=== PATIENT | female | born 1945 | race Caucasian/White ===

== ENCOUNTER 2019-10-25 09:35 | Outpatient (RCR) | payer MEDICARE, SELFPAY ==
[2019-10-25 13:14] LABS: Basophils Absolute Auto 0.1 K/mm3 (0.0-0.1); Basophils Percent Auto 0.2 % (0.2-1.2); Eosinophils Absolute Auto 0.2 K/mm3 (0-0.3); Eosinophils Percent Auto 0.4 % (0-4.4); Hematocrit 38.2 % (37.0-47.0); Hemoglobin 11.1 g/dL (12.0-15.0); Immature Granulocyte Absolute 0.19 K/mm3 (0.00-0.031); Immature Granulocyte Percent A 0.3 % (0-0.5); Lymphocytes Percent Auto 82.9 % (18.3-44.2); Mean Corpuscular HGB Conc 29.1 g/dl (32-36); Mean Corpuscular Hemoglobin 27.4 pg (26-34); Mean Corpuscular Volume 94.3 fl (80-100); Mean Platelet Volume 12.7 fl (7.4-10.4); Monocytes Absolute Auto 1.7 K/mm3 (0.1-0.6); Neutrophils Absolute Auto 7.4 K/mm3 (1.3-6.7); Neutrophils Percent Auto 13.2 % (45.5-73.1); Platelet Count Result 289 k/mm3 (150-375); Red Blood Count 4.05 M/mm3 (4.2-5.4); Red Cell Distribution Width 19.1 % (11.5-14.5)
[2019-10-25 13:24] LABS: Alanine Aminotransferase 31 U/L (4-35); Albumin Level 3.8 g/dL (3.5-5.1); Alkaline Phosphatase 105 U/L (38-126); Aspartate Amino Transferase 37 U/L (14-36); Bilirubin,Total 0.5 mg/dL (0.2-1.3); Blood Urea Nitrogen 30 mg/dL (7-17); Calcium 9.1 mg/dL (8.4-10.2); Carbon Dioxide 22 mmol/L (22-30); Chloride 104 mmol/L (98-107); Estimated Glomerular Filt Rate 40; Glucose 152 mg/dL (65-105); Lactate Dehydrogenase 592 U/L (313-618); Potassium 5.1 mmol/L (3.4-5.0); Sodium 141 mmol/L (137-145)
[2019-10-25 13:49] LABS: White Blood Count 55.9 K/mm3 (4.5-10.0)
[2019-10-25 13:51] LABS: Atypical Lymphocytes Present; Platelet Estimate Adequate (Adequate); Smudge Cells MANY
== END 2020-01-23 23:59 | disposition home or self-care (01) ==
LOC: ANHWCLAB 09:35
PROVIDERS: PCP Family Medicine; Visit Provider Internal Medicine Hematology & Oncology
DX: C91.10 Chronic lymphocytic leukemia of B-cell type not having achieved remission (principal)
CPT/HCPCS: 36415; 80053; 83615; 85025

== ENCOUNTER 2019-12-13 10:12 | Outpatient (CLI) | payer MEDICARE, SELFPAY ==
[2019-12-13 13:18] LABS: Basophils Absolute Auto 0.1 K/mm3 (0.0-0.1); Basophils Percent Auto 0.1 % (0.2-1.2); Eosinophils Absolute Auto 0.3 K/mm3 (0-0.3); Eosinophils Percent Auto 0.4 % (0-4.4); Hematocrit 40.4 % (37.0-47.0); Hemoglobin 11.7 g/dL (12.0-15.0); Immature Granulocyte Absolute 0.36 K/mm3 (0.00-0.031); Immature Granulocyte Percent A 0.5 % (0-0.5); Lymphocytes Absolute Auto 59.71 K/mm3 (0.9-3.2); Mean Corpuscular Hemoglobin 27.2 pg (26-34); Mean Platelet Volume 12.9 fl (7.4-10.4); Monocytes Absolute Auto 1.9 K/mm3 (0.1-0.6); Monocytes Percent Auto 2.6 % (2.6-8.5); Neutrophils Absolute Auto 8.8 K/mm3 (1.3-6.7); Neutrophils Percent Auto 12.4 % (45.5-73.1); Platelet Count Result 226 k/mm3 (150-375); Red Cell Distribution Width 20.3 % (11.5-14.5)
[2019-12-13 13:42] LABS: White Blood Count 71.1 K/mm3 (4.5-10.0)
[2019-12-13 13:43] LABS: Platelet Estimate Adequate (Adequate); Smudge Cells FEW
[2019-12-13 13:47] LABS: Blood Urea Nitrogen 63 mg/dL (7-17); Calcium 9.5 mg/dL (8.4-10.2); Carbon Dioxide 16 mmol/L (22-30); Chloride 114 mmol/L (98-107); Estimated Glomerular Filt Rate 20; Glucose 114 mg/dL (65-105); Magnesium 1.9 mg/dL (1.6-2.3); Potassium 6.9 mmol/L (3.4-5.0); Sodium 142 mmol/L (137-145)
[2019-12-13 13:56] LABS: Free T4 Free Thyroxine 1.23 ng/mL (0.78-2.19); Vitamin D 25 Hydroxy 55.5 ng/mL
[2019-12-13 14:10] LABS: Total Triiodothyronine (T3) 0.99 NG/ML (0.97-1.69)
== END 2019-12-13 10:13 | disposition home or self-care (01) ==
PROVIDERS: PCP Family Medicine; Visit Provider Nurse Practitioner Family
DX: R53.83 Other fatigue (principal); I48.91 Unspecified atrial fibrillation; M19.90 Unspecified osteoarthritis, unspecified site; C91.10 Chronic lymphocytic leukemia of B-cell type not having achieved remission; M06.9 Rheumatoid arthritis, unspecified; R06.02 Shortness of breath; J44.9 Chronic obstructive pulmonary disease, unspecified; E55.9 Vitamin D deficiency, unspecified
CPT/HCPCS: 36415; 80048; 82306; 83735; 84100; 84439; 84443; 84480; 85025

== ENCOUNTER 2019-12-15 15:27 | Inpatient (IN) | payer MEDICARE, SELFPAY ==
[2019-12-15] VITALS (13 sets, daily range): BP systolic 107–149; BP diastolic 33–88; PULSE 53–77; RESP 16–28; TEMP 36–36.8; O2SAT 96–100; BMI 48.9
--- NOTE | ~2019-12-15 | XR_ITS ---
XR chest 1V portable DATE: 12/15/2019 17:05 INDICATION: Shortness of breath. TECHNIQUE: Portable upright AP chest on 12/15/2019 at 1700 hours COMPARISON: 04/11/2019 CT chest AP and lateral chest FINDINGS: Mild cardiomegaly. Aortic calcification and unfolding. No hilar or mediastinal enlargemen t. Possible 8 mm right lower lung mass. No pulmonary infiltrate or consolidation. No pleural effusion or pneumothorax. No pulmonary vascula r congestion. IMPRESSION: Possible approximately 8 mm lung mass, right lower lung No active pulmonary disease Status post cholecystectomy Reviewed, dictated and finalized at location [facility].
--- NOTE | ~2019-12-15 | US_ITS ---
US retroperitoneal comp DATE: 12/18/2019 12:59 INDICATION: Renal failure TECHNIQUE: Real-time imaging of kidneys and urinary bladder COMPARISON: None FINDINGS: Right kidney measures 9.9 cm length. The left kidney measures 8.3 cm length. There is a probable 11 mm cyst of the left kidney. No hydronephrosis is evident. There is bladder wall thickening, measuring up to approximately 3-4 mm thickness. IMPRESSION: No evidence of obstructive uropathy Probable 11 mm left renal cyst Limited evaluation of the kidneys for masses. CT examination or MR examination would be more sensitiv e for such purpose. Reviewed, dictated and finalized at [facility]. Reviewed, dictated and finalized at location [facility]. IMPRESSION: No evidence of obstructive uropathy Probable 11 mm left renal cyst Limited evaluation of the kidneys for masses. CT examination or MR examination would be more sensitive for such purpose.
--- NOTE | ~2019-12-15 | CT_ITS ---
EXAMINATION: CT chest wo con DATE: 12/16/2019 09:18 INDICATION: Lung mass TECHNIQUE: Computed tomography (CT) of the chest was performed without intravenous contrast. Addition al 3D reconstructions utilizing coronal maximum intensity projection (MIP) were performed. Automated exposure control and iterative reconstruction technique were employed. The dose-length product was 49 4.70 mGy-cm. COMPARISON: 04/11/2019 FINDINGS: The nodular opacity of concern on prior radiographs corresponds to a cluster of small nodules, the la rgest measuring 8 x 4 mm in maximal dimensions. These appear unchanged.. Pneumatocele in the right mi ddle lobe. Scattered small regions of peripheral groundglass opacity in both lungs, several with asso ciated smooth septal line thickening which could be related to pneumonia or mild pulmonary edema. No pleural effusion. Mild cardiomegaly. No pericardial effusion. Ectatic ascending thoracic aorta measur ing up to 3.9 x 4.0 cm. Incidentally noted retroesophageal aberrant right subclavian artery. Again is mild mediastinal, bilateral axillary and lower cervical lymphadenopathy. The largest low left jugula r chain lymph node currently measures 2.3 x 1.1 cm which is decreased from 2.7 x 1.3 cm. There is als o been interval decrease in size in the bilateral axillary lymph nodes. For reference a 1.3 x 1.0 cm lymph node along the lateral margin of the left pectoralis major muscle has decreased to 10 by 8mm. T he mediastinal lymph nodes are without significant interval change. No definitive new or enlarging ly mph nodes identified. Cholecystectomy clips at the gallbladder fossa. 1.4 cm hyperdense likely protei naceous/hemorrhagic exophytic cyst at the upper pole of the right kidney. Small sliding-type hiatal h ernia. Severe spondylosis at the lower cervical, lower thoracic and upper lumbar spine. IMPRESSION: 1. No interval change in a cluster of small nodules the largest measuring 8 x 4 mm in the right lower lobe which accounts for the nodular opacity on prior chest radiograph. Recommend follow-up 18-24 mon th low-dose noncontrast chest CT. 2. Multiple new scattered small regions of peripheral groundglass opacity in both lungs with differen tial including pulmonary edema and/or multifocal pneumonia. 3. Likely reactive mediastinal and bilateral cervical and axillary lymphadenopathy with some decrease in size of a few of the cervical and axillary lymph nodes none other new or with definitive increase in size. 4. Cardiomegaly. 5. Small sliding-type hiatal hernia. Reviewed, dictated and finalized at location [facility]. IMPRESSION: 1. No interval change in a cluster of small nodules the largest measuring 8 x 4 mm in the right lower lobe which accounts for the nodular opacity on prior sujata st radiograph. Recommend follow-up 18-24 month low-dose noncontrast chest CT. 2. Multiple new scattered small regions of peripheral groundglass opacity in delma th lungs with differential including pulmonary edema and/or multifocal pneumoni a. 3. Likely reactive mediastinal and bilateral cervical and axillary lymphadenopa thy with some decrease in size of a few of the cervical and axillary lymph node s none other new or with definitive increase in size. 4. Cardiomegaly. 5. Small sliding-type hiatal hernia.
--- NOTE | 2019-12-15 16:27 | ED.RECABL ---
HPI - Recheck/Abnormal Lab/Rx General Chief Complaint: Recheck/Abnormal Lab/Rx Stated Complaint: abn labs Time Seen by Provider: 12/15/19 15:53 Source: patient, family (daughter) and RN notes reviewed Mode of arrival: ambulatory Limitations: no limitations History of Present Illness HPI narrative: Patient with daughter due too abnormal labs. Per daughter states that the patient was told by her primary care provider that her potassium was high, so they called her in a prescription to [facility]. She reports that [facility] did not have the prescription, so the pateint's primary care provider called them back and told them to come directly to the ER. The patient notes that she has been having worsening shortness of breath since 11/12/19. She also notes that she is on Spironolactone and Hydrochlorothiazide. She states that she has chronic bilateral leg swelling but that it was improved recently. She denies any urinary retention, weight changes, poor appetite, chest pain, abdominal pain, rash, or any symptoms at this time. MD complaint: abnormal lab Returns today for: called because of abnormal lab/test Description of abnormal result: High potassium level. Symptoms since prior visit: no new symptoms Associated symptoms: none Related Data Home Medications Medication Instructions Recorded Confirmed folic acid 1 mg tablet 1 mg PO DAILY 08/22/19 08/23/19 lisinopril 20 1 tablet PO DAILY 08/22/19 08/23/19 mg-hydrochlorothiazide 25 mg tablet meloxicam 15 mg tablet 15 mg PO DAILY 08/22/19 08/23/19 methotrexate sodium 2.5 mg tablet 2.5 mg PO WEEKLY 08/22/19 08/23/19 rivaroxaban 15 mg tablet 15 mg PO DAILY 08/22/19 08/23/19 spironolactone 50 mg tablet 50 mg PO BID 08/22/19 08/23/19 amiodarone [Pacerone] 100 mg PO DAILY 12/15/19 atorvastatin 80 mg PO DAILY 12/15/19 omeprazole magnesium [Prilosec OTC] 20 mg PO DAILY 12/15/19 12/15/19 Allergies Allergy/AdvReac Type Severity Reaction Status Date / Time No Known Allergies Allergy Verified 12/15/19 15:46 Review of Systems Review of Systems: All systems reviewed & are unremarkable except as noted in HPI and below Constitutional: Constitutional: Denies poor appetite, Denies weight gain and Denies weight loss Cardiovascular: Cardiovascular: Denies chest pain Gastrointestinal: Gastrointestinal: Denies abdominal pain Genitourinary: Genitourinary: Denies other (Urinary retention) Integumentary/Breasts: Skin/Breast: Denies rash PMFSH Past Medical History Medical History (Updated 12/15/19 @ 20:37 by Sandra Zeng MD) A-fib Acute hyperkalemia Acute renal failure Anxiety Arthritis BCC (basal cell carcinoma) Bronchitis Diastolic dysfunction Diverticulitis GERD (gastroesophageal reflux disease) Heart murmur High cholesterol History of inguinal hernia History of rectal polyps Hypertension Lung mass Morbid obesity with BMI of 45.0-49.9, adult Paroxysmal atrial flutter Polymyalgia rheumatica Renal disease Rheumatic fever Surgical History Surgical History History of cholecystectomy History of inguinal hernia repair History of local excision of skin lesion Social History Social History Smoking status: Never smoker Alcohol intake: never Gender identity (if verbalized by the patient): Female Exam Const: General: no acute distress Nutritional Appearance: obese morbidly obese Orientation/consciousness: patient oriented x3 Limitations: no limitations Resp: Effort & Inspection: normal respiratory effort Auscultation: clear to auscultation bilaterally Cardio: Rate: regular rate Rhythm: regular rhythm Heart sounds: no murmurs GI: Inspection: normal to inspection Skin: General skin exam: other (Multiple skin tags on face) Neuro: General: patient oriented x3 Speech: normal speech Extrem: Right lower extremity: edema Left lower extremity: edema Psych: Appearance: grossly norm
--- NOTE | 2019-12-15 16:51 | ECG_ITS ---
Measurements Intervals [place] Rate: 52 P: 44 AR: 229 QRS: 96 QRSD: 123 T: 39 QT: 430 QTc: 403 Interpretive Statements SINUS BRADYCARDIA WITH FIRST DEGREE AV BLOCK RIGHT BUNDLE BRANCH BLOCK BASELINE ARTIFACT- I, II, III, AVR, AVL, AVF ABNORMAL ECG Electronically Signed On 12-16-2019 13:55:44 CDT by aMnuel Romo D.O.
[2019-12-15 17:22] LABS: Basophils Absolute Auto 0.1 K/mm3 (0.0-0.1); Basophils Percent Auto 0.2 % (0.2-1.2); Eosinophils Absolute Auto 0.2 K/mm3 (0-0.3); Eosinophils Percent Auto 0.3 % (0-4.4); Hematocrit 37.5 % (37.0-47.0); Hemoglobin 10.9 g/dL (12.0-15.0); Immature Granulocyte Absolute 0.23 K/mm3 (0.00-0.031); Immature Granulocyte Percent A 0.4 % (0-0.5); Lymphocytes Absolute Auto 48.04 K/mm3 (0.9-3.2); Lymphocytes Percent Auto 83.1 % (18.3-44.2); Mean Corpuscular HGB Conc 29.1 g/dl (32-36); Mean Corpuscular Hemoglobin 27.1 pg (26-34); Mean Corpuscular Volume 93.3 fl (80-100); Mean Platelet Volume 12.5 fl (7.4-10.4); Monocytes Absolute Auto 1.4 K/mm3 (0.1-0.6); Monocytes Percent Auto 2.5 % (2.6-8.5); Neutrophils Absolute Auto 7.8 K/mm3 (1.3-6.7); Neutrophils Percent Auto 13.5 % (45.5-73.1); Platelet Count Result 225 k/mm3 (150-375); Red Blood Count 4.02 M/mm3 (4.2-5.4)
[2019-12-15 17:30] LABS: White Blood Count 57.8 K/mm3 (4.5-10.0)
[2019-12-15 17:33] LABS: Platelet Estimate Adequate (Adequate); Smudge Cells FEW
[2019-12-15 17:39] LABS: Alanine Aminotransferase 21 U/L (4-35); Albumin Level 3.8 g/dL (3.5-5.1); Alkaline Phosphatase 85 U/L (38-126); Aspartate Amino Transferase 24 U/L (14-36); Bilirubin,Total 0.3 mg/dL (0.2-1.3); Blood Urea Nitrogen 55 mg/dL (7-17); Calcium 9.2 mg/dL (8.4-10.2); Carbon Dioxide 19 mmol/L (22-30); Chloride 116 mmol/L (98-107); Estimated CRCL calculation 22 ml/min; Estimated Glomerular Filt Rate 20; Glucose 110 mg/dL (65-105); Potassium 7.2 mmol/L (3.4-5.0); Sodium 139 mmol/L (137-145)
[2019-12-15 18:02] LABS: Add Urine Microscopic? YES; Appearance Urine Cloudy (Clear); Bacteria Urine Trace /hpf; Bilirubin Urine Negative (Negative); Blood Urine 2+ (Negative); Color Urine Yellow (Yellow); Glucose Urine UA Negative (Negative); Hyaline Casts Urine 20-29 /lpf; Ketones Urine Negative (Negative); Leukocyte Esterase Ur 3+ LEU/UL (Negative); Mucus Urine Rare /lpf; Nitrate Urine Negative (Negative); Protein Urine 1+ mg/dL (Negative); Renal Epithelial Cells Urine Rare /hpf (None Seen); Squamous Epithelial Cell Urine Many /hpf (Few); Urobilinogen Urine Negative mg/dL (<2.0); WBC Urine 31-50 /hpf
[2019-12-15 18:23] LABS: NT Pro B Type Natriuretic Pept 1180 PG/ML (5-100)
--- NOTE | 2019-12-15 18:32 | PC.NURSE ---
Repeat potassium on plasma ordered per [facility].
[2019-12-15 19:17] LABS: Potassium 7.5 mmol/L (3.4-5.0)
--- NOTE | 2019-12-15 19:18 | PC.NURSE ---
Report to DARNELL Fisher, to continue care.
[2019-12-15] MEDS: DEXTROSE 50% 25 GM/50 ML SYRINGE IV PUSH (19:34)
[2019-12-15] MEDS: INSULIN HUMAN REGULAR (*BKC) 100 UNITS/ML 10 UNITS IV PUSH (19:35)
[2019-12-15] MEDS: SODIUM POLYSTYRENE SULFONONATE 15 GM/60 ML BTL 30 GM PO (19:49)
[2019-12-15] MEDS: SODIUM BICARBONATE 8.4% 50 MEQ/50 ML VIAL 118 MEQ IV PUSH (20:04)
[2019-12-15] MEDS: CALCIUM GLUC 1,000 MG/NS 50 ML 1,000 MG/50 ML BAG 100 MG IVPB (20:04)
[2019-12-15] MEDS: SODIUM CHLORIDE 0.9% IV 1,000 ML 999 ML IV CONT (20:49)
[2019-12-15 22:26] LABS: Glucose Point of Care 88 (65-105)
--- NOTE | 2019-12-15 22:39 | ADMGEN ---
This patient, Cheryl Murillo, was admitted to IMU Room 201-01 from ER 12/15/19 2200. Patient/family oriented to hospital policies and general routines including ID bracelet, bed and alarms, visiting hours, pain management, procedures, bathroom and other care routines, personal items, smoking policy, room service/diet, and visiting hours. Valuables list has been completed. Information on how to activate the Rapid Response Team has been discussed. Patient/Family are encouraged to report perceived risks to care and to ask questions if they do not understand what they are told or what they should do.
[2019-12-16] VITALS (14 sets, daily range): BP systolic 116–153; BP diastolic 35–83; PULSE 55–87; RESP 16–22; TEMP 35.9–36.2; O2SAT 97–100
[2019-12-16 01:42] LABS: Blood Urea Nitrogen 52 mg/dL (7-17); Calcium 9.1 mg/dL (8.4-10.2); Carbon Dioxide 21 mmol/L (22-30); Chloride 117 mmol/L (98-107); Estimated CRCL calculation 24 ml/min; Estimated Glomerular Filt Rate 23; Glucose 152 mg/dL (65-105); Sodium 143 mmol/L (137-145)
[2019-12-16] MEDS: SODIUM BICARBONATE 8.4% 50 MEQ/50 ML VIAL IV PUSH (02:04)
[2019-12-16 04:40] LABS: Hematocrit 35.8 % (37.0-47.0); Hemoglobin 10.6 g/dL (12.0-15.0); Mean Corpuscular HGB Conc 29.6 g/dl (32-36); Mean Corpuscular Hemoglobin 27.1 pg (26-34); Mean Corpuscular Volume 91.6 fl (80-100); Mean Platelet Volume 12.6 fl (7.4-10.4); Platelet Count Result 222 k/mm3 (150-375); Red Blood Count 3.91 M/mm3 (4.2-5.4); Red Cell Distribution Width 19.9 % (11.5-14.5)
[2019-12-16 04:44] LABS: White Blood Count 56.7 K/mm3 (4.5-10.0)
[2019-12-16 04:59] LABS: Blood Urea Nitrogen 49 mg/dL (7-17); Calcium 8.9 mg/dL (8.4-10.2); Carbon Dioxide 23 mmol/L (22-30); Chloride 115 mmol/L (98-107); Estimated CRCL calculation 24 ml/min; Estimated Glomerular Filt Rate 23; Glucose 101 mg/dL (65-105); Magnesium 1.7 mg/dL (1.6-2.3); Phosphorus 4.4 mg/dL (2.5-4.5); Potassium 5.9 mmol/L (3.4-5.0); Sodium 143 mmol/L (137-145)
--- NOTE | 2019-12-16 06:15 | PM.IMHP ---
H&P: HPI History of Present Illness Chief complaint: Abnormal labs Narrative: Date and time of patient contact: 12/16/2019 at 6:15 a.m. Cheryl Murillo is a 74 year old female with a past medical history of CHF, chronic kidney disease stage 3, and paroxysmal atrial fibrillation who presented to the ER due to high potassium on outpatient labs. The patient reports that she has not had any recent changes in her home medications. She does report that she eats a lot of baked potatoes but does not eat potato skins. Her home medications to include lisinopril, spironolactone and meloxicam. She had had a routine follow-up appointment with her primary care doctor time they ordered routine labs. Her potassium on December 12 was 6.9. She received a call on December 14 to come to the ER with her potassium was dangerously high. Her potassium was 7.2 and repeat potassium on a serum specimen was 7.5. The patient subsequently received insulin, bicarb, calcium, and Kayexalate. Since she received the Kayexalate she has had numerous loose stools. She denies any history of constipation or diarrhea at home. She has been having increased shortness of breath on exertion for the last month or so and occasional shortness of breath with lying flat. He denies any chest pain or palpitations. She follows with Dr. Romo for her diastolic dysfunction and paroxysmal atrial fibrillation. She reports that her chronic lower extremity swelling is actually improved significantly from baseline. She has not noticed any changes in urinary frequency in usually has to get up twice a night to urinate. She denies any dysuria, hematuria or increased urinary urgency. Review of Systems Review of Systems: Narrative: 12 systems were reviewed with pertinent positives and negatives per HPI. Except as documented in the HPI, all other systems were reviewed and are negative. 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 Napier Diastolic dysfunction Echo March 2019 1. Left ventricular chamber dimension is normal. 2. Left ventricular systolic function is normal, estimated at 60-65%. 3. There is mildly increased left ventricular wall thickness. 4. The left ventricular diastolic function is grade II diastolic dysfunction. 5. E/E' 12 is mildly elevated. 6. Left atrial chamber dimension is mildly enlarged. 7. There is mild aortic valve regurgitation. 8. There is mild tricuspid valve regurgitation. 9. Mild pulmonary hypertension, estimated pulmonary arterial systolic pressure is 41 mmHg. 10. There is trace pulmonic regurgitation. Diverticulitis GERD (gastroesophageal reflux disease) Heart murmur Due to rheumatic fever as a child High cholesterol Hyperparathyroidism, primary Status post parathyroidectomy Hypertension Morbid obesity with BMI of 45.0-49.9, adult Paroxysmal A-fib Paroxysmal atrial flutter Polymyalgia rheumatica Pulmonary hypertension Mild pulmonary hypertension on echo from March 2019 Rheumatic fever Surgical History Surgical History (Updated 12/16/19 @ 07:41 by Idania Graves DO) History of cholecystectomy History of colonoscopy with polypectomy History of inguinal hernia repair History of local excision of skin lesion Basal cell skin cancer from the nose July 2017 Family History Family History (Updated 12/16/19 @ 07:44 by Idania Graves DO) Mother Obesity of complications of obesity in her 60s. Father Heart disease in his 60s of heart disease. Sibling Parkinson disease Brother Breast cancer Sister Social History Social History (Updated 12/16/19 @ 07:
[2019-12-16] MEDS: AMIODARONE HCL 100 MG TABLET PO (08:34)
[2019-12-16] MEDS: FOLIC ACID 1 MG TABLET PO (08:35)
[2019-12-16] MEDS: PANTOPRAZOLE SOD SESQUIHYDRATE 20 MG TAB PO (08:35)
[2019-12-16] MEDS: ATORVASTATIN 40 MG TABLET 80 MG PO (08:35)
--- NOTE | 2019-12-16 10:55 | PM.CNNEP ---
Assessment and Plan Assessment and plan (1) Acute renal failure superimposed on stage 3 chronic kidney disease: Qualifiers: Acute renal failure type: unspecified Qualified Code(s): N17.9 - Acute kidney failure, unspecified; N18.3 - Chronic kidney disease, stage 3 (moderate) Code(s): N17.9 - Acute kidney failure, unspecified; N18.3 - Chronic kidney disease, stage 3 (moderate) Status: Acute Assessment and Plan: The patient has chronic kidney disease. The looks like her baseline creatinine was anywhere from 1.2-1.3 last year and early this year. Was likely this is due to hypertension. She has rheumatoid arthritis as well so could have some autoimmune disease and we will check into this. She was on meloxicam which can make the creatinine worse as well while she is taking it. She is chronically on diuretics although this dose is mild. She has acute kidney injury superimposed on her chronic kidney disease. The creatinine was 2.4 on the . This is when her potassium was 6.9. She was eating and drinking okay she says this whole time. She did not take any new medications. She has not had any urinary symptoms such as bloody urine, foamy urine, and no history of kidney stones, painful urination, or bladder infections. It is possible at this is hemodynamic because of the hypokalemia. If she is pre renal because of the high potassium, then meloxicam and lisinopril could each cause the creatinine to rise more than would be with a degree of prerenal azotemia. At this point I agree with stopping all those medicines and make the potassium go up. We can continue Kayexalate to get the potassium down to normal and then see what happens to the potassium when she is not on anything. I will get urine potassium and osmolality. Will get renin and aldosterone levels as well. (2) Acute hyperkalemia: Code(s): E87.5 - Hyperkalemia Status: Acute Assessment and Plan: The potassium is high most likely because of a combination of things. She does have a mild reduction of her GFR as her baseline is 40. Usually this by itself is not enough to make the potassium rise. She was on meloxicam lisinopril and spironolactone each of which can make the potassium high. She is off these now. She was eating a lot of high potassium foods. At this point we will get her potassium down which hopefully will make her creatinine better. She will be on a low-potassium diet. I talked to her about continuing this at home for the time being as well. She is off all those medications. We can give her 1 more dose of Kayexalate now. (3) Hypertension: Code(s): I10 - Essential (primary) hypertension Status: Acute Assessment and Plan: Blood pressure is doing well right now. It will probably rise at some point. (4) Paroxysmal atrial flutter: Code(s): I48.92 - Unspecified atrial flutter Status: Acute Assessment and Plan: Heart rhythm is regular today. She is on Xarelto History of Present Illness Reason for Consult Consult date: 12/16/19 Chief Complaint Chief complaint: Abnormal labs History of Present Illness Narrative: Cheryl is a very pleasant 74-year-old lady who has hyperkalemia. She says she was in usual state of health until a few days ago when she began to get short of breath. It was exertional. There is no cough or fever. She want her to her primary care doctor, Dr. Hernandez who evaluated her and leisa some blood work. Her potassium came back 6.9. She was called and told to go to the emergency room which she did yesterday. In the ER her potassium was 7.5. She was given Kayexalate and improved. She does have leukemia with a white count in the 50s and the lab was already doing plasma potassium levels. The patient says that she does have some chronic kidney disease. She just found out a few weeks ago when she saw her operations analyst. Her baseline creatinine seems to run fro
[2019-12-16] MEDS: SODIUM POLYSTYRENE SULFONONATE 15 GM/60 ML BTL 30 GM PO (11:57)
[2019-12-16 14:00] LABS: Creatine Kinase 66 U/L (30-135)
[2019-12-16 14:07] LABS: Complement C3 124 mg/dL (88-165)
[2019-12-16 14:13] LABS: Erythrocyte Sedimentation Rate 104 mm/hr (0-20)
--- NOTE | 2019-12-16 15:35 | PM.IMPN ---
Progress Note: A&P Assessment and Plan (1) Acute hyperkalemia: Code(s): E87.5 - Hyperkalemia Status: Acute Assessment and Plan: Potassium was 6.9 prior to admission and 7.2 on admission here. No evidence of dehydration. No new meds. Could be dietary related in combination with her CKD and home medications. Lisinopril and Spironolactone stopped. EKG showing no peaked T waves. hyperkalemia treated and potassium 5.9 this morning. Extra Kayexalate given so will repeat potassium tonight. Continue to follow. (2) Acute renal failure superimposed on stage 3 chronic kidney disease: Qualifiers: Acute renal failure type: unspecified Qualified Code(s): N17.9 - Acute kidney failure, unspecified; N18.3 - Chronic kidney disease, stage 3 (moderate) Code(s): N17.9 - Acute kidney failure, unspecified; N18.3 - Chronic kidney disease, stage 3 (moderate) Status: Acute Assessment and Plan: The patient's baseline creatinine is between 1.1 and 1.3 over the past 10 months. Her creatinine was 2.4 on admission and has improved to 2.1. The patient's home meloxicam, spironolactone, lisinopril with hydrochlorothiazide on hold. Was given some IV fluids but this was stopped. Will hold on further IV fluids and see how she trends. MTX is nephrotoxic but not due to be given until Thursday. Will see how her renal function fares but may need to hold this medication as well. (3) Abnormal CT of the chest: Code(s): R93.89 - Abnormal findings on diagnostic imaging of other specified body structures Status: Acute Assessment and Plan: CT scan also showed scattered small regions of peripheral groundglass opacity in both lungs, several with associated smooth septal line thickening which could be related to pneumonia or mild pulmonary edema but no pleural or pericardial effusions. Mild cardiomegaly noted. Patient without fever. 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 No O2 requirement. Exam benign. Could be pulmonary edema given her EVAN and known chronic diastolic CHF hx. Hold on Lasix. Hold on abx as well. Continue to monitor clinically. (4) Lung mass: Code(s): R91.8 - Other nonspecific abnormal finding of lung field Status: Acute Assessment and Plan: Chest x-ray on admission shows possible 8 mm lung mass in the right lower lobe. This prompted a CT of the chest which showed an 8 mm nodule in the right lower lobe but was unchanged from last year (CT scan in March 2019). The previously noted lymphadenopathy has decreased in size or remained unchanged since last CT scan. Follow up CT of the chest recommended in 18-24 months. (5) Paroxysmal atrial flutter: Code(s): I48.92 - Unspecified atrial flutter Status: Acute Assessment and Plan: Patient maintaining normal sinus rhythm. Continue amiodarone. Xarelto for stroke prophylaxis. (6) Hypertension: Qualifiers: Hypertension type: essential hypertension Qualified Code(s): I10 - Essential (primary) hypertension Code(s): I10 - Essential (primary) hypertension Status: Acute Assessment and Plan: Blood pressure reviewed on 12/16/2019. Blood pressure overall well controlled. Lisinopril and HCTZ on hold. Continue to monitor blood pressure. (7) DVT prophylaxis: Code(s): Z29.9 - Encounter for prophylactic measures, unspecified Status: Acute Assessment and Plan: Xarelto Subjective Date/time seen: 12/16/19 15:35 Interval history: 74yo female with CKD presented to ER with known hyperkalemia from outside labs. Potasium was 7.2. Patient states she was SOB at home but feels better today. She denies CP. She is having multiple stools today related to the Kayexalate. She is eating well. No n/v. Exam Narrative: Exam Narrative: AF 116/53 67 Gen - NARD sitting up in bed Chest - CTA bilaterally, nml RR CV - RRR, S1-S2 with a 2/6 systolic murmur upper s
[2019-12-16 20:43] LABS: Potassium 5.6 mmol/L (3.4-5.0)
[2019-12-16] MEDS: RIVAROXABAN 15 MG TABLET PO (20:54)
[2019-12-16] MEDS: TOLNAFTATE 1% POWDER 45 GM BTL 1 APPLIC TOPICAL (20:54)
[2019-12-17] VITALS (15 sets, daily range): BP systolic 120–138; BP diastolic 35–62; PULSE 54–75; RESP 16–20; TEMP 35.8–36.7; O2SAT 94–100
[2019-12-17 04:55] LABS: Creatinine Urine 149.8 mg/dL; Total Protein Urine Random 8 mg/dL
[2019-12-17 05:12] LABS: Albumin Level 3.5 g/dL (3.5-5.1); Blood Urea Nitrogen 42 mg/dL (7-17); Calcium 8.6 mg/dL (8.4-10.2); Carbon Dioxide 24 mmol/L (22-30); Chloride 113 mmol/L (98-107); Estimated CRCL calculation 23 ml/min; Estimated Glomerular Filt Rate 22; Glucose 106 mg/dL (65-105); Phosphorus 4.1 mg/dL (2.5-4.5); Potassium 5.8 mmol/L (3.4-5.0); Sodium 143 mmol/L (137-145)
[2019-12-17 05:14] LABS: Potassium Urine Random 69.1 meq/L; Sodium Urine Random 132 meq/L
[2019-12-17 05:17] LABS: CRP 1.6 mg/dL (<1.0)
[2019-12-17] MEDS: PANTOPRAZOLE SOD SESQUIHYDRATE 20 MG TAB PO (09:11)
[2019-12-17] MEDS: ATORVASTATIN 40 MG TABLET 80 MG PO (09:11)
[2019-12-17] MEDS: FOLIC ACID 1 MG TABLET PO (09:11)
[2019-12-17] MEDS: AMIODARONE HCL 100 MG TABLET PO (09:11)
[2019-12-17] MEDS: EUCERIN CREAM 120 GM JAR 1 APPLIC TOPICAL (09:12)
[2019-12-17] MEDS: TOLNAFTATE 1% POWDER 45 GM BTL 1 APPLIC TOPICAL ×2 (09:12→20:27)
--- NOTE | 2019-12-17 13:50 | PM.PNNEP ---
Progress Note: A&P Assessment and Plan (1) Acute renal failure superimposed on stage 3 chronic kidney disease: Qualifiers: Acute renal failure type: unspecified Qualified Code(s): N17.9 - Acute kidney failure, unspecified; N18.3 - Chronic kidney disease, stage 3 (moderate) Code(s): N17.9 - Acute kidney failure, unspecified; N18.3 - Chronic kidney disease, stage 3 (moderate) Status: Acute Assessment and Plan: The patient has chronic kidney disease. The looks like her baseline creatinine was anywhere from 1.2-1.3 last year and early this year. Likely this is due to hypertension. She has acute kidney injury superimposed on her chronic kidney disease. The creatinine was 2.4 on the . It has improved only marginally. Urine electrolytes are non pre renal but she was on hydrochlorothiazide when she came in. Will get a renal sonogram. Other labs are pending. Will try some IV fluids. (2) Acute hyperkalemia: Code(s): E87.5 - Hyperkalemia Status: Acute Assessment and Plan: The potassium is high most likely because of a combination of things. Lisinopril, meloxicam, spironolactone, and dehydration are all contributing. Will give another round of Kayexalate. (3) Hypertension: Qualifiers: Hypertension type: essential hypertension Qualified Code(s): I10 - Essential (primary) hypertension Code(s): I10 - Essential (primary) hypertension Status: Acute Assessment and Plan: Blood pressure is doing well right now. (4) Paroxysmal atrial flutter: Code(s): I48.92 - Unspecified atrial flutter Status: Acute Assessment and Plan: Heart rhythm is regular today. She is on Xarelto Subjective Date/time seen: 12/17/19 13:50 Interval history: Patient is alert. She feels better. Her bowels are moving. No belly pain. Review of Systems Cardiovascular: Cardiovascular: Reports no additional cardiovascular complaints Respiratory: Respiratory: Reports no additional respiratory complaints Gastrointestinal: Gastrointestinal: Reports no additional gastrointestinal complaints Genitourinary: Genitourinary: Reports no additional female genitourinary complaints Exam Narrative: Exam Narrative: Well developed well-nourished in no acute distress Lungs clear Heart regular without rub Abdomen bowel sounds positive soft nontender Extremities no edema Skin no rash Objective Data Vital Signs Vital Signs: Vital Signs - 24 hr 12/16/19 14:00 12/16/19 16:00 12/16/19 17:25 Temperature 36.1 C L Pulse Rate 81 63 67 Respiratory Rate 20 Blood Pressure 116/35 L Pulse Oximetry 100 12/16/19 18:00 12/16/19 20:00 12/16/19 22:00 Temperature 36.2 C L Pulse Rate 66 65 67 Respiratory Rate 16 Blood Pressure 124/44 L Pulse Oximetry 97 12/17/19 00:00 12/17/19 01:39 12/17/19 04:00 Temperature 36.6 C 36.2 C L Pulse Rate 65 62 75 Respiratory Rate 16 18 Blood Pressure 128/51 L 134/39 L Pulse Oximetry 96 95 12/17/19 05:32 12/17/19 08:00 12/17/19 09:11 Temperature 35.8 C L Pulse Rate 55 L 56 L 56 L Respiratory Rate 18 Blood Pressure 125/57 L Pulse Oximetry 98 12/17/19 10:09 12/17/19 12:00 Temperature 36.7 C Pulse Rate 62 63 Respiratory Rate 20 Blood Pressure 125/47 L Pulse Oximetry 100 Intake/Output Intake/Output: Intake & Output 12/14/19 12/15/19 12/16/19 12/17/19 23:59 23:59 23:59 23:59 Intake Total 1050 1190 950 Output Total 1 400 Balance 1050 1189 550 Meds/Results Medications: Active Medications Generic Name Dose Route Start Last Admin Trade Name Freq PRN Reason Stop Dose Admin Amiodarone HCl 100 mg 12/16/19 08:00 12/17/19 09:11 Pacerone PO 100 mg DAILY@0800 [facility] Administration Atorvastatin Calcium 80 mg 12/16/19 09:00 12/17/19 09:11 Lipitor PO 80 mg DAILY [facility] Administration Folic Acid 1 mg 12/16/19 09:00 12/17/19 09:11 Folic Aci
[2019-12-17] MEDS: SODIUM POLYSTYRENE SULFONONATE 15 GM/60 ML BTL 30 GM PO (14:20)
--- NOTE | 2019-12-17 16:09 | PM.IMPN ---
Progress Note: A&P Assessment and Plan (1) Acute hyperkalemia: Code(s): E87.5 - Hyperkalemia Status: Acute Assessment and Plan: Potassium was 6.9 prior to admission and 7.2 on admission here. No new meds. Could be dietary related in combination with her CKD and home medications. Lisinopril and Spironolactone stopped. EKG showing no peaked T waves. Hyperkalemia treated and potassium 5.8 this morning. Kayexalate to be repeated. Continue to follow. (2) Acute renal failure superimposed on stage 3 chronic kidney disease: Qualifiers: Acute renal failure type: unspecified Qualified Code(s): N17.9 - Acute kidney failure, unspecified; N18.3 - Chronic kidney disease, stage 3 (moderate) Code(s): N17.9 - Acute kidney failure, unspecified; N18.3 - Chronic kidney disease, stage 3 (moderate) Status: Acute Assessment and Plan: The patient's baseline creatinine is between 1.1-1.3 over the past 10 months. Her creatinine was 2.4 on admission and has not improved significantly. The patient's home meloxicam, spironolactone, lisinopril and HCTZ on hold. Was given some IV fluids but this was stopped. MTX is nephrotoxic so will hold this medication as well. Start NS and re-asses renal function tomorrow. (3) Abnormal CT of the chest: Code(s): R93.89 - Abnormal findings on diagnostic imaging of other specified body structures Status: Acute Assessment and Plan: CT scan also showed scattered small regions of peripheral groundglass opacity in both lungs, several with associated smooth septal line thickening which could be related to pneumonia or mild pulmonary edema but no pleural or pericardial effusions. Mild cardiomegaly noted. Patient without fever. 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 No O2 requirement. Exam benign. Could be pulmonary edema given her EVAN and known chronic diastolic CHF hx. Hold on Lasix because of the EVAN. Hold on abx as well since doubt to be infectious. Continue to monitor clinically. (4) Lung mass: Code(s): R91.8 - Other nonspecific abnormal finding of lung field Status: Acute Assessment and Plan: Chest x-ray on admission shows possible 8 mm lung mass in the right lower lobe. This prompted a CT of the chest which showed an 8 mm nodule in the right lower lobe but was unchanged from last year (CT scan in March 2019). The previously noted lymphadenopathy has decreased in size or remained unchanged since last CT scan. Follow up CT of the chest recommended in 18-24 months. (5) Paroxysmal atrial flutter: Code(s): I48.92 - Unspecified atrial flutter Status: Acute Assessment and Plan: Patient maintaining normal sinus rhythm. Continue amiodarone. Continue Xarelto for stroke prophylaxis. (6) Hypertension: Qualifiers: Hypertension type: essential hypertension Qualified Code(s): I10 - Essential (primary) hypertension Code(s): I10 - Essential (primary) hypertension Status: Acute Assessment and Plan: Blood pressure reviewed on 12/17/2019. Blood pressure overall well controlled. Lisinopril and HCTZ on hold. Continue to monitor blood pressure off medications. (7) DVT prophylaxis: Code(s): Z29.9 - Encounter for prophylactic measures, unspecified Status: Acute Assessment and Plan: Xarelto Subjective Date/time seen: 12/17/19 16:09 Interval history: 74yo female with CKD presented to ER with known hyperkalemia from outside labs. No complaints. No CP or SOB. Feels well. Up to the bedside commode. At home, she uses a walker. No n/v. Eating very well. Exam Narrative: Exam Narrative: AF 125/47 60 Gen - NARD lying semi-recumbent in bed Chest - CTA bilaterally, nml RR CV - RRR, S1-S2; Tele showing no significant dysrhythmias Abd - soft, obese, NT Ext - chronic lymphedema bilateral lower extremity, no pitting edema Psych - Nml mood and affect Skin -
[2019-12-17] MEDS: SODIUM CHLORIDE 0.9% IV 1,000 ML 100 ML IV CONT (17:17)
[2019-12-17] MEDS: RIVAROXABAN 15 MG TABLET PO (20:26)
[2019-12-17 20:36] LABS: Glucose Point of Care 105 (65-105)
[2019-12-18] VITALS (11 sets, daily range): BP systolic 104–138; BP diastolic 41–83; PULSE 57–72; RESP 16–20; TEMP 36.2–36.7; O2SAT 93–99
[2019-12-18 05:02] LABS: Albumin Level 3.2 g/dL (3.5-5.1); Blood Urea Nitrogen 35 mg/dL (7-17); Calcium 8.1 mg/dL (8.4-10.2); Carbon Dioxide 24 mmol/L (22-30); Chloride 112 mmol/L (98-107); Estimated CRCL calculation 25 ml/min; Estimated Glomerular Filt Rate 24; Glucose 110 mg/dL (65-105); Phosphorus 4.1 mg/dL (2.5-4.5); Potassium 4.7 mmol/L (3.4-5.0); Sodium 140 mmol/L (137-145)
[2019-12-18] MEDS: FOLIC ACID 1 MG TABLET PO (08:24)
[2019-12-18] MEDS: EUCERIN CREAM 120 GM JAR 1 APPLIC TOPICAL (08:24)
[2019-12-18] MEDS: TOLNAFTATE 1% POWDER 45 GM BTL 1 APPLIC TOPICAL ×2 (08:24→20:07)
[2019-12-18] MEDS: ATORVASTATIN 40 MG TABLET 80 MG PO (08:24)
[2019-12-18] MEDS: PANTOPRAZOLE SOD SESQUIHYDRATE 20 MG TAB PO (08:24)
[2019-12-18] MEDS: AMIODARONE HCL 100 MG TABLET PO (08:25)
[2019-12-18] MEDS: SODIUM CHLORIDE 0.9% IV 1,000 ML 100 ML IV CONT (10:58)
--- NOTE | 2019-12-18 11:57 | PM.IMPN ---
Progress Note: A&P Assessment and Plan (1) Acute hyperkalemia: Code(s): E87.5 - Hyperkalemia Status: Acute Assessment and Plan: Potassium was 6.9 prior to admission and 7.2 on admission here. No new meds. Could be dietary related in combination with her CKD/EVAN and home medications. Lisinopril and Spironolactone stopped. EKG showing no peaked T waves. Hyperkalemia treated and potassium 4.7 this morning. Continue to follow. Okay to stop tele. (2) Acute renal failure superimposed on stage 3 chronic kidney disease: Qualifiers: Acute renal failure type: unspecified Qualified Code(s): N17.9 - Acute kidney failure, unspecified; N18.3 - Chronic kidney disease, stage 3 (moderate) Code(s): N17.9 - Acute kidney failure, unspecified; N18.3 - Chronic kidney disease, stage 3 (moderate) Status: Acute Assessment and Plan: The patient's baseline creatinine is between 1.1-1.3 over the past 10 months. Her creatinine was 2.4 on admission. Cr relateively unchanged and IV fluids started yesterday. Cr has improved slightly down to 2.0. The patient's home meloxicam, spironolactone, lisinopril and HCTZ on hold. MTX is nephrotoxic so this was held as well. Continue to monitor. (3) Abnormal CT of the chest: Code(s): R93.89 - Abnormal findings on diagnostic imaging of other specified body structures Status: Acute Assessment and Plan: CT scan also showed scattered small regions of peripheral groundglass opacity in both lungs, several with associated smooth septal line thickening which could be related to pneumonia or mild pulmonary edema but no pleural or pericardial effusions. Mild cardiomegaly noted. Patient without fever. 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 No O2 requirement. Exam benign. Could be pulmonary edema given her EVAN and known chronic diastolic CHF hx. Hold on Lasix because of the EVAN. Hold on abx as well since doubt to be infectious. Continue to monitor clinically. (4) Lung mass: Code(s): R91.8 - Other nonspecific abnormal finding of lung field Status: Acute Assessment and Plan: Chest x-ray on admission shows possible 8 mm lung mass in the right lower lobe. This prompted a CT of the chest which showed an 8 mm nodule in the right lower lobe but was unchanged from last year (CT scan in March 2019). The previously noted lymphadenopathy has decreased in size or remained unchanged since last CT scan. Follow up CT of the chest recommended in 18-24 months. (5) Paroxysmal atrial flutter: Code(s): I48.92 - Unspecified atrial flutter Status: Acute Assessment and Plan: Patient maintaining normal sinus rhythm. Continue amiodarone. Continue Xarelto for stroke prophylaxis. (6) Hypertension: Qualifiers: Hypertension type: essential hypertension Qualified Code(s): I10 - Essential (primary) hypertension Code(s): I10 - Essential (primary) hypertension Status: Acute Assessment and Plan: Blood pressure reviewed on 12/18/19. Blood pressure well controlled. Lisinopril and HCTZ on hold. Continue to monitor blood pressure off medications. (7) DVT prophylaxis: Code(s): Z29.9 - Encounter for prophylactic measures, unspecified Status: Acute Assessment and Plan: Xarelto Subjective Date/time seen: 12/18/19 11:57 Interval history: 74yo female with CKD presented to ER with known hyperkalemia from outside labs. Feels well today. Was up walking in the halls with therapy. No chest pain or shortness of breath. No nausea or vomiting. No headaches. Exam Narrative: Exam Narrative: AF 138/47 61 Gen - NARD Chest - CTA bilaterally, nml RR CV - RRR, S1-S2; Tele showing occasional pause Abd - soft, obese, NT, +BS Ext - chronic lymphedema bilateral lower extremity, no pitting edema Psych - Nml mood and affect Skin - warm and dry Objective Data Vital Signs Vital Signs
--- NOTE | 2019-12-18 12:04 | PM.PNNEP ---
Progress Note: A&P Assessment and Plan (1) Acute renal failure superimposed on stage 3 chronic kidney disease: Qualifiers: Acute renal failure type: unspecified Qualified Code(s): N17.9 - Acute kidney failure, unspecified; N18.3 - Chronic kidney disease, stage 3 (moderate) Code(s): N17.9 - Acute kidney failure, unspecified; N18.3 - Chronic kidney disease, stage 3 (moderate) Status: Acute Assessment and Plan: The patient has chronic kidney disease. The looks like her baseline creatinine was anywhere from 1.2-1.3 last year and early this year. Likely this is due to hypertension. She has acute kidney injury superimposed on her chronic kidney disease. The creatinine was 2.4 on the . It has improved a little to 2.0. Urine electrolytes are non pre renal but she was on hydrochlorothiazide when she came in. Will get a renal sonogram. Urinalysis showed some red cells and white cells. Cultures negative. Possibly contamination. CPK is normal. Getting IV fluids. (2) Acute hyperkalemia: Code(s): E87.5 - Hyperkalemia Status: Acute Assessment and Plan: The potassium is high most likely because of a combination of things. Lisinopril, meloxicam, spironolactone, and dehydration are all contributing. Potassium is okay today. We will see how it is tomorrow (3) Hypertension: Qualifiers: Hypertension type: essential hypertension Qualified Code(s): I10 - Essential (primary) hypertension Code(s): I10 - Essential (primary) hypertension Status: Acute Assessment and Plan: Blood pressure is doing well right now. Follow this along. We will probably need to fold antihypertensives back as it rises (4) Paroxysmal atrial flutter: Code(s): I48.92 - Unspecified atrial flutter Status: Acute Assessment and Plan: Heart rhythm is regular today. She is on Xarelto Subjective Date/time seen: 12/18/19 12:04 Interval history: Patient is alert. Eating really well. No belly pain. Review of Systems Cardiovascular: Cardiovascular: Reports no additional cardiovascular complaints Respiratory: Respiratory: Reports no additional respiratory complaints Gastrointestinal: Gastrointestinal: Reports no additional gastrointestinal complaints Genitourinary: Genitourinary: Reports no additional female genitourinary complaints Exam Narrative: Exam Narrative: Well developed well-nourished in no acute distress Lungs clear bilaterally Heart regular without rub Abdomen bowel sounds positive soft nontender Extremities no edema Skin no rash or nodules Objective Data Vital Signs Vital Signs: Vital Signs - 24 hr 12/17/19 14:38 12/17/19 16:00 12/17/19 18:25 Temperature 36.3 C L Pulse Rate 67 64 66 Respiratory Rate 20 Blood Pressure 138/62 Pulse Oximetry 97 12/17/19 19:31 12/17/19 20:00 12/17/19 22:00 Temperature 36.5 C Pulse Rate 64 65 67 Respiratory Rate 20 20 Blood Pressure 120/40 L Pulse Oximetry 95 95 12/17/19 23:46 12/18/19 00:00 12/18/19 02:00 Temperature 36.5 C Pulse Rate 67 63 57 L Respiratory Rate 18 18 Blood Pressure 128/35 L Pulse Oximetry 94 94 12/18/19 04:00 12/18/19 06:00 12/18/19 08:00 Temperature 36.7 C 36.2 C L Pulse Rate 60 61 59 L Respiratory Rate 16 16 Blood Pressure 104/59 L 138/47 L Pulse Oximetry 98 96 12/18/19 08:25 12/18/19 10:20 Temperature Pulse Rate 61 61 Respiratory Rate Blood Pressure Pulse Oximetry Intake/Output Intake/Output: Intake & Output 12/15/19 12/16/19 12/17/19 12/18/19 23:59 23:59 23:59 23:59 Intake Total 1050 1190 1930 2162 Output Total 1 1225 400 Balance 1050 8792 880 9872 Meds/Results Medications: Active Medications Generic Name Dose Route Start Last Admin Trade Name Freq PRN Reason Stop Dose Admin Amiodarone HCl 100 mg 12/16/19 08:00 12/18/19 08:25 Pacerone PO 100 mg DAILY@0800 [facility]
--- NOTE | 2019-12-18 12:52 | PCOTNOTE ---
Pt off floor for ultrasound, will attempt again tomorrow
--- NOTE | 2019-12-18 15:50 | PC.NURSE ---
This patient, Cheryl Murillo, was transferred to [ ] on 12/18/19 at 1550. Personal belongings sent with patient. Belongings list checked and signed with receiving RN. Report given to DARNELL Rutledge. Appropriate documentation sent with patient.
--- NOTE | 2019-12-18 15:55 | PC.NURSE ---
This patient, Cheryl Murillo, was received from IMU on 12/18/19 at 1603. Personal belongings list checked and signed. Patient/family oriented to unit policies and routines. Report received from DARNELL Bacon.
[2019-12-18 18:26] LABS: Complement Total CH50 >60 U/mL (31-60)
[2019-12-18] MEDS: RIVAROXABAN 15 MG TABLET PO (20:07)
[2019-12-18 22:50] LABS: Kappa\\Lambda Light Chains 3.28 (0.26-1.65); Lambda Light Chain 27.2 mg/L (5.7-26.3)
[2019-12-19] VITALS (7 sets, daily range): BP systolic 127–166; BP diastolic 43–70; PULSE 58–66; RESP 16–20; TEMP 35.6–36.3; O2SAT 93–100
[2019-12-19] MEDS: SODIUM CHLORIDE 0.9% IV 1,000 ML 100 ML IV CONT ×2 (00:50→13:40)
[2019-12-19 05:22] LABS: Albumin Level 2.9 g/dL (3.5-5.1); Blood Urea Nitrogen 25 mg/dL (7-17); Calcium 7.5 mg/dL (8.4-10.2); Carbon Dioxide 23 mmol/L (22-30); Chloride 111 mmol/L (98-107); Estimated CRCL calculation 29 ml/min; Estimated Glomerular Filt Rate 29; Glucose 105 mg/dL (65-105); Phosphorus 3.5 mg/dL (2.5-4.5); Potassium 4.3 mmol/L (3.4-5.0); Sodium 139 mmol/L (137-145)
--- NOTE | 2019-12-19 06:53 | PM.PNNEP ---
Progress Note: A&P Assessment and Plan (1) Acute renal failure superimposed on stage 3 chronic kidney disease: Qualifiers: Acute renal failure type: unspecified Qualified Code(s): N17.9 - Acute kidney failure, unspecified; N18.3 - Chronic kidney disease, stage 3 (moderate) Code(s): N17.9 - Acute kidney failure, unspecified; N18.3 - Chronic kidney disease, stage 3 (moderate) Status: Acute Assessment and Plan: The patient has chronic kidney disease. The looks like her baseline creatinine was anywhere from 1.2-1.3 last year and early this year. Likely this is due to hypertension. She has acute kidney injury superimposed on her chronic kidney disease. The creatinine was 2.4 on the . It has improved to 1.7. Due to dehydration. Continue IV fluids one more day. (2) Acute hyperkalemia: Code(s): E87.5 - Hyperkalemia Status: Acute Assessment and Plan: The potassium is high most likely because of Lisinopril, meloxicam, spironolactone, and dehydration. Potassium is okay today. (3) Hypertension: Qualifiers: Hypertension type: essential hypertension Qualified Code(s): I10 - Essential (primary) hypertension Code(s): I10 - Essential (primary) hypertension Status: Acute Assessment and Plan: Blood pressure is well controlled off antihypertensives. (4) Paroxysmal atrial flutter: Code(s): I48.92 - Unspecified atrial flutter Status: Acute Assessment and Plan: Heart rhythm is regular today. She is on Xarelto Subjective Date/time seen: 12/19/19 06:53 Interval history: Patient is alert. Making plenty of urine. No chest pain or shortness of breath. No belly pain. Review of Systems Cardiovascular: Cardiovascular: Reports no additional cardiovascular complaints Respiratory: Respiratory: Reports no additional respiratory complaints Gastrointestinal: Gastrointestinal: Reports no additional gastrointestinal complaints Genitourinary: Genitourinary: Reports no additional female genitourinary complaints Exam Narrative: Exam Narrative: Well developed well-nourished in no acute distress Lungs clear to auscultation Heart regular without rub Abdomen bowel sounds positive soft nontender Extremities no edema Skin no rash Objective Data Vital Signs Vital Signs: Vital Signs - 24 hr 12/18/19 08:00 12/18/19 08:25 12/18/19 10:20 Temperature 36.2 C L Pulse Rate 59 L 61 61 Respiratory Rate 16 Blood Pressure 138/47 L Pulse Oximetry 96 12/18/19 12:00 12/18/19 16:00 12/18/19 18:58 Temperature 36.2 C L 36.4 C 36.6 C Pulse Rate 67 61 66 Respiratory Rate 16 18 18 Blood Pressure 127/49 L 115/83 134/48 L Pulse Oximetry 98 95 99 12/18/19 22:00 12/19/19 02:00 12/19/19 05:55 Temperature 36.2 C L 36.3 C L 36.1 C L Pulse Rate 69 61 61 Respiratory Rate 20 16 20 Blood Pressure 126/41 L 127/43 L 132/48 L Pulse Oximetry 93 93 94 Intake/Output Intake/Output: Intake & Output 12/16/19 12/17/19 12/18/19 12/19/19 23:59 23:59 23:59 23:59 Intake Total 1190 1930 3572 1040 Output Total 1 1225 400 500 Balance 3749 812 1422 540 Meds/Results Medications: Active Medications Generic Name Dose Route Start Last Admin Trade Name Freq PRN Reason Stop Dose Admin Amiodarone HCl 100 mg 12/16/19 08:00 12/18/19 08:25 Pacerone PO 100 mg DAILY@0800 [facility] Administration Atorvastatin Calcium 80 mg 12/16/19 09:00 12/18/19 08:24 Lipitor PO 80 mg DAILY [facility] Administration Folic Acid 1 mg 12/16/19 09:00 12/18/19 08:24 Folic Acid PO 1 mg DAILY [facility] Administration Sodium Chloride 1,000 mls @ 100 mls/hr 12/17/19 16:45 12/19/19 05:26 Normal Saline Iv IV CONT 100 mls/hr .Q10H [facility] Infusion Methotrexate 2.5 mg 12/18/19 09:00 Methotrexate Tab (*Chemo) PO Perales@0900 KATHY Methotrexate 2.5 mg 12/18/19 21:00 Methotrexate Tab (*Chemo) PO Perales@2100 [facility] Methotre
[2019-12-19] MEDS: PANTOPRAZOLE SOD SESQUIHYDRATE 20 MG TAB PO (08:31)
[2019-12-19] MEDS: ATORVASTATIN 40 MG TABLET 80 MG PO (08:31)
[2019-12-19] MEDS: AMIODARONE HCL 100 MG TABLET PO (08:31)
[2019-12-19] MEDS: FOLIC ACID 1 MG TABLET PO (08:31)
[2019-12-19] MEDS: TOLNAFTATE 1% POWDER 45 GM BTL 1 APPLIC TOPICAL ×2 (08:32→20:51)
[2019-12-19] MEDS: EUCERIN CREAM 120 GM JAR 1 APPLIC TOPICAL (08:33)
--- NOTE | 2019-12-19 16:21 | PM.IMPN ---
Progress Note: A&P Assessment and Plan (1) Acute hyperkalemia: Code(s): E87.5 - Hyperkalemia Status: Acute Assessment and Plan: Potassium was 6.9 prior to admission and 7.2 on admission here. No new meds. Could be dietary related in combination with her CKD/EVAN and home medications. Lisinopril and Spironolactone stopped. EKG showing no peaked T waves. Hyperkalemia treated and potassium 4.3 this morning. Continue to follow. (2) Acute renal failure superimposed on stage 3 chronic kidney disease: Qualifiers: Acute renal failure type: unspecified Qualified Code(s): N17.9 - Acute kidney failure, unspecified; N18.3 - Chronic kidney disease, stage 3 (moderate) Code(s): N17.9 - Acute kidney failure, unspecified; N18.3 - Chronic kidney disease, stage 3 (moderate) Status: Acute Assessment and Plan: The patient's baseline creatinine is between 1.1-1.3 over the past 10 months. Her creatinine was 2.4 on admission. Cr had been relatively unchanged initially but better today at 1.7. The patient's home meloxicam, spironolactone, lisinopril and HCTZ on hold. MTX is nephrotoxic so this was held as well. Continue IV fluids one more day. Continue to monitor. Appreciate nephrology input. (3) Abnormal CT of the chest: Code(s): R93.89 - Abnormal findings on diagnostic imaging of other specified body structures Status: Acute Assessment and Plan: CT scan also showed scattered small regions of peripheral groundglass opacity in both lungs, several with associated smooth septal line thickening which could be related to pneumonia or mild pulmonary edema but no pleural or pericardial effusions. Mild cardiomegaly noted. Patient without fever. 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 No O2 requirement. Could be pulmonary edema given her EVAN and known chronic diastolic CHF hx. Hold on abx as well since doubt to be infectious. Sine rhonchi so will IV fluid rate. Continue to monitor clinically. (4) Lung mass: Code(s): R91.8 - Other nonspecific abnormal finding of lung field Status: Acute Assessment and Plan: Chest x-ray on admission shows possible 8 mm lung mass in the right lower lobe. This prompted a CT of the chest which showed an 8 mm nodule in the right lower lobe but was unchanged from last year (CT scan in March 2019). The previously noted lymphadenopathy has decreased in size or remained unchanged since last CT scan. Follow up CT of the chest recommended in 18-24 months. (5) Paroxysmal atrial flutter: Code(s): I48.92 - Unspecified atrial flutter Status: Acute Assessment and Plan: Patient had been maintaining normal sinus rhythm. Continue amiodarone. Continue Xarelto for stroke prophylaxis. (6) Hypertension: Qualifiers: Hypertension type: essential hypertension Qualified Code(s): I10 - Essential (primary) hypertension Code(s): I10 - Essential (primary) hypertension Status: Acute Assessment and Plan: Blood pressure reviewed on 12/19/19. Blood pressure mostly well controlled. Lisinopril and HCTZ on hold. Continue to monitor blood pressure off medications. (7) DVT prophylaxis: Code(s): Z29.9 - Encounter for prophylactic measures, unspecified Status: Acute Assessment and Plan: Xarelto Subjective Date/time seen: 12/19/19 16:21 Interval history: 74yo female with CKD presented to ER with known hyperkalemia from outside labs. No complaints. No n/v. No SANDOVAL. Eating normally. Up walking to BR and was up to the chair. No CP or SOB. Exam Narrative: Exam Narrative: AF 154/59 Gen - NARD lying almost flat in bed Chest - few basilar rhonchi o/w clear CV - RRR, S1-S2 Abd - soft, obese, NT, +BS Ext - chronic lymphedema bilateral lower extremity, no pitting edema Psych - Nml mood and affect Skin - warm and dry Objective Data Vital Signs Vital Signs: Vi
[2019-12-19] MEDS: RIVAROXABAN 15 MG TABLET PO (20:51)
[2019-12-20 02:28] VITALS: BP 134/46; PULSE 59; RESP 16; TEMP 35.9; O2SAT 95
[2019-12-20] MEDS: SODIUM CHLORIDE 0.9% IV 1,000 ML 75 ML IV CONT (03:36)
[2019-12-20 05:34] LABS: Blood Urea Nitrogen 20 mg/dL (7-17); Calcium 7.2 mg/dL (8.4-10.2); Carbon Dioxide 22 mmol/L (22-30); Chloride 111 mmol/L (98-107); Estimated CRCL calculation 35 ml/min; Estimated Glomerular Filt Rate 37; Glucose 103 mg/dL (65-105); Phosphorus 3.1 mg/dL (2.5-4.5); Potassium 4.3 mmol/L (3.4-5.0); Sodium 138 mmol/L (137-145)
[2019-12-20 06:19] VITALS: BP 147/66; PULSE 57; RESP 16; TEMP 36.1; O2SAT 98
[2019-12-20] MEDS: ATORVASTATIN 40 MG TABLET 80 MG PO (09:29)
[2019-12-20] MEDS: PANTOPRAZOLE SOD SESQUIHYDRATE 20 MG TAB PO (09:29)
[2019-12-20] MEDS: FOLIC ACID 1 MG TABLET PO (09:29)
[2019-12-20 09:30] VITALS: PULSE 64
[2019-12-20] MEDS: AMIODARONE HCL 100 MG TABLET PO (09:30)
--- NOTE | 2019-12-20 09:35 | PM.PNNEP ---
Progress Note: A&P Assessment and Plan (1) Acute renal failure superimposed on stage 3 chronic kidney disease: Qualifiers: Acute renal failure type: unspecified Qualified Code(s): N17.9 - Acute kidney failure, unspecified; N18.3 - Chronic kidney disease, stage 3 (moderate) Code(s): N17.9 - Acute kidney failure, unspecified; N18.3 - Chronic kidney disease, stage 3 (moderate) Status: Acute Assessment and Plan: The patient has chronic kidney disease. The looks like her baseline creatinine was anywhere from 1.2-1.3 last year and early this year. Likely this is due to hypertension. She has acute kidney injury superimposed on her chronic kidney disease. The creatinine was 2.4 on the . It has improved to her former baseline. Stop IV fluids. Okay for discharge at any time when others are ready (2) Acute hyperkalemia: Code(s): E87.5 - Hyperkalemia Status: Acute Assessment and Plan: The potassium is high most likely because of Lisinopril, meloxicam, spironolactone, and dehydration. Potassium is okay today. (3) Hypertension: Qualifiers: Hypertension type: essential hypertension Qualified Code(s): I10 - Essential (primary) hypertension Code(s): I10 - Essential (primary) hypertension Status: Acute Assessment and Plan: Blood pressure is, as predicted, starting to creep up of her blood pressure pills. Will add amlodipine 2.5 mg per day. She may be able to go back on her hydrochlorothiazide at 1 point down the line (4) Paroxysmal atrial flutter: Code(s): I48.92 - Unspecified atrial flutter Status: Acute Assessment and Plan: Heart rhythm is regular today. She is on Xarelto Subjective Date/time seen: 12/20/19 09:35 Interval history: Patient is alert. Making plenty of urine. Eating well. Review of Systems Cardiovascular: Cardiovascular: Reports no additional cardiovascular complaints Respiratory: Respiratory: Reports no additional respiratory complaints Gastrointestinal: Gastrointestinal: Reports no additional gastrointestinal complaints Genitourinary: Genitourinary: Reports no additional female genitourinary complaints Exam Narrative: Exam Narrative: Well developed well-nourished in no acute distress Lungs clear Heart regular without rub Abdomen bowel sounds positive soft nontender Extremities no edema Skin no rash or subcu nodules Objective Data Vital Signs Vital Signs: Vital Signs - 24 hr 12/19/19 10:03 12/19/19 13:41 12/19/19 16:00 Temperature 36.2 C L 36.1 C L 36.1 C L Pulse Rate 58 L 63 65 Respiratory Rate 18 18 18 Blood Pressure 139/60 148/70 H 154/59 H Pulse Oximetry 96 100 99 12/19/19 21:22 12/20/19 02:28 12/20/19 06:19 Temperature 35.6 C L 35.9 C L 36.1 C L Pulse Rate 64 59 L 57 L Respiratory Rate 16 16 16 Blood Pressure 166/63 H 134/46 L 147/66 H Pulse Oximetry 100 95 98 12/20/19 09:30 Temperature Pulse Rate 64 Respiratory Rate Blood Pressure Pulse Oximetry Intake/Output Intake/Output: Intake & Output 12/17/19 12/18/19 12/19/19 12/20/19 23:59 23:59 23:59 23:59 Intake Total 1930 3572 3010 1640 Output Total 1225 400 850 400 Balance 705 3172 2160 1240 Meds/Results Medications: Active Medications Generic Name Dose Route Start Last Admin Trade Name Freq PRN Reason Stop Dose Admin Amiodarone HCl 100 mg 12/16/19 08:00 12/20/19 09:30 Pacerone PO 100 mg DAILY@0800 [facility] Administration Atorvastatin Calcium 80 mg 12/16/19 09:00 12/20/19 09:29 Lipitor PO 80 mg DAILY [facility] Administration Folic Acid 1 mg 12/16/19 09:00 12/20/19 09:29 Folic Acid PO 1 mg DAILY [facility] Administration Sodium Chloride 1,000 mls @ 75 mls/hr 12/17/19 16:45 12/20/19 06:13 Normal Saline Iv IV CONT 75 mls/hr .[id number] [facility] Infusion Methotrexate 2.5 mg 12/18/19 09:00 Methotrexate Tab (*Chemo) PO Perales@0900 [facility] Methotrexate
[2019-12-20 10:00] VITALS: BP 145/45; PULSE 62; RESP 19; TEMP 36.4; O2SAT 98
--- NOTE | 2019-12-20 10:16 | PM.IMPN ---
Progress Note: A&P Assessment and Plan (1) Acute hyperkalemia: Code(s): E87.5 - Hyperkalemia Status: Acute Assessment and Plan: Potassium was 6.9 prior to admission and 7.2 on admission here. No new meds. Could be dietary related in combination with her CKD/EVAN and home medications. Lisinopril and spironolactone both discontinued on admission. EKG reviewed with no peaked T waves. Hyperkalemia treated. Potassium remains 4.3 today. Will need to follow as outpatient. (2) Acute renal failure superimposed on stage 3 chronic kidney disease: Qualifiers: Acute renal failure type: unspecified Qualified Code(s): N17.9 - Acute kidney failure, unspecified; N18.3 - Chronic kidney disease, stage 3 (moderate) Code(s): N17.9 - Acute kidney failure, unspecified; N18.3 - Chronic kidney disease, stage 3 (moderate) Status: Acute Assessment and Plan: Baseline 1.10-1.30. Creatinine now back down to 1.40 today. Home lisinoopril, spironolactone, HCTZ, and meloxicam. Methotrexate has also been on hold. Nephrology consulted and appreciate. (3) Abnormal CT of the chest: Code(s): R93.89 - Abnormal findings on diagnostic imaging of other specified body structures Status: Acute Assessment and Plan: CT scan showed scattered small regions of peripheral groundglass opacity in both lungs, several with associated smooth septal line thickening which could be related to pneumonia or mild pulmonary edema but no pleural or pericardial effusions. Mild cardiomegaly noted. Patient without fever. 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 No O2 requirement. Could be pulmonary edema given her EVAN and known chronic diastolic CHF. No antibiotics as not consistent with infectious process. (4) Lung mass: Code(s): R91.8 - Other nonspecific abnormal finding of lung field Status: Acute Assessment and Plan: Chest x-ray on admission shows possible 8 mm lung mass in the right lower lobe. This prompted a CT of the chest which showed an 8 mm nodule in the right lower lobe but was unchanged from last year (CT scan in March 2019). The previously noted lymphadenopathy has decreased in size or remained unchanged since last CT scan. Follow up CT of the chest recommended in 18-24 months. (5) Paroxysmal atrial flutter: Code(s): I48.92 - Unspecified atrial flutter Status: Acute Assessment and Plan: Remains in sinus rhythm. Continue amiodarone. Continue Xarelto for stroke prophylaxis. (6) Hypertension: Qualifiers: Hypertension type: essential hypertension Qualified Code(s): I10 - Essential (primary) hypertension Code(s): I10 - Essential (primary) hypertension Status: Acute Assessment and Plan: Blood pressure reviewed on 12/20/2019 and controlled. Home dedications remain on hold but amlodipine 2.5mg added per nephrology. Will need to follow as outpatient. (7) DVT prophylaxis: Code(s): Z29.9 - Encounter for prophylactic measures, unspecified Status: Acute Assessment and Plan: Xarelto. Time Spent With Patient Time with patient: 15 - 25 minutes Subjective Date/time seen: 12/20/19 10:16 Interval history: Date of Service: 12/20/2019. 74yo female with CKD admitted with hyperkalemia. Also with acute on chronic renal failure. Feelig much better today. No chest pain or shortness of breath. No abdominal pain. Wants to go home. Review of Systems Review of Systems: Narrative: Feeling better. Wants to go home. Constitutional: Constitutional: Denies chills and Denies fever(s) ENT: Denies nasal congestion and Denies nasal discharge Cardiovascular: Cardiovascular: Denies chest pain Respiratory: Respiratory: Denies dyspnea Gastrointestinal: Gastrointestinal: Denies abdominal pain, Denies nausea and Denies vomiting Genitourinary: Genitourinary: Reports no additional female genitourinary complaints Musculoskeletal:
[2019-12-20] MEDS: TOLNAFTATE 1% POWDER 45 GM BTL 1 APPLIC TOPICAL (10:38)
[2019-12-20] MEDS: EUCERIN CREAM 120 GM JAR 1 APPLIC TOPICAL (10:39)
--- NOTE | 2019-12-20 18:45 | PM.DS ---
DS: Diagnosis Admitting Diagnosis Admitting Diagnosis: Hyperkalemia Discharge Diagnosis (1) Acute hyperkalemia: Code(s): E87.5 - Hyperkalemia Status: Acute (2) Acute renal failure superimposed on stage 3 chronic kidney disease: Qualifiers: Acute renal failure type: unspecified Qualified Code(s): N17.9 - Acute kidney failure, unspecified; N18.3 - Chronic kidney disease, stage 3 (moderate) Code(s): N17.9 - Acute kidney failure, unspecified; N18.3 - Chronic kidney disease, stage 3 (moderate) Status: Acute (3) Abnormal CT of the chest: Code(s): R93.89 - Abnormal findings on diagnostic imaging of other specified body structures Status: Acute (4) Lung mass: Code(s): R91.8 - Other nonspecific abnormal finding of lung field Status: Acute (5) Paroxysmal atrial flutter: Code(s): I48.92 - Unspecified atrial flutter Status: Acute (6) Hypertension: Qualifiers: Hypertension type: essential hypertension Qualified Code(s): I10 - Essential (primary) hypertension Code(s): I10 - Essential (primary) hypertension Status: Acute DS: Summary Hospital Course Reason for hospitalization: Abnormal labs. Hospital Course: Date of Service of Discharge: December 20, 2019. History of Present Illness: Patient is a 74-year-old woman with known chronic kidney disease stage 3, congestive heart failure and paroxysmal atrial fibrillation present to the emergency room due to elevated potassium on outpatient labs. Patient reports no significant changes in her home medications. She does eat a lot of baked potatoes but does not eat the scans. Home medications do include lisinopril, spironolactone and meloxicam as well as methotrexate. Patient reports labs were ordered at a routine follow-up appointment with her primary care physician. Potassium was noted to be 6.9 on 12/13/2019. She received a call on 12/15/2019 to go to the emergency room with potassium dangerously high. Repeat potassium was noted to be 7.2 in the emergency room. She did receive insulin, bicarb, calcium and Kayexalate. She did have numerous loose stools after the Kayexalate. No recent chest pain. She has noticed increased shortness of breath for the past month or so. She is followed by Dr. Romo for her congestive heart failure and atrial fibrillation. Lower extremity swelling is chronic and actually improved from baseline. She was also noted to have acute on chronic renal failure in the emergency room. With her findings, she was admitted for further evaluation and treatment. Course in Hospital: She was admitted and given appropriate treatment elevated potassium as noted. With treatment potassium returned to normal. With the increase in creatinine from her baseline, lisinopril, spironolactone and meloxicam were all held. Methotrexate was initially given but then also held due to kidney function. Patient was seen in consultation by Nephrology. Retroperitoneum ultrasound was done with probable Olson mm left renal cyst but no evidence of obstructive uropathy. Creatinine continued to be followed and did return back to her baseline at 1.40 by discharge. Plan to continue follow-up as an outpatient. With the holding of her multiple blood pressure medications, blood pressure did begin to increase. Low-dose amlodipine at 2.5 mg daily was added by Nephrology on the final day. Blood pressure to be followed as an outpatient with this new medication. Also possible may need to restart other medication in the future pending not only blood pressure readings but also kidney function. She was noted to have scattered small regions of perihilar ground-glass opacities in both lungs on CT chest. Patient did not have fever. WBC unreliable with her known CLL. She had no oxygen requirement. No antibiotics were given as findings were not consistent with infectious process. She had also been noted to have an 8 mm lung mass i
[2019-12-21 04:03] LABS: Osmolality, Urine 758 mOsm/kg (50-1200)
[2019-12-22 13:28] LABS: Renin 5.46 ng/mL/h (0.25-5.82)
--- NOTE | 2020-01-19 12:39 | PC.NURSE ---
Received call from patient's daughter, Idalmis. She states her mother has appt. with Dr. Hernandez on 01/25. Her mother does not have enough Amlodipine to make it to next week. Spoke with Dr. Hernandez and she ordered Amlodipine 2.5 mg tab once daily; 7 tablets. [facility] and to daughter.
== END 2019-12-20 11:28 | disposition home or self-care (01) | DRG 683 ==
LOC: ANHED 19:35 → ANHIMU 21:30 → ANH2MED 12-19 09:23 → ANHIMU 12-22 08:34
PROVIDERS: Internal Medicine; Internal Medicine Nephrology; Admitting Provider Internal Medicine; Emergency Provider Emergency Medicine; PCP Family Medicine; Visit Provider Hospitalist
DX: N17.9 Acute kidney failure, unspecified (principal); I13.0 Hypertensive heart and chronic kidney disease with heart failure and stage 1 through stage 4 chronic kidney disease, or unspecified chronic kidney disease; C91.10 Chronic lymphocytic leukemia of B-cell type not having achieved remission; I48.92 Unspecified atrial flutter; Z68.43 Body mass index [BMI] 50.0-59.9, adult; I50.32 Chronic diastolic (congestive) heart failure; E87.5 Hyperkalemia; N18.3 Chronic kidney disease, stage 3 (moderate); R91.8 Other nonspecific abnormal finding of lung field; I48.0 Paroxysmal atrial fibrillation; E66.01 Morbid (severe) obesity due to excess calories; K21.9 Gastro-esophageal reflux disease without esophagitis; M19.90 Unspecified osteoarthritis, unspecified site; M06.9 Rheumatoid arthritis, unspecified; F41.9 Anxiety disorder, unspecified; Z85.828 Personal history of other malignant neoplasm of skin; Z90.49 Acquired absence of other specified parts of digestive tract
CPT/HCPCS: 36415; 71045; 71250; 76770; 80048; 80053; 80069; 81001; 82088; 82306; 82550; 82570; 83735; 83880; 83883; 83935; 84100; 84132; 84133; 84156; 84244; 84300; 84439; 84443; 84480; 85025; 85027; 85652; 85999; 86038; 86140; 86160; 86162; 86334; 86335; 87086; 87088; 93005; 96361; 96374; 96375; 97161; 97165; 99285; A9270; J0610; J1815; J7030

== ENCOUNTER 2020-01-19 10:39 | Outpatient (CLI) | payer MEDICARE, SELFPAY ==
[2020-01-19 11:26] LABS: Blood Urea Nitrogen 19 mg/dL (7-17); Calcium 8.7 mg/dL (8.4-10.2); Carbon Dioxide 26 mmol/L (22-30); Chloride 104 mmol/L (98-107); Estimated Glomerular Filt Rate 44; Glucose 140 mg/dL (65-105); Potassium 3.9 mmol/L (3.4-5.0); Sodium 139 mmol/L (137-145)
== END 2020-01-19 10:40 | disposition home or self-care (01) ==
LOC: ANHLAB 10:42
PROVIDERS: PCP Family Medicine; Visit Provider Hospitalist
DX: E87.5 Hyperkalemia (principal); N17.9 Acute kidney failure, unspecified; N18.3 Chronic kidney disease, stage 3 (moderate)
CPT/HCPCS: 36415; 80048

== ENCOUNTER 2020-02-15 10:34 | Outpatient (CLI) | payer MEDICARE, SELFPAY ==
[2020-02-15 11:32] LABS: Basophils Absolute Auto 0.1 K/mm3 (0.0-0.1); Basophils Percent Auto 0.1 % (0.2-1.2); Eosinophils Absolute Auto 0.2 K/mm3 (0-0.3); Eosinophils Percent Auto 0.2 % (0-4.4); Hematocrit 39.1 % (37.0-47.0); Hemoglobin 11.3 g/dL (12.0-15.0); Immature Granulocyte Absolute 0.29 K/mm3 (0.00-0.031); Immature Granulocyte Percent A 0.3 % (0-0.5); Lymphocytes Absolute Auto 81.08 K/mm3 (0.9-3.2); Lymphocytes Percent Auto 89.5 % (18.3-44.2); Mean Corpuscular HGB Conc 28.9 g/dl (32-36); Mean Corpuscular Hemoglobin 25.5 pg (26-34); Mean Corpuscular Volume 88.3 fl (80-100); Mean Platelet Volume 11.6 fl (7.4-10.4); Monocytes Absolute Auto 1.7 K/mm3 (0.1-0.6); Monocytes Percent Auto 1.8 % (2.6-8.5); Neutrophils Absolute Auto 7.3 K/mm3 (1.3-6.7); Neutrophils Percent Auto 8.1 % (45.5-73.1); Platelet Count Result 307 k/mm3 (150-375); Red Blood Count 4.43 M/mm3 (4.2-5.4); Red Cell Distribution Width 19.2 % (11.5-14.5)
[2020-02-15 11:45] LABS: Alanine Aminotransferase 27 U/L (4-35); Albumin Level 4.2 g/dL (3.5-5.1); Alkaline Phosphatase 103 U/L (38-126); Aspartate Amino Transferase 39 U/L (14-36); Bilirubin,Total 0.5 mg/dL (0.2-1.3); Blood Urea Nitrogen 19 mg/dL (7-17); Calcium 8.8 mg/dL (8.4-10.2); Carbon Dioxide 27 mmol/L (22-30); Chloride 102 mmol/L (98-107); Estimated Glomerular Filt Rate 48; Glucose 118 mg/dL (65-105); Lactate Dehydrogenase 608 U/L (313-618); Sodium 136 mmol/L (137-145)
[2020-02-15 12:08] LABS: White Blood Count 90.6 K/mm3 (4.5-10.0)
== END 2020-02-15 10:35 | disposition home or self-care (01) ==
PROVIDERS: PCP Family Medicine; Visit Provider Internal Medicine Hematology & Oncology
DX: C91.10 Chronic lymphocytic leukemia of B-cell type not having achieved remission (principal)
CPT/HCPCS: 36415; 80053; 83615; 85025

== ENCOUNTER 2020-05-01 11:36 | Outpatient (CLI) | payer MEDICARE, SELFPAY ==
[2020-05-01 11:57] LABS: Basophils Absolute Auto 0.1 K/mm3 (0.0-0.1); Basophils Percent Auto 0.1 % (0.2-1.2); Eosinophils Absolute Auto 0.1 K/mm3 (0-0.3); Eosinophils Percent Auto 0.1 % (0-4.4); Hemoglobin 11.7 g/dL (12.0-15.0); Immature Granulocyte Percent A 0.3 % (0-0.5); Lymphocytes Absolute Auto 67.27 K/mm3 (0.9-3.2); Mean Corpuscular HGB Conc 29.3 g/dl (32-36); Mean Corpuscular Hemoglobin 24.7 pg (26-34); Mean Corpuscular Volume 84.4 fl (80-100); Mean Platelet Volume 10.7 fl (7.4-10.4); Monocytes Absolute Auto 1.5 K/mm3 (0.1-0.6); Neutrophils Absolute Auto 8.1 K/mm3 (1.3-6.7); Neutrophils Percent Auto 10.5 % (45.5-73.1); Platelet Count Result 271 k/mm3 (150-375); Red Blood Count 4.74 M/mm3 (4.2-5.4); Red Cell Distribution Width 19.9 % (11.5-14.5)
[2020-05-01 12:04] LABS: Atypical Lymphocytes Present; Platelet Estimate Adequate (Adequate); White Blood Count 77.3 K/mm3 (4.5-10.0)
[2020-05-01 13:28] LABS: Alanine Aminotransferase 44 U/L (4-35); Albumin Level 4.2 g/dL (3.5-5.1); Alkaline Phosphatase 97 U/L (38-126); Anion Gap 9 mmol/L (8-16); Aspartate Amino Transferase 63 U/L (14-36); Bilirubin,Total 0.5 mg/dL (0.2-1.3); Blood Urea Nitrogen 20 mg/dL (7-17); Calcium 8.8 mg/dL (8.4-10.2); Carbon Dioxide 27 mmol/L (22-30); Chloride 102 mmol/L (98-107); Estimated Glomerular Filt Rate 48; Glucose 118 mg/dL (65-105); Lactate Dehydrogenase 614 U/L (313-618); Potassium 4.3 mmol/L (3.4-5.0); Sodium 138 mmol/L (137-145)
== END 2020-05-01 11:37 | disposition home or self-care (01) ==
PROVIDERS: PCP Family Medicine; Visit Provider Internal Medicine Hematology & Oncology
DX: C91.10 Chronic lymphocytic leukemia of B-cell type not having achieved remission (principal)
CPT/HCPCS: 36415; 80053; 83615; 85025

== ENCOUNTER 2020-10-15 09:41 | Outpatient (CLI) | payer MEDICARE, SELFPAY ==
[2020-10-15 10:43] LABS: Alanine Aminotransferase 26 U/L (4-35); Alkaline Phosphatase 128 U/L (38-126); Anion Gap 6 mmol/L (8-16); Aspartate Amino Transferase 33 U/L (14-36); Bilirubin,Total 0.7 mg/dL (0.2-1.3); Blood Urea Nitrogen 24 mg/dL (7-17); Calcium 8.8 mg/dL (8.4-10.2); Carbon Dioxide 29 mmol/L (22-30); Chloride 103 mmol/L (98-107); Cholesterol 188 mg/dL (0-200); Estimated Glomerular Filt Rate 44; Glucose 122 mg/dL (65-105); HDL Direct 50 mg/dL; Potassium 4.1 mmol/L (3.4-5.0); Sodium 138 mmol/L (137-145); Triglycerides 131 mg/dL (<150)
[2020-10-15 10:53] LABS: LDL Cholesterol Direct 101 mg/dL
== END 2020-10-15 09:42 | disposition home or self-care (01) ==
LOC: ANHLAB 09:46
PROVIDERS: PCP Family Medicine; Visit Provider Internal Medicine Cardiovascular Disease
DX: E78.00 Pure hypercholesterolemia, unspecified (principal)
CPT/HCPCS: 36415; 80053; 80061

== ENCOUNTER 2020-11-14 10:32 | Outpatient (CLI) | payer MEDICARE, SELFPAY ==
[2020-11-14 10:47] LABS: Basophils Absolute Auto 0.1 K/mm3 (0.0-0.1); Basophils Percent Auto 0.1 % (0.2-1.2); Eosinophils Absolute Auto 0.1 K/mm3 (0-0.3); Eosinophils Percent Auto 0.1 % (0-4.4); Hematocrit 41.5 % (37.0-47.0); Hemoglobin 12.3 g/dL (12.0-15.0); Immature Granulocyte Absolute 0.58 K/mm3 (0.00-0.031); Immature Granulocyte Percent A 0.6 % (0-0.5); Lymphocytes Absolute Auto 81.79 K/mm3 (0.9-3.2); Lymphocytes Percent Auto 85.1 % (18.3-44.2); Mean Corpuscular HGB Conc 29.6 g/dl (32-36); Mean Corpuscular Hemoglobin 25.2 pg (26-34); Mean Platelet Volume 11.8 fl (7.4-10.4); Monocytes Absolute Auto 1.8 K/mm3 (0.1-0.6); Monocytes Percent Auto 1.9 % (2.6-8.5); Neutrophils Absolute Auto 11.7 K/mm3 (1.3-6.7); Neutrophils Percent Auto 12.2 % (45.5-73.1); Platelet Count Result 328 k/mm3 (150-375); Red Blood Count 4.88 M/mm3 (4.2-5.4); Red Cell Distribution Width 18.1 % (11.5-14.5)
[2020-11-14 10:51] LABS: Blood Urea Nitrogen 31 mg/dL (8-26); Carbon Dioxide 25 mmol/L (22-30); Chloride 104 mmol/L (98-109); Estimated Glomerular Filt Rate 40; Glucose 97 mg/dL (70-105); Potassium 4.4 mmol/L (3.5-4.9); Sodium 138 mmol/L (138-146)
[2020-11-14 10:52] LABS: White Blood Count 96.1 K/mm3 (4.5-10.0)
[2020-11-14 10:54] LABS: Atypical Lymphocytes Present; Platelet Estimate Adequate (Adequate); Smudge Cells PRESENT
[2020-11-14 12:32] LABS: Alanine Aminotransferase 25 U/L (4-35); Albumin Level 3.7 g/dL (3.5-5.1); Alkaline Phosphatase 96 U/L (38-126); Anion Gap 7 mmol/L (8-16); Aspartate Amino Transferase 27 U/L (14-36); Bilirubin,Total 0.6 mg/dL (0.2-1.3); Blood Urea Nitrogen 34 mg/dL (7-17); Calcium 8.8 mg/dL (8.4-10.2); Carbon Dioxide 26 mmol/L (22-30); Chloride 104 mmol/L (98-107); Estimated Glomerular Filt Rate 44; Glucose 94 mg/dL (65-105); Lactate Dehydrogenase 506 U/L (313-618); Potassium 4.2 mmol/L (3.4-5.0); Sodium 137 mmol/L (137-145)
== END 2020-11-14 10:33 | disposition home or self-care (01) ==
LOC: ANHLAB 10:33
PROVIDERS: PCP Family Medicine; Visit Provider Internal Medicine Hematology & Oncology
DX: C91.10 Chronic lymphocytic leukemia of B-cell type not having achieved remission (principal)
CPT/HCPCS: 36415; 80048; 80053; 83615; 85025

== ENCOUNTER → 2021-01-22 13:44 | Emergency (ER) | payer MEDICARE, SELFPAY ==
--- NOTE | ~2021-01-22 | XR_ITS ---
EXAMINATION: XR chest 2V EXAM DATE: 01/22/2021 15:52 INDICATION: Shortness of breath, tachycardia at home. History hypertension. TECHNIQUE: Frontal and lateral projections of the chest obtained and reviewed. Comparison is made to prior examination from 12/15/2019. FINDINGS: There is right lower lung zone nodule measuring about 8 mm, finding was previously describe d. Patient did have this evaluated by a chest CT one year ago and a follow-up examination was recomme nded The lungs are otherwise clear. There are no pleural effusions. Cardiac silhouette is prominent but magnified on this AP technique. There is no pneumothorax suspected. The bones and soft tissue s are unremarkable. IMPRESSION: 1. No acute cardiopulmonary findings. 2. Right lower lung zone nodule or nodules; patient may be due for follow-up nonemergent chest CT. Reviewed, dictated and finalized at location A. IMPRESSION: 1. No acute cardiopulmonary findings. 2. Right lower lung zone nodule or nodules; patient may be due for follow-up n onemergent chest CT.
[2021-01-22 14:42] VITALS: BP 146/50; PULSE 69; RESP 20; TEMP 36.3; O2SAT 100
--- NOTE | 2021-01-22 14:49 | ECG_ITS ---
Measurements Intervals [place] Rate: 67 P: 68 IN: 283 QRS: 68 QRSD: 97 T: 33 QT: 426 QTc: 451 Interpretive Statements SINUS RHYTHM WITH FIRST DEGREE AV BLOCK INCOMPLETE RIGHT BUNDLE BRANCH BLOCK BORDERLINE ST-T WAVE ABNORMALITY- ANTERIOR LEADS BASELINE ARTIFACT- I, III, AVR, AVL, AVF, V1-V3 ABNORMAL ECG Electronically Signed On 01-22-2021 17:52:49 CDT by Manuel Romo D.O.
[2021-01-22 15:01] LABS: Hematocrit 41.6 % (37.0-47.0); Hemoglobin 12.3 g/dL (12.0-15.0); Mean Corpuscular HGB Conc 29.6 g/dl (32-36); Mean Corpuscular Hemoglobin 25.2 pg (26-34); Mean Corpuscular Volume 85.2 fl (80-100); Mean Platelet Volume 10.9 fl (7.4-10.4); Platelet Count Result 291 k/mm3 (150-375); Red Blood Count 4.88 M/mm3 (4.2-5.4); Red Cell Distribution Width 19.2 % (11.5-14.5)
[2021-01-22 15:11] LABS: Anion Gap 5 mmol/L (8-16); Blood Urea Nitrogen 19 mg/dL (7-17); Calcium 8.7 mg/dL (8.4-10.2); Carbon Dioxide 30 mmol/L (22-30); Chloride 104 mmol/L (98-107); Estimated CRCL calculation 46 ml/min; Estimated Glomerular Filt Rate 54; Glucose 126 mg/dL (65-105); Potassium 4.5 mmol/L (3.4-5.0); Sodium 139 mmol/L (137-145)
[2021-01-22 15:12] LABS: White Blood Count 55.5 K/mm3 (4.5-10.0)
[2021-01-22 15:13] LABS: Lymphocytes Absolute Manual 47.73 K/mm3 (1.1-4.5); Lymphocytes Percent Manual 86 % (18-44); Neutrophils Percent Manual 14 % (46-73); Total Cells Counted 100
[2021-01-22 15:14] LABS: Hypochromasia 1+ (NORMAL); Ovalocytes 1+ (NORMAL); Platelet Estimate Adequate (Adequate); Smudge Cells MODERATE
[2021-01-22 15:58] VITALS: BP 165/98; PULSE 70; PULSE 72; RESP 20; O2SAT 98
--- NOTE | 2021-01-22 16:25 | ED.GENADULT ---
HPI - General Adult General Chief complaint: Shortness of Breath/Dyspnea Stated complaint: SOB Time Seen by Provider: 01/22/21 15:56 Source: patient History of Present Illness HPI narrative: Patient is a 75 y/o female complaining of fast heart rate earlier today. She states that her phone carmen showed her heart rate was 130s. There is no known alleviating or exacerbating factor. However, her fast heart rate resolved spontaneously. She has chronic SOB. She denies chest pain. She has history of A fib. She also states that she has chronic leg swelling due to lymphedema and her right leg appears more red than usual. Related Data Home Medications Medication Instructions Recorded Confirmed rivaroxaban 15 mg tablet 15 mg PO HS 08/22/19 12/05/20 Prilosec OTC 20 mg PO DAILY 12/15/19 12/05/20 amiodarone [Pacerone] 100 mg PO DAILY 12/15/19 12/05/20 atorvastatin 80 mg PO DAILY 12/15/19 12/05/20 Allergies Allergy/AdvReac Type Severity Reaction Status Date / Time No Known Allergies Allergy Verified 01/22/21 16:54 Review of Systems Constitutional: Constitutional: Denies chills, Denies fever(s), Denies headache(s) and Denies weakness Eyes: Eyes: Denies blurry vision ENT: Denies headache(s) and Denies neck pain Cardiovascular: Cardiovascular: Denies chest pain, Reports rapid heart rate and Reports dyspnea Respiratory: Respiratory: Denies cough and Reports dyspnea Gastrointestinal: Gastrointestinal: Denies abdominal pain, Denies diarrhea, Denies nausea and Denies vomiting Genitourinary: Genitourinary: Denies hematuria and Denies dysuria Musculoskeletal: Musculoskeletal: Denies back pain and Denies neck pain Integumentary/Breasts: Skin/Breast: Reports change in pigmentation Neurologic: Denies headache(s) and Denies weakness [facility] Past Medical History Medical History (Updated 01/22/21 @ 18:44 by Zabrina Bergman MD) Acute renal failure Anxiety Arthritis BCC (basal cell carcinoma) Resected from her nose with subsequent plastic surgery resulting in a 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 Napier Diastolic dysfunction Echo March 2019 1. Left ventricular chamber dimension is normal. 2. Left ventricular systolic function is normal, estimated at 60-65%. 3. There is mildly increased left ventricular wall thickness. 4. The left ventricular diastolic function is grade II diastolic dysfunction. 5. E/E' 12 is mildly elevated. 6. Left atrial chamber dimension is mildly enlarged. 7. There is mild aortic valve regurgitation. 8. There is mild tricuspid valve regurgitation. 9. Mild pulmonary hypertension, estimated pulmonary arterial systolic pressure is 41 mmHg. 10. There is trace pulmonic regurgitation. Diverticulitis GERD (gastroesophageal reflux disease) Heart murmur Due to rheumatic fever as a child High cholesterol Hyperparathyroidism, primary Status post parathyroidectomy Hypertension Morbid obesity with BMI of 45.0-49.9, adult Paroxysmal A-fib Paroxysmal atrial flutter Polymyalgia rheumatica Pulmonary hypertension Mild pulmonary hypertension on echo from March 2019 Rheumatic fever Surgical History Surgical History History of cholecystectomy History of colonoscopy with polypectomy History of inguinal hernia repair History of local excision of skin lesion Basal cell skin cancer from the nose July 2017 Family History Family History Mother Obesity of complications of obesity in her 60s. Father Heart disease in his 60s of heart disease. Sibling Parkinson disease Brother Breast cancer Sister Social History Social History Social History: The patient has 4 children. Two of her children have lymph
--- NOTE | 2021-01-22 16:45 | PC.NURSE ---
arrives via triage, c/o was doing housework today and HR went high, I looked at my watch and it was in the 130's, and I felt SOB hx AF and on pacerone and anticoag. Currently NSR on monitor, denies palpitaitons. Also concerned for possible RLE cellulitis (hx BLE lymphedema)
[2021-01-22 17:14] LABS: Troponin I < 0.012 ng/mL (0.000-0.034)
[2021-01-22 18:16] LABS: Troponin I < 0.012 ng/mL (0.000-0.034)
[2021-01-22 18:20] VITALS: BP 163/80; PULSE 70; RESP 22; O2SAT 99
--- NOTE | 2021-01-22 18:25 | PC.NURSE ---
Dr. Bergman aware of family concern for RLE possible cellultis, no open wounds or drainage noted, appears crusted over Plan for 3hr repeat trop
== END | disposition home or self-care (01) ==
PROVIDERS: Emergency Medicine; Emergency Provider Emergency Medicine; PCP Family Medicine
DX: I48.91 Unspecified atrial fibrillation (principal); L03.115 Cellulitis of right lower limb; I13.0 Hypertensive heart and chronic kidney disease with heart failure and stage 1 through stage 4 chronic kidney disease, or unspecified chronic kidney disease; N18.30 Chronic kidney disease, stage 3 unspecified; I50.30 Unspecified diastolic (congestive) heart failure; F41.9 Anxiety disorder, unspecified; M19.90 Unspecified osteoarthritis, unspecified site; K21.9 Gastro-esophageal reflux disease without esophagitis; I27.20 Pulmonary hypertension, unspecified
CPT/HCPCS: 36415; 71046; 80048; 84443; 84484; 85025; 93005; 99284

== ENCOUNTER 2021-02-14 17:29 | Emergency (ER) | payer MEDICARE, SELFPAY ==
--- NOTE | ~2021-02-14 | CT_ITS ---
EXAMINATION: CT abdomen pelvis wo con DATE: 02/14/2021 20:06 INDICATION: Right flank pain for one week TECHNIQUE: Computed tomography (CT) of the abdomen and pelvis was performed without intravenous contr ast. Automated exposure control and iterative reconstruction technique were employed. Exam dose: 986 .39 mGy-cm total exam DLP. COMPARISON: 12/16/2019 CT diagnostic chest FINDINGS: Scattered bilateral patchy lower lobe interstitial infiltrate or fibrotic change. Borderline heart size. No pericardial or pleural effusion. Small sliding hiatal hernia. Status post cholecystectomy. There is relatively increased density throughout the liver compared to the spleen with attenuation up to 82 Hounsfield units. Differential diagnosis includes iron deposition due to hemosiderosis or pat chromatosis or possibly secondary to medication such as amiodarone. Less likely considerations includ e Luis disease, glycogen storage disease. No hepatic, splenic, pancreatic, and adrenal mass lesion. The spleen measures within upper limits of normal at 11.7 cm vertical dimension. Duplication of the right kidney. 1.4 cm nonspecific hyperdense (62 Hounsfield units) upper pole right renal exophytic lesion; this may be a hyperdense proteinaceous or hemorrhagic cyst, stable since 12/16/2019. 1.5 cm exophytic posterolateral mid to lower left renal cyst. No urinary tract calculus or hydroureteronephrosis. The urinary bladder is unremarkable. Uterine enlargement and extensive calcification consistent with fibroids. 8.5 x 11 x 9.7 cm right adnexal cystic mass with attenuation of 5 Hounsfield units. There is a very t hin wall and no apparent solid component. There is atherosclerotic calcification of the abdominal aorta but no aneurysm. There are shotty peria ortic and aortocaval and iliac lymph nodes, the largest a 10.7 x 15.9 mm right external iliac lymph n ode. There are innumerable diverticula of the sigmoid colon and multiple descending colon diverticula and minimal diverticulosis of the right colon no CT evidence of diverticulitis. Normal appendix. No bowel obstruction, bowel wall thickening, pneumatosis or intraperitoneal free air is evident. Degenerative changes of the thoracic and lumbar spine including particularly severe degenerative disc disease in the lower thoracic spine and L2-3 and L4-5 and L5-S1. There is prominent degenerative julia nge at the apophyseal joints with associated grade 1 anterolisthesis at L4-5. No suspicious osteolytic or osteoblastic lesions. IMPRESSION: Small sliding hiatal hernia Status post cholecystectomy Increased liver density, possibly secondary to amiodarone therapy or hemosiderosis; helical correlati on is advised Spleen measures within upper limits of normal Duplication of right kidney Stable 1.4 cm hyperdense right renal exophytic cyst since 12/15/2028 1.5 cm exophytic left renal cyst Enlarged fibroid uterus with calcifications 8.5 x 11 x 9.7 cm right adnexal cystic mass Diverticulosis of the colon; no CT evidence of diverticulitis Reviewed, dictated and finalized at [facility] Reviewed, dictated and finalized at [facility] IMPRESSION: Small sliding hiatal hernia Status post cholecystectomy Increased liver density, possibly secondary to amiodarone therapy or hemosidero sis; helical correlation is advised Spleen measures within upper limits of normal Duplication of right kidney Stable 1.4 cm hyperdense right renal exophytic cyst since 12/15/2028 1.5 cm exoph ytic left renal cyst Enlarged fibroid uterus with calcifications 8.5 x 11 x 9.7 cm right adnexal cystic mass Diverticulosis of the colon; no CT evidence of diverticulitis
[2021-02-14 17:31] VITALS: BP 181/83; PULSE 71; RESP 20; TEMP 35.9; O2SAT 97
[2021-02-14 17:49] LABS: Hematocrit 39.4 % (37.0-47.0); Hemoglobin 11.7 g/dL (12.0-15.0); Mean Corpuscular HGB Conc 29.7 g/dl (32-36); Mean Corpuscular Volume 84.2 fl (80-100); Mean Platelet Volume 11.5 fl (7.4-10.4); Platelet Count Result 253 k/mm3 (150-375); Red Blood Count 4.68 M/mm3 (4.2-5.4); Red Cell Distribution Width 19.2 % (11.5-14.5)
[2021-02-14 18:01] LABS: Anion Gap 8 mmol/L (8-16); Blood Urea Nitrogen 18 mg/dL (7-17); Calcium 8.7 mg/dL (8.4-10.2); Carbon Dioxide 27 mmol/L (22-30); Chloride 106 mmol/L (98-107); Estimated CRCL calculation 38 ml/min; Estimated Glomerular Filt Rate 44; Glucose 110 mg/dL (65-105); Potassium 4.2 mmol/L (3.4-5.0); Sodium 141 mmol/L (137-145)
[2021-02-14 18:02] LABS: White Blood Count 56.5 K/mm3 (4.5-10.0)
[2021-02-14 18:06] LABS: Lymphocytes Percent Manual 80 % (18-44); Neutrophils Percent Manual 20 % (46-73); Total Cells Counted 100
[2021-02-14 18:07] LABS: Atypical Lymphocytes Present; Ovalocytes 1+ (NORMAL); Platelet Estimate Adequate (Adequate); Smudge Cells MODERATE
[2021-02-14 18:08] LABS: Hypochromasia 1+ (NORMAL)
[2021-02-14 18:11] LABS: Add Urine Microscopic? YES; Appearance Urine Clear (Clear); Bilirubin Urine Negative (Negative); Blood Urine Negative (Negative); Color Urine Yellow (Yellow); Glucose Urine UA Negative (Negative); Ketones Urine Negative (Negative); Leukocyte Esterase Ur 2+ LEU/UL (Negative); Mucus Urine Rare /lpf; Nitrate Urine Negative (Negative); Protein Urine Negative (Negative); Specific Grav Ur 1.016 (1.001-1.035); Squamous Epithelial Cell Urine Many /hpf (Few); Urobilinogen Urine Negative mg/dL (<2.0)
[2021-02-14 19:55] LABS: Alanine Aminotransferase 31 U/L (4-35); Albumin Level 3.9 g/dL (3.5-5.1); Alkaline Phosphatase 93 U/L (38-126); Aspartate Amino Transferase 50 U/L (14-36); Bilirubin,Total 0.4 mg/dL (0.2-1.3); Lipase 58 U/L (23-300)
[2021-02-14 19:59] LABS: Lactic Acid Reflex 0.9 mmol/L (0.7-2.1)
--- NOTE | 2021-02-14 19:59 | ED.GENADULT ---
HPI - General Adult General Chief complaint: Abdominal Pain Stated complaint: back and abd pain Time Seen by Provider: 02/14/21 19:24 History of Present Illness HPI narrative: Patient 75-year-old female presents the emergency department with chief complaint of right-sided flank pain. The patient states that this been going on for several days reports that it radiates to the right side of her abdomen reports that the pain is sharp reports not improved by anything nor is worsened by anything. Patient reports that she said no fevers no chills no difficulty urinating no diarrhea reports that she has had no injury but did report that she did move some things around the other day. Patient states that she has history of CLL and has a chronically elevated white blood cell count she also has history of renal insufficiency. Patient reports no prior history of kidney stones. Related Data Home Medications Medication Instructions Recorded Confirmed rivaroxaban 15 mg tablet 15 mg PO HS 08/22/19 12/05/20 Prilosec OTC 20 mg PO DAILY 12/15/19 12/05/20 amiodarone [Pacerone] 100 mg PO DAILY 12/15/19 12/05/20 atorvastatin 80 mg PO DAILY 12/15/19 12/05/20 Allergies Allergy/AdvReac Type Severity Reaction Status Date / Time No Known Allergies Allergy Verified 01/22/21 16:54 Review of Systems Review of Systems: Narrative: A 10 system review of systems was completed on the patient and is negative except for what is stated in the HPI. Nursing and ancillary documentation was reviewed. 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 Napier Diastolic dysfunction Echo March 2019 1. Left ventricular chamber dimension is normal. 2. Left ventricular systolic function is normal, estimated at 60-65%. 3. There is mildly increased left ventricular wall thickness. 4. The left ventricular diastolic function is grade II diastolic dysfunction. 5. E/E' 12 is mildly elevated. 6. Left atrial chamber dimension is mildly enlarged. 7. There is mild aortic valve regurgitation. 8. There is mild tricuspid valve regurgitation. 9. Mild pulmonary hypertension, estimated pulmonary arterial systolic pressure is 41 mmHg. 10. There is trace pulmonic regurgitation. Diverticulitis GERD (gastroesophageal reflux disease) Heart murmur Due to rheumatic fever as a child High cholesterol Hyperparathyroidism, primary Status post parathyroidectomy Hypertension Morbid obesity with BMI of 45.0-49.9, adult Paroxysmal A-fib Paroxysmal atrial flutter Polymyalgia rheumatica Pulmonary hypertension Mild pulmonary hypertension on echo from March 2019 Rheumatic fever Surgical History Surgical History History of cholecystectomy History of colonoscopy with polypectomy History of inguinal hernia repair History of local excision of skin lesion Basal cell skin cancer from the nose July 2017 Family History Family History Mother Obesity of complications of obesity in her 60s. Father Heart disease in his 60s of heart disease. Sibling Parkinson disease Brother Breast cancer Sister Social History Social History Social History: The patient has 4 children. Two of her children have lymphedema and 1 of which has obstructive sleep apnea. Primary care physician: Dr. Tino Hernandez Code status: Full code Smoking status: Never smoker Alcohol intake: current Substance use: never Additional l
[2021-02-14] MEDS: HYDROcodone/acetaminophen (*CRX) 5-325 MG TABLET 1 TAB PO ×2 (20:05→21:57)
[2021-02-14 22:00] VITALS: BP 148/88; PULSE 88; RESP 16; O2SAT 99
== END 2021-02-14 22:00 | disposition home or self-care (01) ==
PROVIDERS: Emergency Medicine; Emergency Provider Emergency Medicine; PCP Family Medicine
DX: N39.0 Urinary tract infection, site not specified (principal); I12.9 Hypertensive chronic kidney disease with stage 1 through stage 4 chronic kidney disease, or unspecified chronic kidney disease; N18.30 Chronic kidney disease, stage 3 unspecified; C91.10 Chronic lymphocytic leukemia of B-cell type not having achieved remission; M19.90 Unspecified osteoarthritis, unspecified site; K21.9 Gastro-esophageal reflux disease without esophagitis; E78.00 Pure hypercholesterolemia, unspecified; E89.2 Postprocedural hypoparathyroidism; I48.0 Paroxysmal atrial fibrillation; I48.92 Unspecified atrial flutter; M35.3 Polymyalgia rheumatica; I27.20 Pulmonary hypertension, unspecified; Z79.01 Long term (current) use of anticoagulants; Z85.828 Personal history of other malignant neoplasm of skin
CPT/HCPCS: 36415; 74176; 80048; 80076; 81001; 83605; 83690; 85025; 99284; A9270

== ENCOUNTER 2021-02-25 19:40 | Emergency (ER) | payer MEDICARE, SELFPAY ==
[2021-02-25 19:46] VITALS: BP 153/61; PULSE 73; RESP 18; TEMP 35.7; O2SAT 100
[2021-02-25 20:04] LABS: Basophils Absolute Auto 0.2 K/mm3 (0.0-0.1); Basophils Percent Auto 0.3 % (0.2-1.2); Eosinophils Absolute Auto 0.1 K/mm3 (0-0.3); Eosinophils Percent Auto 0.3 % (0-4.4); Hematocrit 39.3 % (37.0-47.0); Hemoglobin 11.7 g/dL (12.0-15.0); Immature Granulocyte Absolute 0.18 K/mm3 (0.00-0.031); Immature Granulocyte Percent A 0.4 % (0-0.5); Lymphocytes Absolute Auto 36.31 K/mm3 (0.9-3.2); Mean Corpuscular HGB Conc 29.8 g/dl (32-36); Mean Corpuscular Hemoglobin 25.1 pg (26-34); Mean Corpuscular Volume 84.3 fl (80-100); Mean Platelet Volume 10.5 fl (7.4-10.4); Monocytes Absolute Auto 1.8 K/mm3 (0.1-0.6); Monocytes Percent Auto 3.8 % (2.6-8.5); Neutrophils Absolute Auto 7.4 K/mm3 (1.3-6.7); Neutrophils Percent Auto 16.2 % (45.5-73.1); Nucleated Red Blood Cells Perc 0.1 % (0.0-0.2); Platelet Count Result 226 k/mm3 (150-375); Red Blood Count 4.66 M/mm3 (4.2-5.4); Red Cell Distribution Width 20.2 % (11.5-14.5)
[2021-02-25 20:15] LABS: Alanine Aminotransferase 23 U/L (4-35); Albumin Level 3.8 g/dL (3.5-5.1); Alkaline Phosphatase 100 U/L (38-126); Anion Gap 10 mmol/L (8-16); Aspartate Amino Transferase 39 U/L (14-36); Bilirubin,Total 0.7 mg/dL (0.2-1.3); Blood Urea Nitrogen 20 mg/dL (7-17); Calcium 8.4 mg/dL (8.4-10.2); Carbon Dioxide 26 mmol/L (22-30); Chloride 102 mmol/L (98-107); Estimated CRCL calculation 44 ml/min; Estimated Glomerular Filt Rate 54; Glucose 127 mg/dL (65-105); Lipase 79 U/L (23-300); Potassium 4.4 mmol/L (3.4-5.0); Sodium 138 mmol/L (137-145)
[2021-02-25 20:16] VITALS: BP 168/98; PULSE 95; RESP 20; O2SAT 100
[2021-02-25 20:19] LABS: Smudge Cells MODERATE
[2021-02-25 20:20] LABS: Atypical Lymphocytes Present; Platelet Estimate Adequate (Adequate)
[2021-02-25 20:55] LABS: Add Urine Microscopic? YES; Appearance Urine Clear (Clear); Bacteria Urine Trace /hpf; Bilirubin Urine Negative (Negative); Blood Urine Negative (Negative); Color Urine Yellow (Yellow); Glucose Urine UA Negative (Negative); Ketones Urine Negative (Negative); Leukocyte Esterase Ur 2+ LEU/UL (Negative); Nitrate Urine Negative (Negative); Protein Urine Negative (Negative); RBC Urine 0-2 /hpf (0-2); Specific Grav Ur 1.013 (1.001-1.035); Squamous Epithelial Cell Urine Few /hpf (Few); Urobilinogen Urine Negative mg/dL (<2.0)
[2021-02-25] MEDS: KETOROLAC 30 MG/ML VIAL (*BKC) IM (22:48)
[2021-02-25 22:57] VITALS: BP 158/86; PULSE 86; RESP 20; TEMP 36.6; O2SAT 96
[2021-02-25 22:59] VITALS: BP 160/89; PULSE 86; RESP 20; TEMP 36.6; O2SAT 96
--- NOTE | 2021-02-25 23:48 | ED.ABDPAIN ---
HPI - Abdominal Pain General Chief Complaint: Abdominal Pain Stated Complaint: R flank pain Time Seen by Provider: 02/25/21 21:42 Source: patient and family Mode of arrival: ambulatory Limitations: no limitations History of Present Illness HPI narrative: 75-year-old female Patient complains of right flank and right-sided abdominal pain which is been present for at least 2 or 3 weeks She did have a minor fall however all the symptoms were present before that and not aggravated by it After an ED visit she was treated for urinary tract infection which also did not seem to alleviate her symptoms Pain seems to start in the right mid back and radiate around to the front Does not radiate into the legs No numbness or weakness or bowel or bladder disturbance She had a CT scan of the abdomen and pelvis done here which was felt to be nondiagnostic at the time, did not show any kidney stones, did not show any acute skeletal lesions, but buried in the report was note of a pretty large adnexal cyst Discussing this with the patient it does sound like her primary concern is with the pain that she has in her mid back, and not with any abdominal or inguinal discomfort Related Data Home Medications Medication Instructions Recorded Confirmed rivaroxaban 15 mg tablet 15 mg PO HS 08/22/19 12/05/20 Prilosec OTC 20 mg PO DAILY 12/15/19 12/05/20 amiodarone [Pacerone] 100 mg PO DAILY 12/15/19 12/05/20 atorvastatin 80 mg PO DAILY 12/15/19 12/05/20 Allergies Allergy/AdvReac Type Severity Reaction Status Date / Time No Known Allergies Allergy Verified 01/22/21 16:54 Review of Systems Review of Systems: All systems reviewed & are unremarkable except as noted in HPI and below Constitutional: Constitutional: Denies chills, Reports fatigue, Denies fever(s), Denies headache(s) and Reports weakness ENT: Denies headache(s) Cardiovascular: Cardiovascular: Denies chest pain and Denies dyspnea Respiratory: Respiratory: Denies cough and Reports dyspnea Gastrointestinal: Gastrointestinal: Reports abdominal pain, Denies diarrhea and Denies vomiting Genitourinary: Genitourinary: Denies urinary frequency and Denies dysuria Musculoskeletal: Musculoskeletal: Reports back pain, Denies deformity, Denies arthralgias, Reports joint swelling and Denies numbness Integumentary/Breasts: Skin/Breast: Denies rash and Denies wounds Neurologic: Denies headache(s), Denies focal weakness, Denies numbness and Reports weakness Psychiatric: Psychiatric: Reports no additional psychiatric complaints Endocrine: Endocrine: Reports no additional endocrine complaints Hematologic/Lymphatic: Hematologic/Lymphatic: Reports no additional hematologic/lymphatic complaints Allergic/Immunologic: Allergic/Immunologic: Reports no additional allergic/immunologic complaints [facility] Past Medical History Medical History (Updated 02/25/21 @ 22:31 by Rigo Godinez MD) Acute renal failure Anxiety Arthritis BCC (basal cell carcinoma) Resected from her nose with subsequent plastic surgery resulting in a 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 Napier Diastolic dysfunction Echo March 2019 1. Left ventricular chamber dimension is normal. 2. Left ventricular systolic function is normal, estimated at 60-65%. 3. There is mildly increased left ventricular wall thickness. 4. The left ventricular diastolic function is grade II diastolic dysfunction. 5. E/E' 12 is mildly elevated. 6. Left atrial chamber dimension is mildly enlarged. 7. There is mild aortic valve regurgitation. 8. There is mild tricuspid valve regurgitation. 9. Mild pulmonary hypertension, estimated pulmonary arterial systolic pressure is 41 mmHg. 10. There is trace pulmonic regurgitation. Diverticulitis GERD (gastroesophageal reflux disease) Heart murmur Due to rheumatic fever as a child Hi
== END 2021-02-25 23:00 | disposition home or self-care (01) ==
PROVIDERS: Emergency Medicine; Emergency Provider Emergency Medicine; PCP Family Medicine
DX: M54.6 Pain in thoracic spine (principal); N94.89 Other specified conditions associated with female genital organs and menstrual cycle; I48.0 Paroxysmal atrial fibrillation; I48.92 Unspecified atrial flutter; M35.3 Polymyalgia rheumatica; I27.20 Pulmonary hypertension, unspecified; E78.00 Pure hypercholesterolemia, unspecified; I12.9 Hypertensive chronic kidney disease with stage 1 through stage 4 chronic kidney disease, or unspecified chronic kidney disease; N18.30 Chronic kidney disease, stage 3 unspecified; C91.10 Chronic lymphocytic leukemia of B-cell type not having achieved remission; I08.2 Rheumatic disorders of both aortic and tricuspid valves; F41.9 Anxiety disorder, unspecified; E66.01 Morbid (severe) obesity due to excess calories; Z68.41 Body mass index [BMI] 40.0-44.9, adult; M19.90 Unspecified osteoarthritis, unspecified site; E89.2 Postprocedural hypoparathyroidism; Z85.828 Personal history of other malignant neoplasm of skin; Z79.01 Long term (current) use of anticoagulants
CPT/HCPCS: 36415; 80053; 81001; 83690; 85025; 96372; 99283; J1885

== ENCOUNTER 2021-03-22 11:41 | Outpatient (CLI) | payer MEDICARE, SELFPAY ==
[2021-03-26 02:39] LABS: CA-125 37 U/mL (<35)
== END 2021-03-22 11:42 | disposition home or self-care (01) ==
PROVIDERS: PCP Family Medicine; Visit Provider Obstetrics & Gynecology Gynecology
DX: N83.201 Unspecified ovarian cyst, right side (principal)
CPT/HCPCS: 36415; 86304

== ENCOUNTER 2021-04-25 10:39 | Outpatient (CLI) | payer MEDICARE, SELFPAY ==
[2021-04-28 01:10] LABS: CA-125 24 U/mL (<35)
== END 2021-04-25 10:40 | disposition home or self-care (01) ==
LOC: ANHLAB 10:43
PROVIDERS: PCP Family Medicine
DX: N83.209 Unspecified ovarian cyst, unspecified side (principal); R97.1 Elevated cancer antigen 125 [CA 125]
CPT/HCPCS: 36415; 86304

== ENCOUNTER 2021-05-14 11:19 | Outpatient (CLI) | payer MEDICARE, SELFPAY ==
[2021-05-14 11:38] LABS: Basophils Absolute Auto 0.1 K/mm3 (0.0-0.1); Basophils Percent Auto 0.1 % (0.2-1.2); Eosinophils Absolute Auto 0.1 K/mm3 (0-0.3); Eosinophils Percent Auto 0.2 % (0-4.4); Hemoglobin 11.8 g/dL (12.0-15.0); Immature Granulocyte Absolute 0.24 K/mm3 (0.00-0.031); Immature Granulocyte Percent A 0.3 % (0-0.5); Lymphocytes Absolute Auto 64.72 K/mm3 (0.9-3.2); Lymphocytes Percent Auto 85.6 % (18.3-44.2); Mean Corpuscular HGB Conc 29.5 g/dl (32-36); Mean Corpuscular Volume 81.3 fl (80-100); Mean Platelet Volume 11.3 fl (7.4-10.4); Monocytes Absolute Auto 3.4 K/mm3 (0.1-0.6); Monocytes Percent Auto 4.5 % (2.6-8.5); Neutrophils Percent Auto 9.3 % (45.5-73.1); Platelet Count Result 315 k/mm3 (150-375); Red Blood Count 4.92 M/mm3 (4.2-5.4); Red Cell Distribution Width 16.5 % (11.5-14.5)
[2021-05-14 11:42] LABS: White Blood Count 75.6 K/mm3 (4.5-10.0)
[2021-05-14 11:45] LABS: Atypical Lymphocytes Present; Platelet Estimate Adequate (Adequate)
[2021-05-14 16:49] LABS: Alanine Aminotransferase 20 U/L (4-35); Alkaline Phosphatase 125 U/L (38-126); Anion Gap 10 mmol/L (8-16); Aspartate Amino Transferase 30 U/L (14-36); Bilirubin,Total 0.5 mg/dL (0.2-1.3); Blood Urea Nitrogen 20 mg/dL (7-17); Calcium 8.8 mg/dL (8.4-10.2); Carbon Dioxide 23 mmol/L (22-30); Chloride 104 mmol/L (98-107); Estimated Glomerular Filt Rate > 60; Glucose 161 mg/dL (65-110); Potassium 4.4 mmol/L (3.4-5.0); Sodium 137 mmol/L (137-145)
== END 2021-05-14 11:20 | disposition home or self-care (01) ==
PROVIDERS: PCP Family Medicine; Visit Provider Internal Medicine Hematology & Oncology
DX: C91.10 Chronic lymphocytic leukemia of B-cell type not having achieved remission (principal)
CPT/HCPCS: 36415; 80053; 85025

== ENCOUNTER 2021-05-25 10:37 | Outpatient (CLI) | payer MEDICARE, SELFPAY ==
[2021-05-25 11:24] LABS: Alanine Aminotransferase 21 U/L (4-35); Albumin Level 4.1 g/dL (3.5-5.1); Alkaline Phosphatase 112 U/L (38-126); Anion Gap 10 mmol/L (8-16); Aspartate Amino Transferase 32 U/L (14-36); Bilirubin,Total 0.5 mg/dL (0.2-1.3); Blood Urea Nitrogen 25 mg/dL (7-17); Calcium 8.9 mg/dL (8.4-10.2); Carbon Dioxide 26 mmol/L (22-30); Chloride 103 mmol/L (98-107); Cholesterol 185 mg/dL (0-200); Estimated Glomerular Filt Rate 54; Glucose 130 mg/dL (65-110); HDL Direct 46 mg/dL; Potassium 4.7 mmol/L (3.4-5.0); Sodium 139 mmol/L (137-145); Triglycerides 158 mg/dL (<150)
[2021-05-25 11:35] LABS: LDL Cholesterol Direct 84 mg/dL
== END 2021-05-25 10:38 | disposition home or self-care (01) ==
PROVIDERS: PCP Family Medicine; Referring Provider Internal Medicine Cardiovascular Disease; Visit Provider Physician Assistant
DX: I10 Essential (primary) hypertension (principal); R73.09 Other abnormal glucose; E78.5 Hyperlipidemia, unspecified
CPT/HCPCS: 36415; 80053; 80061; 83036

== ENCOUNTER 2021-09-16 13:22 | Emergency (ER) | payer MEDICARE, SELFPAY ==
--- NOTE | ~2021-09-16 | XR_ITS ---
EXAMINATION: XR chest 1V portable EXAM DATE: 09/16/2021 19:59 INDICATION: persistent cough x 5 days; hx of HTN, leukemia . TECHNIQUE: Portable AP frontal chest x-ray was obtained. Comparison is made to prior examination from 01/22/2021. FINDINGS: Small amount of ill-defined right midlung zone airspace disease which could be developing p neumonia or edema. The lungs are otherwise clear. There are no pleural effusions. The cardiomediast inal silhouette is within normal limits. There is no pneumothorax suspected. There is aortic arteri osclerosis. There are mild bony degenerative changes. There are cholecystectomy clips. IMPRESSION: Small amount of ill-defined right midlung zone airspace disease, could be developing pne umonia. Reviewed, dictated and finalized at [facility] IMPRESSION: Small amount of ill-defined right midlung zone airspace disease, c ould be developing pneumonia.
[2021-09-16 13:22] VITALS: BP 144/100; PULSE 72; RESP 17; TEMP 36.2; O2SAT 97
[2021-09-16 15:18] VITALS: BP 153/56; PULSE 70; RESP 20; TEMP 36.2; O2SAT 95
--- NOTE | 2021-09-16 19:23 | ECG_ITS ---
Measurements Intervals [place] Rate: 72 P: 64 GA: 233 QRS: 78 QRSD: 105 T: 38 QT: 430 QTc: 472 Interpretive Statements SINUS RHYTHM WITH FIRST DEGREE AV BLOCK ATRIAL PREMATURE COMPLEX INCOMPLETE RIGHT BUNDLE BRANCH BLOCK DELAYED PRECORDIAL R/S TRANSITION MINIMAL Q WAVES- INFERIOR LEADS BORDERLINE T WAVE ABNORMALITY- ANT/INF LEADS BASELINE ARTIFACT- I, II, III, AVR, AVL, AVF, V1-V6 ABNORMAL ECG Electronically Signed On 09-16-2021 20:13:09 PAEDIATRICIAN by Manuel Romo D.O.
[2021-09-16 19:47] LABS: Base Excess ABG 2.2 mEq/l (+/-2.0); Fractional Inspired Oxygen 21 %; HCO3 ABG 26.2 mEq/l (22.0-26.0); Oxygen Content ABG 14.7 %vol (16.0-22.0); Oxygen Saturation ABG 95.3 % (95.0-100.0); Oxyhemoglobin 93.6 % THb (90.0-100.0); PCO2 ABG 38.5 mmHg (35.0-45.0); PO2 ABG 72.6 mmHg (80.0-100.0); PO2 FiO2 Ratio Arterial Blood 3.46 %; Total Hemoglobin 11.1 g/dL (12.0-18.0); pH ABG 7.451 (7.350-7.450)
[2021-09-16 19:48] LABS: Device ROOM AIR; Modified Allen's Test Pass; Site Drawn RIGHT RADIAL
--- NOTE | 2021-09-16 19:54 | ED.URI ---
HPI - URI/Sore Throat General Chief Complaint: Upper Respiratory Infection Stated Complaint: cough/sob Time Seen by Provider: 09/16/21 19:22 Source: patient Mode of arrival: ambulatory Limitations: no limitations History of Present Illness HPI Narrative: Patient is 76 years old white female presents with coughing for the last 3 days. Patient is vaccinated for COVID and had the booster dose May 2021. Patient denies any fever, chills, nausea, vomiting, shortness of breath, chest pain. Patient was exposed to her grandkids who have viral infection over the last few days. Patient does not take oxygen at home. Related Data Home Medications Medication Instructions Recorded Confirmed Prilosec OTC 20 mg PO DAILY 12/15/19 06/05/21 Allergies Allergy/AdvReac Type Severity Reaction Status Date / Time No Known Allergies Allergy Verified 06/05/21 10:04 Review of Systems Review of Systems: CONSTITUTIONAL: Denies fever, chills, or sweats. EYES: Denies visual changes, redness, or discharge. ENT: Denies rhinorrhea, congestion, sore throat, or otalgia. CARDIOVASCULAR: Denies chest pain, palpitations, or edema. RESPIRATORY: Coughing GASTROINTESTINAL: Denies abdominal pain, nausea, vomiting, or diarrhea. GENITOURINARY: Denies dysuria or hematuria. SKIN: Denies rash or itching. MUSCULOSKELETAL: Denies back pain, joint pain, or myalgia. NEUROLOGIC: Denies headache, numbness, or weakness. PSYCHIATRIC: Denies anxiety or depression. [facility] Past Medical History Medical History Acute renal failure Anxiety Arthritis BCC (basal cell carcinoma) Resected from her nose with subsequent plastic surgery resulting in a 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 Napier Diastolic dysfunction Echo March 2019 1. Left ventricular chamber dimension is normal. 2. Left ventricular systolic function is normal, estimated at 60-65%. 3. There is mildly increased left ventricular wall thickness. 4. The left ventricular diastolic function is grade II diastolic dysfunction. 5. E/E' 12 is mildly elevated. 6. Left atrial chamber dimension is mildly enlarged. 7. There is mild aortic valve regurgitation. 8. There is mild tricuspid valve regurgitation. 9. Mild pulmonary hypertension, estimated pulmonary arterial systolic pressure is 41 mmHg. 10. There is trace pulmonic regurgitation. Diverticulitis GERD (gastroesophageal reflux disease) Heart murmur Due to rheumatic fever as a child High cholesterol Hyperparathyroidism, primary Status post parathyroidectomy Hypertension Morbid obesity with BMI of 45.0-49.9, adult Paroxysmal A-fib Paroxysmal atrial flutter Polymyalgia rheumatica Pulmonary hypertension Mild pulmonary hypertension on echo from March 2019 Rheumatic fever Surgical History Surgical History History of cholecystectomy History of colonoscopy with polypectomy History of inguinal hernia repair History of local excision of skin lesion Basal cell skin cancer from the nose July 2017 Family History Family History Mother Obesity of complications of obesity in her 60s. Hypertension Father Heart disease in his 60s of heart disease. Hypertension Sibling Parkinson disease Brother Grandparent Malignant neoplasm of prostate Grandparent Cerebrovascular accident Sibling Breast cancer Daughter Lymphedema Social History Social History Social History: The patient has 4 children. Two of her children have lymphedema and 1 of which has obstructive sleep apnea. Primary care physician: Dr. Idalia Serrano Code status:
[2021-09-16 20:00] VITALS: BP 154/72; PULSE 78; RESP 20; O2SAT 98; O2SAT 99
[2021-09-16 20:28] LABS: Hematocrit 37.9 % (37.0-47.0); Hemoglobin 11.1 g/dL (12.0-15.0); Mean Corpuscular HGB Conc 29.3 g/dl (32-36); Mean Corpuscular Hemoglobin 22.8 pg (26-34); Mean Platelet Volume 11.6 fl (7.4-10.4); Platelet Count Result 288 k/mm3 (150-375); Red Blood Count 4.86 M/mm3 (4.2-5.4); Red Cell Distribution Width 17.9 % (11.5-14.5)
[2021-09-16 20:38] LABS: INR 1.5; Prothrombin Time 17.7 Seconds (11.1-14.7)
[2021-09-16 20:39] LABS: Partial Thromboplastin Time 41.7 SECONDS (22.3-36.8)
[2021-09-16 20:41] LABS: EDCOVIDSCREEN Negative (Negative)
[2021-09-16 20:42] LABS: Alanine Aminotransferase 27 U/L (4-35); Albumin Level 4.1 g/dL (3.5-5.1); Alkaline Phosphatase 147 U/L (38-126); Anion Gap 12 mmol/L (8-16); Aspartate Amino Transferase 42 U/L (14-36); Bilirubin,Total 0.8 mg/dL (0.2-1.3); Blood Urea Nitrogen 18 mg/dL (7-17); Calcium 8.9 mg/dL (8.4-10.2); Carbon Dioxide 27 mmol/L (22-30); Chloride 98 mmol/L (98-107); Estimated CRCL calculation 42 ml/min; Estimated Glomerular Filt Rate 48; Glucose 164 mg/dL (65-110); Neutrophils Percent Manual 13 % (46-73); Potassium 4.4 mmol/L (3.4-5.0); Sodium 137 mmol/L (137-145); Total Cells Counted 100; White Blood Count 74.9 K/mm3 (4.5-10.0)
[2021-09-16 20:43] LABS: Atypical Lymphocytes Present; Hypochromasia 1+ (NORMAL); Lymphocytes Absolute Manual 65.16 K/mm3 (1.1-4.5); Lymphocytes Percent Manual 87 % (18-44); Platelet Estimate Adequate (Adequate); Smudge Cells MODERATE
[2021-09-16 20:53] LABS: NT Pro B Type Natriuretic Pept 996 pg/mL (5-100); Troponin I < 0.012 ng/mL (0.000-0.034)
[2021-09-16 21:26] VITALS: BP 169/100; PULSE 72; RESP 20; O2SAT 94
[2021-09-16 22:14] VITALS: BP 165/53; PULSE 72; RESP 18; O2SAT 98
[2021-09-16 23:44] VITALS: BP 164/59; PULSE 74; RESP 20; O2SAT 98
== END 2021-09-16 23:45 | disposition home or self-care (01) ==
PROVIDERS: Emergency Provider Emergency Medicine; PCP Family Medicine
DX: J18.9 Pneumonia, unspecified organism (principal); Z20.822 Contact with and (suspected) exposure to COVID-19; I13.0 Hypertensive heart and chronic kidney disease with heart failure and stage 1 through stage 4 chronic kidney disease, or unspecified chronic kidney disease; N18.30 Chronic kidney disease, stage 3 unspecified; I50.30 Unspecified diastolic (congestive) heart failure; C91.10 Chronic lymphocytic leukemia of B-cell type not having achieved remission; K21.9 Gastro-esophageal reflux disease without esophagitis; E78.00 Pure hypercholesterolemia, unspecified; E89.2 Postprocedural hypoparathyroidism; E66.01 Morbid (severe) obesity due to excess calories; Z68.35 Body mass index [BMI] 35.0-35.9, adult; I48.0 Paroxysmal atrial fibrillation; I48.92 Unspecified atrial flutter; M35.3 Polymyalgia rheumatica; I27.20 Pulmonary hypertension, unspecified; M19.90 Unspecified osteoarthritis, unspecified site; Z85.828 Personal history of other malignant neoplasm of skin; Z87.891 Personal history of nicotine dependence; I44.0 Atrioventricular block, first degree; I45.10 Unspecified right bundle-branch block; R94.31 Abnormal electrocardiogram [ECG] [EKG]; Z79.01 Long term (current) use of anticoagulants
CPT/HCPCS: 36415; 36600; 71045; 80053; 82805; 83880; 84484; 85025; 85610; 85730; 87040; 87077; 87181; 87186; 87426; 87804; 93005; 99284; C9803

== ENCOUNTER 2021-09-17 22:28 | Inpatient (IN) | payer MEDICARE, SELFPAY ==
--- NOTE | ~2021-09-17 | XR_ITS ---
EXAMINATION: XR chest 1V portable INDICATION: Shortness of breath TECHNIQUE: Portable AP chest at 1428 hours COMPARISON: 09/16/2021 FINDINGS: Airspace opacities of the right midlung zone have nearly completely resolved. No new airspa ce opacities are identified. There is no pleural effusion or pneumothorax. The cardiomediastinal silh ouette is normal. IMPRESSION: 1. Near complete resolution of the previously described right lung airspace opacities, likely resolvi ng pneumonia. Reviewed, dictated and finalized at [facility] IMPRESSION: 1. Near complete resolution of the previously described right lung airspace opa cities, likely resolving pneumonia.
[2021-09-17 22:39] VITALS: BP 162/53; PULSE 73; RESP 20; TEMP 36.9; O2SAT 97
[2021-09-18] VITALS (16 sets, daily range): BP systolic 115–172; BP diastolic 52–85; PULSE 65–79; RESP 16–27; TEMP 36.7–37.6; O2SAT 94–100; BMI 44.1
--- NOTE | 2021-09-18 02:50 | ED.GENADULT ---
HPI - General Adult General Chief complaint: Unspecified Stated complaint: blood culture+, cough, weakness Time Seen by Provider: 09/18/21 02:49 Source: patient Mode of arrival: ambulatory Limitations: no limitations History of Present Illness HPI narrative: Patient is a 76-year-old female sent here by PCP due to positive blood culture results. Patient was seen here yesterday, was diagnosed with pneumonia, had blood cultures done, positive for gram-positive cocci. She was discharged home on oral doxycycline. Related Data Home Medications Medication Instructions Recorded Confirmed omeprazole magnesium [Prilosec OTC] 20 mg PO DAILY 12/15/19 06/05/21 Allergies Allergy/AdvReac Type Severity Reaction Status Date / Time No Known Allergies Allergy Verified 09/18/21 03:00 Review of Systems Review of Systems: All systems reviewed & are unremarkable except as noted in HPI and below Constitutional: Constitutional: Denies body ache(s), Denies excessive sweating, Denies fatigue, Denies headache(s), Denies lethargy, Denies malaise, Denies weakness and Denies weight loss Eyes: Eyes: Denies blurry vision, Denies change in vision and Denies loss of vision ENT: Denies dizziness, Denies ear discharge, Denies headache(s), Denies lip swelling, Denies epistaxis, Denies nasal congestion, Denies neck pain, Denies throat swelling and Denies tongue swelling Cardiovascular: Cardiovascular: Denies chest pain, Denies chest pain at rest, Denies chest pain with activity, Denies diaphoresis, Denies rapid heart rate, Denies edema, Denies irregular heart rhythm, Denies lightheadedness, Denies palpitations, Denies dyspnea and Denies dyspnea on exertion Respiratory: Respiratory: Denies chest congestion, Denies hemoptysis, Denies dyspnea and Denies dyspnea on exertion Gastrointestinal: Gastrointestinal: Denies abdominal pain, Denies melena, Denies hematochezia, Denies diarrhea, Denies nausea, Denies vomiting and Denies hematemesis Musculoskeletal: Musculoskeletal: Denies abnormal gait, Denies deformity, Denies joint swelling, Denies limited range of motion, Denies neck pain and Denies numbness Neurologic: Denies Abnormal speech present, Denies abnormal gait, Denies confusion, Denies dizziness, Denies headache(s), Denies focal weakness, Denies loss of vision, Denies numbness, Denies Other visual disturbances, Denies Sensory deficit (Neuro) and Denies weakness Psychiatric: Psychiatric: Denies confusion, Denies depression, Denies auditory hallucinations, Denies homicidal ideation and Denies suicidal ideation Endocrine: Endocrine: Denies cold intolerance, Denies excessive sweating, Denies fatigue, Denies heat intolerance and Denies palpitations Hematologic/Lymphatic: Hematologic/Lymphatic: Denies easy bleeding and Denies easy bruising Allergic/Immunologic: Allergic/Immunologic: Denies lip swelling, Denies throat swelling and Denies tongue swelling [facility] Past Medical History Medical History Acute renal failure Anxiety Arthritis BCC (basal cell carcinoma) Resected from her nose with subsequent plastic surgery resulting in a 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 Napier Diastolic dysfunction Echo March 2019 1. Left ventricular chamber dimension is normal. 2. Left ventricular systolic function is normal, estimated at 60-65%. 3. There is mildly increased left ventricular wall thickness. 4. The left ventricular diastolic function is grade II diastolic dysfunction. 5. E/E' 12 is mildly elevated. 6. Left atrial chamber dimension is mildly enlarged. 7. There is mild aortic valve regurgitation. 8. There is mild tricuspid valve regurgitation. 9. Mild pulmonary hypertension, estimated pulmonary arterial systolic pressure is 41 mmHg. 10. There is trace pulmonic regurgitation. Diverticul
[2021-09-18] MEDS: SODIUM CHLORIDE 0.9% IV 1,000 ML 999 ML IV CONT (04:00)
[2021-09-18 04:12] LABS: Hematocrit 32.6 % (37.0-47.0); Hemoglobin 9.4 g/dL (12.0-15.0); Mean Corpuscular HGB Conc 28.8 g/dl (32-36); Mean Corpuscular Hemoglobin 22.4 pg (26-34); Mean Corpuscular Volume 77.8 fl (80-100); Mean Platelet Volume 11.2 fl (7.4-10.4); Platelet Count Result 253 k/mm3 (150-375); Red Blood Count 4.19 M/mm3 (4.2-5.4)
[2021-09-18 04:27] LABS: Lactic Acid Reflex 0.7 mmol/L (0.7-2.1); Lymphocytes Absolute Manual 67.45 K/mm3 (1.1-4.5); Neutrophils Percent Manual 5 % (46-73); Platelet Estimate Adequate (Adequate); Total Cells Counted 100
[2021-09-18 04:28] LABS: Alanine Aminotransferase 32 U/L (4-35); Albumin Level 3.6 g/dL (3.5-5.1); Alkaline Phosphatase 127 U/L (38-126); Anion Gap 10 mmol/L (8-16); Aspartate Amino Transferase 68 U/L (14-36); Atypical Lymphocytes Present; Bilirubin,Total 0.7 mg/dL (0.2-1.3); Blood Urea Nitrogen 20 mg/dL (7-17); Calcium 8.5 mg/dL (8.4-10.2); Carbon Dioxide 24 mmol/L (22-30); Chloride 100 mmol/L (98-107); Estimated CRCL calculation 43 ml/min; Estimated Glomerular Filt Rate 54; Glucose 135 mg/dL (65-110); Hypochromasia 1+ (NORMAL); Ovalocytes 1+ (NORMAL); Potassium 4.5 mmol/L (3.4-5.0); Smudge Cells MODERATE; Sodium 134 mmol/L (137-145)
[2021-09-18] MEDS: LACTATED RINGERS 1,000 ML 125 ML IV CONT (07:29)
--- NOTE | 2021-09-18 07:30 | PC.NURSE ---
One set of cultures obtained, per Dr. Hassan, blood cultures ok to be obtained after antibiotic administration due to cultures drawn previous day for comparison. Multiple staff attempts at collection, one set obtained. Phlebotomy to be called prior to pt arrival to floor.
--- NOTE | 2021-09-18 07:41 | PC.NURSE ---
Received report from [facility] pt is being transported upstairs, report was called, no acute distress at this time
--- NOTE | 2021-09-18 07:55 | PC.NURSE ---
This patient, Cheryl Murillo, was admitted to 3 [facility] Surg Room 316-02. Patient/family oriented to hospital policies and general routines including ID bracelet, bed and alarms, visiting hours, pain management, procedures, bathroom and other care routines, personal items, smoking policy, room service/diet, and visiting hours. Information on how to activate the Rapid Response Team has been discussed. Patient/Family are encouraged to report perceived risks to care and to ask questions if they do not understand what they are told or what they should do.
[2021-09-18] MEDS: PANTOPRAZOLE 40 MG TABLET PO (12:43)
[2021-09-18] MEDS: amLODIPine BESYLATE 2.5 MG TABLET PO (12:43)
[2021-09-18] MEDS: AMIODARONE HCL 100 MG TABLET PO (12:44)
--- NOTE | 2021-09-18 13:09 | PM.IMHP ---
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 Patient was seen the emergency department on 09/16/2021. Patient has had vaccine for COVID-19 and boosted on May 2021. She was found to have a right middle lobe pneumonia and appeared to be stable enough to go home on doxycycline for 10 day course. Patient was called that she had Gram-positive cocci in blood cultures and to return to hospital. -Patient follows Dr. Napier for the CLL diagnosed a year ago for which they are just continuing to monitor. -Patient follows Dr. Vallejo [place] [facility] for the squamous cell carcinoma and basal cell carcinoma for which she has had multiple procedures and has new lesions which are going to be frozen off on her face. -patient follows Dr. Romo for AFib for which she is on Xarelto and amiodarone Patient does not have a history of getting pneumonias. Her main complaints are cough. He is not requiring any oxygen. Patient to be admitted for right middle lobe community-acquired pneumonia and possible bacteremia. It is unclear if the blood cultures are contaminant or not, repeat blood cultures pending from 09/18/2021. Chief Complaint: cough Review of Systems Review of Systems: Constitutional: No Fever, No Chills, No Night Sweats, No Fatigue, No Malaise ENT/Mouth: No Hearing Changes, No Ear Pain, No Nasal Congestion, No Sinus Pain, No Hoarseness, No sore throat, No Rhinorrhea, No Swallowing Difficulty Eyes: No Eye Pain, No Redness, No Vision Changes Cardiovascular: No Chest Pain, No Palpitations, No Dyspnea on Exertion, No Orthopnea, No Claudication, chronic lymphedema lower extremities Respiratory: Endorses cough with sputum production, no wheezing or shortness of breath Gastrointestinal: No Nausea, No Vomiting, No Diarrhea, No Constipation, No Abdominal Pain, No Heartburn, No Hematochezia, No Melena Genitourinary: No Dysuria, No Urinary Frequency, No Hematuria, No Urinary Incontinence, No Urgency Musculoskeletal: No Arthralgias, No Myalgias, No Joint Swelling, No Joint Stiffness, No Back Pain Skin: No Skin Lesions, No Pruritis, No Hair Changes Neuro: No Weakness, No Numbness, No Paresthesias, No Loss of Consciousness, No Syncope, No Dizziness, No Headache Psych: No Anxiety/Panic, No Depression, No Insomnia Heme: No Bruising, No Bleeding Lymph: No Adenopathy Endocrine: No Polyuria, No Polydipsia, No Temperature Intolerance PMFSH Past Medical History Medical History Acute renal failure Anxiety Arthritis BCC (basal cell carcinoma) Resected from her nose with subsequent plastic surgery resulting in a 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 Napier Diastolic dysfunction Echo March 2019 1. Left ventricular chamber dimension is normal. 2. Left ventricular systolic function is normal, estimated at 60-65%. 3. There is mildly increased left ventricular wall thickness. 4. The left ventricular diastolic function is grade II diastolic dysfunction. 5. E/E' 12 is mildly elevated. 6. Left atrial chamber dimension is mildly enlarged. 7. There is mild aortic valve regurgitation. 8. There is mild tricuspid valve regurgitation. 9. Mild pulmonary hypertension, estimated pulmonary arterial systolic pressure is 41 mmHg. 10. There is trace pulmonic regurgitation. Diverticulitis GERD (gastroesophageal reflux disease) Heart murmur Due to rheumatic fever as a child High cholesterol Hyperparathyroidism, primary Status post parathyroidectomy Hypertension Morbid obesity with BMI of 45.0-49.9, adult Paroxysmal A
[2021-09-18] MEDS: guaiFENesin 200 MG/10 ML UDC PO ×2 (13:51→22:06)
[2021-09-18] MEDS: ATORVASTATIN 40 MG TABLET 80 MG PO (20:01)
[2021-09-18] MEDS: RIVAROXABAN 15 MG TABLET PO (20:01)
[2021-09-19] VITALS (11 sets, daily range): BP systolic 148–152; BP diastolic 50; PULSE 68–73; RESP 16–20; TEMP 36.4–37.9; O2SAT 91–95
[2021-09-19] MEDS: BENZOCAINE/MENTHOL (*BKC) 18 EA LOZENGE 1 LOZENGE PO ×2 (05:45→14:17)
[2021-09-19] MEDS: guaiFENesin 200 MG/10 ML UDC PO (05:45)
[2021-09-19 08:27] LABS: Hematocrit 27.2 % (37.0-47.0); Mean Corpuscular HGB Conc 29.4 g/dl (32-36); Mean Corpuscular Hemoglobin 22.7 pg (26-34); Mean Corpuscular Volume 77.3 fl (80-100); Mean Platelet Volume 11.3 fl (7.4-10.4); Platelet Count Result 230 k/mm3 (150-375); Red Blood Count 3.52 M/mm3 (4.2-5.4); Red Cell Distribution Width 17.9 % (11.5-14.5)
[2021-09-19 08:57] LABS: Anion Gap 6 mmol/L (8-16); Blood Urea Nitrogen 14 mg/dL (7-17); Calcium 7.7 mg/dL (8.4-10.2); Carbon Dioxide 26 mmol/L (22-30); Chloride 99 mmol/L (98-107); Estimated CRCL calculation 40 ml/min; Estimated Glomerular Filt Rate 48; Glucose 172 mg/dL (65-110); Potassium 3.7 mmol/L (3.4-5.0); Sodium 131 mmol/L (137-145)
[2021-09-19] MEDS: AMIODARONE HCL 100 MG TABLET PO (08:59)
[2021-09-19] MEDS: amLODIPine BESYLATE 2.5 MG TABLET PO (09:00)
[2021-09-19] MEDS: PANTOPRAZOLE 40 MG TABLET PO (09:00)
[2021-09-19 09:03] LABS: White Blood Count 56.9 K/mm3 (4.5-10.0)
--- NOTE | 2021-09-19 12:21 | PM.IMPN ---
Progress Note: A&P Assessment and Plan (1) Blood bacterial culture positive: Code(s): R78.81 - Bacteremia Status: Acute Assessment and Plan: Patient diagnosed with PNA on 09/16/21 and had BCx drawn. Called back with BCx came back positive. Preliminary cultures growing Coag Neg Staph in both bottles. Repeat BCx 09/18 NGTD (only 1 bottle). It is unclear blood culture is a contaminant from skin stan or true bacteremia. Continue cefepime and vancomycin. Awaiting susceptibilities. Leukocytosis not helpful due to the CLL but level is trending down overall. Follow up on culture results (2) Pneumonia: Qualifiers: Laterality: unspecified laterality Lung location: unspecified part of lung Pneumonia type: due to unspecified organism Qualified Code(s): J18.9 - Pneumonia, unspecified organism Code(s): J18.9 - Pneumonia, unspecified organism Status: Acute Assessment and Plan: Patient presented with cough and SOB and had CXR showing small amount of ill-defined right midlung zone airspace disease. She was started on abx. She states her cough is better. She is still having low grade fever. She is up walking to the BR. No O2 requirement. Check sputum and urine Ag. Add mucinex. (3) Anemia: Code(s): D64.9 - Anemia, unspecified Status: Acute Assessment and Plan: Hgb normally runs 11-12 range. Hgb was 11.1 on 09/16/21 but dropped to 9.4 on admission (09/18) and now 8.0 today. She did have epistaxis but no evidence of other acute blood loss. Follow Hgb serially. Contineu PPI. Check iron studies, ect (4) CLL (chronic lymphocytic leukemia): Code(s): C91.10 - Chronic lymphocytic leukemia of B-cell type not having achieved remission Status: Acute Assessment and Plan: WBC was 75K on 09/16/21 but trending down now. Continue to monitor periodically (5) Chronic acquired lymphedema: Code(s): I89.0 - Lymphedema, not elsewhere classified Status: Acute Assessment and Plan: Stable. She is at baseline (6) Paroxysmal atrial flutter: Code(s): I48.92 - Unspecified atrial flutter Status: Acute Assessment and Plan: Stable. NSR by tele and maintaining this. Continue Amio. Continue Xarelto for stroke prophylaxis. Okay to stop tele (7) DVT prophylaxis: Code(s): Z29.9 - Encounter for prophylactic measures, unspecified Status: Acute Assessment and Plan: Xarelto Subjective Date/time seen: 09/19/21 12:21 Interval history: 76yo female with RA and CLL who is called back for admission after being found to have positive BCx after recently being diagnosed with PNA. Assuming care. Chart reviewed. Patient slept poorly last night due to noise. She feels SOB. Cough productive of greenish sputum. Cough overall is better. She did have epistaxis yesterday but this has resolved. No hemoptysis. No hx of asthma or COPD. She has been out of bed and walking to the BR with a walker. Exam Narrative: Tm 100.2 98.6 152/50 68 16 95% ra Gen - NARD lying semi-recumbent in bed Chest - rigth base inspiratory crackles with diffuse expiratory wheezes. CV - RRR S1/S2; Tele showing no significant dysrhythmias Abd - Soft, NT/ND, Positive BS Ext - Diffuse bilateral lower extremity non-pitting pedal edema Neuro - Alert and oriented. Nonfocal exam. Psych - Nml mood and affect Skin - Warm and dry Objective Data Vital Signs Vital Signs: Vital Signs - 24 hr 09/18/21 12:44 09/18/21 14:00 09/18/21 16:00 Temperature 98.6 F Pulse Rate 76 70 65 Respiratory Rate 19 Blood Pressure 144/64 H Pulse Oximetry 94 09/18/21 20:00 09/18/21 22:00 09/19/21 00:00 Temperature 99.6 F Pulse Rate 76 73 70 Respiratory Rate 16 Blood Pressure 132/85 Pulse Oximetry 97 09/19/21 04:00 09/19/21 05:46 09/19/21 08:00 Temperature 100.2 F H Pulse Rate 69 73 70 Respiratory Rate 16 Blood Pressure 152/50 H Pulse Oximetry
[2021-09-19 13:32] LABS: Hemoglobin 8.3 g/dL (12.0-15.0)
[2021-09-19] MEDS: guaiFENesin 12 HR 600 MG TABCR PO (23:12)
[2021-09-19] MEDS: RIVAROXABAN 15 MG TABLET PO (23:12)
[2021-09-19] MEDS: ATORVASTATIN 40 MG TABLET 80 MG PO (23:12)
[2021-09-20] VITALS (9 sets, daily range): BP systolic 135–145; BP diastolic 51–63; PULSE 65–79; RESP 14–20; TEMP 36.8–37; O2SAT 93–95
[2021-09-20 00:59] LABS: Hematocrit 28.1 % (37.0-47.0); Hemoglobin 8.1 g/dL (12.0-15.0)
[2021-09-20] MEDS: guaiFENesin 200 MG/10 ML UDC PO (02:18)
[2021-09-20 06:41] LABS: Hematocrit 26.5 % (37.0-47.0); Hemoglobin 7.7 g/dL (12.0-15.0); Mean Corpuscular HGB Conc 29.1 g/dl (32-36); Mean Corpuscular Hemoglobin 22.6 pg (26-34); Mean Corpuscular Volume 77.7 fl (80-100); Mean Platelet Volume 11.3 fl (7.4-10.4); Platelet Count Result 215 k/mm3 (150-375); Red Blood Count 3.41 M/mm3 (4.2-5.4); Red Cell Distribution Width 17.7 % (11.5-14.5); White Blood Count 43.8 K/mm3 (4.5-10.0)
[2021-09-20 07:39] LABS: Anisocytosis 1+ (NORMAL); Band Neutrophils Percent 1 % (0-6); Basophils Absolute Manual 0.43 K/mm3 (0.0-0.1); Basophils Percent Manual 1 % (0-1); Eosinophils Absolute Manual 0.43 K/mm3 (0.02-0.5); Eosinophils Percent Manual 1 % (0-4); Hypochromasia 1+ (NORMAL); Lymphocytes Absolute Manual 18.83 K/mm3 (1.1-4.5); Monocytes Absolute Manual 1.75 K/mm3 (0.1-0.90); Monocytes Percent Manual 4 % (3-9); Neutrophils Absolute Manual 22.33 K/mm3 (1.7-7.2); Neutrophils Percent Manual 50 % (46-73); Platelet Estimate Adequate (Adequate); Smudge Cells MANY; Total Cells Counted 100
[2021-09-20 07:40] LABS: Ovalocytes 1+ (NORMAL)
[2021-09-20 08:30] LABS: Iron 25 ug/dL (37-170)
[2021-09-20 08:40] LABS: Anion Gap 5 mmol/L (8-16); Blood Urea Nitrogen 11 mg/dL (7-17); Calcium 7.7 mg/dL (8.4-10.2); Carbon Dioxide 25 mmol/L (22-30); Chloride 100 mmol/L (98-107); Estimated CRCL calculation 49 ml/min; Estimated Glomerular Filt Rate > 60; Glucose 148 mg/dL (65-110); Lactate Dehydrogenase 555 U/L (313-618); Potassium 3.8 mmol/L (3.4-5.0); Sodium 130 mmol/L (137-145)
[2021-09-20] MEDS: PANTOPRAZOLE 40 MG TABLET PO (08:41)
[2021-09-20] MEDS: AMIODARONE HCL 100 MG TABLET PO (08:41)
[2021-09-20] MEDS: guaiFENesin 12 HR 600 MG TABCR PO ×2 (08:41→21:06)
[2021-09-20] MEDS: amLODIPine BESYLATE 2.5 MG TABLET PO (08:42)
[2021-09-20 08:44] LABS: Percent Iron Saturation 8 % (20-50)
[2021-09-20 09:40] LABS: Folic Acid > 20.0 ng/mL (2.76->20)
[2021-09-20 12:11] LABS: Hematocrit 30.1 % (37.0-47.0)
--- NOTE | 2021-09-20 12:41 | PC.NURSE ---
urine samples sent to lab for analysis.
--- NOTE | 2021-09-20 13:58 | PM.IMPN ---
Progress Note: A&P Assessment and Plan (1) Blood bacterial culture positive: Code(s): R78.81 - Bacteremia Status: Acute Assessment and Plan: Patient seen in the ED on 09/16/21 and had BCx drawn and was diagnosed with PNA. Called back with BCx came back positive. Preliminary cultures growing Coag Neg Staph in both bottles. Repeat BCx 09/18 NGTD (only 1 bottle). It is unclear blood culture is a contaminant from skin stan or true bacteremia. Leukocytosis not helpful due to the CLL but level is trending down overall. Continue cefepime and vancomycin for now. (2) Pneumonia: Qualifiers: Laterality: unspecified laterality Lung location: unspecified part of lung Pneumonia type: due to unspecified organism Qualified Code(s): J18.9 - Pneumonia, unspecified organism Code(s): J18.9 - Pneumonia, unspecified organism Status: Acute Assessment and Plan: Patient presented with cough and SOB and had CXR showing small amount of ill-defined right midlung zone airspace disease. She was started on abx. Cough is better. No further fevers. WBC trending down. No O2 requirement. Continue to follow. (3) Anemia: Code(s): D64.9 - Anemia, unspecified Status: Acute Assessment and Plan: Hgb normally runs 11-12 range. Hgb was 11.1 on 09/16/21 but dropped to 9.4 on admission (09/18) and now 7.7 today. Iron studies showing iron deficiency anemia. She did have epistaxis but no evidence of other acute blood loss. Following hgb and now up to 9.0. Continue PPI. GI consult since she does require anticoagulation. Give IV iron today. (4) CLL (chronic lymphocytic leukemia): Code(s): C91.10 - Chronic lymphocytic leukemia of B-cell type not having achieved remission Status: Acute Assessment and Plan: WBC was 75K on 09/16/21 but trending down now. Continue to monitor periodically. (5) Chronic acquired lymphedema: Code(s): I89.0 - Lymphedema, not elsewhere classified Status: Acute Assessment and Plan: Stable. Contineu to monitor (6) Paroxysmal atrial flutter: Code(s): I48.92 - Unspecified atrial flutter Status: Acute Assessment and Plan: Stable. NSR by tele and maintaining this. Continue Amio. Hold Xarelto anemia. Stop tele (7) DVT prophylaxis: Code(s): Z29.9 - Encounter for prophylactic measures, unspecified Status: Acute Assessment and Plan: Xarelto to be held. Add SCDs. Subjective Date/time seen: 09/20/21 13:58 Interval history: 76yo female with RA and CLL who is called back for admission after being found to have positive BCx after recently being diagnosed with PNA. Had coughing jag this morning but better now. Feels SOB but states this is chronic. No n/v. No melana or hematochezia. +epistaxis. No stomach pain. No hx of ulcers. Exam Narrative: AF 98.2 136/63 79 14 95% ra Gen - NARD Chest - CTA bilaterally, nml RR CV - RRR S1/S2; Tele showing PVCs Abd - Soft, NT/ND, Positive BS Ext - Diffuse bilateral lower extremity non-pitting pedal edema Psych - Nml mood and affect Skin - Warm and dry Objective Data Vital Signs Vital Signs: Vital Signs - 24 hr 09/19/21 14:00 09/19/21 16:00 09/19/21 20:00 Temperature 97.6 F Pulse Rate 70 69 69 Respiratory Rate 18 Blood Pressure 149/50 H Pulse Oximetry 95 09/19/21 22:00 09/20/21 00:00 09/20/21 04:00 Temperature 97.8 F Pulse Rate 72 79 67 Respiratory Rate 20 Blood Pressure 148/50 H Pulse Oximetry 91 09/20/21 05:47 09/20/21 08:00 09/20/21 08:41 Temperature 98.6 F Pulse Rate 69 65 68 Respiratory Rate 20 20 Blood Pressure 145/51 H Pulse Oximetry 94 94 09/20/21 12:00 Temperature Pulse Rate 70 Respiratory Rate Blood Pressure Pulse Oximetry Intake/Output Intake/Output: Intake & Output 09/17/21 09/18/21 09/19/21 09/20/21 23:59 23:59 23:59 23:59 Intake Total 3090 4030 1040 Output Total 1000
[2021-09-20] MEDS: IRON SUCROSE COMPLEX 100 MG in SODIUM CHLORIDE 0.9% IV 50 ML 220 MG IVPB (16:28)
--- NOTE | 2021-09-20 17:08 | WPDGICN ---
Assessment and Plan Assessment and plan (1) Acute on chronic blood loss anemia: Code(s): D62 - Acute posthemorrhagic anemia Status: Acute Assessment and Plan: no overt gib she also has chronic anemia and history of CLL patient would like to wait until get better from pneumonia and acute issues before considering any endoscopic evaluation I gave her my information and she can follow-up in office if would like to arrange endoscopic evaluation of course if obvious GIB while she is in the hospital then we will do it while she is here (2) Pneumonia: Qualifiers: Laterality: unspecified laterality Lung location: unspecified part of lung Pneumonia type: due to unspecified organism Qualified Code(s): J18.9 - Pneumonia, unspecified organism Code(s): J18.9 - Pneumonia, unspecified organism Status: Acute Assessment and Plan: on iv antibiotics (3) Blood bacterial culture positive: Code(s): R78.81 - Bacteremia Status: Acute Assessment and Plan: awaiting final ID (4) CLL (chronic lymphocytic leukemia): Code(s): C91.10 - Chronic lymphocytic leukemia of B-cell type not having achieved remission Status: Acute Assessment and Plan: seeing hem-onc (5) Morbid obesity with BMI of 45.0-49.9, adult: Code(s): E66.01 - Morbid (severe) obesity due to excess calories; Z68.42 - Body mass index [BMI] 45.0-49.9, adult Status: Acute (6) Paroxysmal A-fib: Code(s): I48.0 - Paroxysmal atrial fibrillation Status: Acute (7) Chronic anticoagulation: Code(s): Z79.01 - correction (current) use of anticoagulants Status: Acute GI Consult Note Consult date/time: 09/20/21 17:08 Reason for consult: acute on chronic anemia HPI: Cheryl Murillo is a 76 year old female with past medical history of hypertension, chronic lymphedema, hyperlipidemia, rheumatoid arthritis, AFib on Xarelto, 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 She was called after result of cultures and admitted to hospital for iv antibiotics. She denies any blood in stools, no history of GIB but using xarelto. I was called because noted hb down to 7.7 from 9. No melena. She has h/o GERD on ppi for years but never had EGD, denies abdominal pain. She had colonoscopy but many years ago probably more than 15 years. Review of Systems Constitutional: Constitutional: Denies chills Eyes: Eyes: Denies blurry vision ENT: Reports Normal hearing present Cardiovascular: Cardiovascular: Denies chest pain Respiratory: Respiratory: Reports cough Gastrointestinal: Gastrointestinal: Denies abdominal pain Genitourinary: Genitourinary: Denies flank pain Musculoskeletal: Comments: lymphedema Neurologic: Reports system reviewed and no additional complaints, except as documented Psychiatric: Psychiatric: Reports no additional psychiatric complaints [facility] Past Medical History Medical History (Updated 09/20/21 @ 17:14 by Tashi Delgado MD) Acute on chronic blood loss anemia Acute renal failure Anxiety Arthritis BCC (basal cell carcinoma) Resected from her nose with subsequent plastic surgery resulting in 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 Napier Diastolic dysfunction Echo March 2019 1. Left ventricular chamber dimension is normal. 2. Left ventricular systolic function is normal, estimated at 60-65%. 3. There is mildly increased left ventricular wall thickness. 4. The left ventricular diastolic function is grade II diastolic dysfunction. 5. E/E' 12 is mildly eleva
[2021-09-20 18:07] LABS: Hematocrit 31.9 % (37.0-47.0); Hemoglobin 9.4 g/dL (12.0-15.0)
[2021-09-20] MEDS: ATORVASTATIN 40 MG TABLET 80 MG PO (21:05)
[2021-09-21 01:26] LABS: Hematocrit 28.4 % (37.0-47.0); Hemoglobin 8.2 g/dL (12.0-15.0)
[2021-09-21 05:51] VITALS: BP 154/60; PULSE 72; RESP 20; TEMP 36.9; O2SAT 90
[2021-09-21 08:13] LABS: Anion Gap 4 mmol/L (8-16); Blood Urea Nitrogen 12 mg/dL (7-17); Calcium 7.7 mg/dL (8.4-10.2); Carbon Dioxide 27 mmol/L (22-30); Chloride 100 mmol/L (98-107); Estimated CRCL calculation 44 ml/min; Estimated Glomerular Filt Rate 54; Glucose 117 mg/dL (65-110); Potassium 3.9 mmol/L (3.4-5.0); Sodium 131 mmol/L (137-145)
[2021-09-21] MEDS: amLODIPine BESYLATE 2.5 MG TABLET PO (08:21)
[2021-09-21] MEDS: guaiFENesin 12 HR 600 MG TABCR PO ×2 (08:21→20:13)
[2021-09-21] MEDS: AMIODARONE HCL 100 MG TABLET PO (08:21)
[2021-09-21] MEDS: BENZOCAINE/MENTHOL (*BKC) 18 EA LOZENGE 1 LOZENGE PO (08:21)
[2021-09-21] MEDS: guaiFENesin 200 MG/10 ML UDC PO ×3 (08:21→22:13)
[2021-09-21] MEDS: PANTOPRAZOLE 40 MG TABLET PO (08:22)
[2021-09-21 08:40] LABS: Hematocrit 28.5 % (37.0-47.0); Hemoglobin 8.2 g/dL (12.0-15.0); Mean Corpuscular HGB Conc 28.8 g/dl (32-36); Mean Corpuscular Hemoglobin 22.7 pg (26-34); Mean Corpuscular Volume 78.7 fl (80-100); Mean Platelet Volume 11.4 fl (7.4-10.4); Platelet Count Result 227 k/mm3 (150-375); Red Blood Count 3.62 M/mm3 (4.2-5.4); Red Cell Distribution Width 17.9 % (11.5-14.5); White Blood Count 49.7 K/mm3 (4.5-10.0)
[2021-09-21 08:45] LABS: Vancomycin Trough 9.4 ug/mL (10.0-20.0)
[2021-09-21 09:15] LABS: Band Neutrophils Percent 1 % (0-6); Eosinophils Absolute Manual 1.49 K/mm3 (0.02-0.5); Eosinophils Percent Manual 3 % (0-4); Lymphocytes Absolute Manual 33.29 K/mm3 (1.1-4.5); Metamyelocytes Percent 1 %; Monocytes Absolute Manual 1.98 K/mm3 (0.1-0.90); Monocytes Percent Manual 4 % (3-9); Neutrophils Absolute Manual 12.42 K/mm3 (1.7-7.2); Neutrophils Percent Manual 24 % (46-73); Platelet Estimate Adequate (Adequate); Total Cells Counted 100
[2021-09-21 09:16] LABS: Anisocytosis 2+ (NORMAL); Atypical Lymphocytes Present; Hypochromasia 2+ (NORMAL); Ovalocytes 1+ (NORMAL); Smudge Cells PRESENT
--- NOTE | 2021-09-21 13:36 | PM.IMPN ---
Progress Note: A&P Assessment and Plan (1) Blood bacterial culture positive: Code(s): R78.81 - Bacteremia Status: Acute Assessment and Plan: Patient seen in the ED on 09/16/21 and had BCx drawn and was diagnosed with PNA. Called back with BCx came back positive. Preliminary cultures growing Coag Neg Staph in both bottles. Repeat BCx 09/18 NGTD (only 1 bottle). It is unclear blood culture is a contaminant from skin stan or true bacteremia. Leukocytosis not helpful due to the CLL but level is trending down overall. Continue cefepime and vancomycin for now. respiratory culture not performed due to unacceptable sample. (2) Pneumonia: Qualifiers: Laterality: unspecified laterality Lung location: unspecified part of lung Pneumonia type: due to unspecified organism Qualified Code(s): J18.9 - Pneumonia, unspecified organism Code(s): J18.9 - Pneumonia, unspecified organism Status: Acute Assessment and Plan: Patient presented with cough and SOB and had CXR showing small amount of ill-defined right midlung zone airspace disease. She was started on abx. Cough is better. No further fevers. WBC trending down. No O2 requirement. Continue to follow. Noted to be wheezy today will start bronchodilator treatment and repeat chest x-ray 09/21/2021 (3) Anemia: Code(s): D64.9 - Anemia, unspecified Status: Acute Assessment and Plan: Hgb normally runs 11-12 range. Hgb was 11.1 on 09/16/21 but dropped to 9.4 on admission (09/18) and now 7.7 today. Iron studies showing iron deficiency anemia. She did have epistaxis but no evidence of other acute blood loss. Following hgb and now up to 9.0. Continue PPI. GI consult since she does require anticoagulation. IV iron given (4) CLL (chronic lymphocytic leukemia): Code(s): C91.10 - Chronic lymphocytic leukemia of B-cell type not having achieved remission Status: Acute Assessment and Plan: WBC was 75K on 09/16/21 but trending down now. Continue to monitor periodically. follows with oncologist Dr. Napier (5) Chronic acquired lymphedema: Code(s): I89.0 - Lymphedema, not elsewhere classified Status: Acute Assessment and Plan: Stable. Contineu to monitor (6) Paroxysmal atrial flutter: Code(s): I48.92 - Unspecified atrial flutter Status: Acute Assessment and Plan: Stable. NSR by tele and maintaining this. Continue Amio. Hold Xarelto anemia. Stop tele also on amiodarone for this sees Dr. Romo (7) DVT prophylaxis: Code(s): Z29.9 - Encounter for prophylactic measures, unspecified Status: Acute Assessment and Plan: Xarelto held due to drop in H&H. Add SCDs. Subjective Date/time seen: 09/21/21 13:36 Interval history: 76yo female with RA and CLL who is called back for admission after being found to have positive BCx after recently being diagnosed with PNA. Had coughing jag this morning but better now. Feels SOB but states this is chronic. No n/v. No melana or hematochezia. +epistaxis. No stomach pain. No hx of ulcers. 09/21/2021 no overnight events. states she feels a little short of breath today compared to yesterday. No prior history of smoking. Mild cough persists. Remains afebrile. She does have chronic shortness of breath Review of Systems Review of Systems: All systems reviewed & are unremarkable except as noted in HPI and below ( HPI) Exam Narrative: Gen - NARD Chest - Bilateral end-expiratory wheezing noted, nml RR CV - RRR S1/S2; Tele showing PVCs Abd - Soft, NT/ND, Positive BS Ext - Diffuse bilateral lower extremity non-pitting pedal edema ( lymphedema +/-lipedema ) Psych - Nml mood and affect Skin - Warm and dry Objective Data Vital Signs Vital Signs: Vital Signs - 24 hr 09/20/21 14:00 09/20/21 20:00 09/20/21 22:00 Temperature 98.2 F 98.5 F Pulse Rate 79 79 66 Respiratory Rate 14 14 20 Blood Pressure 136/63 135/52 L P
[2021-09-21 14:00] VITALS: BP 135/57; PULSE 62; RESP 14; TEMP 36.7; O2SAT 95
[2021-09-21 14:06] LABS: IFOB Positive Control Positive; Immunochemical Fecal Occult Bl Negative (N)
[2021-09-21 20:00] VITALS: RESP 14; O2SAT 95
[2021-09-21] MEDS: ATORVASTATIN 40 MG TABLET 80 MG PO (20:13)
[2021-09-21 22:00] VITALS: BP 140/42; PULSE 63; RESP 21; TEMP 36.9; O2SAT 95
[2021-09-22 06:00] VITALS: BP 154/48; PULSE 62; RESP 18; TEMP 36.7; O2SAT 94
[2021-09-22 06:50] LABS: Hemoglobin 8.1 g/dL (12.0-15.0); Mean Corpuscular HGB Conc 28.9 g/dl (32-36); Mean Corpuscular Hemoglobin 22.3 pg (26-34); Mean Corpuscular Volume 76.9 fl (80-100); Mean Platelet Volume 11.2 fl (7.4-10.4); Platelet Count Result 242 k/mm3 (150-375); Red Blood Count 3.64 M/mm3 (4.2-5.4); Red Cell Distribution Width 17.7 % (11.5-14.5)
[2021-09-22 06:56] LABS: Alanine Aminotransferase 35 U/L (4-35); Albumin Level 2.9 g/dL (3.5-5.1); Alkaline Phosphatase 81 U/L (38-126); Anion Gap 6 mmol/L (8-16); Aspartate Amino Transferase 59 U/L (14-36); Bilirubin,Total 0.3 mg/dL (0.2-1.3); Blood Urea Nitrogen 13 mg/dL (7-17); Calcium 7.3 mg/dL (8.4-10.2); Carbon Dioxide 27 mmol/L (22-30); Chloride 99 mmol/L (98-107); Estimated CRCL calculation 44 ml/min; Estimated Glomerular Filt Rate 54; Glucose 120 mg/dL (65-110); Magnesium 1.5 mg/dL (1.6-2.3); Potassium 3.8 mmol/L (3.4-5.0); Sodium 132 mmol/L (137-145)
[2021-09-22 08:08] LABS: Atypical Lymphocytes Present; Band Neutrophils Percent 2 % (0-6); Lymphocytes Absolute Manual 48.72 K/mm3 (1.1-4.5); Monocytes Absolute Manual 1.16 K/mm3 (0.1-0.90); Monocytes Percent Manual 2 % (3-9); Neutrophils Absolute Manual 8.12 K/mm3 (1.7-7.2); Neutrophils Percent Manual 12 % (46-73); Platelet Estimate Adequate (Adequate); Smudge Cells PRESENT; Total Cells Counted 100
[2021-09-22 08:09] LABS: Anisocytosis 2+ (NORMAL); Ovalocytes 1+ (NORMAL)
[2021-09-22] MEDS: guaiFENesin 12 HR 600 MG TABCR PO ×2 (10:16→20:41)
[2021-09-22] MEDS: guaiFENesin 200 MG/10 ML UDC PO ×2 (10:16→15:34)
[2021-09-22] MEDS: amLODIPine BESYLATE 2.5 MG TABLET PO (10:17)
[2021-09-22] MEDS: AMIODARONE HCL 100 MG TABLET PO (10:17)
[2021-09-22] MEDS: PANTOPRAZOLE 40 MG TABLET PO (10:17)
--- NOTE | 2021-09-22 12:07 | PM.IMPN ---
Progress Note: A&P Assessment and Plan (1) Blood bacterial culture positive: Code(s): R78.81 - Bacteremia Status: Acute Assessment and Plan: Patient seen in the ED on 09/16/21 and had BCx drawn and was diagnosed with PNA. Called back with BCx came back positive. Preliminary cultures growing Coag Neg Staph in both bottles. Repeat BCx 09/18 NGTD (only 1 bottle). It is unclear blood culture is a contaminant from skin stan or true bacteremia. Leukocytosis not helpful due to the CLL but level is trending down overall. Continue cefepime and vancomycin for now. respiratory culture not performed due to unacceptable sample. (2) Pneumonia: Qualifiers: Laterality: unspecified laterality Lung location: unspecified part of lung Pneumonia type: due to unspecified organism Qualified Code(s): J18.9 - Pneumonia, unspecified organism Code(s): J18.9 - Pneumonia, unspecified organism Status: Acute Assessment and Plan: Patient presented with cough and SOB and had CXR showing small amount of ill-defined right midlung zone airspace disease. She was started on abx. Cough is better. No further fevers. WBC trending down. No O2 requirement. Continue to follow. Noted to be wheezy today will start bronchodilator treatment and repeat chest x-ray 09/21/2021 (3) Anemia: Code(s): D64.9 - Anemia, unspecified Status: Acute Assessment and Plan: Hgb normally runs 11-12 range. Hgb was 11.1 on 09/16/21 but dropped to 9.4 on admission (09/18) and now 7.7 today. Iron studies showing iron deficiency anemia. She did have epistaxis but no evidence of other acute blood loss. Following hgb and now up to 9.0. Continue PPI. GI consult since she does require anticoagulation. IV iron given (4) CLL (chronic lymphocytic leukemia): Code(s): C91.10 - Chronic lymphocytic leukemia of B-cell type not having achieved remission Status: Acute Assessment and Plan: WBC was 75K on 09/16/21 but trending down now. Continue to monitor periodically. follows with oncologist Dr. Napier (5) Chronic acquired lymphedema: Code(s): I89.0 - Lymphedema, not elsewhere classified Status: Acute Assessment and Plan: Stable. Contineu to monitor (6) Paroxysmal atrial flutter: Code(s): I48.92 - Unspecified atrial flutter Status: Acute Assessment and Plan: Stable. NSR by tele and maintaining this. Continue Amio. Hold Xarelto anemia. Stop tele also on amiodarone for this sees Dr. Romo (7) DVT prophylaxis: Code(s): Z29.9 - Encounter for prophylactic measures, unspecified Status: Acute Assessment and Plan: Xarelto held due to drop in H&H. Add SCDs. Additional Plan 09/22/2021 Patient is feeling better, afebrile, chest x-ray shows resolution of pneumonia. Plan is to continue current treatment, monitor CBC, stays afebrile discharge home in the morning. Subjective Date/time seen: 09/22/21 12:07 Patient was seen during the morning rounds today. Feeling much better. No shortness of breath or chest pain. No abdominal pain, nausea, no vomiting. Mood stable Interval history: 76yo female with RA and CLL who is called back for admission after being found to have positive BCx after recently being diagnosed with PNA. Review of Systems Review of Systems: All systems reviewed & are unremarkable except as noted in HPI and below ( HPI) Exam Narrative: Gen - NARD Chest - Bilateral end-expiratory wheezing noted, nml RR CV - RRR S1/S2; Tele showing PVCs Abd - Soft, NT/ND, Positive BS Ext - Diffuse bilateral lower extremity non-pitting pedal edema ( lymphedema +/-lipedema ) Psych - Nml mood and affect Skin - Warm and dry Objective Data Vital Signs Vital Signs: Vital Signs - 24 hr 09/21/21 14:00 09/21/21 20:00 09/21/21 22:00 Temperature 36.7 C 36.9 C Pulse Rate 62 63 Respiratory Rate 14 14 21 H Blood Pressure 135/57 L 140/42 L Pulse Oximetry
[2021-09-22 13:38] VITALS: BP 139/62; PULSE 65; RESP 16; TEMP 36.8; O2SAT 95
[2021-09-22 20:00] VITALS: PULSE 65; RESP 16; O2SAT 95
[2021-09-22] MEDS: ATORVASTATIN 40 MG TABLET 80 MG PO (20:41)
[2021-09-22 21:38] VITALS: BP 150/50; PULSE 61; RESP 18; TEMP 36.6; O2SAT 97
[2021-09-23] MEDS: guaiFENesin 200 MG/10 ML UDC PO ×2 (02:19→09:26)
[2021-09-23 06:00] VITALS: BP 144/45; PULSE 61; RESP 16; TEMP 35.8; O2SAT 94
[2021-09-23 08:27] VITALS: PULSE 60
[2021-09-23] MEDS: AMIODARONE HCL 100 MG TABLET PO (08:27)
[2021-09-23] MEDS: guaiFENesin 12 HR 600 MG TABCR PO (08:27)
[2021-09-23] MEDS: amLODIPine BESYLATE 2.5 MG TABLET PO (08:27)
[2021-09-23] MEDS: PANTOPRAZOLE 40 MG TABLET PO (08:27)
--- NOTE | 2021-09-23 09:00 | PCPTNOTE ---
Patient declined PT stating she only slept for ~ 1 hour last night and has not been able to eat this morning due to continuous coughing. PT will continue to follow per plan of care.
[2021-09-23 09:11] LABS: Hematocrit 28.9 % (37.0-47.0); Hemoglobin 8.3 g/dL (12.0-15.0); Mean Corpuscular HGB Conc 28.7 g/dl (32-36); Mean Corpuscular Hemoglobin 22.3 pg (26-34); Mean Corpuscular Volume 77.5 fl (80-100); Mean Platelet Volume 11.4 fl (7.4-10.4); Platelet Count Result 266 k/mm3 (150-375); Red Blood Count 3.73 M/mm3 (4.2-5.4)
[2021-09-23 09:23] LABS: Estimated CRCL calculation 49 ml/min; Estimated Glomerular Filt Rate > 60; White Blood Count 64.3 K/mm3 (4.5-10.0)
[2021-09-23 13:21] VITALS: PULSE 60; RESP 20
[2021-09-23] MEDS: IPRATROPIUM BR 0.02% INH SOLN 0.5 MG/2.5 ML VIAL INHALATION (13:21)
[2021-09-23] MEDS: ALBUTEROL SULFATE NEB 2.5 MG/0.5 ML INH INHALATION (13:21)
[2021-09-23 13:29] VITALS: O2SAT 95
[2021-09-23 14:00] VITALS: BP 151/68; PULSE 62; RESP 18; TEMP 35.8; O2SAT 97
[2021-09-23 15:21] LABS: Vancomycin Trough 16.5 ug/mL (10.0-20.0)
--- NOTE | 2021-09-23 15:49 | PM.DS ---
DS: Admitting Diagnosis Discharge Date 09/23/21 Admitting Diagnosis Positive Blood Cultures DS: Discharge Diagnosis Discharge Diagnosis (1) Blood bacterial culture positive: Code(s): R78.81 - Bacteremia Status: Acute Assessment and Plan: Patient seen in the ED on 09/16/21 and had BCx drawn and was diagnosed with PNA. She was called back with BCx came back positive. She was stared on IV antibiotics. Cultures growing Coag Neg Staph in both bottles. Repeat BCx 09/18 NGTD (only 1 bottle). It is unclear blood culture is a contaminant from skin stan or true bacteremia but overall felt to be a contaminant. Leukocytosis not helpful due to the CLL. She remained afebrile. (2) Pneumonia: Qualifiers: Laterality: unspecified laterality Lung location: unspecified part of lung Pneumonia type: due to unspecified organism Qualified Code(s): J18.9 - Pneumonia, unspecified organism Code(s): J18.9 - Pneumonia, unspecified organism Status: Acute Assessment and Plan: Patient presented initially with cough and SOB and had CXR showing small amount of ill-defined right midlung zone airspace disease. She was started on abx. Cough is better but persistent. No further fevers. WBC not helpful. No O2 requirement. Repeat CXR showing near complete resolution of the previously described right lung airspace opacities, likely resolving pneumonia. Rapid COVID test was negative. (3) Anemia: Code(s): D64.9 - Anemia, unspecified Status: Acute Assessment and Plan: Hgb normally runs 11-12 range. Hgb was 11.1 on 09/16/21 but dropped to 9.4 on admission (09/18) and then to 7.7. Iron studies showing iron deficiency anemia. She did have epistaxis but no evidence of other acute blood loss. Serial hgb remained stable in the 8-9. Treated with PPI. Seen by GI but patient did not want furhter testing at this time. Iron added. (4) CLL (chronic lymphocytic leukemia): Code(s): C91.10 - Chronic lymphocytic leukemia of B-cell type not having achieved remission Status: Acute Assessment and Plan: WBC was 75K on 09/16/21 but trended down before climbing to 64K. She follows with oncologist Dr. Napier. (5) Chronic acquired lymphedema: Code(s): I89.0 - Lymphedema, not elsewhere classified Status: Acute Assessment and Plan: Stable. She worked with therapy and was able to ambulate to the bathroom with Continue to monitor (6) Paroxysmal atrial flutter: Code(s): I48.92 - Unspecified atrial flutter Status: Acute Assessment and Plan: Stable. She was maintaining NSR by tele and by exam. We continued her Amiodarone. We held the Xarelto due to the anemia but this was resumed. DS: Summary Hospital Course Reason for hospitalization: 76yo female with RA and CLL who is called back for admission after being found to have positive BCx after recently being diagnosed with PNA. Please see H&P for details. Hospital Course: please see above for details of hospital course. Status at Discharge Cognitive/behavioral status at discharge: Stable Time Spent with Patient Time attestation: Total time spent providing and/or coordinating discharge services: 38 minutes Time spent: Greater than 30 minutes Exam Narrative: AF 96.5 151/68 62 18 97% ra Gen - NARD Chest - right basilar rhonchi o/w mild diffuse wheezing CV - RRR S1/S2 Abd - Soft, NT/ND, Positive BS Ext - Diffuse bilateral lower extremity non-pitting pedal edema ( lymphedema +/-lipedema ) Psych - Nml mood and affect Skin - Warm and dry DS: Data Data Completed and Pending Labs on day of discharge: Labs from last 24 hours 09/23/21 09/23/21 09/23/21 14:56 08:13 08:13 WBC 64.3 H* RBC 3.73 L Hgb 8.3 L Hct 28.9 L MCV 77.5 L MCH 22.3 L MCHC 28.7 L RDW 18.0 H Plt Count 266 MPV 11.4 H Creatinine 0.90 Estim Creat Clear Calc 49 Estimated GFR > 60 Va
[2021-09-24 07:20] LABS: Legionella pneumophila Ag Ur Not Detected (Not Detected)
[2021-09-26 00:04] LABS: Pneumococcal Antigen Urine Not Detected (Not Detected)
--- NOTE | 2021-09-26 09:52 | PC.NURSE ---
Urine pneumococcal Ag is not detected. Dr. Nick church.
== END 2021-09-23 17:25 | disposition home or self-care (01) | DRG 194 ==
LOC: ANHED 09-18 05:06 → ANH3MEDSUR 09-18 06:14
PROVIDERS: Internal Medicine; Student in an Organized Health Care Education/Training Program; Admitting Provider Internal Medicine; Emergency Provider Emergency Medicine; PCP Family Medicine; Visit Provider Internal Medicine
DX: J18.9 Pneumonia, unspecified organism (principal); R78.81 Bacteremia; C91.10 Chronic lymphocytic leukemia of B-cell type not having achieved remission; Z68.42 Body mass index [BMI] 45.0-49.9, adult; I27.20 Pulmonary hypertension, unspecified; E66.01 Morbid (severe) obesity due to excess calories; R93.89 Abnormal findings on diagnostic imaging of other specified body structures; M06.9 Rheumatoid arthritis, unspecified; I48.0 Paroxysmal atrial fibrillation; I10 Essential (primary) hypertension; E78.5 Hyperlipidemia, unspecified; K21.9 Gastro-esophageal reflux disease without esophagitis; I89.0 Lymphedema, not elsewhere classified; R53.1 Weakness; D50.9 Iron deficiency anemia, unspecified; Z79.01 Long term (current) use of anticoagulants; Z79.899 Other long term (current) drug therapy
CPT/HCPCS: 36415; 71045; 80048; 80053; 80202; 82274; 82565; 82607; 82728; 82746; 83540; 83550; 83605; 83615; 83735; 85014; 85018; 85025; 85027; 87040; 87070; 87205; 87449; 87899; 94640; 96361; 96365; 96366; 96367; 96376; 97110; 97161; 97165; 97530; 97535; 99285; A9270; G0378; J0692; J1756; J2543; J3370; J7030; J7120

== ENCOUNTER 2021-10-06 09:39 | Inpatient (IN) | payer MEDICARE, SELFPAY ==
[2021-10-06] VITALS (25 sets, daily range): BP systolic 122–165; BP diastolic 59–107; PULSE 67–107; RESP 16–32; TEMP 36.3–36.9; O2SAT 93–99; BMI 44.9
--- NOTE | ~2021-10-06 | XR_ITS ---
XR chest 1V portable 10/09/2021 08:48 Indication: Pneumonia Procedure: AP portable chest Comparison: Comparison to multiple prior studies sequentially, with oldest reviewed study dated 01/22. Findings: There is mild patchy bilateral airspace disease, compatible with pneumonia. Cardiomegaly. N o significant effusion or pneumothorax. No acute osseous abnormality. Impression: 1: Patchy bilateral infiltrates, compatible with pneumonia. Reviewed, dictated and finalized at location B. WARE DEVELOPER Impression: 1: Patchy bilateral infiltrates, compatible with pneumonia.
--- NOTE | ~2021-10-06 | XR_ITS ---
XR chest 1V portable DATE: 10/13/2021 20:08 INDICATION: Covid infection. History of rheumatic fever, atrial flutter. TECHNIQUE: Portable AP chest on 10/13/2021 2000 hours COMPARISON: 10/09/2021 portable AP chest at 0826 hours FINDINGS: There is cardiomegaly. There is prominent aortic arch calcification. There are patchy infiltrates in the right mid and both lower lung zones, especially the left lower lo be where there is increased retrocardiac density consistent with left lower lobe atelectasis and/or c onsolidation. No pleural effusion is evident. There is mild pulmonary vascular congestion and redistribution. Prominent diffuse osteopenia. IMPRESSION: Cardiomegaly, mild pulmonary vascular congestion Bilateral pulmonary infiltrates somewhat underpenetrated diagnosis includes pulmonary edema and/or pn eumonia Reviewed, dictated and finalized at location A. STOS WIRE FINISHER IMPRESSION: Cardiomegaly, mild pulmonary vascular congestion Bilateral pulmonary infiltrates somewhat underpenetrated diagnosis includes pul monary edema and/or pneumonia
--- NOTE | ~2021-10-06 | XR_ITS ---
XR chest 2V DATE: 10/06/2021 10:01 INDICATION: Chest pain, cough TECHNIQUE: AP and lateral views COMPARISON: 09/21/2021 portable AP chest 01/02/2020 CT chest FINDINGS: Cardiomegaly. Aortic arch and descending thoracic aortic calcification. There are patchy infiltrates and/atelectasis in both lower lung zones. Diffuse osteopenia. Bilateral rotator cuff atrophy. Levoscoliosis and degenerative change of the thoracic spine. Status post cholecystectomy. IMPRESSION: Patchy bilateral lower lung infiltrate and/atelectasis Cardiomegaly Reviewed, dictated and finalized at location A. ETCHER
--- NOTE | ~2021-10-06 | CT_ITS ---
EXAMINATION: CTA chest PE protocol DATE: 10/06/2021 11:03 INDICATION: Cough. Posterior chest pain while coughing. TECHNIQUE: Computed tomography angiography (CTA) of the chest was performed with 100 mL Omnipaque-350 intravenous contrast timed to evaluate the pulmonary arteries. Coronal maximum intensity projection 3D-reconstructions were created by the technologist. Automated exposure control and iterative reconst ruction technique were employed. Exam dose: 542.35 mGy-cm total exam DLP. COMPARISON: 10/06/2021 CT AP and lateral chest /11/2019 CT chest FINDINGS: There is diagnostic contrast enhancement of the pulmonary arteries and no evidence of pulmo nary embolism. There is aortic ectasia. No thoracic aortic dissection. Cardiomegaly. No pericardial effusion. There is extensive lymphadenopathy including enlarged lymph nodes subjacent to the right pectoralis m inor muscle and between bilateral pectoralis minor and pectoralis major muscles, as well as bilateral axillary lymphadenopathy. There is superior mediastinal, prevascular, aortopulmonary window and bilateral axillary lymphadenopa thy. Small bilateral pleural effusions. Differential diagnosis includes lymphoma and metastatic disease. T he lymph nodes are increased in size since 12/16/2019. Bilateral lower lobe atelectasis, primarily in the dependent area. Scattered minimal bilateral upper lobe infiltrates. Splenomegaly. Healing proximal right 10th rib fracture. IMPRESSION: Extensive lymphadenopathy, increased since 12/16/2019, and splenomegaly; consider lymphoma . Metastatic disease is not excluded No evidence of pulmonary embolism Cardiomegaly, mild pleural effusions. Consider mild congestive heart failure Bilateral predominantly dependent lower lobe atelectasis and mild scattered patchy pulmonary infiltra malcom. Consider pulmonary edema and pneumonia. Reviewed, dictated and finalized at Location A. Reviewed, dictated and finalized at location A. ENGER COACH DRIVER IMPRESSION: Extensive lymphadenopathy, increased since 12/16/2019, and splenomeg lex; consider lymphoma. Metastatic disease is not excluded No evidence of pulmonary embolism Cardiomegaly, mild pleural effusions. Consider mild congestive heart failure Bilateral predominantly dependent lower lobe atelectasis and mild scattered pat luis pulmonary infiltrates. Consider pulmonary edema and pneumonia.
--- NOTE | 2021-10-06 09:46 | ECG_ITS ---
Measurements Intervals [place] Rate: 95 P: 267 NM: 271 QRS: 101 QRSD: 92 T: 8 QT: 397 QTc: 501 Interpretive Statements SINUS OR ECTOPIC ATRIAL RHYTHM WITH FIRST DEGREE AV BLOCK RIGHT AXIS DEVIATION POSSIBLE LEFT ATRIAL ENLARGEMENT INCOMPLETE RIGHT BUNDLE BRANCH BLOCK BORDERLINE T WAVE ABNORMALITY- ANT/INF LEADS BASELINE ARTIFACT- I, II, III, AVR, AVL, AVF, V1-V6 ABNORMAL ECG Electronically Signed On 10-06-2021 13:33:50 SURGICAL NURSE PRACTITIONER by Manuel Romo D.O.
[2021-10-06 10:04] LABS: Hematocrit 35.2 % (37.0-47.0); Hemoglobin 9.9 g/dL (12.0-15.0); Mean Corpuscular HGB Conc 28.1 g/dl (32-36); Mean Corpuscular Volume 78.4 fl (80-100); Platelet Count Result 404 k/mm3 (150-375); Red Blood Count 4.49 M/mm3 (4.2-5.4)
[2021-10-06 10:18] LABS: Alanine Aminotransferase 19 U/L (4-35); Albumin Level 3.6 g/dL (3.5-5.1); Alkaline Phosphatase 110 U/L (38-126); Anion Gap 8 mmol/L (8-16); Aspartate Amino Transferase 38 U/L (14-36); Bilirubin,Total 0.8 mg/dL (0.2-1.3); Blood Urea Nitrogen 17 mg/dL (7-17); Carbon Dioxide 29 mmol/L (22-30); Chloride 103 mmol/L (98-107); Estimated CRCL calculation 55 ml/min; Estimated Glomerular Filt Rate > 60; Glucose 141 mg/dL (65-110); Sodium 140 mmol/L (137-145)
--- NOTE | 2021-10-06 10:26 | ED.GENADULT ---
HPI - General Adult General Chief complaint: Back Pain/Injury Stated complaint: coughing, flank pain Time Seen by Provider: 10/06/21 10:05 Source: patient Mode of arrival: EMS Limitations: no limitations History of Present Illness HPI narrative: Patient presents for evaluation of cough and left-sided rib pain since last night. She was admitted here earlier this month. She was seen in the emergency department at 09/16/2021 and had blood cultures drawn and was diagnosed with pneumonia. She was called back as her blood cultures were positive for coag negative staph. Repeat blood culture 09/18/2021 showed no growth. She had marked leukocytosis but has underlying CLL. She had no O2 requirement and repeat chest x-ray showed near complete resolution of the previously described right lung airspace opacity consistent with resolving pneumonia. COVID test was negative. She was discharged with doxycycline, which she states she took as directed. Hospitalization also relevant for trending down H/H. She was started on iron. Her cough was improving and then became significantly worse last night. Cough is productive of green sputum. She has chronic SOB, not worse as of late. She reports chills and nausea, but denies fever and vomiting. No diarrhea, body aches, fatigue. She does not smoke. No personal hx of COVID. She has received both COVID vaccinations and her booster. She lives at home at independently. She has underlying a fib and she is anticoagulated with xarelto. Related Data Home Medications Medication Instructions Recorded Confirmed omeprazole magnesium [Prilosec OTC] 20 mg PO DAILY 12/15/19 09/18/21 atorvastatin 80 mg PO HS 09/18/21 09/18/21 Allergies Allergy/AdvReac Type Severity Reaction Status Date / Time No Known Allergies Allergy Verified 10/06/21 10:33 Review of Systems Review of Systems: CONSTITUTIONAL: Denies fever, chills, or sweats. EYES: Denies visual changes, redness, or discharge. ENT: Denies rhinorrhea, congestion, sore throat, or otalgia. CARDIOVASCULAR: Denies chest pain, palpitations, or edema. RESPIRATORY: Denies cough or dyspnea. GASTROINTESTINAL: Denies abdominal pain, nausea, vomiting, or diarrhea. GENITOURINARY: Denies dysuria or hematuria. SKIN: Denies rash or itching. MUSCULOSKELETAL: Denies back pain, joint pain, or myalgia. NEUROLOGIC: Denies headache, numbness, dizziness, or weakness. PSYCHIATRIC: Denies anxiety or depression. [facility] Past Medical History Medical History Acute on chronic blood loss anemia Acute renal failure Anxiety Arthritis BCC (basal cell carcinoma) Resected from her nose with subsequent plastic surgery resulting in 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 Napier Diastolic dysfunction Echo March 2019 1. Left ventricular chamber dimension is normal. 2. Left ventricular systolic function is normal, estimated at 60-65%. 3. There is mildly increased left ventricular wall thickness. 4. The left ventricular diastolic function is grade II diastolic dysfunction. 5. E/E' 12 is mildly elevated. 6. Left atrial chamber dimension is mildly enlarged. 7. There is mild aortic valve regurgitation. 8. There is mild tricuspid valve regurgitation. 9. Mild pulmonary hypertension, estimated pulmonary arterial systolic pressure is 41 mmHg. 10. There is trace pulmonic regurgitation. Diverticulitis GERD (gastroesophageal reflux disease) Heart murmur Due to rheumatic fever as a child High cholesterol Hyperparathyroidism, primary Status post parathyroidectomy Hypertension Morbid obesity with BMI of 45.0-49.9, adult Paroxysmal A-fib Paroxysmal atrial flutter Polymyalgia rheumatica Pulmonary hypertension Mild pulmonary hypertension on echo from March 2019 Rheumatic fever Surgical H
--- NOTE | 2021-10-06 10:41 | PC.NURSE ---
Pt to CT.
[2021-10-06 10:56] LABS: White Blood Count 72.8 K/mm3 (4.5-10.0)
[2021-10-06 10:59] LABS: Atypical Lymphocytes Present; Lymphocytes Absolute Manual 60.42 K/mm3 (1.1-4.5); Monocytes Absolute Manual 0.72 K/mm3 (0.1-0.90); Monocytes Percent Manual 1 % (3-9); Neutrophils Percent Manual 16 % (46-73); Platelet Estimate Adequate (Adequate); Smudge Cells MANY; Total Cells Counted 100
[2021-10-06 11:00] LABS: Anisocytosis 2+ (NORMAL); Ovalocytes 1+ (NORMAL)
--- NOTE | 2021-10-06 11:02 | PC.NURSE ---
Report given to DARNELL Sweeney.
[2021-10-06 11:03] LABS: Lactic Acid Reflex 0.9 mmol/L (0.7-2.1)
[2021-10-06 11:16] LABS: NT Pro B Type Natriuretic Pept 1180 pg/mL (5-100); Troponin I < 0.012 ng/mL (0.000-0.034)
[2021-10-06 11:33] LABS: Add Urine Microscopic? YES; Appearance Urine Clear (Clear); Bilirubin Urine Negative (Negative); Blood Urine Negative (Negative); Color Urine Yellow (Yellow); Glucose Urine UA Negative (Negative); Ketones Urine Negative (Negative); Leukocyte Esterase Ur Negative LEU/UL (Negative); Mucus Urine Rare /lpf; Nitrate Urine Negative (Negative); Protein Urine 2+ mg/dL (Negative); Specific Grav Ur 1.028 (1.001-1.035); Squamous Epithelial Cell Urine Rare /hpf (Few); Urobilinogen Urine Negative mg/dL (<2.0); WBC Urine 0-3 /hpf
[2021-10-06 12:03] LABS: SARS-CoV-2 RNA PCR Positive
--- NOTE | 2021-10-06 12:45 | PM.IMHP ---
H&P: HPI History of Present Illness Date/Time: 10/06/21 12:45 Chief Complaint: Side pain with cough. Narrative: This is a 76-year-old female with hypertension, hyperlipidemia, paroxysmal atrial fibrillation/flutter on Xarelto, chronic lymphocytic leukemia, and rheumatoid arthritis who presented to the emergency department via EMS from home for evaluation of side pain with coughing. The patient was seen emergency room on 09/16/2021 for evaluation of cough and shortness of breath at which time she was diagnosed with right middle lobe pneumonia (rapid COVID test came back negative) and she was discharged on doxycycline. She was readmitted on 09/18/2021 due to a positive blood culture growing gram positive cocci growing in 1 set obtained during the previous ER visit. She was treated with broad-spectrum antibiotics but ultimately it was felt that the positive blood culture was a contaminant as repeat cultures showed no growth. Also during that stay it was noted that her hemoglobin was running lower than her baseline and she was started on iron. She was feeling better at the time of discharge on 09/23/2021 and she completed a course of doxycycline. She has felt better each day and her cough improved significantly however worsened acutely the past two of days and it is now productive of green phlegm. Last evening she had a particularly long coughing jag and developed pleuritic pain in the left flank which was still present today and thus she came in for evaluation. Chest CTA today was negative for pulmonary embolism but showed mild pleural effusions, mild scattered patchy pulmonary infiltrates, and extensive lymphadenopathy and splenomegaly. SARS-CoV-2 by PCR came back positive today and thus apprise as the patient as she is fully vaccinated and boosted. She maintains that she lives independently and is very cautious when visitors come over, always wearing masks. With further questioning she endorses chills but she has not had a fever or sweats to her knowledge. She has not had change in smell or taste. Appetite has been okay though she had some mild nausea this morning. She has chronic dyspnea on exertion which is unchanged. She has not noticed any obvious lymphadenopathy. She has not yet required treatment for her CLL. Review of Systems Review of Systems: Twelve systems were reviewed. No fever. She denies headache and neck ache. No sore throat. She denies exertional chest pain. No vomiting or diarrhea. No dysuria. Weight has remained stable. No change in chronic lymphedema. Except as documented, all other systems were reviewed and are negative. [facility] Past Medical History Medical History (Updated 10/06/21 @ 15:00 by Ruth Regan PA-C) Anxiety Arthritis Chronic anticoagulation Chronic kidney disease, stage 3 Chronic lymphocytic leukemia (03/2019) Followed by Dr. Napier. Diastolic dysfunction Diverticulitis Gastroesophageal reflux disease High cholesterol Hyperparathyroidism, primary Status post parathyroidectomy. Hypertension Morbid obesity with BMI of 45.0-49.9, adult Paroxysmal atrial fibrillation Paroxysmal atrial flutter Polymyalgia rheumatica Pulmonary hypertension Mild pulmonary hypertension on echo from March 2019 Rheumatic fever Skin cancer Basal and squamous cell. Surgical History Surgical History (Updated 10/06/21 @ 14:35 by Ruth Regan PA-C) History of cholecystectomy History of colonoscopy with polypectomy History of inguinal hernia repair Status post surgical removal of malignant neoplasm of skin Both basal and squamous cell carcinomas. Family History Family History Mother Obesity of complications of obesity in her 60s. Hypertension Father Heart disease in his 60s of heart disease. Hypertension Sibling Parkinson disease Brother Grandparent Malignant neoplasm of prostate Gra
[2021-10-06] MEDS: FUROSEMIDE INJ 40 MG/4 ML VIAL IV PUSH (12:58)
--- NOTE | 2021-10-06 15:37 | PC.NURSE ---
This patient, Cheryl Murillo, was admitted to 3 Med Surg Room 319-01 at 1410. Patient/family oriented to hospital policies and general routines including ID bracelet, bed and alarms, visiting hours, pain management, procedures, bathroom and other care routines, personal items, smoking policy, room service/diet, and visiting hours. Information on how to activate the Rapid Response Team has been discussed. Patient/Family are encouraged to report perceived risks to care and to ask questions if they do not understand what they are told or what they should do.
[2021-10-06 16:09] LABS: CRP 6.5 mg/dL (<1.0); Lactate Dehydrogenase 676 U/L (313-618)
[2021-10-06 16:10] LABS: INR 1.5; Prothrombin Time 17.5 Seconds (11.1-14.7)
[2021-10-06 16:11] LABS: Partial Thromboplastin Time 41.8 SECONDS (22.3-36.8)
[2021-10-06 16:18] LABS: Troponin I < 0.012 ng/mL (0.000-0.034)
[2021-10-06] MEDS: REMDESIVIR 200 MG/NS 250 ML 200 MG/250 ML BAG 250 MG IVPB (16:32)
[2021-10-06 16:41] LABS: Procalcitonin 0.2 ng/mL
[2021-10-06] MEDS: DOXYCYCLINE IV 100 MG in SODIUM CHLORIDE 0.9% IV 100 ML IVPB (18:21)
[2021-10-06 19:51] LABS: Troponin I < 0.012 ng/mL (0.000-0.034)
[2021-10-07] VITALS (7 sets, daily range): BP systolic 130–154; BP diastolic 53–102; PULSE 73–104; RESP 13–18; TEMP 36.6–37.6; O2SAT 90–98
[2021-10-07] MEDS: DOXYCYCLINE IV 100 MG in SODIUM CHLORIDE 0.9% IV 100 ML IVPB ×2 (05:43→17:05)
[2021-10-07 08:39] LABS: INR 1.3
[2021-10-07 08:40] LABS: Alanine Aminotransferase 15 U/L (4-35); Albumin Level 3.1 g/dL (3.5-5.1); Alkaline Phosphatase 104 U/L (38-126); Anion Gap 6 mmol/L (8-16); Aspartate Amino Transferase 30 U/L (14-36); Bilirubin,Total 0.5 mg/dL (0.2-1.3); Blood Urea Nitrogen 15 mg/dL (7-17); Calcium 7.2 mg/dL (8.4-10.2); Carbon Dioxide 31 mmol/L (22-30); Chloride 99 mmol/L (98-107); Estimated CRCL calculation 45 ml/min; Estimated Glomerular Filt Rate 54; Glucose 113 mg/dL (65-110); Magnesium 1.4 mg/dL (1.6-2.3); Potassium 3.9 mmol/L (3.4-5.0); Sodium 136 mmol/L (137-145)
[2021-10-07 09:00] LABS: Basophils Absolute Auto 0.2 K/mm3 (0.0-0.1); Basophils Percent Auto 0.3 % (0.2-1.2); Eosinophils Percent Auto 0.1 % (0-4.4); Hematocrit 33.1 % (37.0-47.0); Hemoglobin 9.4 g/dL (12.0-15.0); Immature Granulocyte Absolute 0.25 K/mm3 (0.00-0.031); Immature Granulocyte Percent A 0.3 % (0-0.5); Lymphocytes Absolute Auto 62.58 K/mm3 (0.9-3.2); Lymphocytes Percent Auto 85.4 % (18.3-44.2); Mean Corpuscular HGB Conc 28.4 g/dl (32-36); Mean Corpuscular Hemoglobin 22.1 pg (26-34); Mean Corpuscular Volume 77.7 fl (80-100); Mean Platelet Volume 11.1 fl (7.4-10.4); Monocytes Absolute Auto 2.9 K/mm3 (0.1-0.6); Monocytes Percent Auto 3.9 % (2.6-8.5); Neutrophils Absolute Auto 7.3 K/mm3 (1.3-6.7); Platelet Count Result 365 k/mm3 (150-375); Red Blood Count 4.26 M/mm3 (4.2-5.4); Red Cell Distribution Width 18.9 % (11.5-14.5)
[2021-10-07 10:25] LABS: White Blood Count 73.3 K/mm3 (4.5-10.0)
[2021-10-07 10:27] LABS: Anisocytosis 1+ (NORMAL); Hypochromasia 1+ (NORMAL); Microcytosis 1+ (NORMAL); Platelet Estimate Adequate (Adequate)
[2021-10-07 10:28] LABS: Atypical Lymphocytes Present; Smudge Cells MANY
[2021-10-07] MEDS: amLODIPine BESYLATE 2.5 MG TABLET PO (11:27)
--- NOTE | 2021-10-07 13:21 | PM.IMPN ---
Progress Note: A&P Assessment and Plan (1) COVID-19: Code(s): U07.1 - COVID-19 Status: Acute Assessment and Plan: Acute COVID-19 pneumonia. She stable and afebrile. Patient carries a past medical history CLL and rheumatoid arthritis; as such she is immune suppressed and given clinical factor she will be started on remdesivir and steroids. There is no oxygen requirement at the moment. Chest CTA on admission was negative for pulmonary embolism but showed mild pleural effusions, mild scattered patchy pulmonary infiltrates, and extensive lymphadenopathy and splenomegaly. (2) Pulmonary infiltrates: Code(s): R91.8 - Other nonspecific abnormal finding of lung field Status: Acute Assessment and Plan: Pneumonia verses edema though more likely a combination of both. Resolving bacterial pneumonia possible as well. She has recently completed a course of doxycycline though given her immunocompromised will continue his at home ice and ceftriaxone pending sputum culture and procalcitonin. She received a dose of cefepime and vancomycin in the ER. Given recent hospital contact, patient will be treated for healthcare associated pneumonia. (3) Cardiomegaly: Code(s): I51.7 - Cardiomegaly Status: Acute Assessment and Plan: Echocardiogram revealed normal left ventricular function and mild diastolic grade 1 dysfunction. (4) Diastolic dysfunction: Code(s): I51.89 - Other ill-defined heart diseases Status: Acute Assessment and Plan: Chest x-ray shows possible edema. Lasix 40 mg x 1 to see how she responds. (5) Chronic lymphocytic leukemia: Onset Date: 03/2019 Code(s): C91.10 - Chronic lymphocytic leukemia of B-cell type not having achieved remission Status: Acute Assessment and Plan: WBC count up again. CT shows extensive lymphadenopathy and splenomegaly thus will consult Dr. Napier. (6) Chronic anticoagulation: Code(s): Z79.01 - [facility] (current) use of anticoagulants Status: Acute Assessment and Plan: Continue rivaroxaban for stroke prophylaxis given paroxysmal atrial fibrillation/flutter. (7) Chronic kidney disease, stage 3: Code(s): N18.30 - Chronic kidney disease, stage 3 unspecified Status: Acute Assessment and Plan: Renal function is stable on review of previous labs. (8) Anemia: Code(s): D64.9 - Anemia, unspecified Status: Acute Assessment and Plan: Hypochromic microcytic anemia. Anemia is moderate and well tolerated with hemoglobin of 9.4. Check iron stores. Continue p.o. iron supplementation. (9) Pleuritic chest pain: Code(s): R07.81 - Pleurodynia Status: Acute Assessment and Plan: Related to pulmonary infiltrates. No pulmonary embolism noted on chest CTA. (10) Hypertension: Qualifiers: Hypertension type: essential hypertension Qualified Code(s): I10 - Essential (primary) hypertension Code(s): I10 - Essential (primary) hypertension Status: Acute Assessment and Plan: Blood pressure moderately T control with blood pressure in the 132/50 5-154/102 today. Patient is acutely ill and will not up titrate her medications. B Continue home antihypertensives and monitor. (11) Paroxysmal atrial fibrillation: Code(s): I48.0 - Paroxysmal atrial fibrillation Status: Acute Assessment and Plan: Currently rate controlled with heart rate in the 90s T-107 range. Continue amiodarone. Subjective Date/time seen: 10/07/21 13:21 Narrative: This is a 76-year-old female with hypertension, hyperlipidemia, paroxysmal atrial fibrillation/flutter on Xarelto, chronic lymphocytic leukemia, and rheumatoid arthritis who presented to the emergency department via EMS from home for evaluation of side pain with coughing. The patient was seen emergency room on 09/16/2021 for evaluation of cough and shor
--- NOTE | 2021-10-07 15:11 | ECHO_ITS ---
Patient Info Name: Cheryl Murillo Age: 76 years : 1945 Gender: Female Ht: 60 in Wt: 230 lbs BSA: 2.17 m2 HR: 75 bpm BP: 147 / 53 mmHg Technical Quality: Fair Exam Date: 10/07/2021 11:16 AM Exam Location: [facility] Pulmonary Exam Room: [facility] Patient Status: Inpatient Admit Date: 10/06/2021 Staff Ordering Physician: Ruth Regan PA-C Racking Technician: Cassandra Smith RDCS Attending Provider: Janes Mckee MD Referring Physician: Shereen ZAVALA; Exam Type: CA echo doppler color flow Study Info Indications - diastolic dysfunction cardiomgaly fib htn Complete two-dimensional, color flow and Doppler transthoracic echocardiogram is performed. Summary 1. Complete two-dimensional, color flow and Doppler transthoracic echocardiogram is performed. 2. Left ventricular chamber dimension is normal. 3. Left ventricular systolic function is normal, estimated at 65-70%. 4. There is moderately increased left ventricular wall thickness. 5. The left ventricular diastolic function is grade I diastolic dysfunction. 6. E/e' 14 is mildly elevated. 7. Left atrial chamber dimension is mildly enlarged. 8. There is mild aortic valve sclerosis. 9. The mitral valve has mildly calcified annulus. 10. There is mild tricuspid valve regurgitation. 11. Mild pulmonary hypertension, estimated pulmonary arterial systolic pressure is 49 mmHg. Left Ventricle E/e' 14 is mildly elevated. Left ventricular chamber dimension is normal. Left ventricular systolic function is normal, estimated at 65-70%. There is moderately increased left ventricular wall thickness. The left ventricular diastolic function is grade I diastolic dysfunction. Right Ventricle Right ventricular chamber dimension is normal. Right ventricular systolic function is normal. Left Atria Left atrial chamber dimension is mildly enlarged. Right Atria Right atrial chamber dimension is normal. Aortic Valve The aortic valve is trileaflet. There is mild aortic valve sclerosis. There is no aortic valve stenosis. There is no aortic valve regurgitation. Pulmonic Valve There is no pulmonic regurgitation. Mitral Valve The mitral valve has mildly calcified annulus. There is no mitral valve stenosis. There is no mitral valve regurgitation. Tricuspid Valve There is mild tricuspid valve regurgitation. Mild pulmonary hypertension, estimated pulmonary arterial systolic pressure is 49 mmHg. Pericardium/Pleural There is no pericardial effusion. Inferior Vena Cava Normal inferior vena cava with >50% collapse upon inspiration consistent with normal right atrial pressure, 5 mmHg. Aorta The aortic root size at the sinus of Valsalva is normal. Left Ventricular Outflow Tract Name Value Normal LVOT 2D LVOT Diameter 2.0 cm LVOT Doppler LVOT Peak Gradient 8 mmHg LVOT Mean Gradient 4 mmHg LVOT VTI 25 cm LVOT VTI/AV VTI Ratio 0.8 LVOT Stroke Volume 81 ml LVOT CO
[2021-10-07] MEDS: ACETAMINOPHEN 325 MG TABLET 650 MG PO (17:04)
[2021-10-07] MEDS: FERROUS SULFATE 324 MG TABLET PO (17:04)
[2021-10-07] MEDS: ATORVASTATIN 40 MG TABLET 80 MG PO (20:42)
[2021-10-07] MEDS: RIVAROXABAN 15 MG TABLET PO (20:43)
[2021-10-07] MEDS: REMDESIVIR 100 MG/NS 250 ML 100 MG/250 ML BAG 250 MG IVPB (21:41)
[2021-10-08] VITALS (8 sets, daily range): BP systolic 130–171; BP diastolic 58–80; PULSE 74–115; RESP 18–20; TEMP 36.2–36.9; O2SAT 91–96
[2021-10-08] MEDS: DOXYCYCLINE IV 100 MG in SODIUM CHLORIDE 0.9% IV 100 ML IVPB ×2 (05:32→18:33)
[2021-10-08 08:01] LABS: Alanine Aminotransferase 14 U/L (4-35)
[2021-10-08 08:06] LABS: INR 2.1; Prothrombin Time 22.9 Seconds (11.1-14.7)
--- NOTE | 2021-10-08 09:15 | PM.IMPN ---
Progress Note: A&P Assessment and Plan (1) COVID-19: Code(s): U07.1 - COVID-19 Status: Acute Assessment and Plan: Acute COVID-19 pneumonia. She stable and afebrile. Patient carries a past medical history CLL and rheumatoid arthritis; as such she is immune suppressed and given clinical factor she will be started on remdesivir and steroids. There is no oxygen requirement at the moment. Chest CTA on admission was negative for pulmonary embolism but showed mild pleural effusions, mild scattered patchy pulmonary infiltrates, and extensive lymphadenopathy and splenomegaly. (2) Pulmonary infiltrates: Code(s): R91.8 - Other nonspecific abnormal finding of lung field Status: Acute Assessment and Plan: Pneumonia verses edema though more likely a combination of both. Resolving bacterial pneumonia possible as well. She has recently completed a course of doxycycline though given her immunocompromised will continue his at home ice and ceftriaxone pending sputum culture and procalcitonin. She received a dose of cefepime and vancomycin in the ER. Given recent hospital contact, patient will be treated for healthcare associated pneumonia. (3) Cardiomegaly: Code(s): I51.7 - Cardiomegaly Status: Acute Assessment and Plan: Echocardiogram revealed normal left ventricular function and mild diastolic grade 1 dysfunction. (4) Diastolic dysfunction: Code(s): I51.89 - Other ill-defined heart diseases Status: Acute Assessment and Plan: Chest x-ray shows possible edema. Lasix 40 mg x 1 to see how she responds. (5) Chronic lymphocytic leukemia: Onset Date: 03/2019 Code(s): C91.10 - Chronic lymphocytic leukemia of B-cell type not having achieved remission Status: Acute Assessment and Plan: WBC count up again. CT shows extensive lymphadenopathy and splenomegaly thus will consult Dr. Napier. (6) Chronic anticoagulation: Code(s): Z79.01 - longterm (current) use of anticoagulants Status: Acute Assessment and Plan: Continue rivaroxaban for stroke prophylaxis given paroxysmal atrial fibrillation/flutter. (7) Chronic kidney disease, stage 3: Code(s): N18.30 - Chronic kidney disease, stage 3 unspecified Status: Acute Assessment and Plan: Renal function is stable on review of previous labs. (8) Anemia: Code(s): D64.9 - Anemia, unspecified Status: Acute Assessment and Plan: Hypochromic microcytic anemia. Anemia is moderate and well tolerated with hemoglobin of 9.4. Check iron stores. Continue p.o. iron supplementation. (9) Pleuritic chest pain: Code(s): R07.81 - Pleurodynia Status: Acute Assessment and Plan: Related to pulmonary infiltrates. No pulmonary embolism noted on chest CTA. (10) Hypertension: Qualifiers: Hypertension type: essential hypertension Qualified Code(s): I10 - Essential (primary) hypertension Code(s): I10 - Essential (primary) hypertension Status: Acute Assessment and Plan: Blood pressure moderately T control with blood pressure in the 130/ 58-171/64 today. Patient is acutely ill and will not up titrate her medications. B Continue home antihypertensives and monitor. (11) Paroxysmal atrial fibrillation: Code(s): I48.0 - Paroxysmal atrial fibrillation Status: Acute Assessment and Plan: Currently rate controlled with heart rate in the 90s T-107 range. Continue amiodarone. Subjective Date/time seen: 10/08/21 09:15 S: Patient was seen examined at the bedside. She is doing a lot better. No active complaints. Appetite is improving Review of Systems Review of Systems: All systems reviewed & are unremarkable except as noted in HPI and below ROS unobtainable: Yes unobtainable due to medical condition Exam Narrative: General: Chronically ill-appearing female supine i
[2021-10-08] MEDS: PANTOPRAZOLE 40 MG TABLET PO (09:24)
[2021-10-08] MEDS: amLODIPine BESYLATE 2.5 MG TABLET PO (09:25)
[2021-10-08] MEDS: AMIODARONE HCL 100 MG TABLET PO (09:25)
[2021-10-08 09:26] LABS: Estimated CRCL calculation 44 ml/min; Estimated Glomerular Filt Rate 54
[2021-10-08] MEDS: FERROUS SULFATE 324 MG TABLET PO ×2 (09:26→18:32)
[2021-10-08] MEDS: ACETAMINOPHEN 325 MG TABLET 650 MG PO (18:38)
[2021-10-08 18:57] LABS: Pneumococcal Antigen Urine Not Detected (Not Detected)
[2021-10-08] MEDS: ATORVASTATIN 40 MG TABLET 80 MG PO (21:03)
[2021-10-08] MEDS: RIVAROXABAN 15 MG TABLET PO (21:03)
[2021-10-08] MEDS: REMDESIVIR 100 MG/NS 250 ML 100 MG/250 ML BAG 250 MG IVPB (23:01)
[2021-10-09] VITALS (8 sets, daily range): BP systolic 135–152; BP diastolic 60–76; PULSE 67–108; RESP 14–20; TEMP 36.2–36.6; O2SAT 92–96
[2021-10-09] MEDS: DOXYCYCLINE IV 100 MG in SODIUM CHLORIDE 0.9% IV 100 ML IVPB ×2 (05:48→17:58)
[2021-10-09] MEDS: AMIODARONE HCL 100 MG TABLET PO (09:10)
[2021-10-09] MEDS: amLODIPine BESYLATE 2.5 MG TABLET PO (09:10)
[2021-10-09] MEDS: PANTOPRAZOLE 40 MG TABLET PO (09:11)
[2021-10-09] MEDS: FERROUS SULFATE 324 MG TABLET PO ×2 (09:11→17:58)
--- NOTE | 2021-10-09 09:18 | P.PNIM_ITS ---
Progress Note: A&P Assessment and Plan (1) Pleuritic chest pain: Code(s): R07.81 - Pleurodynia Status: Acute Assessment and Plan: Related to pulmonary infiltrates. No pulmonary embolism noted on chest CTA. (2) Chronic kidney disease, stage 3: Code(s): N18.30 - Chronic kidney disease, stage 3 unspecified Status: Acute Assessment and Plan: Renal function is stable on review of previous labs. (3) Cardiomegaly: Code(s): I51.7 - Cardiomegaly Status: Acute Assessment and Plan: Echocardiogram revealed normal left ventricular function and mild diastolic grade 1 dysfunction. (4) Pulmonary infiltrates: Code(s): R91.8 - Other nonspecific abnormal finding of lung field Status: Acute Assessment and Plan: Pneumonia verses edema though more likely a combination of both. Resolving bacterial pneumonia possible as well. She has recently completed a course of doxycycline though given her immunocompromised will continue his at home ice and ceftriaxone pending sputum culture and procalcitonin. She received a dose of cefepime and vancomycin in the ER. Given recent hospital contact, patient will be treated for healthcare associated pneumonia. (5) COVID-19: Code(s): U07.1 - COVID-19 Status: Acute Assessment and Plan: Acute COVID-19 pneumonia. She stable and afebrile. Patient carries a past medical history CLL and rheumatoid arthritis; as such she is immune suppressed and given clinical factor she will be started on remdesivir and steroids. There is no oxygen requirement at the moment. Chest CTA on admission was negative for pulmonary embolism but showed mild pleural effusions, mild scattered patchy pulmonary infiltrates, and extensive lymphadenopathy and splenomegaly. (6) Paroxysmal atrial fibrillation: Code(s): I48.0 - Paroxysmal atrial fibrillation Status: Acute Assessment and Plan: Currently rate controlled with heart rate in the 90s T-107 range. Continue amiodarone. 10/11/21 remains on RA concern for hypoxia w exertion walk test ordered procal 0.2 unlikely w cap but could have atypical PNA will cont doxy completed 5 days of Remdesivir repeat cultures NGTD cont current care eval for initiation of dexamethasone in the am 10/12/21 rising inflammatory markers Remdesivir continued for full 10 day course remains on RA but concern pt hypoxic w ambulation start dexamethasone if hypoxia confirmed VS stable WBCs persistently elevated, Dr Napier following cont current care for COVID pending Dr Nguyen's recommendation for tx of leukocytosis anticipate dc home when cleared by oncology malignancy may affect inflammatory marker trends normally seen on COVID alone CXR to assess COVID PNA progression peripheral line attempted but unsuccessful may need midline tomorrow if not cleared by oncology (7) Chronic lymphocytic leukemia: Onset Date: 03/2019 Code(s): C91.10 - Chronic lymphocytic leukemia of B-cell type not having achieved remission Status: Acute Assessment and Plan: WBC count up again. CT shows extensive lymphadenopathy and splenomegaly thus will consult Dr. Napier. (8) Multifocal pneumonia: Code(s): J18.9 - Pneumonia, unspecified organism Status: Acute (9) Chronic anticoagulation: Code(s): Z79.01 - adjunct faculty for medical terminology (current) use of anticoagulants Status: Acute Assessment and Plan: Continue rivaroxaban for stroke prophylaxis given paroxysmal atri
[2021-10-09 15:02] LABS: INR 1.6; Prothrombin Time 19.1 Seconds (11.1-14.7)
[2021-10-09 15:21] LABS: Alanine Aminotransferase 15 U/L (4-35); Estimated CRCL calculation 40 ml/min; Estimated Glomerular Filt Rate 48
[2021-10-09] MEDS: RIVAROXABAN 15 MG TABLET PO (21:33)
[2021-10-09] MEDS: ATORVASTATIN 40 MG TABLET 80 MG PO (21:33)
[2021-10-09] MEDS: REMDESIVIR 100 MG/NS 250 ML 100 MG/250 ML BAG 250 MG IVPB (21:37)
[2021-10-09] MEDS: ACETAMINOPHEN 325 MG TABLET 650 MG PO (21:40)
[2021-10-10] VITALS (7 sets, daily range): BP systolic 125–147; BP diastolic 59–99; PULSE 64–108; RESP 14–18; TEMP 36.1–36.4; O2SAT 93–97
[2021-10-10] MEDS: DOXYCYCLINE IV 100 MG in SODIUM CHLORIDE 0.9% IV 100 ML IVPB ×2 (05:02→17:40)
[2021-10-10] MEDS: FERROUS SULFATE 324 MG TABLET PO ×2 (08:34→17:07)
[2021-10-10] MEDS: amLODIPine BESYLATE 2.5 MG TABLET PO (08:34)
[2021-10-10] MEDS: PANTOPRAZOLE 40 MG TABLET PO (08:35)
[2021-10-10] MEDS: AMIODARONE HCL 100 MG TABLET PO (08:35)
--- NOTE | 2021-10-10 09:30 | PM.IMPN ---
Progress Note: A&P Assessment and Plan (1) Pleuritic chest pain: Code(s): R07.81 - Pleurodynia Status: Acute Assessment and Plan: Related to pulmonary infiltrates. No pulmonary embolism noted on chest CTA. (2) Chronic kidney disease, stage 3: Code(s): N18.30 - Chronic kidney disease, stage 3 unspecified Status: Acute Assessment and Plan: Renal function is stable on review of previous labs. (3) Cardiomegaly: Code(s): I51.7 - Cardiomegaly Status: Acute Assessment and Plan: Echocardiogram revealed normal left ventricular function and mild diastolic grade 1 dysfunction. (4) Pulmonary infiltrates: Code(s): R91.8 - Other nonspecific abnormal finding of lung field Status: Acute Assessment and Plan: Pneumonia verses edema though more likely a combination of both. Resolving bacterial pneumonia possible as well. She has recently completed a course of doxycycline though given her immunocompromised will continue his at home ice and ceftriaxone pending sputum culture and procalcitonin. She received a dose of cefepime and vancomycin in the ER. Given recent hospital contact, patient will be treated for healthcare associated pneumonia. (5) COVID-19: Code(s): U07.1 - COVID-19 Status: Acute Assessment and Plan: Acute COVID-19 pneumonia. She stable and afebrile. Patient carries a past medical history CLL and rheumatoid arthritis; as such she is immune suppressed and given clinical factor she will be started on remdesivir and steroids. There is no oxygen requirement at the moment. Chest CTA on admission was negative for pulmonary embolism but showed mild pleural effusions, mild scattered patchy pulmonary infiltrates, and extensive lymphadenopathy and splenomegaly. (6) Paroxysmal atrial fibrillation: Code(s): I48.0 - Paroxysmal atrial fibrillation Status: Acute Assessment and Plan: Currently rate controlled with heart rate in the 90s T-107 range. Continue amiodarone. 10/11/21 remains on RA concern for hypoxia w exertion walk test ordered procal 0.2 unlikely w cap but could have atypical PNA will cont doxy completed 5 days of Remdesivir repeat cultures NGTD cont current care eval for initiation of dexamethasone in the am 10/12/21 rising inflammatory markers Remdesivir continued for full 10 day course remains on RA but concern pt hypoxic w ambulation start dexamethasone if hypoxia confirmed VS stable WBCs persistently elevated, Dr Napier following cont current care for COVID pending Dr Nguyen's recommendation for tx of leukocytosis anticipate dc home when cleared by oncology malignancy may affect inflammatory marker trends normally seen on COVID alone CXR to assess COVID PNA progression peripheral line attempted but unsuccessful may need midline tomorrow if not cleared by oncology (7) Chronic lymphocytic leukemia: Onset Date: 03/2019 Code(s): C91.10 - Chronic lymphocytic leukemia of B-cell type not having achieved remission Status: Acute Assessment and Plan: WBC count up again. CT shows extensive lymphadenopathy and splenomegaly thus will consult Dr. Napier. (8) Multifocal pneumonia: Code(s): J18.9 - Pneumonia, unspecified organism Status: Acute (9) Chronic anticoagulation: Code(s): Z79.01 - ocean [employer] intermediary (current) use of anticoagulants Status: Acute Assessment and Plan: Continue rivaroxaban for stroke prophylaxis given paroxysmal atrial fibrillation/flutter. (10) Chronic acquired lymphedema: Code(s): I89.0 - Lymphedema, not elsewhere classified Status: Acute (11) Morbid obesity with BMI of 45.0-49.9, adult: Code(s): E66.01 - Morbid (severe) obesity due to excess calories; Z68.42 - Body mass index [BMI] 45.0-49.9, adult Status: Acute (12) Hypertension: Qualifiers: Hypertension type: ess
[2021-10-10 11:35] LABS: INR 2.2; Prothrombin Time 23.6 Seconds (11.1-14.7)
[2021-10-10 14:35] LABS: Alanine Aminotransferase 18 U/L (4-35); Estimated CRCL calculation 44 ml/min; Estimated Glomerular Filt Rate 54
[2021-10-10 17:15] LABS: Legionella pneumophila Ag Ur Not Detected (Not Detected)
[2021-10-10] MEDS: ACETAMINOPHEN 325 MG TABLET 650 MG PO (20:20)
[2021-10-10] MEDS: ATORVASTATIN 40 MG TABLET 80 MG PO (20:21)
[2021-10-10] MEDS: REMDESIVIR 100 MG/NS 250 ML 100 MG/250 ML BAG 250 MG IVPB (20:22)
[2021-10-10] MEDS: RIVAROXABAN 15 MG TABLET PO (20:22)
[2021-10-11] VITALS (7 sets, daily range): BP systolic 126–149; BP diastolic 45–68; PULSE 65–110; RESP 18; TEMP 36.3–36.6; O2SAT 93–98
[2021-10-11] MEDS: DOXYCYCLINE IV 100 MG in SODIUM CHLORIDE 0.9% IV 100 ML IVPB ×2 (08:35→18:52)
[2021-10-11] MEDS: amLODIPine BESYLATE 2.5 MG TABLET PO (08:36)
[2021-10-11] MEDS: PANTOPRAZOLE 40 MG TABLET PO (08:36)
[2021-10-11] MEDS: AMIODARONE HCL 100 MG TABLET PO (08:36)
[2021-10-11] MEDS: FERROUS SULFATE 324 MG TABLET PO ×2 (08:36→18:02)
--- NOTE | 2021-10-11 19:31 | PM.IMPN ---
Progress Note: A&P Assessment and Plan (1) COVID-19: Code(s): U07.1 - COVID-19 Status: Acute Assessment and Plan: Acute COVID-19 pneumonia. She stable and afebrile. Patient carries a past medical history CLL and rheumatoid arthritis; as such she is immune suppressed and given clinical factor she will be started on remdesivir and steroids. There is no oxygen requirement at the moment. Chest CTA on admission was negative for pulmonary embolism but showed mild pleural effusions, mild scattered patchy pulmonary infiltrates, and extensive lymphadenopathy and splenomegaly. (2) Pulmonary infiltrates: Code(s): R91.8 - Other nonspecific abnormal finding of lung field Status: Acute Assessment and Plan: Pneumonia verses edema though more likely a combination of both. Resolving bacterial pneumonia possible as well. She has recently completed a course of doxycycline though given her immunocompromised will continue his at home ice and ceftriaxone pending sputum culture and procalcitonin. She received a dose of cefepime and vancomycin in the ER. Given recent hospital contact, patient will be treated for healthcare associated pneumonia. (3) Cardiomegaly: Code(s): I51.7 - Cardiomegaly Status: Acute Assessment and Plan: Echocardiogram revealed normal left ventricular function and mild diastolic grade 1 dysfunction. (4) Diastolic dysfunction: Code(s): I51.89 - Other ill-defined heart diseases Status: Acute Assessment and Plan: Chest x-ray shows possible edema. Lasix 40 mg x 1 to see how she responds. (5) Chronic lymphocytic leukemia: Onset Date: 03/2019 Code(s): C91.10 - Chronic lymphocytic leukemia of B-cell type not having achieved remission Status: Acute Assessment and Plan: WBC count up again. CT shows extensive lymphadenopathy and splenomegaly thus will consult Dr. Napier. (6) Chronic anticoagulation: Code(s): Z79.01 - senior care (current) use of anticoagulants Status: Acute Assessment and Plan: Continue rivaroxaban for stroke prophylaxis given paroxysmal atrial fibrillation/flutter. (7) Chronic kidney disease, stage 3: Code(s): N18.30 - Chronic kidney disease, stage 3 unspecified Status: Acute Assessment and Plan: Renal function is stable on review of previous labs. (8) Anemia: Code(s): D64.9 - Anemia, unspecified Status: Acute Assessment and Plan: Hypochromic microcytic anemia. Anemia is moderate and well tolerated with hemoglobin of 9.4. Check iron stores. Continue p.o. iron supplementation. (9) Pleuritic chest pain: Code(s): R07.81 - Pleurodynia Status: Acute Assessment and Plan: Related to pulmonary infiltrates. No pulmonary embolism noted on chest CTA. (10) Hypertension: Qualifiers: Hypertension type: essential hypertension Qualified Code(s): I10 - Essential (primary) hypertension Code(s): I10 - Essential (primary) hypertension Status: Acute Assessment and Plan: Blood pressure moderately T control with blood pressure in the 130/ 58-171/64 today. Patient is acutely ill and will not up titrate her medications. B Continue home antihypertensives and monitor. (11) Paroxysmal atrial fibrillation: Code(s): I48.0 - Paroxysmal atrial fibrillation Status: Acute Assessment and Plan: Currently rate controlled with heart rate in the 90s T-107 range. Continue amiodarone. 10/11/21 remains on RA concern for hypoxia w exertion walk test ordered procal 0.2 unlikely w cap but could have atypical PNA will cont doxy completed 5 days of Remdesivir repeat cultures NGTD cont current care eval for initiation of dexamethasone in the am Subjective Date/time seen: 10/11/21 19:31 pt doing ok on RA complains of severe SOB w exertion, will eval her for hypoxia while walking sympto
[2021-10-11] MEDS: ATORVASTATIN 40 MG TABLET 80 MG PO (20:20)
[2021-10-11] MEDS: RIVAROXABAN 15 MG TABLET PO (20:20)
[2021-10-11] MEDS: ACETAMINOPHEN 325 MG TABLET 650 MG PO (20:47)
[2021-10-12] VITALS (7 sets, daily range): BP systolic 123–145; BP diastolic 45–65; PULSE 65–96; RESP 14–18; TEMP 36.2–36.7; O2SAT 94–95
[2021-10-12] MEDS: DOXYCYCLINE IV 100 MG in SODIUM CHLORIDE 0.9% IV 100 ML IVPB ×2 (05:22→17:28)
[2021-10-12 07:37] LABS: Basophils Absolute Auto 0.2 K/mm3 (0.0-0.1); Basophils Percent Auto 0.2 % (0.2-1.2); Eosinophils Absolute Auto 0.1 K/mm3 (0-0.3); Eosinophils Percent Auto 0.1 % (0-4.4); Hematocrit 33.2 % (37.0-47.0); Hemoglobin 8.8 g/dL (12.0-15.0); Immature Granulocyte Percent A 0.4 % (0-0.5); Lymphocytes Absolute Auto 65.47 K/mm3 (0.9-3.2); Lymphocytes Percent Auto 86.1 % (18.3-44.2); Mean Corpuscular HGB Conc 26.5 g/dl (32-36); Mean Corpuscular Hemoglobin 22.4 pg (26-34); Mean Corpuscular Volume 84.7 fl (80-100); Mean Platelet Volume 11.4 fl (7.4-10.4); Monocytes Absolute Auto 2.2 K/mm3 (0.1-0.6); Monocytes Percent Auto 2.9 % (2.6-8.5); Neutrophils Absolute Auto 7.9 K/mm3 (1.3-6.7); Neutrophils Percent Auto 10.3 % (45.5-73.1); Platelet Count Result 259 k/mm3 (150-375); Red Blood Count 3.92 M/mm3 (4.2-5.4); Red Cell Distribution Width 19.9 % (11.5-14.5)
[2021-10-12 07:48] LABS: Alanine Aminotransferase 14 U/L (4-35); Albumin Level 2.7 g/dL (3.5-5.1); Alkaline Phosphatase 100 U/L (38-126); Anion Gap 5 mmol/L (8-16); Aspartate Amino Transferase 31 U/L (14-36); Bilirubin,Total 0.4 mg/dL (0.2-1.3); Blood Urea Nitrogen 17 mg/dL (7-17); CRP 8.4 mg/dL (<1.0); Calcium 7.1 mg/dL (8.4-10.2); Carbon Dioxide 28 mmol/L (22-30); Chloride 105 mmol/L (98-107); Estimated CRCL calculation 48 ml/min; Estimated Glomerular Filt Rate > 60; Glucose 119 mg/dL (65-110); Magnesium 1.6 mg/dL (1.6-2.3); Potassium 3.6 mmol/L (3.4-5.0); Sodium 138 mmol/L (137-145)
[2021-10-12 07:58] LABS: D Dimer 1.14 ug/mL (<0.48)
[2021-10-12 08:11] LABS: White Blood Count 76.1 K/mm3 (4.5-10.0)
[2021-10-12 08:19] LABS: Platelet Estimate Adequate (Adequate)
[2021-10-12 08:20] LABS: Acanthocytes 1+ (NORMAL); Ovalocytes 1+ (NORMAL)
[2021-10-12 08:21] LABS: Smudge Cells MANY
[2021-10-12] MEDS: amLODIPine BESYLATE 2.5 MG TABLET PO (08:57)
[2021-10-12] MEDS: FERROUS SULFATE 324 MG TABLET PO ×2 (08:57→17:28)
[2021-10-12] MEDS: PANTOPRAZOLE 40 MG TABLET PO (08:58)
[2021-10-12] MEDS: AMIODARONE HCL 100 MG TABLET PO (10:15)
--- NOTE | 2021-10-12 13:34 | P.PNIM_ITS ---
Progress Note: A&P Assessment and Plan (1) COVID-19: Code(s): U07.1 - COVID-19 Status: Acute Assessment and Plan: Acute COVID-19 pneumonia. She stable and afebrile. Patient carries a past medical history CLL and rheumatoid arthritis; as such she is immune suppressed and given clinical factor she will be started on remdesivir and steroids. There is no oxygen requirement at the moment. Chest CTA on admission was negative for pulmonary embolism but showed mild pleural effusions, mild scattered patchy pulmonary infiltrates, and extensive lymphadenopathy and splenomegaly. (2) Pulmonary infiltrates: Code(s): R91.8 - Other nonspecific abnormal finding of lung field Status: Acute Assessment and Plan: Pneumonia verses edema though more likely a combination of both. Resolving bacterial pneumonia possible as well. She has recently completed a course of doxycycline though given her immunocompromised will continue his at home ice and ceftriaxone pending sputum culture and procalcitonin. She received a dose of cefepime and vancomycin in the ER. Given recent hospital contact, patient will be treated for healthcare associated pneumonia. (3) Cardiomegaly: Code(s): I51.7 - Cardiomegaly Status: Acute Assessment and Plan: Echocardiogram revealed normal left ventricular function and mild diastolic grade 1 dysfunction. (4) Diastolic dysfunction: Code(s): I51.89 - Other ill-defined heart diseases Status: Acute Assessment and Plan: Chest x-ray shows possible edema. Lasix 40 mg x 1 to see how she responds. (5) Chronic lymphocytic leukemia: Onset Date: 03/2019 Code(s): C91.10 - Chronic lymphocytic leukemia of B-cell type not having achieved remission Status: Acute Assessment and Plan: WBC count up again. CT shows extensive lymphadenopathy and splenomegaly thus will consult Dr. Napier. (6) Chronic anticoagulation: Code(s): Z79.01 - skilled nursing (current) use of anticoagulants Status: Acute Assessment and Plan: Continue rivaroxaban for stroke prophylaxis given paroxysmal atrial fibrillati on/flutter. (7) Chronic kidney disease, stage 3: Code(s): N18.30 - Chronic kidney disease, stage 3 unspecified Status: Acute Assessment and Plan: Renal function is stable on review of previous labs. (8) Anemia: Code(s): D64.9 - Anemia, unspecified Status: Acute Assessment and Plan: Hypochromic microcytic anemia. Anemia is moderate and well tolerated with hemoglobin of 9.4. Check iron stores. Continue p.o. iron supplementation. (9) Pleuritic chest pain: Code(s): R07.81 - Pleurodynia Status: Acute Assessment and Plan: Related to pulmonary infiltrates. No pulmonary embolism noted on chest CTA. (10) Hypertension: Qualifiers: Hypertension type: essential hypertension Qualified Code(s): I10 - Essential (primary) hypertension Code(s): I10 - Essential (primary) hypertension Status: Acute Assessment and Plan: Blood pressure moderately T control with blood pressure in the 130/ 58-171/64 today. Patient is acutely ill and will not up titrate her medications. B Continue home antihypertensives and monitor. (11) Paroxysmal atrial fibrillation: Code(s): I48.0 - Paroxysmal atrial fibrillation Status: Acute Assessment and Plan: Currently rate controlled with heart rate in the 90s T-107 range. Continue amiod
[2021-10-12 14:20] LABS: Alanine Aminotransferase 18 U/L (4-35); Estimated CRCL calculation 48 ml/min; Estimated Glomerular Filt Rate > 60
[2021-10-12 14:22] LABS: Prothrombin Time 22.4 Seconds (11.1-14.7)
[2021-10-12] MEDS: REMDESIVIR 100 MG/NS 250 ML 100 MG/250 ML BAG 250 MG IVPB (15:22)
[2021-10-12] MEDS: ACETAMINOPHEN 325 MG TABLET 650 MG PO (18:32)
[2021-10-12] MEDS: RIVAROXABAN 15 MG TABLET PO (20:29)
[2021-10-12] MEDS: ATORVASTATIN 40 MG TABLET 80 MG PO (20:29)
[2021-10-13] VITALS (11 sets, daily range): BP systolic 125–145; BP diastolic 40–70; PULSE 20–100; RESP 18–20; TEMP 36.1–36.8; O2SAT 90–98
[2021-10-13] MEDS: DOXYCYCLINE IV 100 MG in SODIUM CHLORIDE 0.9% IV 100 ML IVPB (05:37)
[2021-10-13 08:03] LABS: INR 2.8; Prothrombin Time 28.6 Seconds (11.1-14.7)
[2021-10-13 08:08] LABS: Alanine Aminotransferase 16 U/L (4-35); Estimated CRCL calculation 49 ml/min; Estimated Glomerular Filt Rate > 60
[2021-10-13] MEDS: AMIODARONE HCL 100 MG TABLET PO (08:20)
[2021-10-13] MEDS: PANTOPRAZOLE 40 MG TABLET PO (08:21)
[2021-10-13] MEDS: FERROUS SULFATE 324 MG TABLET PO ×2 (08:21→17:09)
[2021-10-13] MEDS: amLODIPine BESYLATE 2.5 MG TABLET PO (08:21)
--- NOTE | 2021-10-13 09:44 | PM.IMPN ---
Progress Note: A&P Assessment and Plan (1) COVID-19: Code(s): U07.1 - COVID-19 Status: Acute Assessment and Plan: Acute COVID-19 pneumonia. She stable and afebrile. Patient carries a past medical history CLL and rheumatoid arthritis; as such she is immune suppressed and given clinical factor she will be started on remdesivir and steroids. There is no oxygen requirement at the moment. Chest CTA on admission was negative for pulmonary embolism but showed mild pleural effusions, mild scattered patchy pulmonary infiltrates, and extensive lymphadenopathy and splenomegaly. (2) Pulmonary infiltrates: Code(s): R91.8 - Other nonspecific abnormal finding of lung field Status: Acute Assessment and Plan: Pneumonia verses edema though more likely a combination of both. Resolving bacterial pneumonia possible as well. She has recently completed a course of doxycycline though given her immunocompromised will continue his at home ice and ceftriaxone pending sputum culture and procalcitonin. She received a dose of cefepime and vancomycin in the ER. Given recent hospital contact, patient will be treated for healthcare associated pneumonia. (3) Cardiomegaly: Code(s): I51.7 - Cardiomegaly Status: Acute Assessment and Plan: Echocardiogram revealed normal left ventricular function and mild diastolic grade 1 dysfunction. (4) Diastolic dysfunction: Code(s): I51.89 - Other ill-defined heart diseases Status: Acute Assessment and Plan: Chest x-ray shows possible edema. Lasix 40 mg x 1 to see how she responds. (5) Chronic lymphocytic leukemia: Onset Date: 03/2019 Code(s): C91.10 - Chronic lymphocytic leukemia of B-cell type not having achieved remission Status: Acute Assessment and Plan: WBC count up again. CT shows extensive lymphadenopathy and splenomegaly thus will consult Dr. Napier. (6) Chronic anticoagulation: Code(s): Z79.01 - assisted (current) use of anticoagulants Status: Acute Assessment and Plan: Continue rivaroxaban for stroke prophylaxis given paroxysmal atrial fibrillation/flutter. (7) Chronic kidney disease, stage 3: Code(s): N18.30 - Chronic kidney disease, stage 3 unspecified Status: Acute Assessment and Plan: Renal function is stable on review of previous labs. (8) Anemia: Code(s): D64.9 - Anemia, unspecified Status: Acute Assessment and Plan: Hypochromic microcytic anemia. Anemia is moderate and well tolerated with hemoglobin of 9.4. Check iron stores. Continue p.o. iron supplementation. (9) Pleuritic chest pain: Code(s): R07.81 - Pleurodynia Status: Acute Assessment and Plan: Related to pulmonary infiltrates. No pulmonary embolism noted on chest CTA. (10) Hypertension: Qualifiers: Hypertension type: essential hypertension Qualified Code(s): I10 - Essential (primary) hypertension Code(s): I10 - Essential (primary) hypertension Status: Acute Assessment and Plan: Blood pressure moderately T control with blood pressure in the 130/ 58-171/64 today. Patient is acutely ill and will not up titrate her medications. B Continue home antihypertensives and monitor. (11) Paroxysmal atrial fibrillation: Code(s): I48.0 - Paroxysmal atrial fibrillation Status: Acute Assessment and Plan: Currently rate controlled with heart rate in the 90s T-107 range. Continue amiodarone. 10/11/21 remains on RA concern for hypoxia w exertion walk test ordered procal 0.2 unlikely w cap but could have atypical PNA will cont doxy completed 5 days of Remdesivir repeat cultures NGTD cont current care eval for initiation of dexamethasone in the am 10/12/21 rising inflammatory markers Remdesivir continued for full 10 day course remains on RA but concern pt hypoxic w ambulation start dexame
[2021-10-13] MEDS: DOXYCYCLINE HYCLATE 100 MG TABLET PO (20:31)
[2021-10-13] MEDS: ATORVASTATIN 40 MG TABLET 80 MG PO (20:31)
[2021-10-13] MEDS: RIVAROXABAN 15 MG TABLET PO (20:31)
[2021-10-13] MEDS: ACETAMINOPHEN 325 MG TABLET 650 MG PO (20:34)
[2021-10-14] VITALS (8 sets, daily range): BP systolic 125–149; BP diastolic 47–87; PULSE 67–111; RESP 18–21; TEMP 36–36.8; O2SAT 92–97
[2021-10-14 08:01] LABS: Basophils Absolute Auto 0.2 K/mm3 (0.0-0.1); Basophils Percent Auto 0.3 % (0.2-1.2); Eosinophils Absolute Auto 0.1 K/mm3 (0-0.3); Eosinophils Percent Auto 0.1 % (0-4.4); Hematocrit 33.1 % (37.0-47.0); Hemoglobin 9.1 g/dL (12.0-15.0); Immature Granulocyte Absolute 0.32 K/mm3 (0.00-0.031); Immature Granulocyte Percent A 0.4 % (0-0.5); Lymphocytes Percent Auto 86.5 % (18.3-44.2); Mean Corpuscular HGB Conc 27.5 g/dl (32-36); Mean Corpuscular Hemoglobin 22.3 pg (26-34); Mean Corpuscular Volume 81.1 fl (80-100); Mean Platelet Volume 11.1 fl (7.4-10.4); Monocytes Absolute Auto 2.3 K/mm3 (0.1-0.6); Monocytes Percent Auto 2.8 % (2.6-8.5); Neutrophils Absolute Auto 8.2 K/mm3 (1.3-6.7); Neutrophils Percent Auto 9.9 % (45.5-73.1); Platelet Count Result 291 k/mm3 (150-375); Red Blood Count 4.08 M/mm3 (4.2-5.4); Red Cell Distribution Width 20.2 % (11.5-14.5)
[2021-10-14 08:06] LABS: INR 2.5; Prothrombin Time 26.6 Seconds (11.1-14.7)
[2021-10-14 08:09] LABS: D Dimer 0.92 ug/mL (<0.48)
[2021-10-14 08:15] LABS: Alanine Aminotransferase 16 U/L (4-35); Albumin Level 2.8 g/dL (3.5-5.1); Alkaline Phosphatase 103 U/L (38-126); Anion Gap -1 mmol/L (8-16); Aspartate Amino Transferase 38 U/L (14-36); Bilirubin,Total 0.5 mg/dL (0.2-1.3); Blood Urea Nitrogen 19 mg/dL (7-17); CRP 6.8 mg/dL (<1.0); Calcium 7.3 mg/dL (8.4-10.2); Carbon Dioxide 31 mmol/L (22-30); Chloride 106 mmol/L (98-107); Estimated CRCL calculation 49 ml/min; Estimated Glomerular Filt Rate > 60; Glucose 120 mg/dL (65-110); Potassium 4.8 mmol/L (3.4-5.0); Sodium 136 mmol/L (137-145)
[2021-10-14 08:26] LABS: White Blood Count 82.1 K/mm3 (4.5-10.0)
[2021-10-14] MEDS: amLODIPine BESYLATE 2.5 MG TABLET PO (08:31)
[2021-10-14] MEDS: FERROUS SULFATE 324 MG TABLET PO ×2 (08:31→17:19)
[2021-10-14] MEDS: AMIODARONE HCL 100 MG TABLET PO (08:31)
[2021-10-14] MEDS: PANTOPRAZOLE 40 MG TABLET PO (08:31)
[2021-10-14] MEDS: DOXYCYCLINE HYCLATE 100 MG TABLET PO ×2 (08:31→20:35)
--- NOTE | 2021-10-14 08:35 | PC.NURSE ---
notified of critical lab.
[2021-10-14 10:10] LABS: Platelet Estimate Adequate (Adequate)
--- NOTE | 2021-10-14 10:23 | PCNWS ---
Weekly nutritional screen. Patient screened in for 7 day length of stay. Patient is tolerating current diet with adequate intake. No weight loss reported. No nutritional needs at this time.
[2021-10-14] MEDS: REMDESIVIR 100 MG/NS 250 ML 100 MG/250 ML BAG 250 MG IVPB (10:48)
--- NOTE | 2021-10-14 12:40 | PDONCCN ---
HPI - Date of Consult Date/Time: 10/14/21 12:40 Requesting Physician: Janes Mckee MD Primary Care Provider: Rosanna Vaughan PA-C - Consult Narrative Reason for consult: Chronic lymphocytic leukemia Narrative: Cheryl Murillo is a 76 year old female with history of chronic lymphocytic leukemia which has not required any treatment yet came into the hospital with cough and site chest wall pain. She also has a history of atrial fibrillation on chronic anticoagulation with Xarelto. She was tested positive for COVID 19 infection during this hospital stay. Prior to that she came into the ER on September 16 with symptom of shortness of breath and cough and diagnosed with right middle lobe pneumonia. She was discharged home on doxycycline. At that time COVID test came back negative. She has been complaining of tiredness and fatigue. She denies any new lung sounds are lymphadenopathy. Denies any bleeding. Her labs showed worsening of WBC count and worsening of anemia. CTA chest was performed that showed extensive lymphadenopathy increased since December of 2019 with splenomegaly. Review of Systems - Review of Systems All systems reviewed & are unremarkable except as noted in [facility] and [facility] Medical History: Medical History (Last Updated 10/06/21 @ 14:35 by Ruth Regan PA-C) Anxiety Arthritis Chronic anticoagulation Chronic kidney disease, stage 3 Chronic lymphocytic leukemia Onset Date: 03/[address] Napier. Diastolic dysfunction Diverticulitis Gastroesophageal reflux disease High cholesterol Hyperparathyroidism, primary Status post parathyroidectomy. Hypertension Morbid obesity with BMI of 45.0-49.9, adult Paroxysmal atrial fibrillation Paroxysmal atrial flutter Polymyalgia rheumatica Pulmonary hypertension Mild pulmonary hypertension on echo from March 2019 Rheumatic fever Skin cancer Basal and squamous cell. Surgical History: Surgical History (Last Updated 10/06/21 @ 14:35 by Ruth Regan PA-C) History of cholecystectomy History of colonoscopy with polypectomy History of inguinal hernia repair Status post surgical removal of malignant neoplasm of skin Both basal and squamous cell carcinomas. Family History: Family History (Last Reviewed 10/06/21 @ 14:35 by Ruth Regan PA-C) Mother Obesity of complications of obesity in her 60s. Hypertension Father Heart disease in his 60s of heart disease. Hypertension Sibling Parkinson disease Brother Grandparent Malignant neoplasm of prostate Grandparent Cerebrovascular accident Sibling Breast cancer Daughter Lymphedema Meds Home Medications Medication Instructions Recorded Confirmed Type omeprazole magnesium [Prilosec OTC] 20 mg PO DAILY 12/15/19 10/06/21 History rivaroxaban 15 mg tablet 15 mg PO HS #90 tablet 06/14/21 10/06/21 Rx atorvastatin 80 mg PO HS 09/18/21 10/06/21 History albuterol sulfate [ProAir HFA] 2 puff INHALATION QID PRN #6.7 g 09/23/21 10/06/21 Rx ferrous sulfate 324 mg PO BIDWM #60 tablet 09/23/21 10/06/21 Rx amiodarone 100 mg tablet See Rx Instructions .ROUTE 09/26/21 10/06/21 Rx .COMPLEX #30 tablet amlodipine 2.5 mg tablet See Rx Instructions .ROUTE 09/26/21 10/06/21 Rx .COMPLEX #30 tablet Allergies Allergy/AdvReac Type Severity Reaction Status Date / Time No Known Allergies Allergy Verified 10/06/21 10:33 Results - Labs CBC & Chem 7: 10/14/21 07:46 10/14/21 07:46 Labs: Short CBC 10/14/21 Range/Units 07:46 WBC 82.1 H* (4.5-10.0) K/mm3 Hgb 9.1 L (12.0-15.0) g/dL Hct 33.1 L (37.0-47.0) % Plt Count 291 (150-375) k/mm3 BMP 10/14/21 07:46 Sodium 136 L Potassium 4.8 Chloride 106 Carbon Dioxide 31 H BUN 19 H Creatinine 0.90 Glucose 120 H Calcium 7.3 L Liver Function 10/14/21 Range/Units 07:46 T
--- NOTE | 2021-10-14 15:30 | PC.NURSE ---
Dark red blood noted in urine per quezada. notified.
--- NOTE | 2021-10-14 16:10 | PC.NURSE ---
Urine specimen collected and sent to lab.
[2021-10-14 16:43] LABS: Lactate Dehydrogenase 527 U/L (313-618)
[2021-10-14 16:48] LABS: Iron 31 ug/dL (37-170)
[2021-10-14 16:58] LABS: Percent Iron Saturation 12 % (20-50)
--- NOTE | 2021-10-14 17:36 | PM.DS ---
DS: Admitting Diagnosis Discharge Date 10/14/21 Admitting Diagnosis (1) COVID-19: Code(s): U07.1 - COVID-19 Status: Acute Assessment and Plan: No oxygen requirement however given her clinical risk factors she will be started on remdesivir. (2) Pulmonary infiltrates: Code(s): R91.8 - Other nonspecific abnormal finding of lung field Status: Acute Assessment and Plan: Pneumonia verses edema though more likely a combination of both. Resolving bacterial pneumonia possible as well. She has recently completed a course of doxycycline though given her immunocompromised will continue his at home ice and ceftriaxone pending sputum culture and procalcitonin. She received a dose of cefepime and vancomycin in the ER. (3) Cardiomegaly: Code(s): I51.7 - Cardiomegaly Status: Acute Assessment and Plan: Echocardiogram ordered for a.m. (4) Diastolic dysfunction: Code(s): I51.89 - Other ill-defined heart diseases Status: Acute Assessment and Plan: Chest x-ray shows possible edema. Lasix 40 mg x 1 to see how she responds. (5) Chronic lymphocytic leukemia: Onset Date: 03/2019 Code(s): C91.10 - Chronic lymphocytic leukemia of B-cell type not having achieved remission Status: Acute Assessment and Plan: WBC count up again. CT shows extensive lymphadenopathy and splenomegaly thus will consult Dr. Napier. 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 (7) Chronic kidney disease, stage 3: Code(s): N18.30 - Chronic kidney disease, stage 3 unspecified Status: Acute Assessment and Plan: Renal function is stable on review of previous labs. (8) Anemia: Code(s): D64.9 - Anemia, unspecified Status: Acute Assessment and Plan: Hemoglobin and hematocrit are stable on review of previous labs. Continue iron supplementation. (9) Pleuritic chest pain: Code(s): R07.81 - Pleurodynia Status: Acute Assessment and Plan: Related to pulmonary infiltrates. No pulmonary embolism noted on chest CTA. (10) Hypertension: Qualifiers: Hypertension type: essential hypertension Qualified Code(s): I10 - Essential (primary) hypertension Code(s): I10 - Essential (primary) hypertension Status: Acute Assessment and Plan: Blood pressures were reviewed and they are stable. Continue antihypertensives and monitor. (11) Paroxysmal atrial fibrillation: Code(s): I48.0 - Paroxysmal atrial fibrillation Status: Acute Assessment and Plan: Continue amiodarone. DS: Discharge Diagnosis Discharge Diagnosis (1) Pleuritic chest pain: Code(s): R07.81 - Pleurodynia Status: Acute Assessment and Plan: Related to pulmonary infiltrates. No pulmonary embolism noted on chest CTA. (2) Chronic kidney disease, stage 3: Code(s): N18.30 - Chronic kidney disease, stage 3 unspecified Status: Acute Assessment and Plan: Renal function is stable on review of previous labs. (3) Cardiomegaly: Code(s): I51.7 - Cardiomegaly Status: Acute Assessment and Plan: Echocardiogram revealed normal left ventricular function and mild diastolic grade 1 dysfunction. (4) Pulmonary infiltrates: Code(s): R91.8 - Other nonspecific abnormal finding of lung field Status: Acute Assessment and Plan: Pneumonia verses edema though more likely a combination of both. Resolving bacterial pneumonia possible as well. She has recently completed a course of doxycycline though given her immunocompromised will continue his at home ice and ceftriaxone pending sputum culture and procalcitonin. She received a dose of cefepime and vancomycin in
[2021-10-14 17:58] LABS: Folic Acid 12.9 ng/mL (2.76->20)
[2021-10-14] MEDS: RIVAROXABAN 15 MG TABLET PO (20:35)
[2021-10-14] MEDS: ATORVASTATIN 40 MG TABLET 80 MG PO (20:35)
[2021-10-14] MEDS: ACETAMINOPHEN 325 MG TABLET 650 MG PO (20:38)
[2021-10-15 03:52] VITALS: BP 131/62; PULSE 98; RESP 20; TEMP 36.8; O2SAT 95
[2021-10-15 07:11] LABS: INR 2.7; Prothrombin Time 27.9 Seconds (11.1-14.7)
[2021-10-15 08:00] VITALS: BP 136/49; PULSE 66; PULSE 67; RESP 20; TEMP 36.2; O2SAT 96
[2021-10-15] MEDS: FERROUS SULFATE 324 MG TABLET PO (08:16)
[2021-10-15] MEDS: PANTOPRAZOLE 40 MG TABLET PO (08:16)
[2021-10-15 08:17] VITALS: PULSE 67
[2021-10-15] MEDS: amLODIPine BESYLATE 2.5 MG TABLET PO (08:17)
[2021-10-15] MEDS: AMIODARONE HCL 100 MG TABLET PO (08:17)
[2021-10-15] MEDS: DOXYCYCLINE HYCLATE 100 MG TABLET PO (08:18)
[2021-10-15 11:45] LABS: Add Urine Microscopic? YES; Appearance Urine Cloudy (Clear); Bilirubin Urine Negative (Negative); Blood Urine 3+ (Negative); Budding Yeast Urine Present /hpf; Color Urine Amber (Yellow); Glucose Urine UA Negative (Negative); Ketones Urine Negative (Negative); Leukocyte Esterase Ur 1+ LEU/UL (NEGATIVE); Mucus Urine Few /lpf; Nitrate Urine Negative (Negative); Protein Urine 2+ mg/dL (Negative); RBC Urine >75 /hpf (0-2); Urobilinogen Urine Negative mg/dL (<2.0); WBC Urine >75 /hpf (0-3)
[2021-10-15 12:00] VITALS: BP 124/45; PULSE 66; RESP 20; TEMP 36.9; O2SAT 95
--- NOTE | 2021-10-15 13:09 | PC.NURSE ---
Abril DC'D as ordered. Pt tolerated well.
--- NOTE | 2021-10-15 14:38 | PM.DS ---
DS: Admitting Diagnosis Discharge Date 10/15/2021 Admitting Diagnosis (1) COVID-19: Code(s): U07.1 - COVID-19 Status: Acute Assessment and Plan: No oxygen requirement however given her clinical risk factors she will be started on remdesivir. (2) Pulmonary infiltrates: Code(s): R91.8 - Other nonspecific abnormal finding of lung field Status: Acute Assessment and Plan: Pneumonia verses edema though more likely a combination of both. Resolving bacterial pneumonia possible as well. She has recently completed a course of doxycycline though given her immunocompromised will continue his at home ice and ceftriaxone pending sputum culture and procalcitonin. She received a dose of cefepime and vancomycin in the ER. (3) Cardiomegaly: Code(s): I51.7 - Cardiomegaly Status: Acute Assessment and Plan: Echocardiogram ordered for a.m. (4) Diastolic dysfunction: Code(s): I51.89 - Other ill-defined heart diseases Status: Acute Assessment and Plan: Chest x-ray shows possible edema. Lasix 40 mg x 1 to see how she responds. (5) Chronic lymphocytic leukemia: Onset Date: 03/2019 Code(s): C91.10 - Chronic lymphocytic leukemia of B-cell type not having achieved remission Status: Acute Assessment and Plan: WBC count up again. CT shows extensive lymphadenopathy and splenomegaly thus will consult Dr. Napier. (6) Chronic anticoagulation: Code(s): Z79.01 - group home (current) use of anticoagulants Status: Acute Assessment and Plan: Continue rivaroxaban for stroke prophylaxis given paroxysmal atrial fibrillation/flutter. (7) Chronic kidney disease, stage 3: Code(s): N18.30 - Chronic kidney disease, stage 3 unspecified Status: Acute Assessment and Plan: Renal function is stable on review of previous labs. (8) Anemia: Code(s): D64.9 - Anemia, unspecified Status: Acute Assessment and Plan: Hemoglobin and hematocrit are stable on review of previous labs. Continue iron supplementation. (9) Pleuritic chest pain: Code(s): R07.81 - Pleurodynia Status: Acute Assessment and Plan: Related to pulmonary infiltrates. No pulmonary embolism noted on chest CTA. (10) Hypertension: Qualifiers: Hypertension type: essential hypertension Qualified Code(s): I10 - Essential (primary) hypertension Code(s): I10 - Essential (primary) hypertension Status: Acute Assessment and Plan: Blood pressures were reviewed and they are stable. Continue antihypertensives and monitor. (11) Paroxysmal atrial fibrillation: Code(s): I48.0 - Paroxysmal atrial fibrillation Status: Acute Assessment and Plan: Continue amiodarone. DS: Discharge Diagnosis Discharge Diagnosis (1) Pleuritic chest pain: Code(s): R07.81 - Pleurodynia Status: Acute Assessment and Plan: Related to pulmonary infiltrates. No pulmonary embolism noted on chest CTA. (2) Chronic kidney disease, stage 3: Code(s): N18.30 - Chronic kidney disease, stage 3 unspecified Status: Acute Assessment and Plan: Renal function is stable on review of previous labs. (3) Cardiomegaly: Code(s): I51.7 - Cardiomegaly Status: Acute Assessment and Plan: Echocardiogram revealed normal left ventricular function and mild diastolic grade 1 dysfunction. (4) Pulmonary infiltrates: Code(s): R91.8 - Other nonspecific abnormal finding of lung field Status: Acute Assessment and Plan: Pneumonia verses edema though more likely a combination of both. Resolving bacterial pneumonia possible as well. She has recently completed a course of doxycycline though given her immunocompromised will continue his at home ice and ceftriaxone pending sputum culture and procalcitonin. She received a dose of cefepime and vancomycin in
[2021-10-15 16:00] VITALS: BP 141/67; PULSE 71; RESP 20; TEMP 36.7; O2SAT 94
== END 2021-10-15 16:25 | disposition home health service (06) | DRG 177 ==
LOC: ANHED 11:44 → ANH3MEDSUR 13:00
PROVIDERS: Emergency Medicine; Internal Medicine Hematology & Oncology; Physician Assistant; Admitting Provider Internal Medicine; Emergency Provider Nurse Practitioner; PCP Physician Assistant; Visit Provider Hospitalist
DX: U07.1 COVID-19 (principal); J12.82 Pneumonia due to coronavirus disease 2019; J18.9 Pneumonia, unspecified organism; C91.10 Chronic lymphocytic leukemia of B-cell type not having achieved remission; Z68.41 Body mass index [BMI] 40.0-44.9, adult; I48.92 Unspecified atrial flutter; N17.9 Acute kidney failure, unspecified; I27.20 Pulmonary hypertension, unspecified; E66.01 Morbid (severe) obesity due to excess calories; I48.0 Paroxysmal atrial fibrillation; I13.10 Hypertensive heart and chronic kidney disease without heart failure, with stage 1 through stage 4 chronic kidney disease, or unspecified chronic kidney disease; N18.30 Chronic kidney disease, stage 3 unspecified; D50.9 Iron deficiency anemia, unspecified; E89.2 Postprocedural hypoparathyroidism; I89.0 Lymphedema, not elsewhere classified; M06.9 Rheumatoid arthritis, unspecified; M35.3 Polymyalgia rheumatica; E78.00 Pure hypercholesterolemia, unspecified; K21.9 Gastro-esophageal reflux disease without esophagitis; Z79.01 Long term (current) use of anticoagulants; Z79.899 Other long term (current) drug therapy; Z85.828 Personal history of other malignant neoplasm of skin
CPT/HCPCS: 36415; 51701; 71045; 71046; 71275; 80053; 81001; 82565; 82607; 82728; 82746; 83540; 83550; 83605; 83615; 83735; 83880; 84145; 84460; 84484; 85025; 85380; 85610; 85730; 86140; 87040; 87086; 87449; 87804; 87899; 93005; 93306; 96365; 96366; 96367; 96375; 97110; 97116; 97161; 97165; 97530; 97535; 99285; A9270; C9803; G0378; J0692; J0696; J1940; J3370; Q9967; U0003; U0005

== ENCOUNTER 2021-11-18 10:56 | Outpatient (CLI) | payer MEDICARE, SELFPAY ==
[2021-11-18 11:22] LABS: Basophils Absolute Auto 0.1 K/mm3 (0.0-0.1); Basophils Percent Auto 0.1 % (0.2-1.2); Eosinophils Absolute Auto 0.1 K/mm3 (0-0.3); Eosinophils Percent Auto 0.1 % (0-4.4); Hematocrit 38.2 % (37.0-47.0); Hemoglobin 10.4 g/dL (12.0-15.0); Immature Granulocyte Percent A 0.3 % (0-0.5); Lymphocytes Absolute Auto 80.84 K/mm3 (0.9-3.2); Lymphocytes Percent Auto 86.7 % (18.3-44.2); Mean Corpuscular HGB Conc 27.2 g/dl (32-36); Mean Corpuscular Hemoglobin 22.8 pg (26-34); Mean Corpuscular Volume 83.8 fl (80-100); Mean Platelet Volume 11.4 fl (7.4-10.4); Monocytes Absolute Auto 4.4 K/mm3 (0.1-0.6); Monocytes Percent Auto 4.7 % (2.6-8.5); Neutrophils Absolute Auto 7.5 K/mm3 (1.3-6.7); Neutrophils Percent Auto 8.1 % (45.5-73.1); Platelet Count Result 346 k/mm3 (150-375); Red Blood Count 4.56 M/mm3 (4.2-5.4); Red Cell Distribution Width 19.8 % (11.5-14.5)
[2021-11-18 11:25] LABS: Blood Urea Nitrogen 18 mg/dL (8-26); Carbon Dioxide 27 mmol/L (22-30); Chloride 102 mmol/L (98-109); Estimated Glomerular Filt Rate 48; Glucose 113 mg/dL (70-105); Potassium 4.2 mmol/L (3.5-4.9); Sodium 142 mmol/L (138-146)
[2021-11-18 11:27] LABS: White Blood Count 93.2 K/mm3 (4.5-10.0)
[2021-11-18 11:28] LABS: Platelet Estimate Adequate (Adequate)
[2021-11-18 11:29] LABS: Atypical Lymphocytes Present; Ovalocytes 1+ (NORMAL); Poikilocytosis 1+ (NORMAL)
[2021-11-18 13:06] LABS: Alanine Aminotransferase 18 U/L (4-35); Alkaline Phosphatase 141 U/L (38-126); Anion Gap 8 mmol/L (8-16); Aspartate Amino Transferase 40 U/L (14-36); Bilirubin,Total 0.6 mg/dL (0.2-1.3); Blood Urea Nitrogen 19 mg/dL (7-17); Calcium 8.6 mg/dL (8.4-10.2); Carbon Dioxide 28 mmol/L (22-30); Chloride 104 mmol/L (98-107); Estimated Glomerular Filt Rate 54; Glucose 117 mg/dL (65-110); Potassium 4.3 mmol/L (3.4-5.0); Sodium 140 mmol/L (137-145)
== END 2021-11-18 10:57 | disposition home or self-care (01) ==
PROVIDERS: PCP Family Medicine; Visit Provider Internal Medicine Hematology & Oncology
DX: C91.10 Chronic lymphocytic leukemia of B-cell type not having achieved remission (principal)
CPT/HCPCS: 36415; 80053; 85025

== ENCOUNTER 2022-04-16 10:56 | Outpatient (CLI) | payer MEDICARE, SELFPAY ==
[2022-04-16 11:41] LABS: Basophils Absolute Auto 0.2 K/mm3 (0.0-0.1); Basophils Percent Auto 0.2 % (0.2-1.2); Eosinophils Absolute Auto 0.1 K/mm3 (0-0.3); Eosinophils Percent Auto 0.1 % (0-4.4); Hematocrit 41.6 % (37.0-47.0); Hemoglobin 11.9 g/dL (12.0-15.0); Immature Granulocyte Absolute 0.32 K/mm3 (0.00-0.031); Immature Granulocyte Percent A 0.3 % (0-0.5); Lymphocytes Absolute Auto 112.22 K/mm3 (0.9-3.2); Lymphocytes Percent Auto 90.5 % (18.3-44.2); Mean Corpuscular HGB Conc 28.6 g/dl (32-36); Mean Corpuscular Hemoglobin 24.7 pg (26-34); Mean Corpuscular Volume 86.3 fl (80-100); Mean Platelet Volume 11.1 fl (7.4-10.4); Monocytes Absolute Auto 5.6 K/mm3 (0.1-0.6); Monocytes Percent Auto 4.5 % (2.6-8.5); Neutrophils Absolute Auto 5.5 K/mm3 (1.3-6.7); Neutrophils Percent Auto 4.4 % (45.5-73.1); Platelet Count Result 224 k/mm3 (150-375); Red Blood Count 4.82 M/mm3 (4.2-5.4); Red Cell Distribution Width 19.1 % (11.5-14.5)
[2022-04-16 11:56] LABS: Alanine Aminotransferase 21 U/L (6-35); Alkaline Phosphatase 105 U/L (38-126); Anion Gap 8 mmol/L (8-16); Aspartate Amino Transferase 36 U/L (14-36); Bilirubin,Total 0.6 mg/dL (0.2-1.3); Blood Urea Nitrogen 31 mg/dL (7-17); Carbon Dioxide 30 mmol/L (22-30); Chloride 100 mmol/L (98-107); Cholesterol 170 mg/dL (0-200); Estimated Glomerular Filt Rate 43; Glucose 126 mg/dL (65-110); HDL Direct 35 mg/dL; Potassium 5.3 mmol/L (3.4-5.0); Sodium 138 mmol/L (137-145); Triglycerides 147 mg/dL (<150)
[2022-04-16 12:07] LABS: LDL Cholesterol Direct 133 mg/dL
[2022-04-16 12:12] LABS: Free T4 Free Thyroxine 1.35 ng/mL (0.78-2.19); Vitamin D 25 Hydroxy 49.2 ng/mL
[2022-04-16 12:24] LABS: Platelet Estimate Adequate (Adequate)
[2022-04-16 12:26] LABS: Total Triiodothyronine (T3) 0.97 NG/ML (0.97-1.69)
[2022-04-16 12:27] LABS: Hypochromasia 1+ (NORMAL)
[2022-04-16 12:28] LABS: Anisocytosis 1+ (NORMAL)
[2022-04-16 12:32] LABS: Smudge Cells MODERATE
[2022-04-16 12:39] LABS: Atypical Lymphocytes Present
== END 2022-04-16 10:57 | disposition home or self-care (01) ==
PROVIDERS: PCP Family Medicine; Referring Provider Internal Medicine Cardiovascular Disease; Visit Provider Nurse Practitioner Adult Health
DX: E78.5 Hyperlipidemia, unspecified (principal); I12.9 Hypertensive chronic kidney disease with stage 1 through stage 4 chronic kidney disease, or unspecified chronic kidney disease; N18.30 Chronic kidney disease, stage 3 unspecified; I51.89 Other ill-defined heart diseases
CPT/HCPCS: 36415; 80053; 80061; 82306; 83735; 84439; 84443; 84480; 85025

== ENCOUNTER 2022-05-16 08:02 | Outpatient (CLI) | payer MEDICARE, SELFPAY ==
[2022-05-16 09:03] LABS: Hematocrit 44.2 % (37.0-47.0); Hemoglobin 12.8 g/dL (12.0-15.0); Mean Corpuscular Hemoglobin 25.7 pg (26-34); Mean Corpuscular Volume 88.6 fl (80-100); Mean Platelet Volume 11.5 fl (7.4-10.4); Platelet Count Result 245 k/mm3 (150-375); Red Blood Count 4.99 M/mm3 (4.2-5.4); Red Cell Distribution Width 17.9 % (11.5-14.5)
[2022-05-16 09:14] LABS: Anion Gap 12 mmol/L (8-16); Blood Urea Nitrogen 23 mg/dL (7-17); Calcium 8.7 mg/dL (8.4-10.2); Carbon Dioxide 29 mmol/L (22-30); Chloride 99 mmol/L (98-107); Estimated Glomerular Filt Rate 53; Glucose 142 mg/dL (65-110); Sodium 140 mmol/L (137-145)
[2022-05-16 09:32] LABS: White Blood Count 201.5 K/mm3 (4.5-10.0)
[2022-05-16 09:37] LABS: Lymphocytes Absolute Manual 185.38 K/mm3 (1.1-4.5); Metamyelocytes Percent 1 %; Monocytes Absolute Manual 2.01 K/mm3 (0.1-0.90); Monocytes Percent Manual 1 % (3-9); Neutrophils Percent Manual 6 % (46-73); Total Cells Counted 100
[2022-05-16 09:38] LABS: Platelet Estimate Adequate (Adequate)
[2022-05-16 09:40] LABS: Smudge Cells PRESENT
[2022-05-16 09:42] LABS: Anisocytosis 2+ (NORMAL); Poikilocytosis 1+ (NORMAL)
[2022-05-16 09:43] LABS: Atypical Lymphocytes Present
[2022-05-16 13:20] LABS: Iron 80 ug/dL (37-170)
[2022-05-16 13:32] LABS: Percent Iron Saturation 22 % (20-50)
[2022-05-16 14:29] LABS: Folic Acid > 20.0 ng/mL (2.76->20)
== END 2022-05-16 08:03 | disposition home or self-care (01) ==
LOC: ANHLAB 08:11
PROVIDERS: PCP Nurse Practitioner Adult Health; Visit Provider Internal Medicine Hematology & Oncology
DX: C91.10 Chronic lymphocytic leukemia of B-cell type not having achieved remission (principal)
CPT/HCPCS: 36415; 80048; 82607; 82728; 82746; 83540; 83550; 85025

== ENCOUNTER 2022-07-25 08:52 | Outpatient (CLI) | payer MEDICARE, SELFPAY ==
[2022-07-25 09:15] LABS: Basophils Absolute Auto 0.1 K/mm3 (0.0-0.1); Basophils Percent Auto 0.1 % (0.2-1.2); Eosinophils Absolute Auto 0.2 K/mm3 (0-0.3); Eosinophils Percent Auto 0.1 % (0-4.4); Hematocrit 42.8 % (37.0-47.0); Hemoglobin 12.6 g/dL (12.0-15.0); Immature Granulocyte Absolute 0.28 K/mm3 (0.00-0.031); Immature Granulocyte Percent A 0.2 % (0-0.5); Lymphocytes Absolute Auto 114.89 K/mm3 (0.9-3.2); Lymphocytes Percent Auto 89.9 % (18.3-44.2); Mean Corpuscular HGB Conc 29.4 g/dl (32-36); Mean Corpuscular Hemoglobin 26.8 pg (26-34); Mean Corpuscular Volume 90.9 fl (80-100); Mean Platelet Volume 11.7 fl (7.4-10.4); Monocytes Absolute Auto 7.6 K/mm3 (0.1-0.6); Neutrophils Absolute Auto 4.7 K/mm3 (1.3-6.7); Neutrophils Percent Auto 3.7 % (45.5-73.1); Platelet Count Result 161 k/mm3 (150-375); Red Blood Count 4.71 M/mm3 (4.2-5.4)
[2022-07-25 09:19] LABS: White Blood Count 127.8 K/mm3 (4.5-10.0)
[2022-07-25 09:20] LABS: Platelet Estimate Adequate (Adequate); Schistocytes None Seen (NORMAL)
[2022-07-25 09:21] LABS: Atypical Lymphocytes Present; Smudge Cells PRESENT
[2022-07-25 09:58] LABS: Alanine Aminotransferase 25 U/L (6-35); Albumin Level 4.2 g/dL (3.5-5.1); Alkaline Phosphatase 92 U/L (38-126); Anion Gap 11 mmol/L (8-16); Aspartate Amino Transferase 34 U/L (14-36); Bilirubin,Total 0.5 mg/dL (0.2-1.3); Blood Urea Nitrogen 30 mg/dL (7-17); Calcium 8.7 mg/dL (8.4-10.2); Carbon Dioxide 26 mmol/L (22-30); Chloride 104 mmol/L (98-107); Estimated Glomerular Filt Rate 43; Glucose 116 mg/dL (65-110); Lactate Dehydrogenase 214 U/L (120-246); Potassium 3.7 mmol/L (3.4-5.0); Sodium 141 mmol/L (137-145)
== END 2022-07-25 08:53 | disposition home or self-care (01) ==
LOC: ANHLAB 08:55
PROVIDERS: PCP Nurse Practitioner Adult Health; Visit Provider Internal Medicine Hematology & Oncology
DX: C91.10 Chronic lymphocytic leukemia of B-cell type not having achieved remission (principal)
CPT/HCPCS: 36415; 80053; 83615; 85025

== ENCOUNTER 2022-08-05 10:25 | Emergency (ER) | payer MEDICARE, SELFPAY ==
[2022-08-05] VITALS (19 sets, daily range): BP systolic 123–192; BP diastolic 62–81; PULSE 65–73; RESP 12–21; TEMP 36.2; O2SAT 92–100
--- NOTE | ~2022-08-05 | XR_ITS ---
XR chest 2V 08/05/2022 11:58 Indication: Lower extremity weakness and paresthesias Procedure: AP and lateral views of the chest Comparison: Comparison to multiple prior studies sequentially, with oldest reviewed study dated 04/2022. Findings: Heart size is normal. Elevated right diaphragm. No focal air space disease, pulmonary edema , pleural effusion or suspected pneumothorax. There are cholecystectomy clips. Impression: 1: No acute cardiopulmonary disease. Reviewed, dictated and finalized at location B. R PIPE OFFBEARER Impression: 1: No acute cardiopulmonary disease.
--- NOTE | ~2022-08-05 | XR_ITS ---
XR hip LT min 3V w AP pelvis 08/05/2022 11:58 Indication: Left hip pain after fall Procedure: AP pelvis and 3 views left hip Comparison: No prior studies for comparison. Findings: No acute fracture or traumatic malalignment. Mild osteoarthritis of the left hip. There are coarse calcifications in the pelvis, likely calcified uterine fibroids. No foreign bodies. Impression: 1: No acute fracture. Reviewed, dictated and finalized at location B. SOURCE OPERATOR Impression: 1: No acute fracture.
--- NOTE | ~2022-08-05 | CT_ITS ---
EXAMINATION: CT cervical spine wo con DATE: 08/05/2022 12:11 INDICATION: Head injury. Neck pain. TECHNIQUE: Computed tomography (CT) of the cervical spine was performed without intravenous contrast. The dose-length product was 253 mGy-cm. Automated exposure control and iterative reconstruction tech nique were employed. COMPARISON: None FINDINGS: Vertebral body heights are maintained. There is degenerative anterolisthesis at C2-3 and C3 -4 secondary to facet hypertrophy. There is disc narrowing at C4-5, C5-6 and C6-7. There is multileve l uncinate and facet hypertrophy. Odontoid process is normal. Craniovertebral junction is normal. The re are bilateral cervical and supraclavicular lymph nodes. There is mucosal thickening of the left sp henoid sinus. No acute fracture or traumatic malalignment. IMPRESSION: 1. No acute fracture. 2: Severe cervical spondylosis. 3: Bilateral cervical and supraclavicular lymphadenopathy. Consider lymphoma and metastatic disease. Reviewed, dictated and finalized at location B. L KEEPER IMPRESSION: 1. No acute fracture. 2: Severe cervical spondylosis. 3: Bilateral cervical and supraclavicular lymphadenopathy. Consider lymphoma an d metastatic disease.
--- NOTE | ~2022-08-05 | CT_ITS ---
EXAMINATION: CT lumbar spine wo con DATE: 08/05/2022 12:12 INDICATION: Lower extremity weakness and paresthesias TECHNIQUE: Computed tomography (CT) of the lumbar spine was performed without intravenous contrast. T he dose-length product was 1190.39 mGy-cm. Automated exposure control and iterative reconstruction te chnique were employed. COMPARISON: None FINDINGS: There is loss of intervertebral disc height at all levels. There is degenerative grade 1 sp ondylolisthesis at L4-5. There is dextroscoliosis of the lumbar spine centered at L3. There is advanc ed multilevel facet hypertrophy. No acute fracture or traumatic malalignment. There is a large cystic mass contiguous with the bladder, possibly a large bladder diverticulum. There is extensive abdomina l lymphadenopathy. There is an exophytic left renal cyst. There are calcified uterine fibroids. IMPRESSION: 1. No acute abnormality of the lumbar spine. 2: Severe lumbar spondylosis. 3: Abdominal and pelvic lymphadenopathy partially visualized. Consider lymphoma and metastatic diseas e. 4: Cystic structure abutting the bladder superiorly, possibly a large bladder diverticulum. Cystic ov andry mass not excluded. Reviewed, dictated and finalized at location B. RTISING CONSULTANT IMPRESSION: 1. No acute abnormality of the lumbar spine. 2: Severe lumbar spondylosis. 3: Abdominal and pelvic lymphadenopathy partially visualized. Consider lymphoma and metastatic disease. 4: Cystic structure abutting the bladder superiorly, possibly a large bladder d iverticulum. Cystic ovarian mass not excluded.
--- NOTE | ~2022-08-05 | CT_ITS ---
EXAMINATION: CT ankle LT wo con DATE: 08/05/2022 13:31 INDICATION: Left ankle pain. TECHNIQUE: Computed tomography (CT) of the left ankle was performed without intravenous contrast. Aut omated exposure control and iterative reconstruction technique were employed. The dose-length product was 497.38 mGy-cm. COMPARISON: Left ankle radiographs 08/05/2022 FINDINGS: Bone alignment is normal. No fracture. There is mild osteoarthritis of first metatarsophala ngeal joint and some of the interphalangeal joints and midfoot joints. There is mild osteoarthritis o f subtalar joint and the ankle joint. Osteopenia is noted. There is an enthesophyte at plantar aspect of calcaneal tuberosity. IMPRESSION: 1. No fracture. 2. Mild polyarticular osteoarthritis. Reviewed, dictated and finalized at location A. LY SERVICES MANAGER
--- NOTE | ~2022-08-05 | XR_ITS ---
EXAMINATION: XR foot LT min 3V, XR ankle LT min 3V DATE: 08/05/2022 11:58 INDICATION: Left foot and ankle pain post fall TECHNIQUE: 1. Anteroposterior, mortise, additional oblique and lateral view of the left ankle were obtained. 2. Dorsoplantar, two oblique and lateral views of the left foot were obtained. COMPARISON: None. FINDINGS: Alignment of the foot and ankle is normal. Cortical step-off along the lateral cortical margin of the lateral malleolus with subtle irregular linear lucency extending across the lateral malleolus suspic ious for nondisplaced fracture. There is a focal cortical interruption without step off at the medial margin of the medial malleolus suggesting a minimal amount of periosteal reaction also suspicious fo r subacute nondisplaced fracture with some changes of healing. No evident fracture in the left foot. Minimal to mild polyarticular osteoarthritis at several joints in the mid and forefoot. Diffuse soft tissue swelling about the visualized lower leg and ankle likely related to body habitus. There does h owever appear to be some subcutaneous edema about the ankle both medially and laterally. No evident a nkle joint effusion. IMPRESSION: 1. Suspicion for nondisplaced fractures at the medial and lateral malleoli. Assessment is however agapito ewhat limited by spotty osteopenia. Could consider CT for more definitive determination. Reviewed, dictated and finalized at location A. TE SENSING RESEARCH SCIENTIST IMPRESSION: 1. Suspicion for nondisplaced fractures at the medial and lateral malleoli. Ass essment is however somewhat limited by spotty osteopenia. Could consider CT for more definitive determination.
--- NOTE | ~2022-08-05 | XR_ITS ---
XR knee LT min 4V 08/05/2022 11:58 Indication: Left knee pain after fall Procedure: 4 views left knee Comparison: No prior studies for comparison. Findings: Severe tricompartment osteoarthritis of the left knee. No fracture or traumatic malalignmen t. No significant joint effusion. Impression: 1: Severe tricompartment osteoarthritis of the left knee. Reviewed, dictated and finalized at location B. E SETTER Impression: 1: Severe tricompartment osteoarthritis of the left knee.
--- NOTE | ~2022-08-05 | CT_ITS ---
EXAMINATION: CT brain wo con DATE: 08/05/2022 12:11 INDICATION: Patient fell last week. Patient struck chin. Bilateral lower extremity weakness. TECHNIQUE: Computed tomography (CT) of the head was performed without intravenous contrast. The mA wa s adjusted according to patient size. Iterative reconstruction technique was employed. Exam dose: 60 5.33 mGy-cm total exam DLP. COMPARISON: 07/19/2017 CT brain FINDINGS: There are prominent vertebral and carotid siphon internal carotid artery calcifications. Th ere is nonspecific diminished attenuation of the cerebral white matter, likely due to chronic small v essel ischemic changes. No intracranial mass lesion or hemorrhage or cerebrovascular accident is evident. No midline shift or mass effects. No subdural or epidural hematoma. There is moderate mucoperiosteal thickening of the left sphenoid sinus. Mild soft tissue thickening t he ethmoid air cells. The paranasal sinuses are otherwise unremarkable. Mastoid air cells are normally developed and aerated. IMPRESSION: Cerebral atherosclerosis and chronic small vessel ischemic changes of the cerebral white matter No acute intracranial finding or skull fracture Reviewed, dictated and finalized at Location A. Reviewed, dictated and finalized at location A. GER LABORATORY
--- NOTE | 2022-08-05 11:01 | ECG_ITS ---
Measurements Intervals [place] Rate: 67 P: 72 UT: 285 QRS: 74 QRSD: 100 T: 31 QT: 423 QTc: 448 Interpretive Statements SINUS RHYTHM WITH FIRST DEGREE AV BLOCK INCOMPLETE RIGHT BUNDLE BRANCH BLOCK MINIMAL Q WAVES- INFERIOR LEADS BORDERLINE ST-T WAVE ABNORMALITY- ANT/INF LEADS BASELINE ARTIFACT- II, III ABNORMAL ECG COMPARED TO ECG 10/06/2021 09:41:08 SINUS RHYTHM NOW PRESENT Electronically Signed On 08-05-2022 14:05:41 HIGH PRESSURE BOILER OPERATOR by Manuel Romo D.O.
--- NOTE | 2022-08-05 11:33 | ED.FALL ---
HPI - Fall General Chief Complaint: Fall Stated Complaint: fall Time Seen by Provider: 08/05/22 11:01 Source: patient Mode of arrival: EMS Limitations: no limitations History of Present Illness HPI Narrative: This is a 77 year old female that presents to the ER for generalized weakness after a fall about a week ago. Reports she slipped and fell at home. Reports hitting her chin on a chair and falling onto her left side. She did not lose consciousness. Reports since she has felt generally weak. She is on anticoagulation for history of atrial fibrillation. She was not evaluated after the fall. Reports pain in her left leg since the fall. Denies chest pain, shortness of breath, abdominal pain, vomiting, or dysuria. Related Data Home Medications Medication Instructions Recorded Confirmed omeprazole magnesium 20 mg 20 mg PO DAILY 12/15/19 05/21/22 tablet,delayed release (Prilosec OTC) Allergies Allergy/AdvReac Type Severity Reaction Status Date / Time No Known Allergies Allergy Verified 08/05/22 11:27 Review of Systems Review of Systems: CONSTITUTIONAL: Denies fever CARDIOVASCULAR: Denies chest pain RESPIRATORY: Denies dyspnea. GASTROINTESTINAL: Denies abdominal pain, nausea, vomiting GENITOURINARY: Denies dysuria MUSCULOSKELETAL: Reports joint pain, and myalgia. NEUROLOGIC: Reports generalized weakness. All systems reviewed & are unremarkable except as noted in HPI and below PMFSH Past Medical History Medical History Anxiety Arthritis Chronic anticoagulation Chronic kidney disease, stage 3 Chronic lymphocytic leukemia (03/2019) Followed by Dr. Napier. Diastolic dysfunction Diverticulitis Gastroesophageal reflux disease High cholesterol Hyperparathyroidism, primary Status post parathyroidectomy. Hypertension Morbid obesity with BMI of 45.0-49.9, adult Paroxysmal atrial fibrillation Paroxysmal atrial flutter Polymyalgia rheumatica Pulmonary hypertension Mild pulmonary hypertension on echo from March 2019 Rheumatic fever Skin cancer Basal and squamous cell. Surgical History Surgical History History of cholecystectomy History of colonoscopy with polypectomy History of inguinal hernia repair Status post surgical removal of malignant neoplasm of skin Both basal and squamous cell carcinomas. Family History Family History Mother Obesity of complications of obesity in her 60s. Hypertension Father Heart disease in his 60s of heart disease. Hypertension Sibling Parkinson disease Brother Grandparent Malignant neoplasm of prostate Grandparent Cerebrovascular accident Sibling Breast cancer Daughter Lymphedema Social History Social History Social History: The patient lives independently in a mobile home in [place]. She has been since 2004. Daughter and [id number] live nearby. 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 Ambulates with a walker. Nonsmoker. Drinks alcohol perhaps once a year. No drug use. Surrogate decision maker: Melina Murillo, alexandra. Code status: Full code. Smoking status: Never smoker Exam Narrative: GENERAL: Well-appearing, well-nourished, and in no acute distress. HEAD: Normocephalic. Bruising noted to the chin EYES: PERRLA and EOMI. ENT: Nares clear, no rhinorrhea or epistaxis. Mucous membranes moist. Oropharynx without tonsillar hypertrophy exudate or other lesions. Bilateral TMs pearly cerna non-bulging NECK: Supple. No adenopathy or masses. CHEST: Clear to auscultation. No respiratory distress. No wheezes rales or rhonchi HEART: Regular rate and rhythm. No murmur heard. Normal peripheral pulses. ABDOMEN: Soft, nontender, no
[2022-08-05 11:36] LABS: Basophils Absolute Auto 0.2 K/mm3 (0.0-0.1); Basophils Percent Auto 0.2 % (0.2-1.2); Eosinophils Absolute Auto 0.1 K/mm3 (0-0.3); Eosinophils Percent Auto 0.1 % (0-4.4); Hematocrit 40.7 % (37.0-47.0); Hemoglobin 11.9 g/dL (12.0-15.0); Immature Granulocyte Absolute 0.23 K/mm3 (0.00-0.031); Immature Granulocyte Percent A 0.2 % (0-0.5); Lymphocytes Absolute Auto 101.75 K/mm3 (0.9-3.2); Lymphocytes Percent Auto 89.4 % (18.3-44.2); Mean Corpuscular HGB Conc 29.2 g/dl (32-36); Mean Corpuscular Hemoglobin 26.7 pg (26-34); Mean Corpuscular Volume 91.5 fl (80-100); Mean Platelet Volume 11.5 fl (7.4-10.4); Monocytes Absolute Auto 6.4 K/mm3 (0.1-0.6); Monocytes Percent Auto 5.6 % (2.6-8.5); Neutrophils Absolute Auto 5.1 K/mm3 (1.3-6.7); Neutrophils Percent Auto 4.5 % (45.5-73.1); Platelet Count Result 258 k/mm3 (150-375); Red Blood Count 4.45 M/mm3 (4.2-5.4); Red Cell Distribution Width 17.2 % (11.5-14.5)
[2022-08-05 11:46] LABS: Alanine Aminotransferase 28 U/L (6-35); Alkaline Phosphatase 125 U/L (38-126); Anion Gap 8 mmol/L (8-16); Aspartate Amino Transferase 45 U/L (14-36); Bilirubin,Total 0.9 mg/dL (0.2-1.3); Blood Urea Nitrogen 25 mg/dL (7-17); Calcium 8.9 mg/dL (8.4-10.2); Carbon Dioxide 28 mmol/L (22-30); Chloride 102 mmol/L (98-107); Estimated CRCL calculation 46 ml/min; Estimated Glomerular Filt Rate 60; Glucose 115 mg/dL (65-110); Potassium 4.8 mmol/L (3.4-5.0); Sodium 138 mmol/L (137-145)
[2022-08-05 11:48] LABS: INR 1.7; Prothrombin Time 19.2 Seconds (11.1-14.7)
[2022-08-05 11:49] LABS: Partial Thromboplastin Time 33.4 SECONDS (22.3-36.8)
[2022-08-05 12:07] LABS: White Blood Count 113.8 K/mm3 (4.5-10.0)
[2022-08-05 12:10] LABS: Platelet Estimate Adequate (Adequate); Smudge Cells MODERATE
[2022-08-05 12:11] LABS: Atypical Lymphocytes Present; Schistocytes None Seen (NORMAL)
[2022-08-05 13:10] LABS: Appearance Urine Clear (Clear); Bilirubin Urine Negative (Negative); Blood Urine Negative (Negative); Color Urine Yellow (Yellow); Glucose Urine UA Negative (Negative); Ketones Urine Negative (Negative); Leukocyte Esterase Ur 1+ LEU/UL (Negative); Nitrate Urine Negative (Negative); Protein Urine Negative (Negative); Specific Grav Ur 1.015 (1.001-1.035); Urobilinogen Urine 0.2 mg/dL (<2.0)
[2022-08-05 13:29] LABS: RBC Urine 0-2 /hpf (0-2); Squamous Epithelial Cell Urine Rare /hpf (Few); WBC Urine 0-3 /hpf
[2022-08-05 13:34] LABS: Add Urine Microscopic? YES
== END 2022-08-05 15:25 | disposition home or self-care (01) ==
PROVIDERS: Physician Assistant; Emergency Provider Emergency Medicine; PCP Nurse Practitioner Adult Health
DX: D72.823 Leukemoid reaction (principal); R59.1 Generalized enlarged lymph nodes; D48.7 Neoplasm of uncertain behavior of other specified sites; R53.1 Weakness; M19.90 Unspecified osteoarthritis, unspecified site; M47.816 Spondylosis without myelopathy or radiculopathy, lumbar region; F41.9 Anxiety disorder, unspecified; I12.9 Hypertensive chronic kidney disease with stage 1 through stage 4 chronic kidney disease, or unspecified chronic kidney disease; N18.30 Chronic kidney disease, stage 3 unspecified; K21.9 Gastro-esophageal reflux disease without esophagitis; I48.91 Unspecified atrial fibrillation
CPT/HCPCS: 36415; 70450; 71046; 72125; 72131; 73502; 73564; 73610; 73630; 73700; 80053; 81001; 85025; 85610; 85730; 93005; 99284

== ENCOUNTER 2022-10-21 14:16 | Emergency (ER) | payer MEDICARE, SELFPAY ==
--- NOTE | ~2022-10-21 | XR_ITS ---
EXAMINATION: XR chest 2V DATE: 10/21/2022 15:43 INDICATION: Chest pain and hypertension TECHNIQUE: Frontal and lateral views of the chest are obtained COMPARISON: 08/05/2022 FINDINGS: There are small pleural effusions. No pneumothorax is identified. There are minimal airspac e opacities of the lung bases. The cardiomediastinal silhouette is normal. There is moderate thoracic spondylosis. Surgical clips in the right upper quadrant are likely from prior cholecystectomy. IMPRESSION: 1. Small pleural effusions. 2. Bibasilar airspace opacities, consistent with atelectasis versus pneumonia. Reviewed, dictated and finalized at location L. MASTER
--- NOTE | ~2022-10-21 | CT_ITS ---
EXAMINATION: CTA chest PE protocol DATE: 10/21/2022 16:43 INDICATION: Pleuritic chest pain TECHNIQUE: Computed tomography (CT) pulmonary angiogram of the chest was performed with 100 mL Omnipa que-350 intravenous contrast. Additional 3D reconstructions utilizing coronal maximum intensity proje ction (MIP) were performed. Automated exposure control and iterative reconstruction technique were em ployed. The dose-length product was 392.98 mGy-cm. COMPARISON: Chest CT studies dated 10/06/2021 and 01/12/[address] abdomen and pelvis dated 02/14/2021 FINDINGS: Excellent contrast opacification of the pulmonary arteries. There is mild streak artifact from dense contrast in the superior vena cava and right atrium. Mild scattered respiratory motion artifact which does not significantly limit evaluation. No pulmonary embolism. Small posterior layering right pleur al effusion with dependent compressive atelectasis at the posterior right lower lobe. No pneumonia, p ulmonary edema, pneumothorax or left-sided pleural effusion. Mild cardiomegaly. Small pericardial eff usion. Atherosclerotic coronary artery calcifications. Thoracic aorta is normal in caliber with no di ssection. Normal variant retroesophageal aberrant right subclavian artery. Again seen are numerous pr ominent bilateral supraclavicular, axillary, mediastinal and hilar lymph nodes which are without sign ificant interval change since the most recent study on 10/06/2021 but which are increased when compare d with study dated 12/16/2019 consistent with known history of chronic lymphocytic leukemia. For refere nce a left inferior jugular chain lymph node has increased from 2.4 x 1.4 cm on 12/16/2019 to currently measuring 3.1 x 1.7 cm. A right axillary lymph node is increased from 2.4 x 1.0 cm currently measuri ng 3.4 x 1.2 cm. Small sliding-type hiatal hernia. Enlarging periportal lymph nodes which are increas ed from 2.0 x 1.3 cm on 03/13/2021 and 2.3 x 1.6 cm on the current study. Enlargement of the incomplet guilherme visualized spleen which measures at least 14.4 cm in maximal transaxial length. Mild thoracic lev oscoliosis with severe spondylosis. IMPRESSION: 1. No pulmonary embolism. 2. Small right pleural effusion with mild compressive atelectasis in the posterior right lower lobe. 3. Splenomegaly and extensive cervical, thoracic and upper abdominal lymphadenopathy without signific ant change since 10/06/2021 but increased since 12/16/2019 consistent with known chronic lymphocytic armand kemia. Reviewed, dictated and finalized at location A. [employer] IMPRESSION: 1. No pulmonary embolism. 2. 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 3. Splenomegaly and extensive cervical, thoracic and upper abdominal lymphadeno zena without significant change since 10/06/2021 but increased since 12/16/2019 c onsistent with known chronic lymphocytic leukemia.
[2022-10-21 14:18] VITALS: BP 158/69; PULSE 74; RESP 18; TEMP 36.4; O2SAT 98
[2022-10-21 14:28] VITALS: PULSE 72; O2SAT 97
--- NOTE | 2022-10-21 14:31 | ECG_ITS ---
Measurements Intervals [place] Rate: 77 P: AL: 0 QRS: 85 QRSD: 97 T: 18 QT: 345 QTc: 391 Interpretive Statements ATRIAL FIBRILLATION INCOMPLETE RIGHT BUNDLE BRANCH BLOCK [90+ ms QRS DURATION, TERMINAL R IN V1/V2, 40+ ms S IN I/aVL/V4/V5/V6] NONSPECIFIC ST & T-WAVE ABNORMALITY ABNORMAL RHYTHM ECG COMPARED TO ECG 08/05/2022 11:17:52 ATRIAL FIBRILLATION NOW PRESENT Electronically Signed On 10-21-2022 15:01:17 RETIREMENT ASSISTANT by Wade Bains M.D.
[2022-10-21 15:35] LABS: Hematocrit 39.5 % (37.0-47.0); Hemoglobin 11.7 g/dL (12.0-15.0); Mean Corpuscular HGB Conc 29.6 g/dl (32-36); Mean Corpuscular Volume 91.2 fl (80-100); Mean Platelet Volume 12.2 fl (7.4-10.4); Platelet Count Result 187 k/mm3 (150-375); Red Blood Count 4.33 M/mm3 (4.2-5.4); Red Cell Distribution Width 15.7 % (11.5-14.5)
[2022-10-21 15:46] LABS: Alanine Aminotransferase 21 U/L (6-35); Albumin Level 3.7 g/dL (3.5-5.1); Alkaline Phosphatase 113 U/L (38-126); Anion Gap 4 mmol/L (8-16); Aspartate Amino Transferase 30 U/L (14-36); Bilirubin,Total 0.6 mg/dL (0.2-1.3); Blood Urea Nitrogen 25 mg/dL (7-17); Calcium 8.5 mg/dL (8.4-10.2); Carbon Dioxide 32 mmol/L (22-30); Chloride 99 mmol/L (98-107); Estimated CRCL calculation 42 ml/min; Estimated Glomerular Filt Rate 53; Glucose 134 mg/dL (65-110); Lipase 30 U/L (23-300); Potassium 3.8 mmol/L (3.4-5.0); Sodium 135 mmol/L (137-145)
[2022-10-21 15:47] LABS: INR 1.4; Partial Thromboplastin Time 37.5 SECONDS (22.3-36.8); Prothrombin Time 16.3 Seconds (11.1-14.7)
[2022-10-21 15:58] LABS: Troponin I < 0.012 ng/mL (0.000-0.034)
[2022-10-21 16:10] LABS: White Blood Count 101.8 K/mm3 (4.5-10.0)
[2022-10-21 16:11] LABS: Lymphocytes Absolute Manual 95.69 K/mm3 (1.1-4.5); Lymphocytes Percent Manual 94 % (18-44); Monocytes Absolute Manual 1.01 K/mm3 (0.1-0.90); Monocytes Percent Manual 1 % (3-9); Neutrophils Percent Manual 5 % (46-73); Platelet Estimate Adequate (Adequate); Total Cells Counted 100
[2022-10-21 16:12] LABS: Ovalocytes 1+ (NORMAL); Schistocytes None Seen (NORMAL); Smudge Cells MANY
--- NOTE | 2022-10-21 16:17 | ED.CHESTPAIN ---
HPI - Chest Pain General Chief Complaint: Chest Pain Stated Complaint: rt chest pain non radiating tender to palp Time Seen by Provider: 10/21/22 14:32 History of Present Illness HPI narrative: Patient is a 77-year-old female with a history of paroxysmal A-fib, CLL presenting with chest pain. Patient states that she has had pleuritic right-sided chest pain for approximately the last week. States that it started in her upper right chest and has now moved to her lower right chest. States that she initially thought it was indigestion but it has not improved. Reports chronic shortness of breath that has felt more severe in the last several days. No fevers or chills, lightheadedness, abdominal pain, nausea or vomiting, diarrhea, dysuria, worsening leg swelling. Related Data Home Medications Medication Instructions Recorded Confirmed omeprazole magnesium 20 mg 20 mg PO DAILY 12/15/19 05/21/22 tablet,delayed release (Prilosec OTC) Allergies Allergy/AdvReac Type Severity Reaction Status Date / Time No Known Allergies Allergy Verified 08/05/22 11:27 Review of Systems Review of Systems: All systems reviewed & are unremarkable except as noted in HPI and below PMFSH Past Medical History Medical History Anxiety Arthritis Chronic anticoagulation Chronic kidney disease, stage 3 Chronic lymphocytic leukemia (03/2019) Followed by Dr. Napier. Diastolic dysfunction Diverticulitis Gastroesophageal reflux disease High cholesterol Hyperparathyroidism, primary Status post parathyroidectomy. Hypertension Morbid obesity with BMI of 45.0-49.9, adult Paroxysmal atrial fibrillation Paroxysmal atrial flutter Polymyalgia rheumatica Pulmonary hypertension Mild pulmonary hypertension on echo from March 2019 Rheumatic fever Skin cancer Basal and squamous cell. Surgical History Surgical History History of cholecystectomy History of colonoscopy with polypectomy History of inguinal hernia repair Status post surgical removal of malignant neoplasm of skin Both basal and squamous cell carcinomas. Family History Family History Mother Obesity of complications of obesity in her 60s. Hypertension Father Heart disease in his 60s of heart disease. Hypertension Sibling Parkinson disease Brother Grandparent Malignant neoplasm of prostate Grandparent Cerebrovascular accident Sibling Breast cancer Daughter Lymphedema Social History Social History Social History: The patient lives independently in a mobile home in [place]. She has been since 2004. Daughter and [id number] live nearby. 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 Ambulates with a walker. Nonsmoker. Drinks alcohol perhaps once a year. No drug use. Surrogate decision maker: Melina Murillo, daughter. Code status: Full code. Smoking status: Never smoker Living arrangements: alone Occupation/Education: retired Exam Narrative: GENERAL: Well-appearing, well-nourished, and in no acute distress. HEAD: Normocephalic, atraumatic. EYES: PERRLA and EOMI. ENT: Nares clear, no rhinorrhea or epistaxis. Mucous membranes moist. NECK: Supple. CHEST: Clear to auscultation. No respiratory distress. HEART: Regular rate and rhythm. No murmur heard. Normal peripheral pulses. ABDOMEN: Soft, nontender, nondistended EXTREMITIES: Normal range of motion. + Bilateral lower extremity edema SKIN: Warm, dry, no rash. NEURO: No focal deficits. Alert and oriented x3. PSYCH: Normal mood and affect. Course Vital Signs Vital signs: Vital Signs Temperature 97.5 F L 10/21/22 14:18 Pulse Rate 74 10/21/22 14:18 Respiratory Rate 18
[2022-10-21 16:20] VITALS: BP 107/93; PULSE 64; RESP 18; O2SAT 99
--- NOTE | 2022-10-21 16:23 | PC.NURSE ---
per erp dr perez, ok to hold aspirin at this time.
[2022-10-21] MEDS: BELLADONNA ALK/PHENOB ELIX 10 ML, MAG HYDROX/ALUMINUM HYD/SIMETH 30 ML, LIDOCAINE HCL 2... PO (16:39)
[2022-10-21 17:22] VITALS: BP 111/78; PULSE 68; RESP 18; O2SAT 97
[2022-10-21 18:19] VITALS: BP 114/64; PULSE 66; RESP 21; O2SAT 92
[2022-10-21 18:40] LABS: Troponin I < 0.012 ng/mL (0.000-0.034)
[2022-10-21 19:15] VITALS: BP 115/59; PULSE 68; RESP 20; TEMP 36.7; O2SAT 95
== END 2022-10-21 19:45 | disposition home or self-care (01) ==
PROVIDERS: Emergency Medicine; Emergency Provider Emergency Medicine; PCP Nurse Practitioner Adult Health
DX: R07.89 Other chest pain (principal); J90 Pleural effusion, not elsewhere classified; C91.10 Chronic lymphocytic leukemia of B-cell type not having achieved remission; I48.0 Paroxysmal atrial fibrillation; I48.92 Unspecified atrial flutter; I12.9 Hypertensive chronic kidney disease with stage 1 through stage 4 chronic kidney disease, or unspecified chronic kidney disease; N18.30 Chronic kidney disease, stage 3 unspecified; E78.00 Pure hypercholesterolemia, unspecified; E89.0 Postprocedural hypothyroidism; K21.9 Gastro-esophageal reflux disease without esophagitis; M35.3 Polymyalgia rheumatica; I27.20 Pulmonary hypertension, unspecified; E66.01 Morbid (severe) obesity due to excess calories; Z68.41 Body mass index [BMI] 40.0-44.9, adult; Z85.828 Personal history of other malignant neoplasm of skin; I45.10 Unspecified right bundle-branch block; R94.31 Abnormal electrocardiogram [ECG] [EKG]; Z79.01 Long term (current) use of anticoagulants
CPT/HCPCS: 36415; 71046; 71275; 80053; 83690; 84484; 85025; 85610; 85730; 93005; 96374; 99284; A9270; J0131; Q9967

== ENCOUNTER 2022-11-04 10:58 | Outpatient (CLI) | payer MEDICARE, SELFPAY ==
[2022-11-04 11:14] LABS: Basophils Absolute Auto 0.1 K/mm3 (0.0-0.1); Eosinophils Absolute Auto 0.2 K/mm3 (0-0.3); Eosinophils Percent Auto 0.1 % (0-4.4); Hematocrit 42.5 % (37.0-47.0); Hemoglobin 12.4 g/dL (12.0-15.0); Immature Granulocyte Percent A 0.3 % (0-0.5); Lymphocytes Absolute Auto 144.03 K/mm3 (0.9-3.2); Mean Corpuscular HGB Conc 29.2 g/dl (32-36); Mean Corpuscular Hemoglobin 26.7 pg (26-34); Mean Corpuscular Volume 91.4 fl (80-100); Mean Platelet Volume 11.1 fl (7.4-10.4); Monocytes Absolute Auto 7.9 K/mm3 (0.1-0.6); Neutrophils Absolute Auto 5.9 K/mm3 (1.3-6.7); Neutrophils Percent Auto 3.6 % (45.5-73.1); Platelet Count Result 333 k/mm3 (150-375); Red Blood Count 4.65 M/mm3 (4.2-5.4); Red Cell Distribution Width 15.9 % (11.5-14.5)
[2022-11-04 11:20] LABS: White Blood Count 158.4 K/mm3 (4.5-10.0)
[2022-11-04 11:21] LABS: Atypical Lymphocytes Present; Platelet Estimate Adequate (Adequate); Schistocytes None Seen (NORMAL); Smudge Cells FEW
[2022-11-04 11:22] LABS: Anisocytosis 1+ (NORMAL)
[2022-11-04 12:27] LABS: Alanine Aminotransferase 22 U/L (6-35); Albumin Level 4.2 g/dL (3.5-5.1); Alkaline Phosphatase 123 U/L (38-126); Anion Gap 8 mmol/L (8-16); Aspartate Amino Transferase 44 U/L (14-36); Bilirubin,Total 0.5 mg/dL (0.2-1.3); Blood Urea Nitrogen 26 mg/dL (7-17); Calcium 8.7 mg/dL (8.4-10.2); Carbon Dioxide 31 mmol/L (22-30); Chloride 102 mmol/L (98-107); Estimated Glomerular Filt Rate 53; Glucose 94 mg/dL (65-110); Lactate Dehydrogenase 238 U/L (120-246); Potassium 4.1 mmol/L (3.4-5.0); Sodium 141 mmol/L (137-145)
== END 2022-11-04 10:59 | disposition home or self-care (01) ==
LOC: ANHLAB 10:59
PROVIDERS: PCP Nurse Practitioner Adult Health; Visit Provider Internal Medicine Hematology & Oncology
DX: C91.10 Chronic lymphocytic leukemia of B-cell type not having achieved remission (principal)
CPT/HCPCS: 36415; 80053; 83615; 85025

== ENCOUNTER 2022-12-30 18:22 | Emergency (ER) | payer MEDICARE, SELFPAY ==
[2022-12-30] VITALS (13 sets, daily range): BP systolic 92–157; BP diastolic 58–83; PULSE 61–68; RESP 16–24; TEMP 36.1; O2SAT 84–99
--- NOTE | ~2022-12-30 | CT_ITS ---
EXAMINATION: CT abdomen pelvis wo con DATE: 12/30/2022 22:46 INDICATION: Right flank pain TECHNIQUE: Computed tomography (CT) of the abdomen and pelvis was performed without intravenous contr ast. The dose-length product was 1247.34 mGy-cm. Automated exposure control and iterative reconstruct ion technique were employed. COMPARISON: CT dated 02/14/2021. FINDINGS: Multiple new small nodules present primarily in the right lower lobe, largest measuring 13 x 5 mm. There are emphysematous changes. There are left lower lobe nodules as well. Cannot exclude me tastatic disease. Heart size upper normal. Small hiatal hernia. There is diffuse abnormal thickening of the gastric wall. Status post cholecystectomy. There is splenomegaly measuring 15.1 cm. There are enlarged portacaval lymph nodes. There are enlarged retroperitoneal/periaortic lymph nodes. There are enlarged inguinal lymph nodes. There is a enlarged left obturator lymph node. Uterus is enlarged and contains multiple coarse calcifications, likely due to fibroid changes. Colonic diverticulosis witho ut evidence for diverticulitis. There is an exophytic 1.8 cm left renal cyst. Nonobstructive bowel pa ttern. There is severe lumbar spondylosis with grade 1 spondylolisthesis at L4-5. There is scoliosis. IMPRESSION: 1. Multiple new bilateral lower lobe pulmonary nodules, largest measuring 13 x 5 mm, suspicious for m etastatic disease. 2: Diffuse abnormal thickening of the gastric wall. Differential diagnosis includes gastritis, adenoc arcinoma and lymphoma. 3: Abdominal and pelvic lymphadenopathy which may represent metastatic disease or lymphoma. 4: Splenomegaly. 5: Reviewed, dictated and finalized at location A. IMPRESSION: 1. Multiple new bilateral lower lobe pulmonary nodules, largest measuring 13 x 5 mm, suspicious for metastatic disease. 2: Diffuse abnormal thickening of the gastric wall. Differential diagnosis incl udes gastritis, adenocarcinoma and lymphoma. 3: Abdominal and pelvic lymphadenopathy which may represent metastatic disease or lymphoma. 4: Splenomegaly. 5:
[2022-12-30 18:39] LABS: Hematocrit 38.5 % (37.0-47.0); Hemoglobin 11.2 g/dL (12.0-15.0); Mean Corpuscular HGB Conc 29.1 g/dl (32-36); Mean Corpuscular Hemoglobin 26.7 pg (26-34); Mean Corpuscular Volume 91.7 fl (80-100); Mean Platelet Volume 10.9 fl (7.4-10.4); Platelet Count Result 275 k/mm3 (150-375); Red Cell Distribution Width 17.2 % (11.5-14.5)
[2022-12-30 18:49] LABS: Alanine Aminotransferase 24 U/L (6-35); Albumin Level 3.7 g/dL (3.5-5.1); Alkaline Phosphatase 114 U/L (38-126); Anion Gap 7 mmol/L (8-16); Aspartate Amino Transferase 34 U/L (14-36); Bilirubin,Total 0.5 mg/dL (0.2-1.3); Blood Urea Nitrogen 27 mg/dL (7-17); Calcium 8.4 mg/dL (8.4-10.2); Carbon Dioxide 28 mmol/L (22-30); Chloride 103 mmol/L (98-107); Estimated CRCL calculation 47 ml/min; Estimated Glomerular Filt Rate 60; Glucose 148 mg/dL (65-110); Potassium 5.5 mmol/L (3.4-5.0); Sodium 138 mmol/L (137-145)
[2022-12-30 18:57] LABS: White Blood Count 163.7 K/mm3 (4.5-10.0)
[2022-12-30 18:58] LABS: Total Cells Counted 100
[2022-12-30 19:00] LABS: Neutrophils Percent Manual 10 % (46-73)
[2022-12-30 19:01] LABS: Atypical Lymphocytes Present; Hypochromasia 1+ (NORMAL); Lymphocytes Absolute Manual 145.69 K/mm3 (1.1-4.5); Lymphocytes Percent Manual 89 % (18-44); Monocytes Absolute Manual 1.63 K/mm3 (0.1-0.90); Monocytes Percent Manual 1 % (3-9); Ovalocytes 1+ (NORMAL); Platelet Estimate Adequate (Adequate); Schistocytes None Seen (NORMAL); Smudge Cells MANY
[2022-12-30 21:32] LABS: Appearance Urine Clear (Clear); Bacteria Urine None Seen /hpf; Bilirubin Urine Negative (Negative); Blood Urine Negative (Negative); Color Urine Dark Yellow (Yellow); Glucose Urine UA Negative (Negative); Ketones Urine Negative (Negative); Leukocyte Esterase Ur Negative LEU/UL (Negative); Need Manual Microscopic Reviewed; Nitrate Urine Negative (Negative); Protein Urine Trace mg/dL (Negative); Specific Grav Ur 1.025 (1.001-1.035); Squamous Epithelial Cell Urine None seen /hpf (Few); Urobilinogen Urine 0.2 mg/dL (<2.0); WBC Urine 0-5 /hpf; pH Urine 5.5 (5.0-9.0)
[2022-12-30 21:38] LABS: Add Urine Microscopic? YES
--- NOTE | 2022-12-30 22:52 | ECG_ITS ---
Measurements Intervals [place] Rate: 64 P: 58 IL: 303 QRS: 62 QRSD: 102 T: 21 QT: 423 QTc: 439 Interpretive Statements SINUS RHYTHM WITH FIRST DEGREE AV BLOCK LOW QRS VOLTAGE IN PRECORDIAL LEADS [QRS DEFLECTION < 1.0 mV IN CHEST LEADS] INCOMPLETE RIGHT BUNDLE BRANCH BLOCK [90+ ms QRS DURATION, TERMINAL R IN V1/V2, 40+ ms S IN I/aVL/V4/V5/V6] COMPARED TO ECG 10/21/2022 14:23:25 SINUS RHYTHM NOW PRESENT FIRST DEGREE AV BLOCK NOW PRESENT Electronically Signed On 12-31-2022 15:44:15 CDT by Wade Bains M.D.
[2022-12-30] MEDS: MORPHINE SULFATE (*CRX) 4 MG/ML INJ IV PUSH (22:56)
--- NOTE | 2022-12-30 22:59 | ED.FEMALEGU ---
HPI - Female Genitourinary General Chief complaint: Urogenital-Female Stated complaint: back pain Time Seen by Provider: 12/30/22 22:27 History of Present Illness HPI Narrative: 77-year-old female with a history of CLL who follows with Dr. Napier here for evaluation of right flank pain x1 week. Patient states the pain is sharp and shooting, coming in waves without warning signs of intervention. No better after Tylenol and ibuprofen at home. She had no other symptoms, no nausea, vomiting, diarrhea, constipation, fevers, chills, dysuria, urgency or frequency. She has never had a pain like this in the past. She last saw Dr. Napier about a month ago, she is not currently receiving treatment for her CLL but it has been considered if she starts developing symptoms. Related Data Home Medications Medication Instructions Recorded Confirmed omeprazole magnesium 20 mg 20 mg PO DAILY 12/15/19 12/30/22 tablet,delayed release (Prilosec OTC) Allergies Allergy/AdvReac Type Severity Reaction Status Date / Time No Known Allergies Allergy Verified 11/18/22 10:14 Review of Systems Review of Systems: Gen.: Denies fevers or chills Eyes: Denies eye pain or visual change ENT: Denies congestion Respiratory: Denies shortness of breath or cough CV: Denies chest pain or palpitations GI: Denies abdominal pain nausea, emesis or diarrhea denies burning, urgency, frequency or hematuria Musculoskeletal: Reports right flank pain Neuro: Denies numbness, tingling, weakness or focal weakness Skin: Denies rash Except as documented, all other systems reviewed and negative [facility] Past Medical History Medical History Anxiety Arthritis Chronic anticoagulation Chronic kidney disease, stage 3 Chronic lymphocytic leukemia (03/2019) Followed by Dr. Napier. Diastolic dysfunction Diverticulitis Gastroesophageal reflux disease High cholesterol Hyperparathyroidism, primary Status post parathyroidectomy. Hypertension Morbid obesity with BMI of 45.0-49.9, adult Paroxysmal atrial fibrillation Paroxysmal atrial flutter Polymyalgia rheumatica Pulmonary hypertension Mild pulmonary hypertension on echo from March 2019 Rheumatic fever Skin cancer Basal and squamous cell. Surgical History Surgical History History of cholecystectomy History of colonoscopy with polypectomy History of inguinal hernia repair Status post surgical removal of malignant neoplasm of skin Both basal and squamous cell carcinomas. Family History Family History Mother Obesity of complications of obesity in her 60s. Hypertension Father Heart disease in his 60s of heart disease. Hypertension Sibling Parkinson disease Brother Grandparent Malignant neoplasm of prostate Grandparent Cerebrovascular accident Sibling Breast cancer Daughter Lymphedema Social History Social History Social History: The patient lives independently in a mobile home in [place]. She has been since 2004. Daughter and [id number] live nearby. 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 Ambulates with a walker. Nonsmoker. Drinks alcohol perhaps once a year. No drug use. Surrogate decision maker: Melina Murillo, daughter. Code status: Full code. Smoking status: Never smoker Living arrangements: alone Occupation/Education: retired Exam Narrative: APPEARANCE: Chronically ill-appearing, obese Head: Normocephalic and atraumatic. EYES: PERRLA/EOMI, conjunctivae clear NOSE: No nasal drainage EARS: External ear normal in appearance THROAT: Oropharynx is clear. Mucous membranes are moist. NECK: Supple. No adenopathy, no masses. RESPIRATORY
[2022-12-31] VITALS (9 sets, daily range): BP systolic 121; BP diastolic 61; PULSE 60–70; RESP 15–100; O2SAT 92–100
[2022-12-31 00:19] LABS: Potassium 5.1 mmol/L (3.4-5.0)
[2022-12-31 00:20] LABS: Magnesium 1.8 mg/dL (1.6-2.3)
[2022-12-31] MEDS: LEVALBUTEROL NEB 1.25 MG/3 ML INHALATION (00:34)
[2022-12-31] MEDS: MORPHINE SULFATE (*CRX) 2 MG/ML INJ IV PUSH (01:19)
== END 2022-12-31 01:50 | disposition home or self-care (01) ==
PROVIDERS: Emergency Medicine; Emergency Provider Physician Assistant; PCP Nurse Practitioner Adult Health
DX: R10.9 Unspecified abdominal pain (principal); C91.10 Chronic lymphocytic leukemia of B-cell type not having achieved remission; I12.9 Hypertensive chronic kidney disease with stage 1 through stage 4 chronic kidney disease, or unspecified chronic kidney disease; N18.30 Chronic kidney disease, stage 3 unspecified; I48.0 Paroxysmal atrial fibrillation; I48.92 Unspecified atrial flutter; I27.20 Pulmonary hypertension, unspecified; E78.00 Pure hypercholesterolemia, unspecified; M35.3 Polymyalgia rheumatica; M19.90 Unspecified osteoarthritis, unspecified site; E89.2 Postprocedural hypoparathyroidism; K21.9 Gastro-esophageal reflux disease without esophagitis; Z85.828 Personal history of other malignant neoplasm of skin; Z90.49 Acquired absence of other specified parts of digestive tract; R91.8 Other nonspecific abnormal finding of lung field; R93.5 Abnormal findings on diagnostic imaging of other abdominal regions, including retroperitoneum; R16.1 Splenomegaly, not elsewhere classified; I44.0 Atrioventricular block, first degree; I45.10 Unspecified right bundle-branch block
CPT/HCPCS: 36415; 74176; 80053; 81001; 83735; 84132; 85025; 93005; 94640; 96374; 96376; 99284; J2270

== ENCOUNTER 2023-01-06 11:19 | Outpatient (CLI) | payer MEDICARE, SELFPAY ==
[2023-01-06 11:35] LABS: Basophils Absolute Auto 0.1 K/mm3 (0.0-0.1); Eosinophils Absolute Auto 0.2 K/mm3 (0-0.3); Eosinophils Percent Auto 0.1 % (0-4.4); Hematocrit 40.1 % (37.0-47.0); Hemoglobin 11.2 g/dL (12.0-15.0); Immature Granulocyte Absolute 0.45 K/mm3 (0.00-0.031); Immature Granulocyte Percent A 0.2 % (0-0.5); Lymphocytes Absolute Auto 169.99 K/mm3 (0.9-3.2); Lymphocytes Percent Auto 90.5 % (18.3-44.2); Mean Corpuscular HGB Conc 27.9 g/dl (32-36); Mean Corpuscular Hemoglobin 25.4 pg (26-34); Mean Corpuscular Volume 90.9 fl (80-100); Mean Platelet Volume 10.8 fl (7.4-10.4); Monocytes Absolute Auto 11.5 K/mm3 (0.1-0.6); Monocytes Percent Auto 6.1 % (2.6-8.5); Neutrophils Absolute Auto 5.6 K/mm3 (1.3-6.7); Neutrophils Percent Auto 3.1 % (45.5-73.1); Platelet Count Result 284 k/mm3 (150-375); Red Blood Count 4.41 M/mm3 (4.2-5.4); Red Cell Distribution Width 17.2 % (11.5-14.5)
[2023-01-06 11:38] LABS: White Blood Count 187.8 K/mm3 (4.5-10.0)
[2023-01-06 11:41] LABS: Blood Urea Nitrogen 30 mg/dL (8-26); Carbon Dioxide 28 mmol/L (22-30); Chloride 102 mmol/L (98-109); Estimated Glomerular Filt Rate 43; Glucose 127 mg/dL (70-105); Ionized Calcium (POC) 1.12 mmol/L (1.11-1.31); Potassium 4.4 mmol/L (3.5-4.9); Sodium 140 mmol/L (138-146)
[2023-01-06 11:41] LABS: Atypical Lymphocytes Present; Hypochromasia 1+ (NORMAL); Platelet Estimate Adequate (Adequate); Schistocytes None Seen (NORMAL); Smudge Cells PRESENT
[2023-01-06 16:55] LABS: Lactate Dehydrogenase 219 U/L (120-246)
== END 2023-01-06 11:20 | disposition home or self-care (01) ==
LOC: ANHLAB 11:21
PROVIDERS: PCP Nurse Practitioner Adult Health; Visit Provider Internal Medicine Hematology & Oncology
DX: C91.10 Chronic lymphocytic leukemia of B-cell type not having achieved remission (principal)
CPT/HCPCS: 36415; 80047; 83615; 85025

== ENCOUNTER 2023-01-26 08:59 | Outpatient (CLI) | payer MEDICARE, SELFPAY ==
[2023-01-26 09:24] LABS: Hematocrit 41.2 % (37.0-47.0); Hemoglobin 11.1 g/dL (12.0-15.0); Mean Corpuscular HGB Conc 26.9 g/dl (32-36); Mean Corpuscular Hemoglobin 24.6 pg (26-34); Mean Corpuscular Volume 91.4 fl (80-100); Mean Platelet Volume 12.2 fl (7.4-10.4); Platelet Count Result 181 k/mm3 (150-375); Red Blood Count 4.51 M/mm3 (4.2-5.4); Red Cell Distribution Width 19.3 % (11.5-14.5)
[2023-01-26 09:27] LABS: White Blood Count 235.3 K/mm3 (4.5-10.0)
[2023-01-26 09:29] LABS: Blood Urea Nitrogen 25 mg/dL (8-26); Carbon Dioxide 25 mmol/L (22-30); Chloride 102 mmol/L (98-109); Estimated Glomerular Filt Rate 43; Glucose 115 mg/dL (70-105); Ionized Calcium (POC) 1.07 mmol/L (1.11-1.31); Potassium 4.4 mmol/L (3.5-4.9); Sodium 137 mmol/L (138-146)
[2023-01-26 10:23] LABS: Atypical Lymphocytes Present; Platelet Estimate Adequate (Adequate); Schistocytes None Seen (NORMAL); Smudge Cells FEW; Total Cells Counted 100
[2023-01-26 10:56] LABS: Anion Gap 7 mmol/L (8-16); Blood Urea Nitrogen 26 mg/dL (7-17); Calcium 8.5 mg/dL (8.4-10.2); Carbon Dioxide 28 mmol/L (22-30); Chloride 102 mmol/L (98-107); Estimated Glomerular Filt Rate 53; Glucose 111 mg/dL (65-110); Potassium 4.3 mmol/L (3.4-5.0); Sodium 137 mmol/L (137-145)
== END 2023-01-26 09:00 | disposition home or self-care (01) ==
LOC: ANHLAB 09:00
PROVIDERS: PCP Nurse Practitioner Adult Health; Visit Provider Internal Medicine Hematology & Oncology
DX: C91.10 Chronic lymphocytic leukemia of B-cell type not having achieved remission (principal)
CPT/HCPCS: 36415; 80047; 80048; 85025

== ENCOUNTER 2023-02-10 09:13 | Outpatient (CLI) | payer MEDICARE, SELFPAY ==
[2023-02-10 09:28] LABS: Basophils Absolute Auto 0.1 K/mm3 (0.0-0.1); Eosinophils Absolute Auto 0.1 K/mm3 (0-0.3); Eosinophils Percent Auto 0.1 % (0-4.4); Hematocrit 40.4 % (37.0-47.0); Hemoglobin 10.7 g/dL (12.0-15.0); Immature Granulocyte Absolute 0.28 K/mm3 (0.00-0.031); Immature Granulocyte Percent A 0.1 % (0-0.5); Lymphocytes Absolute Auto 206.05 K/mm3 (0.9-3.2); Lymphocytes Percent Auto 97.4 % (18.3-44.2); Mean Corpuscular HGB Conc 26.5 g/dl (32-36); Mean Corpuscular Hemoglobin 24.5 pg (26-34); Mean Corpuscular Volume 92.4 fl (80-100); Mean Platelet Volume 12.9 fl (7.4-10.4); Monocytes Absolute Auto 0.4 K/mm3 (0.1-0.6); Monocytes Percent Auto 0.2 % (2.6-8.5); Neutrophils Absolute Auto 4.7 K/mm3 (1.3-6.7); Neutrophils Percent Auto 2.2 % (45.5-73.1); Platelet Count Result 187 k/mm3 (150-375); Red Blood Count 4.37 M/mm3 (4.2-5.4); Red Cell Distribution Width 20.2 % (11.5-14.5)
[2023-02-10 09:31] LABS: White Blood Count 211.6 K/mm3 (4.5-10.0)
[2023-02-10 09:33] LABS: Atypical Lymphocytes Present; Platelet Estimate Adequate (Adequate); Schistocytes None Seen (NORMAL)
[2023-02-10 16:29] LABS: Alanine Aminotransferase 23 U/L (6-35); Alkaline Phosphatase 94 U/L (38-126); Anion Gap 9 mmol/L (8-16); Aspartate Amino Transferase 26 U/L (14-36); Bilirubin,Total 0.5 mg/dL (0.2-1.3); Blood Urea Nitrogen 28 mg/dL (7-17); Calcium 8.5 mg/dL (8.4-10.2); Carbon Dioxide 27 mmol/L (22-30); Chloride 103 mmol/L (98-107); Estimated Glomerular Filt Rate 53; Glucose 132 mg/dL (65-110); Potassium 3.9 mmol/L (3.4-5.0); Sodium 139 mmol/L (137-145)
== END 2023-02-10 09:14 | disposition home or self-care (01) ==
LOC: ANHLAB 09:15
PROVIDERS: PCP Nurse Practitioner Adult Health; Visit Provider Internal Medicine Hematology & Oncology
DX: C91.10 Chronic lymphocytic leukemia of B-cell type not having achieved remission (principal)
CPT/HCPCS: 36415; 80053; 85025

== ENCOUNTER 2023-02-25 12:06 | Emergency (ER) | payer MEDICARE, SELFPAY ==
--- NOTE | ~2023-02-25 | XR_ITS ---
EXAMINATION: XR hand LT min 3V DATE: 02/25/2023 INDICATION: Left hand pain and bruising TECHNIQUE: Posteroanterior, lateral, and oblique views of the left hand were obtained. COMPARISON: None. FINDINGS: There is advanced osteoarthritis at the triscaphe and first carpometacarpal joints. Severe osteoarthritis is also noted in multiple interphalangeal joints. No fracture is identified. There is soft tissue swelling of the hand. IMPRESSION: 1. No acute osseous abnormality. Reviewed, dictated and finalized at location A.
--- NOTE | ~2023-02-25 | XR_ITS ---
EXAMINATION: XR wrist LT min 3V DATE: 02/25/2023 INDICATION: Left wrist pain TECHNIQUE: Posteroanterior, ulnar deviation, oblique, and lateral views of the left wrist were obtain ed. COMPARISON: None available FINDINGS: There is advanced osteoarthritis of the triscaphe and first carpometacarpal joints. Bone al ignment is normal. No fracture is identified. There is soft tissue swelling of the wrist and hand. IMPRESSION: 1. No acute osseous abnormality. Reviewed, dictated and finalized at location A.
== END 2023-02-25 17:30 | disposition home or self-care (01) ==
LOC: ANHED 18:06
PROVIDERS: Emergency Provider Emergency Medicine; PCP Family Medicine
DX: S60.212A Contusion of left wrist, initial encounter (principal); H61.23 Impacted cerumen, bilateral; J01.90 Acute sinusitis, unspecified; C91.10 Chronic lymphocytic leukemia of B-cell type not having achieved remission; I11.9 Hypertensive heart disease without heart failure; R60.0 Localized edema; Z79.01 Long term (current) use of anticoagulants; X58.XXXA Exposure to other specified factors, initial encounter
CPT/HCPCS: 69209; 73110; 73130; 99283; A9270

== ENCOUNTER 2023-03-07 15:13 | Observation (INO) | payer MEDICARE, SELFPAY ==
--- NOTE | ~2023-03-07 | XR_ITS ---
Portable chest x-ray Comparison: 10/21/2022 Clinical History: Weakness Findings: Questionable minimal patchy haziness in the lungs. No pleural effusion or pneumothorax. C ardiomediastinal silhouette is stable. Bones and soft tissues are unremarkable. Impression: Questionable minimal patchy haziness. Correlate for minimal pulmonary edema or infection. Reviewed, dictated and finalized at [facility]. Impression: Questionable minimal patchy haziness. Correlate for minimal pulmonary edema or infection.
--- NOTE | ~2023-03-07 | US_ITS ---
US venous doppler LE RT DATE: 03/08/2023 09:16 INDICATION: Edema and calf pain, right lower extremity TECHNIQUE: Real-time and color flow imaging and Doppler analysis of the veins of the right lower extr emity COMPARISON: None FINDINGS: There is spontaneous and phasic flow and normal augmentation and color flow signal and norm al compression of the deep veins of the right lower extremity. Some limitation was noted at the calf due to edema, but no deep venous thrombosis is evident. IMPRESSION: No evidence of deep venous thrombosis of right lower extremity Reviewed, dictated and finalized at Location [facility]. Reviewed, dictated and finalized at location A.
--- NOTE | ~2023-03-07 | CT_ITS ---
CT ANGIOGRAM NECK AND HEAD History: Left-sided visual loss, headache. Technique: Axial noncontrast imaging of the brain was performed. Serial spiral axial images through t he head and neck were then obtained during arterial phase IV injection of 100 cc of Omnipaque 350. 3- D postprocessing and MIP images were then reconstructed on the remote workstation. Dose reduction elissa hnique was used on this scan by utilizing automated exposure control and iterative reconstruction elissa hnique. The dose-length product (DLP) was 1040.17 mGy-cm. COMPARISON: 08/05/2022 CTA neck findings: Bilateral vertebral arteries are patent. Right vertebral artery is relatively hyp oplastic, and terminates as the right PICA, normal variant. Bilateral common carotid, internal caroti d, and external carotid arteries are patent. No large vessel occlusion. No stenosis or aneurysm. The proximal right internal carotid artery demonstrates 0% stenosis relative to the normal distal artery lumen diameter. The proximal left internal carotid artery demonstrates 0% stenosis relative to the no rmal distal artery lumen diameter. Mosaic attenuation pattern of the lungs noted in the visualized upper lung kiser. Aberrant right sub clavian artery noted. Prominent left supraclavicular lymph node measures 2.5 x 1.0 cm (series 5 image 84). CTA head findings: Distal vertebral arteries, basilar artery, and posterior cerebral arteries are pat ent. Distal internal carotid arteries, middle cerebral arteries, and anterior cerebral arteries are p atent. No large vessel occlusion. No stenosis or aneurysm. Noncontrast head CT demonstrates focal hyperdensity in the left periventricular white matter, unchang ed, consistent with chronic microvascular ischemic change. No acute infarct, intracranial hemorrhage, mass lesion identified. Impression: No significant vascular abnormality seen. Mosaic attenuation pattern in the visualized lungs. Correlate for pulmonary edema, bronchiolitis, ast hma, chronic interstitial disease, or possibly chronic PE. Single mildly enlarged left supraclavicular lymph node, as detailed above. Patient has history of CLL . Reviewed, dictated and finalized at location . Impression: No significant vascular abnormality seen. Mosaic attenuation pattern in the visualized lungs. Correlate for pulmonary marlene ma, bronchiolitis, asthma, chronic interstitial disease, or possibly chronic PE . Single mildly enlarged left supraclavicular lymph node, as detailed above. Alexa ent has history of CLL.
[2023-03-07 15:17] VITALS: BP 152/61; PULSE 75; RESP 16; TEMP 37.2; O2SAT 97
--- NOTE | 2023-03-07 15:20 | ECG_ITS ---
Measurements Intervals [place] Rate: 71 P: 106 MO: 233 QRS: 68 QRSD: 96 T: 34 QT: 407 QTc: 444 Interpretive Statements SINUS RHYTHM WITH FIRST DEGREE AV BLOCK WITH OCCASIONAL SUPRAVENTRICULAR PREMATURE COMPLEXES INCOMPLETE RIGHT BUNDLE BRANCH BLOCK [90+ ms QRS DURATION, TERMINAL R IN V1/V2, 40+ ms ABNORMAL ECG COMPARED TO ECG 12/30/2022 23:39:52 NO SIGNIFICANT CHANGES Electronically Signed On 03-08-2023 8:26:11 CDT by Joselo Araiza M.D.
--- NOTE | 2023-03-07 17:23 | ED.DIZZY ---
HPI - Dizziness General Chief Complaint: Dizziness <MARV Ramos Last Filed: 03/07/23 22:52> Stated Complaint: dizziness <Nory Aviles PA-C - Last Filed: 03/07/23 22:52> Time Seen by Provider: 03/07/23 17:11 <Nory Aviles PA-C - Last Filed: 03/07/23 22:52> History of Present Illness HPI Narrative: Patient is a 77-year-old female with a history of CLL on oral agents, atrial fibrillation on rivaroxaban, lymphedema of the legs, here due to left-sided headache, pulsatile tinnitus in the left ear and decreased hearing x7 days. She states that she was seen here upon symptom onset and was told she had a sinus infection, has been taking antibiotics without relief of her symptoms. She states that today her left eye became bloody today and her headache worsened, prompting ED evaluation. She has had no relief after Tylenol. Takes Brukinska for CLL. No weakness, nausea, vomiting, abdominal pain. No leg pain or chest pain. No syncope. <Nory Aviles PA-C - Last Filed: 03/07/23 22:52> Related Data Home Medications: Home Medications Medication Instructions Recorded Confirmed omeprazole magnesium 20 mg 20 mg PO DAILY 12/15/19 03/08/23 tablet,delayed release (Prilosec OTC) zanubrutinib 80 mg capsule 160 mg PO BID 03/07/23 03/08/23 (Brukinsa) allopurinol 300 mg tablet 300 mg PO DAILY 03/08/23 03/08/23 amiodarone 100 mg tablet (Pacerone) 100 mg PO DAILY 03/08/23 03/08/23 amlodipine 2.5 mg tablet 2.5 mg PO DAILY 03/08/23 03/08/23 atorvastatin 80 mg tablet 80 mg PO HS 03/08/23 03/08/23 rivaroxaban 15 mg tablet (Xarelto) 15 mg PO HS 03/08/23 03/08/23 <MARV Ramos Last Filed: 03/07/23 22:52> Allergies/Adverse Reactions: Allergies Allergy/AdvReac Type Severity Reaction Status Date / Time No Known Allergies Allergy Verified 11/18/22 10:14 <Nory Aviles PA-C - Last Filed: 03/07/23 22:52> Review of Systems Review of Systems: Gen.: Denies fevers or chills Eyes: Denies eye pain or visual change ENT: reports congestion, left ear fullness/tinnitus Respiratory: Denies shortness of breath or cough CV: Denies chest pain or palpitations GI: Denies abdominal pain nausea, emesis or diarrhea denies burning, urgency, frequency or hematuria Musculoskeletal: Denies back pain or muscle pain Neuro: reports dizziness. 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 Napier. Diastolic dysfunction Diverticulitis Dyslipidemia Gastroesophageal reflux disease High cholesterol Hyperparathyroidism, primary Status post parathyroidectomy. Hypertension Morbid obesity with BMI of 40.0-44.9, adult Paroxysmal atrial fibrillation Paroxysmal atrial flutter Polymyalgia rheumatica Pulmonary hypertension Mild pulmonary hypertension on echo from March 2019 Rheumatic fever Skin cancer Basal and squamous cell. 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 With subsequent acquired deformity of the nose due to reconstructi
[2023-03-07 18:48] LABS: Hematocrit 29.6 % (37.0-47.0); Hemoglobin 8.2 g/dL (12.0-15.0); Immature Platelet Fraction Pct 14.5 % (0.9-11.2); Mean Corpuscular HGB Conc 27.7 g/dl (32-36); Mean Corpuscular Hemoglobin 25.5 pg (26-34); Mean Corpuscular Volume 91.9 fl (80-100); Mean Platelet Volume 13.2 fl (7.4-10.4); Platelet Count Result 215 k/mm3 (150-375); Red Blood Count 3.22 M/mm3 (4.2-5.4); Red Cell Distribution Width 20.6 % (11.5-14.5)
[2023-03-07 18:57] LABS: INR 1.2; Prothrombin Time 15.5 Seconds (11.1-14.7)
[2023-03-07 18:58] LABS: Partial Thromboplastin Time 38.5 SECONDS (22.3-36.8)
[2023-03-07] MEDS: MECLIZINE HCL 12.5 MG TABLET PO (19:06)
[2023-03-07] MEDS: HYDROcodone/acetaminophen (*CRX) 5-325 MG TABLET 1 TAB PO (19:06)
[2023-03-07 19:11] LABS: Alanine Aminotransferase 17 U/L (6-35); Albumin Level 3.6 g/dL (3.5-5.1); Alkaline Phosphatase 82 U/L (38-126); Anion Gap 5 mmol/L (8-16); Aspartate Amino Transferase 31 U/L (14-36); Bilirubin,Total 0.8 mg/dL (0.2-1.3); Blood Urea Nitrogen 18 mg/dL (7-17); Calcium 8.4 mg/dL (8.4-10.2); Carbon Dioxide 29 mmol/L (22-30); Chloride 101 mmol/L (98-107); Estimated CRCL calculation 58 ml/min; Estimated Glomerular Filt Rate > 60; Glucose 121 mg/dL (65-110); Potassium 4.5 mmol/L (3.4-5.0); Sodium 135 mmol/L (137-145)
[2023-03-07 19:19] VITALS: BP 171/59; PULSE 77; RESP 19; O2SAT 94
[2023-03-07 19:20] LABS: White Blood Count 131.4 K/mm3 (4.5-10.0)
[2023-03-07 19:22] LABS: Lymphocytes Absolute Manual 124.83 K/mm3 (1.1-4.5); Neutrophils Percent Manual 5 % (46-73); Total Cells Counted 100
[2023-03-07 19:23] LABS: Hypochromasia 1+ (NORMAL); Platelet Estimate Adequate (Adequate); Schistocytes None Seen (NORMAL)
[2023-03-07 19:24] LABS: Anisocytosis 3+ (NORMAL)
[2023-03-07 20:16] VITALS: BP 162/99; PULSE 81; RESP 18; O2SAT 96
[2023-03-07 21:38] VITALS: BP 160/55; PULSE 83; RESP 17; O2SAT 95
[2023-03-07 21:42] LABS: Appearance Urine Clear (Clear); Bilirubin Urine Negative (Negative); Blood Urine Negative (Negative); Color Urine Yellow (Yellow); Glucose Urine UA Negative (Negative); Ketones Urine Negative (Negative); Leukocyte Esterase Ur Negative LEU/UL (Negative); Nitrate Urine Negative (Negative); Protein Urine Negative (Negative); Specific Grav Ur 1.012 (1.001-1.035); Urobilinogen Urine 0.2 mg/dL (<2.0); pH Urine 6.5 (5.0-9.0)
[2023-03-07 22:08] LABS: Add Urine Microscopic? NO
[2023-03-07 22:25] LABS: NT Pro B Type Natriuretic Pept 522 pg/mL (19.9-100)
[2023-03-07 22:27] LABS: Influenza A QL RT-PCR Negative (Negative); Influenza B QL RT-PCR Negative (Negative); SARS-CoV-2 RNA PCR Negative (Negative)
--- NOTE | 2023-03-07 22:41 | PM.IMHP ---
H&P: HPI History of Present Illness Date/Time: 03/07/23 22:41 Chief Complaint: Lightheadedness, dizziness and left ear fullness Narrative: 77-year-old female with a past medical history of COPD, paroxysmal atrial fibrillation, essential hypertension and CLL who presented to the ER via private vehicle due to lightheadedness, dizziness and left ear fullness. Patient started feeling not well about a week ago in came to the ER. She was diagnosed with a sinus infection and discharged home on Augmentin. She took antibiotics as directed but despite the antibiotics was still having left ear fullness. She reports that she developed some ringing in her ears and actually cannot hear from her left ear. What makes the situation worse is that she chronically has decreased hearing in her right ear. She reports chronic postnasal drip. She denies any headache or vision changes but does report that she can feel her pulse throbbing in her ear. She reports that the year is painful to palpation of the tragus. She has scabs noted just under her ear lobe and reports she recently had some skin lesions frozen off. She reports that yesterday she tried to clear her eustachian tubes by pinching her nose and blowing pressure inter years. Then today she noticed a subconjunctival hemorrhage to left eye. She has been having some small amount of intermittent bloody nose. She reports that she has been using nasal saline solution and nasal saline gel. Today she developed some headache but this seems to be radiating from her ear and left face. She took some Tylenol at home without improvement in her headache. She reports that her headache is now resolved. She did have 1 episode of feeling lightheaded when she stood up quickly at home but this sensation has subsequently resolved. The ER provider wanted to check orthostatics but the patient stated that she was too weak to stand. She has not had any nausea, vomiting or abdominal pain she has been having normal bowel movements. She reports that her stools are usually dark and almost black in color due to iron supplements. She did report some right calf pain on palpation at the time of my evaluation. She has scattered bruises noted to her lower extremities but not on the posterior right calf where she was having pain. The patient's [id number] is at bedside and helps provide some of the history. She reports that she thinks that the leg is more swollen than baseline. The patient does have chronic bilateral lower extremity lymphedema. The patient reports that she has lost 60 lb over the last 2 years due to switching to a low-sodium diet. She reports good appetite currently. The patient has CLL and recent CT scan in December demonstrated multiple masses in the abdomen concerning for metastatic disease. She was started on oral chemotherapy in January to address these issues. Patient lives alone. She has a home health school health assistant that comes and helps her 4 days a week. She has several family members who live nearby. Review of Systems Review of Systems: 12 systems were reviewed with pertinent positives and negatives per HPI. Except as documented in the HPI, all other systems were reviewed and are negative. 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 Napier. Diastolic dysfunction Diverticulitis Dyslipidemia Gastroesophageal reflux disease High cholesterol Hyperparathyroidism, primary Status post parathyroidectomy. Hypertension Morbid obesity with BMI of 40.0-44.9, adult Paroxysmal atrial fibrillation Paroxysmal atrial flutter Polymyalgia rheumatica Pulmonary hypertension Mild pulmonary hypertension on echo from
[2023-03-07 23:27] VITALS: BP 160/63; PULSE 79; RESP 19; O2SAT 97
[2023-03-08] VITALS (10 sets, daily range): BP systolic 155–191; BP diastolic 46–85; PULSE 73–80; RESP 14–20; TEMP 36–36.9; O2SAT 93–96
--- NOTE | 2023-03-08 00:07 | ADMGEN ---
This patient, Cheryl Murillo, was admitted to 3 [facility] Surg Room 325-01. Patient/family oriented to hospital policies and general routines including ID bracelet, bed and alarms, visiting hours, pain management, procedures, bathroom and other care routines, personal items, smoking policy, room service/diet, and visiting hours. Information on how to activate the Rapid Response Team has been discussed. Patient/Family are encouraged to report perceived risks to care and to ask questions if they do not understand what they are told or what they should do.
[2023-03-08] MEDS: SODIUM CHLORIDE 0.9% IV 1,000 ML 100 ML IV CONT (01:54)
--- NOTE | 2023-03-08 04:45 | PHAR ---
Pharmacy verified home med: Zanubrutinib [Brukinsa] 80 mg capsule - TAKE 2 CAPSULES BY MOUTH TWICE DAILY WHITE CAPSULES IN HOME MED CONTAINER IMPRINTED WITH ASHLEY Quevedo
[2023-03-08 07:44] LABS: Alanine Aminotransferase 18 U/L (6-35); Albumin Level 3.3 g/dL (3.5-5.1); Alkaline Phosphatase 88 U/L (38-126); Anion Gap 6 mmol/L (8-16); Aspartate Amino Transferase 21 U/L (14-36); Bilirubin,Total 0.5 mg/dL (0.2-1.3); Blood Urea Nitrogen 14 mg/dL (7-17); Calcium 8.3 mg/dL (8.4-10.2); Carbon Dioxide 28 mmol/L (22-30); Chloride 104 mmol/L (98-107); Estimated CRCL calculation 52 ml/min; Estimated Glomerular Filt Rate > 60; Glucose 125 mg/dL (65-110); Potassium 4.1 mmol/L (3.4-5.0); Sodium 138 mmol/L (137-145); Uric Acid 3.5 mg/dL (2.5-7.5)
[2023-03-08 08:03] LABS: Hematocrit 29.3 % (37.0-47.0); Hemoglobin 8.1 g/dL (12.0-15.0); Immature Platelet Fraction Pct 14.7 % (0.9-11.2); Mean Corpuscular HGB Conc 27.6 g/dl (32-36); Mean Corpuscular Hemoglobin 25.7 pg (26-34); Mean Platelet Volume 13.5 fl (7.4-10.4); Platelet Count Result 227 k/mm3 (150-375); Red Blood Count 3.15 M/mm3 (4.2-5.4); Red Cell Distribution Width 20.4 % (11.5-14.5)
[2023-03-08 08:11] LABS: White Blood Count 140.1 K/mm3 (4.5-10.0)
[2023-03-08] MEDS: AMIODARONE HCL 100 MG TABLET PO (08:47)
[2023-03-08] MEDS: amLODIPine BESYLATE 2.5 MG TABLET PO (08:47)
[2023-03-08] MEDS: PANTOPRAZOLE 40 MG TABLET PO (08:47)
[2023-03-08] MEDS: allopurinoL 300 MG TABLET PO (08:47)
[2023-03-08] MEDS: FLUTICASONE PROPIONATE 0.05% NA SPR 16 GM BTL (*BKC) 2 SPRAY NASAL (08:48)
[2023-03-08] MEDS: FERROUS SULFATE 324 MG TABLET PO (08:48)
--- NOTE | 2023-03-08 13:33 | PCPTNOTE ---
Attempted to do evaluation of patient, but patient is asleep. Physical therapy will attempt at a later time.
--- NOTE | 2023-03-08 14:01 | PM.DS ---
DS: Admitting Diagnosis Discharge Date 03/08/23 Admitting Diagnosis Lightheadedness, dizziness and left ear fullness DS: Discharge Diagnosis Discharge Diagnosis (1) Left otitis media: Qualifiers: Otitis media type: unspecified Qualified Code(s): H66.92 - Otitis media, unspecified, left ear Code(s): H66.92 - Otitis media, unspecified, left ear Status: Acute (2) Hearing loss: Qualifiers: Hearing loss type: unspecified Laterality: bilateral Qualified Code(s): H91.93 - Unspecified hearing loss, bilateral Code(s): H91.90 - Unspecified hearing loss, unspecified ear Status: Acute (3) Subconjunctival hemorrhage of left eye: Code(s): H11.32 - Conjunctival hemorrhage, left eye Status: Acute (4) Right ear impacted cerumen: Code(s): H61.21 - Impacted cerumen, right ear Status: Acute (5) Generalized weakness: Code(s): R53.1 - Weakness Status: Acute (6) Acute on chronic anemia: Code(s): D64.9 - Anemia, unspecified Status: Acute (7) Counseling regarding advance directives and goals of care: Code(s): Z71.89 - Other specified counseling Status: Acute (8) Chronic allergic rhinitis: Code(s): J30.9 - Allergic rhinitis, unspecified Status: Acute DS: Summary Hospital Course Reason for hospitalization: 77yo female with COPD, pAFib, HTN and CLL here for lightheadedness, dizziness and left ear fullness. Please see H&P for details. Hospital Course: Patient presents with lightheadedness, dizziness and left ear fullness. Exam shows right ear with cerumen and probable bilateral OM. [place] the hearing loss due to combination of cerumen impaction and otitis media as well as some age related hearing loss. She received a dose of Rocephin for incompletely treated left otitis media (she did complete a course of Amoxicillin recently). Treat for 10 days given the hearing loss. She was placed on gentle IV fluid hydration as patient appears mildly intravascularly volume depleted. Patient does have CLL with WBC 140K. We continued patient's home oral chemotherapeutic agent and allopurinol. Patient does have a subconjunctival hemorrhage likely due to use of Xarelto and fact that she was straining and increasing pressure on her eye when trying to open her eustachian tube. No left eye pain. Right LE venous Doppler was negative for DVT. Patient has acute on chronic anemia. No evidence of acute blood loss. Some component of her anemia could be due to her oral chemotherapeutic agents. Repeat Hgb stable. We continued home iron supplements. Repeat CBC as outpatient. PT and OT were consulted but patient has been up ambulating to the bathroom. She overall did well and was able to be discharged home on 03/08/2023. Status at Discharge Cognitive/behavioral status at discharge: stable Time Spent with Patient Time attestation: Total time spent providing and/or coordinating discharge services: 34 minutes Time spent: Greater than 30 minutes Exam Narrative: AF 96.8 155/56 73 16 95% ra Gen - NARD HEENT - rt TM partially obscured with cerumen but with red TM. Left TM was brown-red with abnml light reflex and serous fluid Chest - CTA bilaterally, nml RR CV - RRR S1/S2 Abd - Soft, obese, NT Ext - large chronic lymphedema bilateral LE Psych - Nml mood and affect Skin - ecchymosis bilateral LE with small hematomas, multiple areas of dried eschars and ecchymosis DS: Data Data Completed and Pending Labs on day of discharge: Labs from last 24 hours 03/08/23 03/07/23 03/07/23 07:16 21:44 21:36 WBC 140.1 H* RBC 3.15 L Hgb 8.1 L Hct 29.3 L MCV 93.0 MCH 25.7 L MCHC 27.6 L RDW 20.4 H Plt Count 227 MPV 13.5 H Immature Gran % (Auto) Neut % (Auto) Lymph % (Auto) [place] % (Auto) Eos % (Auto) Baso % (Auto) Lymph # (Auto) [place] # (Auto) Eos # (Auto) Baso # (Auto)
--- NOTE | 2023-03-08 14:26 | PCPTNOTE ---
Patient has discharge orders put in by Dr. Romero, patient reports she does get around well and does not need physical therapy at this time.
== END 2023-03-08 19:00 | disposition home or self-care (01) ==
LOC: ANHED 21:17 → ANH3MEDSUR 03-08 07:33
PROVIDERS: Admitting Provider Internal Medicine; Emergency Provider Physician Assistant; PCP Family Medicine; Visit Provider Internal Medicine
DX: R51.9 Headache, unspecified (principal); H93.A2 Pulsatile tinnitus, left ear; H57.89 Other specified disorders of eye and adnexa; Z20.822 Contact with and (suspected) exposure to COVID-19; C91.10 Chronic lymphocytic leukemia of B-cell type not having achieved remission; I48.0 Paroxysmal atrial fibrillation; I89.0 Lymphedema, not elsewhere classified; M79.661 Pain in right lower leg; I13.10 Hypertensive heart and chronic kidney disease without heart failure, with stage 1 through stage 4 chronic kidney disease, or unspecified chronic kidney disease; N18.30 Chronic kidney disease, stage 3 unspecified; E66.01 Morbid (severe) obesity due to excess calories; J44.9 Chronic obstructive pulmonary disease, unspecified; Z68.41 Body mass index [BMI] 40.0-44.9, adult; L57.0 Actinic keratosis; R91.8 Other nonspecific abnormal finding of lung field; F41.9 Anxiety disorder, unspecified; R94.31 Abnormal electrocardiogram [ECG] [EKG]; M19.90 Unspecified osteoarthritis, unspecified site; E78.5 Hyperlipidemia, unspecified; K57.92 Diverticulitis of intestine, part unspecified, without perforation or abscess without bleeding; K21.9 Gastro-esophageal reflux disease without esophagitis; E21.0 Primary hyperparathyroidism; E89.0 Postprocedural hypothyroidism; Z66 Do not resuscitate; Z79.01 Long term (current) use of anticoagulants; Z79.899 Other long term (current) drug therapy; Z82.49 Family history of ischemic heart disease and other diseases of the circulatory system; Z84.89 Family history of other specified conditions
CPT/HCPCS: 36415; 70496; 70498; 71045; 80053; 81003; 83735; 83880; 84550; 85025; 85027; 85055; 85610; 85730; 87636; 93005; 93971; 96365; 97165; 99285; A9270; G0378; J0696; J7030; Q9967

== ENCOUNTER 2023-03-13 11:15 | Outpatient (CLI) | payer MEDICARE, SELFPAY ==
[2023-03-13 11:30] LABS: Basophils Absolute Auto 0.1 K/mm3 (0.0-0.1); Eosinophils Absolute Auto 0.2 K/mm3 (0-0.3); Eosinophils Percent Auto 0.1 % (0-4.4); Hematocrit 31.1 % (37.0-47.0); Hemoglobin 8.5 g/dL (12.0-15.0); Immature Granulocyte Absolute 0.23 K/mm3 (0.00-0.031); Immature Granulocyte Percent A 0.2 % (0-0.5); Lymphocytes Percent Auto 95.3 % (18.3-44.2); Mean Corpuscular HGB Conc 27.3 g/dl (32-36); Mean Corpuscular Hemoglobin 25.3 pg (26-34); Mean Corpuscular Volume 92.6 fl (80-100); Mean Platelet Volume 11.9 fl (7.4-10.4); Monocytes Absolute Auto 0.4 K/mm3 (0.1-0.6); Monocytes Percent Auto 0.3 % (2.6-8.5); Neutrophils Absolute Auto 5.5 K/mm3 (1.3-6.7); Neutrophils Percent Auto 4.1 % (45.5-73.1); Platelet Count Result 253 k/mm3 (150-375); Red Blood Count 3.36 M/mm3 (4.2-5.4); Red Cell Distribution Width 20.2 % (11.5-14.5)
[2023-03-13 11:32] LABS: White Blood Count 134.7 K/mm3 (4.5-10.0)
[2023-03-13 11:35] LABS: Hypochromasia 1+ (NORMAL); Platelet Estimate Adequate (Adequate); Schistocytes None Seen (NORMAL); Smudge Cells PRESENT
[2023-03-13 16:16] LABS: Anion Gap 8 mmol/L (8-16); Blood Urea Nitrogen 16 mg/dL (7-17); Calcium 8.3 mg/dL (8.4-10.2); Carbon Dioxide 28 mmol/L (22-30); Chloride 102 mmol/L (98-107); Estimated Glomerular Filt Rate > 60; Glucose 112 mg/dL (65-110); Potassium 4.4 mmol/L (3.4-5.0); Sodium 138 mmol/L (137-145)
== END 2023-03-13 11:16 | disposition home or self-care (01) ==
LOC: ANHLAB 11:17
PROVIDERS: PCP Family Medicine; Visit Provider Internal Medicine Hematology & Oncology
DX: C91.10 Chronic lymphocytic leukemia of B-cell type not having achieved remission (principal)
CPT/HCPCS: 36415; 80048; 85025

== ENCOUNTER 2023-03-20 09:22 | Inpatient (IN) | payer MEDICARE, SELFPAY ==
[2023-03-20] VITALS (8 sets, daily range): BP systolic 141–177; BP diastolic 45–83; PULSE 69–73; RESP 13–18; TEMP 36.5–37.2; O2SAT 90–94; BMI 42.5
--- NOTE | ~2023-03-20 | XR_ITS ---
EXAM: XR ankle RT 2V DATE: 03/20/2023 18:32 HISTORY: Ankle swelling and pain . COMPARISON: None available. FINDINGS: Exam limited by portable technique, quantum mottle, and body habitus. Limited lateral view due to obliquity. Decreased mineralization. No acute fracture or dislocation. Old healed lateral mal leolar fracture. [place] medially, likely old fracture fragment or loose body. No lytic or blastic l esion. Joint spaces are maintained. No erosion or periosteal change. Soft tissues within normal limit s. IMPRESSION: Limited exam, without definite acute osseous finding. Reviewed, dictated and finalized at location K.
--- NOTE | 2023-03-20 10:04 | ED.EXTPRO ---
HPI - Extremity Problem General Chief complaint: Extremity Problem,Nontraumatic Stated complaint: right leg swelling Time Seen by Provider: 03/20/23 10:04 Source: patient and family History of Present Illness HPI Narrative: 77 years old white female presents with pain at the right lower leg below the knee including the front and the top of the foot started 3 days ago. Patient uses a walker at home. Today patient was not able to put weight on it because of the pain and redness. History of right lower extremity lymphedema and leukemia. She denies any trauma, fever, chills, nausea, vomiting, shortness of breath or history of diabetes. Patient currently on Xarelto for atrial fibrillation Related Data Home Medications Medication Instructions Recorded Confirmed omeprazole magnesium 20 mg 20 mg PO DAILY 12/15/19 03/08/23 tablet,delayed release (Prilosec OTC) zanubrutinib 80 mg capsule 160 mg PO BID 03/07/23 03/08/23 (Brukinsa) allopurinol 300 mg tablet 300 mg PO DAILY 03/08/23 03/08/23 amiodarone 100 mg tablet (Pacerone) 100 mg PO DAILY 03/08/23 03/08/23 atorvastatin 80 mg tablet 80 mg PO HS 03/08/23 03/08/23 rivaroxaban 15 mg tablet (Xarelto) 15 mg PO HS 03/08/23 03/08/23 Allergies Allergy/AdvReac Type Severity Reaction Status Date / Time No Known Allergies Allergy Verified 11/18/22 10:14 Review of Systems Review of Systems: All systems reviewed & are unremarkable except as noted in HPI and below PMFSH Past Medical History Medical History AK (actinic keratosis) Anxiety Arthritis 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 Napier. Diastolic dysfunction Diverticulitis Dyslipidemia Gastroesophageal reflux disease High cholesterol Hyperparathyroidism, primary Status post parathyroidectomy. Hypertension Morbid obesity with BMI of 40.0-44.9, adult Paroxysmal atrial fibrillation Paroxysmal atrial flutter Polymyalgia rheumatica Pulmonary hypertension Mild pulmonary hypertension on echo from March 2019 Rheumatic fever Skin cancer Basal and squamous cell. 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 With subsequent acquired deformity of the nose due to reconstruction Family History Family History Mother Obesity of complications of obesity in her 60s. Hypertension Father Heart disease in his 60s of heart disease. Hypertension Sibling Parkinson disease Brother Grandparent Malignant neoplasm of prostate Grandparent Cerebrovascular accident Sibling Breast cancer Daughter Lymphedema Social History Social History Social History: The patient lives independently in a mobile home in [place]. She has been since 2004. Daughter and [id number] live nearby. 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 Ambulates with a walker. Nonsmoker. Drinks alcohol perhaps once a year. No drug use. Surrogate decision maker: Melina Murillo, alexandra. Code status: DNR/DNI (per patient request) Smoking status: Never smoker Alcohol intake: former Substance use: never Lack of Transportation: No Lack of Food: Never True Current Housing: I Have Housing Concerned About Future Housing: No Difficulty Paying Gas/Electric Bills: No Difficult
--- NOTE | 2023-03-20 10:56 | PC.NURSE ---
Attempted IV with no success. DARNELL Marie called to attempt ultrasound IV on patient.
[2023-03-20 11:02] LABS: Eosinophils Absolute Auto 0.1 K/mm3 (0-0.3); Eosinophils Percent Auto 0.1 % (0-4.4); Hematocrit 29.4 % (37.0-47.0); Immature Granulocyte Absolute 0.15 K/mm3 (0.00-0.031); Immature Granulocyte Percent A 0.1 % (0-0.5); Lymphocytes Percent Auto 94.3 % (18.3-44.2); Mean Corpuscular HGB Conc 27.2 g/dl (32-36); Mean Corpuscular Hemoglobin 25.2 pg (26-34); Mean Corpuscular Volume 92.5 fl (80-100); Monocytes Absolute Auto 0.4 K/mm3 (0.1-0.6); Monocytes Percent Auto 0.4 % (2.6-8.5); Neutrophils Absolute Auto 5.1 K/mm3 (1.3-6.7); Neutrophils Percent Auto 5.1 % (45.5-73.1); Platelet Count Result 230 k/mm3 (150-375); Red Blood Count 3.18 M/mm3 (4.2-5.4)
[2023-03-20 11:15] LABS: Lactic Acid Reflex 0.6 mmol/L (0.7-2.0)
[2023-03-20 11:17] LABS: Alanine Aminotransferase 17 U/L (6-35); Albumin Level 3.3 g/dL (3.5-5.1); Alkaline Phosphatase 80 U/L (38-126); Anion Gap 2 mmol/L (8-16); Aspartate Amino Transferase 30 U/L (14-36); Bilirubin,Total 0.7 mg/dL (0.2-1.3); Blood Urea Nitrogen 22 mg/dL (7-17); CRP 6.3 mg/dL (<1.0); Calcium 8.4 mg/dL (8.4-10.2); Carbon Dioxide 35 mmol/L (22-30); Chloride 100 mmol/L (98-107); Estimated CRCL calculation 53 ml/min; Estimated Glomerular Filt Rate > 60; Glucose 119 mg/dL (65-110); Potassium 4.2 mmol/L (3.4-5.0); Sodium 137 mmol/L (137-145)
[2023-03-20 11:31] LABS: Hypochromasia 1+ (NORMAL); Platelet Estimate Adequate (Adequate); White Blood Count 102.2 K/mm3 (4.5-10.0)
[2023-03-20 11:32] LABS: Schistocytes None Seen (NORMAL); Smudge Cells PRESENT
--- NOTE | 2023-03-20 11:37 | PC.NURSE ---
Assumed care of patient, awaiting IV ultrasound placement to give medications. pt resting in bed. family at bedside.
[2023-03-20] MEDS: SODIUM CHLORIDE 0.9% IV 1,000 ML 500 ML IV CONT (12:04)
[2023-03-20] MEDS: SODIUM CHLORIDE 0.9% IV 1,000 ML 100 ML IV CONT ×2 (12:41→20:46)
[2023-03-20] MEDS: KETOROLAC 15 MG/ML VIAL (*BKC) IV PUSH (13:45)
--- NOTE | 2023-03-20 14:59 | PM.IMHP ---
H&P: HPI History of Present Illness Date/Time: 03/20/23 14:59 Chief Complaint: Increased swelling to right lower extra Narrative: This is a 77-year-old female patient who has a history of chronic lymphocytic leukemia. The patient typically walks with a walker. She stated that she ran her right foot over with a walker and the right foot became so painful that she cannot walk on it. The right leg became more bruised red and swollen. Patient stated that she feels like her foot is broken. The patient is currently on Xarelto for atrial fibrillation. Patient's white count is 102.2. Last month is 134.7. The patient stated since she has been treated by Dr. Velasquez her white counts are coming down. Her H&H is 8.0 and 29.4. She had an ankle x-ray that was read as limited exam without definite osseous finding. She has an old healed lateral malleolar fracture. There is no new fractures, likely old fracture fragment or loose body. The patient was started on IV fluids and vancomycin. The patient stated she is having difficulty walking due to the discomfort. The patient typically walks with a walker. The patient is not able to bear weight. Dr. Napier has been consulted. The patient is being admitted to observation status on the date of service of 03/20/2023 Review of Systems Review of Systems: All systems reviewed & are unremarkable except as noted in HPI and below Constitutional: Constitutional: Reports as per HPI and Reports no additional constitutional complaints Eyes: Eyes: Reports as per HPI and Reports no additional eye complaints ENT: Reports system reviewed and no additional complaints, except as documented and Reports Normal hearing present Cardiovascular: Cardiovascular: Reports no additional cardiovascular complaints Respiratory: Respiratory: Reports no additional respiratory complaints and Reports no additional respiratory complaints Gastrointestinal: Gastrointestinal: Reports as per HPI and Reports no additional gastrointestinal complaints Musculoskeletal: Musculoskeletal: Reports no additional musculoskeletal complaints Integumentary/Breasts: Skin/Breast: Reports system reviewed and no additional complaints, except as docu and Reports as per HPI Neurologic: Reports system reviewed and no additional complaints, except as documented, Reports as per HPI and Reports Normal hearing present Psychiatric: Psychiatric: Reports no additional psychiatric complaints and Reports as per HPI Endocrine: Endocrine: Reports no additional endocrine complaints Hematologic/Lymphatic: Hematologic/Lymphatic: Reports no additional hematologic/lymphatic complaints Allergic/Immunologic: Allergic/Immunologic: Reports no additional allergic/immunologic complaints [facility]LY [facility] Past Medical History Medical History AK (actinic keratosis) Anxiety Arthritis 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 Napier. Diastolic dysfunction Diverticulitis Dyslipidemia Gastroesophageal reflux disease High cholesterol Hyperparathyroidism, primary Status post parathyroidectomy. Hypertension Morbid obesity with BMI of 40.0-44.9, adult Paroxysmal atrial fibrillation Paroxysmal atrial flutter Polymyalgia rheumatica Pulmonary hypertension Mild pulmonary hypertension on echo from March 2019 Rheumatic fever Skin cancer Basal and squamous cell. 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 With subsequent acquired defor
--- NOTE | 2023-03-20 15:00 | PHAR ---
Home med verified: Brukinsa 80mg capsules - markings ASHLEY 80 - white oblong capsules in weekly divider with AM & PM medication spots. #2 capsules in each pocket Also in divider is #1 Allopurinol 300mg tablet. Markings - I 136
[2023-03-20] MEDS: traMADol HCL (*CRX) 25 MG TABLET PO (15:52)
[2023-03-20] MEDS: FERROUS SULFATE 324 MG TABLET PO (16:53)
[2023-03-20] MEDS: RIVAROXABAN 15 MG TABLET PO (17:14)
--- NOTE | 2023-03-20 17:25 | PC.NURSE ---
This nurse talked to Mariann Cortes about pt foot and leg at 1630. Pt states Right foot feels like a shooting pain when she moves foot up and down. Right leg and ankle look very swollen. Concerned about pt having a fracture. Mariann told this nurse that she is going to order an x ray. Awaiting orders at this time.
--- NOTE | 2023-03-20 17:55 | PDONCCN ---
HPI - Date of Consult Date/Time: 03/20/23 17:55 Requesting Physician: Janes Mckee MD Primary Care Provider: Tino Hernandez MD - Consult Narrative Reason for consult: Chronic lymphocytic leukemia Narrative: Cheryl Murillo is a 77 year old female with history of chronic lymphocytic leukemia diagnosed initially in 2018 but started on treatment with and ibrutinib on January 15, 2023 due to rising WBC count and development of gastric wall thickening and lung nodule likely secondary to lymphoma. Patient came into the hospital with right lower leg pain and swelling. Patient is on Xarelto for atrial fibrillation. Doppler study done on March 07 showed no evidence of DVT in the right lower extremity. Labs showed improvement in WBC count now dropped to 102,000 with worsening of anemia. He complain of some tiredness fatigue but denies any bleeding and bruising. 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 Napier. Diastolic dysfunction Diverticulitis Dyslipidemia Gastroesophageal reflux disease High cholesterol Hyperparathyroidism, primary Status post parathyroidectomy. Hypertension Morbid obesity with BMI of 40.0-44.9, adult Paroxysmal atrial fibrillation Paroxysmal atrial flutter Polymyalgia rheumatica Pulmonary hypertension Mild pulmonary hypertension on echo from March 2019 Rheumatic fever Skin cancer Basal and squamous cell. 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 With subsequent acquired deformity of the nose due to reconstruction Family History: Family History (Last Reviewed 03/20/23 @ 13:05 by Leyda Jc RN) Mother Obesity of complications of obesity in her 60s. Hypertension Father Heart disease in his 60s of heart disease. Hypertension Sibling Parkinson disease Brother Grandparent Malignant neoplasm of prostate Grandparent Cerebrovascular accident Sibling Breast cancer Daughter Lymphedema - Social History Social History: Social History (Last Reviewed 03/20/23 @ 10:39 by Jamarcus García MD) Alcohol Use: Alcohol intake: former Alcohol use details: Substance Use: Substance use: never Others: Spiritual care concerns: No Living Arrangements: Living arrangements: alone Oppucation/Education: Occupation/Education: retired Smoking Status: Smoking status: Never smoker Social Determinants of Health: Has the Lack of Transportation Kept You From Medical Appointments or From Getting Medications?: No Within the Past 12 Months, Were You Worried Whether Your Food Would Run Out Before You Got Money to Buy More?: Never True What is Your Housing Situation Today?: I Have Housing Are You Worried That in the Next 2 Months, You May Not Have Your Own Housing to Live In?: No Do You Have Trouble Paying Your Heating Or Electricity Bill?: No Do You Have Trouble Paying For Medicines?: No Are You Currently Unemployed and Looking for Work?: No Highest Level of Education Completed: High School Diploma/GED Do You Have Trouble With Childcare or the Care of a Family Member?:
[2023-03-20 18:52] LABS: Lactate Dehydrogenase 156 U/L (120-246)
[2023-03-20 18:55] LABS: Iron 32 ug/dL (37-170)
[2023-03-20 19:07] LABS: Percent Iron Saturation 11 % (20-50)
[2023-03-20 20:08] LABS: Folic Acid > 20.0 ng/mL (2.76->20)
[2023-03-20] MEDS: ATORVASTATIN 40 MG TABLET 80 MG PO (20:45)
[2023-03-21] VITALS (9 sets, daily range): BP systolic 143–171; BP diastolic 40–66; PULSE 68–78; RESP 13–20; TEMP 36.1–36.8; O2SAT 88–97
--- NOTE | 2023-03-21 | ECHO_ITS ---
Patient Info Name: Cheryl Murillo Age: 77 years : 1945 Gender: Female Ht: 60 in Wt: 210 lbs BSA: 2.06 m2 HR: 71 bpm BP: 143 / 40 mmHg Heart Rhythm: Sinus Rhythm Technical Quality: Good Exam Date: 03/21/2023 11:09 AM Exam Location: [facility] Patient Status: Inpatient Admit Date: 03/20/2023 Staff Ordering Physician: Mariann Cortes NP Osteology Teacher: Andrew Garcia RDCS Attending Provider: Janes Mckee MD Referring Physician: Sebastian EL; Exam Type: CA echo doppler color flow Study Info Indications - MURMUR Complete two-dimensional, color flow and Doppler transthoracic echocardiogram is performed. Summary 1. Complete two-dimensional, color flow and Doppler transthoracic echocardiogram is performed. 2. Normal left ventricular size with mild concentric hypertrophy. Good systolic function of all segments, ejection fraction 55-60%. Grade 2 diastolic dysfunction is present. 3. Left atrial chamber dimension is moderately enlarged. 4. There is mild mitral valve regurgitation. 5. There is moderate tricuspid valve regurgitation. 6. Moderate pulmonary hypertension, estimated pulmonary arterial systolic pressure is 52 mmHg. 7. Dilated inferior vena cava with >50% collapse upon inspiration consistent with elevated right atrial pressure, 15 mmHg. 8. Normal sinus rhythm, possible first-degree AV block. Left Ventricle Left ventricular chamber dimension is normal. Left ventricular systolic function is normal, estimated at 55-60%. There is mildly increased left ventricular wall thickness. Left ventricular septal wall motion is normal. The left ventricular diastolic function is grade II diastolic dysfunction. Right Ventricle Right ventricular chamber dimension is normal. Right ventricular systolic function is normal. Left Atria Left atrial chamber dimension is moderately enlarged. Right Atria Right atrial chamber dimension is normal. Aortic Valve The aortic valve is trileaflet. There is no aortic valve sclerosis. There is no aortic valve stenosis. There is no aortic valve regurgitation. Pulmonic Valve The pulmonic valve is normal. There is no pulmonic valve stenosis. There is no pulmonic regurgitation. Mitral Valve The mitral valve has thickened leaflets. There is no mitral valve stenosis. There is mild mitral valve regurgitation. Tricuspid Valve The tricuspid valve leaflets are normal. There is no significant tricuspid valve stenosis. There is moderate tricuspid valve regurgitation. Moderate pulmonary hypertension, estimated pulmonary arterial systolic pressure is 52 mmHg. Pericardium/Pleural The pericardium appears normal. There is no pericardial effusion. Inferior Vena Cava Dilated inferior vena cava with >50% collapse upon inspiration consistent with elevated right atrial pressure, 15 mmHg. Aorta The aortic root size at the sinus of Valsalva is normal. The prox ascending aorta size is borderline dilated. Left Ventricular Outflow Tract Name Value Normal LVOT 2D LVOT Diameter 1.8 cm LVOT Doppler LVOT Peak Gradient 10 mmHg LVOT Mean Gradient 5 mmHg LVOT VTI 38 cm
[2023-03-21 06:33] LABS: Eosinophils Absolute Auto 0.1 K/mm3 (0-0.3); Eosinophils Percent Auto 0.1 % (0-4.4); Hematocrit 25.1 % (37.0-47.0); Immature Granulocyte Absolute 0.11 K/mm3 (0.00-0.031); Immature Granulocyte Percent A 0.1 % (0-0.5); Lymphocytes Absolute Auto 77.89 K/mm3 (0.9-3.2); Lymphocytes Percent Auto 94.2 % (18.3-44.2); Mean Corpuscular HGB Conc 26.7 g/dl (32-36); Mean Corpuscular Hemoglobin 24.4 pg (26-34); Mean Corpuscular Volume 91.3 fl (80-100); Monocytes Absolute Auto 0.4 K/mm3 (0.1-0.6); Monocytes Percent Auto 0.5 % (2.6-8.5); Neutrophils Absolute Auto 4.1 K/mm3 (1.3-6.7); Neutrophils Percent Auto 5.1 % (45.5-73.1); Platelet Count Result 203 k/mm3 (150-375); Red Blood Count 2.75 M/mm3 (4.2-5.4); Red Cell Distribution Width 19.1 % (11.5-14.5)
[2023-03-21 06:39] LABS: White Blood Count 82.7 K/mm3 (4.5-10.0)
[2023-03-21 06:40] LABS: Hemoglobin 6.7 g/dL (12.0-15.0)
[2023-03-21 06:45] LABS: Alanine Aminotransferase 14 U/L (6-35); Albumin Level 2.7 g/dL (3.5-5.1); Alkaline Phosphatase 76 U/L (38-126); Anion Gap 2 mmol/L (8-16); Aspartate Amino Transferase 22 U/L (14-36); Bilirubin,Total 0.5 mg/dL (0.2-1.3); Blood Urea Nitrogen 18 mg/dL (7-17); Calcium 7.4 mg/dL (8.4-10.2); Carbon Dioxide 28 mmol/L (22-30); Chloride 105 mmol/L (98-107); Estimated CRCL calculation 52 ml/min; Estimated Glomerular Filt Rate > 60; Glucose 107 mg/dL (65-110); Magnesium 1.7 mg/dL (1.6-2.3); Potassium 3.8 mmol/L (3.4-5.0); Sodium 135 mmol/L (137-145)
[2023-03-21 07:11] LABS: Hematocrit 25.3 % (37.0-47.0)
[2023-03-21 07:52] LABS: Anisocytosis 1+ (NORMAL); Platelet Estimate Adequate (Adequate); Schistocytes None Seen (NORMAL)
[2023-03-21 07:53] LABS: Smudge Cells MANY
[2023-03-21] MEDS: FUROSEMIDE 10 MG TABLET PO (08:40)
[2023-03-21] MEDS: traMADol HCL (*CRX) 25 MG TABLET PO ×4 (08:40→22:58)
[2023-03-21] MEDS: allopurinoL 300 MG TABLET PO (08:40)
[2023-03-21] MEDS: FERROUS SULFATE 324 MG TABLET PO ×2 (08:40→18:46)
[2023-03-21] MEDS: amLODIPine BESYLATE 2.5 MG TABLET BY MOUTH (08:41)
[2023-03-21] MEDS: PANTOPRAZOLE 40 MG TABLET PO (08:41)
[2023-03-21] MEDS: AMIODARONE HCL 100 MG TABLET PO (08:41)
[2023-03-21] MEDS: FLUTICASONE PROPIONATE 0.05% NA SPR 16 GM BTL (*BKC) 2 SPRAY NASAL (08:41)
--- NOTE | 2023-03-21 09:20 | PCPTNOTE ---
Occupational therapist talked to nursing about low HgB 7.0 and Per RN pt. is getting 2 units of blood; hold until tomorrow
--- NOTE | 2023-03-21 10:07 | PCOTNOTE ---
Attempted OT evaluation this date; per RN pt. will be getting 2 units of blood. Hold OT evaluation until tomorrow.
[2023-03-21 10:37] LABS: Lactic Acid Reflex < 0.5 mmol/L (0.7-2.0)
[2023-03-21 11:57] LABS: Free T4 Free Thyroxine Reflex 1.22 ng/dL (0.78-2.19)
--- NOTE | 2023-03-21 13:32 | WPDPN ---
Progress Note: A&P Assessment and Plan (1) Cellulitis of leg, right: Code(s): L03.115 - Cellulitis of right lower limb Status: Acute Assessment and Plan: Venous Doppler on 03/08/2023 was read as no evidence of deep vein thrombosis of the right lower extremity. The patient is chronically treated with Xarelto for atrial fibrillation. Awaiting blood cultures. The lower extremity is slightly red and edematous. The patient does have chronic lymphedema. The patient was complaining of severe tenderness to the right lower quadrant. The patient was started on vancomycin. Continue with analgesics. The patient will need insurance healthcare consultant for pursue rehab. The patient typically walks with walker. However the patient stated that she ran her foot over and is now having some discomfort. X-ray showed no current fracture. She will need PT OT evaluation as well. 03/21/2023 interval history: 77 y/o female with history of chronic lymphocytic leukemia presented with c/o righ foot and akle pain, she had injured herself when walking with her walker, x-ray ankle does not show any acute bony injury however patient is unable to bear wt on the right foot due to pain, also patient right foot ankle appears to have cellulitis, being treated with vancomycin, upon arrival patient was also found to have elevated white counts of 102 which is lower than her recent labs, also patient hgb is low and there is no bleeding or bruising, patient was seen by her drapery cutter and further workup is in progress, today her white counts is little better and trended down to 82, her hgb is low and will give 2units of PRBC, and has iron deficiency too will give venofer [id number], will monitor and furthere recommendation to follow,. (2) Lymphedema: Code(s): I89.0 - Lymphedema, not elsewhere classified Status: Acute Assessment and Plan: This is chronic. The patient has chronic lymphocytic leukemia. The patient is on Xarelto. Last ultrasound shows no DVTs.No evidence of deep venous thrombosis of right lower extremity?03/08/2023. Dr. Napier was consulted for the chronic lymphocytic leukemia. The patient may take her own Brukinsa treatment. Dr. napier has seen the patient. As per Dr. Napier it is note chronic lymphocytic leukemia Orellana stage 0 initial diagnosis 2018.? Patient was started on oral treatment with zanubrutinib 160 mg twice a day on January 15, 2023.? There was improvement in the WBC count.? Patient is getting slightly more anemic.? We will order the anemia workup including iron and vitamin B12 level.? We will also check for hemolytic anemia.? She will continue treatment with zanibrutinib and follow up with us in outpatient. (3) Acute on chronic anemia: Code(s): D64.9 - Anemia, unspecified Status: Acute Assessment and Plan: Continue to monitor H&H. Her H&H today's 8.029.4. Last month it was 8.5 and 31.1. (4) Paroxysmal atrial fibrillation: Code(s): I48.0 - Paroxysmal atrial fibrillation Status: Acute Assessment and Plan: Continue with Xarelto and amiodarone. (5) Chronic lymphocytic leukemia: Onset Date: 03/2019 Code(s): C91.10 - Chronic lymphocytic leukemia of B-cell type not having achieved remission Status: Acute Assessment and Plan: See Dr. Napier to nodes. (6) Hypertension: Qualifiers: Hypertension type: essential hypertension Qualified Code(s): I10 - Essential (primary) hypertension Code(s): I10 - Essential (primary) hypertension Status: Acute Assessment and Plan: The patient is on amiodarone for AFib and continue amlodipine. Amlodipine can also cause some edema 2. (7) High cholesterol: Code(s): E78.00 - Pure hypercholesterolemia, unspecified Status: Acute Assessment and Plan: Continue with atorvastatin. Subjective Date/time seen: 03/21/23 13:32 Interval history: Increased swelling to right lower extra HPI-Narrat
[2023-03-21] MEDS: SODIUM CHLORIDE 0.9% IV 1,000 ML 100 ML IV CONT (18:46)
[2023-03-21] MEDS: hydrALAZINE HCL 25 MG TABLET PO (18:46)
[2023-03-21] MEDS: RIVAROXABAN 15 MG TABLET PO (18:47)
[2023-03-21] MEDS: FUROSEMIDE INJ 40 MG/4 ML VIAL 20 MG IV PUSH (18:48)
[2023-03-21] MEDS: ATORVASTATIN 40 MG TABLET 80 MG PO (20:12)
[2023-03-21 20:15] LABS: Hematocrit 31.6 % (37.0-47.0); Hemoglobin 8.7 g/dL (12.0-15.0)
[2023-03-22 06:00] VITALS: BP 149/59; PULSE 68; RESP 14; TEMP 36.2; O2SAT 93
[2023-03-22 06:35] LABS: Basophils Absolute Auto 0.1 K/mm3 (0.0-0.1); Basophils Percent Auto 0.1 % (0.2-1.2); Eosinophils Absolute Auto 0.1 K/mm3 (0-0.3); Eosinophils Percent Auto 0.1 % (0-4.4); Hematocrit 30.8 % (37.0-47.0); Hemoglobin 8.7 g/dL (12.0-15.0); Immature Granulocyte Absolute 0.13 K/mm3 (0.00-0.031); Immature Granulocyte Percent A 0.1 % (0-0.5); Lymphocytes Absolute Auto 85.86 K/mm3 (0.9-3.2); Lymphocytes Percent Auto 93.8 % (18.3-44.2); Mean Corpuscular HGB Conc 28.2 g/dl (32-36); Mean Corpuscular Hemoglobin 25.6 pg (26-34); Mean Corpuscular Volume 90.6 fl (80-100); Mean Platelet Volume 12.6 fl (7.4-10.4); Monocytes Absolute Auto 0.5 K/mm3 (0.1-0.6); Monocytes Percent Auto 0.5 % (2.6-8.5); Neutrophils Absolute Auto 4.9 K/mm3 (1.3-6.7); Neutrophils Percent Auto 5.4 % (45.5-73.1); Platelet Count Result 211 k/mm3 (150-375); Red Cell Distribution Width 18.7 % (11.5-14.5)
[2023-03-22 06:49] LABS: White Blood Count 91.5 K/mm3 (4.5-10.0)
[2023-03-22 07:06] LABS: Alanine Aminotransferase 15 U/L (6-35); Albumin Level 2.9 g/dL (3.5-5.1); Alkaline Phosphatase 81 U/L (38-126); Anion Gap 0 mmol/L (8-16); Aspartate Amino Transferase 22 U/L (14-36); Bilirubin,Total 0.6 mg/dL (0.2-1.3); Blood Urea Nitrogen 12 mg/dL (7-17); Calcium 7.8 mg/dL (8.4-10.2); Carbon Dioxide 32 mmol/L (22-30); Chloride 101 mmol/L (98-107); Estimated CRCL calculation 47 ml/min; Estimated Glomerular Filt Rate 60; Glucose 112 mg/dL (65-110); Magnesium 1.5 mg/dL (1.6-2.3); Potassium 3.5 mmol/L (3.4-5.0); Sodium 133 mmol/L (137-145)
[2023-03-22 07:07] LABS: Platelet Estimate Adequate (Adequate)
[2023-03-22 07:08] LABS: Anisocytosis 1+ (NORMAL); Hypochromasia 1+ (NORMAL); Schistocytes None Seen (NORMAL); Smudge Cells PRESENT
[2023-03-22 08:10] VITALS: BP 152/54; PULSE 70; RESP 16; TEMP 36.1; O2SAT 95
[2023-03-22 08:15] VITALS: PULSE 72
[2023-03-22] MEDS: FUROSEMIDE 10 MG TABLET PO (08:15)
[2023-03-22] MEDS: PANTOPRAZOLE 40 MG TABLET PO (08:15)
[2023-03-22] MEDS: AMIODARONE HCL 100 MG TABLET PO (08:15)
[2023-03-22] MEDS: FERROUS SULFATE 324 MG TABLET PO ×2 (08:15→18:04)
[2023-03-22] MEDS: amLODIPine BESYLATE 2.5 MG TABLET BY MOUTH (08:15)
[2023-03-22] MEDS: traMADol HCL (*CRX) 25 MG TABLET PO ×2 (08:16→18:10)
--- NOTE | 2023-03-22 09:27 | WPDPN ---
Progress Note: A&P Assessment and Plan (1) Cellulitis of leg, right: Code(s): L03.115 - Cellulitis of right lower limb Status: Acute Assessment and Plan: Venous Doppler on 03/08/2023 was read as no evidence of deep vein thrombosis of the right lower extremity. The patient is chronically treated with Xarelto for atrial fibrillation. Awaiting blood cultures. The lower extremity is slightly red and edematous. The patient does have chronic lymphedema. The patient was complaining of severe tenderness to the right lower quadrant. The patient was started on vancomycin. Continue with analgesics. The patient will need healthcare manager for pursue rehab. The patient typically walks with walker. However the patient stated that she ran her foot over and is now having some discomfort. X-ray showed no current fracture. She will need PT OT evaluation as well. 03/22/2023 interval history: 77 y/o female with history of chronic lymphocytic leukemia presented with c/o righ foot and ankle pain, she had injured herself when walking with her walker, x-ray of ankle does not show any acute bony injury however patient is unable to bear wt on the right foot due to pain, also patient right foot ankle appears to have cellulitis, being treated with vancomycin, today patient stats pain is litter better, worked with PT/OT and now sitting in the chair, upon arrival patient was also found to have elevated white counts of 102 which is lower than her recent labs, upon arrival also patient hgb was low and there no bleeding or bruising, however last night nurse noticed rectal bleeding and GI is consulted, patient was seen by her film developing machine operator and further workup is in progress, today her white counts is little better and trended down to 92, patient received 1 units of PRBC, and has iron deficiency too gave venofer [id number], will monitor and furthere recommendation to follow,. (2) Lymphedema: Code(s): I89.0 - Lymphedema, not elsewhere classified Status: Acute Assessment and Plan: This is chronic. The patient has chronic lymphocytic leukemia. The patient is on Xarelto. Last ultrasound shows no DVTs.No evidence of deep venous thrombosis of right lower extremity?03/08/2023. Dr. Napier was consulted for the chronic lymphocytic leukemia. The patient may take her own Brukinsa treatment. Dr. napier has seen the patient. As per Dr. Napier it is note chronic lymphocytic leukemia Orellana stage 0 initial diagnosis 2018.? Patient was started on oral treatment with zanubrutinib 160 mg twice a day on January 15, 2023.? There was improvement in the WBC count.? Patient is getting slightly more anemic.? We will order the anemia workup including iron and vitamin B12 level.? We will also check for hemolytic anemia.? She will continue treatment with zanibrutinib and follow up with us in outpatient. (3) Acute on chronic anemia: Code(s): D64.9 - Anemia, unspecified Status: Acute Assessment and Plan: Continue to monitor H&H. Her H&H today's 8.029.4. Last month it was 8.5 and 31.1. (4) Paroxysmal atrial fibrillation: Code(s): I48.0 - Paroxysmal atrial fibrillation Status: Acute Assessment and Plan: Continue with Xarelto and amiodarone. (5) Chronic lymphocytic leukemia: Onset Date: 03/2019 Code(s): C91.10 - Chronic lymphocytic leukemia of B-cell type not having achieved remission Status: Acute Assessment and Plan: See Dr. Napier to nodes. (6) Hypertension: Qualifiers: Hypertension type: essential hypertension Qualified Code(s): I10 - Essential (primary) hypertension Code(s): I10 - Essential (primary) hypertension Status: Acute Assessment and Plan: The patient is on amiodarone for AFib and continue amlodipine. Amlodipine can also cause some edema 2. (7) High cholesterol: Code(s): E78.00 - Pure hypercholesterolemia, unspecified Status: Acute Assessment
[2023-03-22] MEDS: MAGNESIUM SULF 2 GM/WATER 50ML 2 GM/50 ML BAG IVPB (09:37)
[2023-03-22] MEDS: POTASSIUM CHLORIDE 20 MEQ ER TABLET 40 MEQ PO (09:37)
--- NOTE | 2023-03-22 10:18 | WPDGICN ---
Assessment and Plan Assessment and plan (1) BRBPR (bright red blood per rectum): Code(s): K62.5 - Hemorrhage of anus and rectum Status: Acute Assessment and Plan: Patient with 1 episode of bright red blood per rectum after a hard constipated stool. I suspect she scratched a hemorrhoid. Plan to repeat stool Hemoccult now that this is resolved. Colonoscopy an EGD may be beneficial but would be difficult to perform, given her anticoagulation and comorbid problems including CLL, lymphedema and cellulitis. Plan to hold Xarelto consider GI endoscopy in several days if her general overall condition improves. Currently patient is hesitant proceed with colonoscopy and does give permission for this at present. Stool softeners will be implemented. (2) Lymphedema: Code(s): I89.0 - Lymphedema, not elsewhere classified Status: Acute (3) Cellulitis of leg, right: Code(s): L03.115 - Cellulitis of right lower limb Status: Acute (4) CLL (chronic lymphocytic leukemia): Code(s): C91.10 - Chronic lymphocytic leukemia of B-cell type not having achieved remission Status: Acute (5) Paroxysmal A-fib: Code(s): I48.0 - Paroxysmal atrial fibrillation Status: Acute (6) Chronic anticoagulation: Code(s): Z79.01 - emt intermediate (current) use of anticoagulants Status: Acute Assessment and Plan: Patient anticoagulated because of atrial fibrillation. Undoubtedly this contribute to her rectal bleeding after passing hard stool. GI Consult Note Consult date/time: 03/22/23 10:18 Reason for consult: Bright red blood per rectum. HPI: Cheryl Murillo is a 77 year old female I am asked to see because of an episode of rectal bleeding. Patient has an underlying history of CLL diagnosed in 2019. Patient is currently receiving active treatment from Oncology for this. She has significant lymphedema chronically in walks with a walker. Apparently had an accident and has developed cellulitis in the lower extremity. Patient currently receiving antibiotics. Patient states that she became constipated developed a hard stool and after passing hard constipated stool developed 1 episode of bright red blood per rectum. She has never had blood in his stools prior to this. Patient has a chronic anemia in conjunction with her CLL. Iron indices are somewhat deficient for which she receives iron supplementation. CT scan of the abdomen in December this year revealed thickening to the stomach suspicious for involvement of lymphoma in her stomach. Patient is chronically anticoagulated with Xarelto because of atrial fibrillation. Review of Systems Review of Systems: Review of systems noncontributory. 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 Napier. Diastolic dysfunction Diverticulitis Dyslipidemia Gastroesophageal reflux disease High cholesterol Hyperparathyroidism, primary Status post parathyroidectomy. Hypertension Morbid obesity with BMI of 40.0-44.9, adult Paroxysmal atrial fibrillation Paroxysmal atrial flutter Polymyalgia rheumatica Pulmonary hypertension Mild pulmonary hypertension on echo from March 2019 Rheumatic fever Skin cancer Basal and squamous cell. 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 With subsequent acquired defo
[2023-03-22 14:00] VITALS: BP 161/55; PULSE 70; RESP 12; TEMP 35.9; O2SAT 98
[2023-03-22] MEDS: SODIUM CHLORIDE 0.9% IV 1,000 ML 100 ML IV CONT (18:04)
[2023-03-22] MEDS: RIVAROXABAN 15 MG TABLET PO (18:04)
[2023-03-22 18:48] LABS: IFOB Positive Control Positive; Immunochemical Fecal Occult Bl Positive (N)
[2023-03-22] MEDS: ATORVASTATIN 40 MG TABLET 80 MG PO (20:42)
[2023-03-22] MEDS: DOCUSATE SODIUM 100 MG CAPSULE PO (20:42)
[2023-03-22 20:46] VITALS: BP 149/65; PULSE 72; RESP 14; TEMP 35.6; O2SAT 94
[2023-03-23 06:00] VITALS: BP 148/65; PULSE 66; RESP 16; TEMP 35.4; O2SAT 100
[2023-03-23 06:12] LABS: Eosinophils Absolute Auto 0.2 K/mm3 (0-0.3); Eosinophils Percent Auto 0.2 % (0-4.4); Hematocrit 29.5 % (37.0-47.0); Hemoglobin 8.2 g/dL (12.0-15.0); Immature Granulocyte Absolute 0.14 K/mm3 (0.00-0.031); Immature Granulocyte Percent A 0.2 % (0-0.5); Immature Platelet Fraction Pct 12.2 % (0.9-11.2); Lymphocytes Absolute Auto 85.28 K/mm3 (0.9-3.2); Lymphocytes Percent Auto 94.5 % (18.3-44.2); Mean Corpuscular HGB Conc 27.8 g/dl (32-36); Mean Corpuscular Hemoglobin 25.5 pg (26-34); Mean Corpuscular Volume 91.6 fl (80-100); Mean Platelet Volume 12.7 fl (7.4-10.4); Monocytes Absolute Auto 0.5 K/mm3 (0.1-0.6); Monocytes Percent Auto 0.6 % (2.6-8.5); Neutrophils Absolute Auto 4.2 K/mm3 (1.3-6.7); Neutrophils Percent Auto 4.5 % (45.5-73.1); Platelet Count Result 229 k/mm3 (150-375); Red Blood Count 3.22 M/mm3 (4.2-5.4); Red Cell Distribution Width 18.9 % (11.5-14.5)
[2023-03-23 06:21] LABS: Alanine Aminotransferase 17 U/L (6-35); Albumin Level 2.8 g/dL (3.5-5.1); Alkaline Phosphatase 82 U/L (38-126); Anion Gap 3 mmol/L (8-16); Aspartate Amino Transferase 22 U/L (14-36); Bilirubin,Total 0.6 mg/dL (0.2-1.3); Blood Urea Nitrogen 11 mg/dL (7-17); Calcium 7.5 mg/dL (8.4-10.2); Carbon Dioxide 29 mmol/L (22-30); Chloride 104 mmol/L (98-107); Estimated CRCL calculation 52 ml/min; Estimated Glomerular Filt Rate > 60; Glucose 115 mg/dL (65-110); Magnesium 1.8 mg/dL (1.6-2.3); Potassium 3.6 mmol/L (3.4-5.0); Sodium 136 mmol/L (137-145)
[2023-03-23 06:34] LABS: White Blood Count 90.3 K/mm3 (4.5-10.0)
[2023-03-23 06:36] LABS: Platelet Estimate Adequate (Adequate); Schistocytes None Seen (NORMAL)
[2023-03-23 06:37] LABS: Smudge Cells MODERATE
[2023-03-23 09:13] VITALS: PULSE 80
[2023-03-23] MEDS: FERROUS SULFATE 324 MG TABLET PO ×2 (09:13→17:38)
[2023-03-23] MEDS: MAGNESIUM OXIDE 400 MG TABLET PO (09:13)
[2023-03-23] MEDS: PANTOPRAZOLE 40 MG TABLET PO (09:13)
[2023-03-23] MEDS: allopurinoL 300 MG TABLET PO (09:13)
[2023-03-23] MEDS: amLODIPine BESYLATE 2.5 MG TABLET BY MOUTH (09:13)
[2023-03-23] MEDS: AMIODARONE HCL 100 MG TABLET PO (09:13)
[2023-03-23] MEDS: FUROSEMIDE 10 MG TABLET PO (09:13)
[2023-03-23] MEDS: DOCUSATE SODIUM 100 MG CAPSULE PO ×2 (09:14→20:59)
[2023-03-23] MEDS: FLUTICASONE PROPIONATE 0.05% NA SPR 16 GM BTL (*BKC) 2 SPRAY NASAL (09:14)
[2023-03-23 11:03] LABS: Vancomycin Trough 11.2 ug/mL (10.0-20.0)
[2023-03-23] MEDS: ACETAMINOPHEN 325 MG TABLET 650 MG PO (12:16)
--- NOTE | 2023-03-23 12:40 | WPDGIPROGNO ---
Progress Note: A&P Assessment and Plan (1) BRBPR (bright red blood per rectum): Code(s): K62.5 - Hemorrhage of anus and rectum Status: Acute Assessment and Plan: Patient has had no further episodes of rectal bleeding. Likely this was after passing hard stool. Suspect hemorrhoidal bleeding. At present see no contraindication to anticoagulation. Patient refuses colonoscopy at this time. Plan to treat with stool softeners. If rectal bleeding recurs she can be followed up as an outpatient. (2) CLL (chronic lymphocytic leukemia): Code(s): C91.10 - Chronic lymphocytic leukemia of B-cell type not having achieved remission Status: Acute (3) Cellulitis of leg, right: Code(s): L03.115 - Cellulitis of right lower limb Status: Acute (4) Chronic acquired lymphedema: Code(s): I89.0 - Lymphedema, not elsewhere classified Status: Acute (5) Chronic anticoagulation: Code(s): Z79.01 - USP (current) use of anticoagulants Status: Acute (6) Paroxysmal A-fib: Code(s): I48.0 - Paroxysmal atrial fibrillation Status: Acute Subjective Date/time seen: 03/23/23 12:40 Interval history: Patient alert more comfortable today. She reports no additional bleeding. Comfortable sitting at bedside. States that she does not wish to pursue colonoscopy. Review of Systems Review of Systems: Review of systems noncontributory. Exam Narrative: Physical exam reveals patient be alert. Comfortable at rest. HEENT exam is unremarkable. Patient anicteric. Lungs are clear. Heart without murmur. Abdomen is obese bowel sounds present soft nontender no organomegaly. Objective Data Vital Signs Vital Signs: Vital Signs - 24 hr 03/22/23 14:00 03/22/23 20:46 03/23/23 06:00 Temperature 96.6 F L 96.1 F L 95.7 F L Pulse Rate 70 72 66 Respiratory Rate 12 14 16 Blood Pressure 161/55 H 149/65 H 148/65 H Pulse Oximetry 98 94 100 Oxygen Delivery 03/23/23 09:13 03/23/23 09:00 Temperature Pulse Rate 80 Respiratory Rate Blood Pressure Pulse Oximetry Oxygen Delivery Room Air Intake/Output Intake/Output: Intake & Output 03/20/23 03/21/23 03/22/23 03/23/23 23:59 23:59 23:59 23:59 Intake Total 1550 3675 3335 1240 Output Total 1250 2550 200 Balance 1550 2425 785 1040 Meds/Results Medications: Active Medications Generic Name Dose Route Start Last Admin Trade Name Freq PRN Reason Stop Dose Admin Acetaminophen 650 mg 03/20/23 10:29 03/23/23 12:16 Acetaminophen 325 Mg Tablet PO 650 mg Q4H PRN Administration Mild Pain (1-3) or Fever Albuterol 2 puff 03/20/23 14:59 Albuterol Sulfate (*Sp) Aerosol 1 Puff INHALATION QID PRN shortness of breath or wheezing Allopurinol 300 mg 03/21/23 09:00 03/23/23 09:13 Allopurinol 300 Mg Tablet PO 300 mg DAILY KATHY Administration Amiodarone HCl 100 mg 03/21/23 09:00 03/23/23 09:13 Amiodarone Hcl 100 Mg Tablet PO 100 mg DAILY KATHY Administration Amlodipine Besylate 2.5 mg 03/21/23 09:00 03/23/23 09:13 Amlodipine Besylate 2.5 Mg Tablet BY MOUTH 2.5 mg DAILY KATHY Administration Atorvastatin Calcium 80 mg 03/20/23 21:00 03/22/23 20:42 Atorvastatin 40 Mg Tablet PO 80 mg HS KATHY Administration Docusate Sodium 100 mg 03/22/23 21:00 03/23/23 09:14 Docusate Sodium 100 Mg Capsule PO 100 mg Q12HR KATHY Administration Fentanyl Citrate 25 mcg 03/20/23 15:02 Fentanyl Citrate Inj (*Crx) 100 Mcg/2 Ml Vial IV PUSH Q4H PRN Pain Rated 7-10 Ferrous Sulfate 324 mg 03/20/23 17:00 03/23/23 09:13 Ferrous Sulfate 324 Mg Tablet PO 324 mg BIDWM KATHY Administration Fluticasone Propionate 2 spray 03/21/23 09:00 03/23/23 09:14 Fluticasone Propionate 0.05% Na Spr 16 Gm Btl (*Bkc) NASAL 2 spray QAM KATHY Administration Furosemide 10 mg 03/21/23 09:00 03/23/23 09:13 Furosemide 10 Mg Tablet PO
--- NOTE | 2023-03-23 12:49 | WPDPN ---
Progress Note: A&P Assessment and Plan (1) Cellulitis of leg, right: Code(s): L03.115 - Cellulitis of right lower limb Status: Acute Assessment and Plan: Venous Doppler on 03/08/2023 was read as no evidence of deep vein thrombosis of the right lower extremity. The patient is chronically treated with Xarelto for atrial fibrillation. Awaiting blood cultures. The lower extremity is slightly red and edematous. The patient does have chronic lymphedema. The patient was complaining of severe tenderness to the right lower quadrant. The patient was started on vancomycin. Continue with analgesics. The patient will need animal care technician for pursue rehab. The patient typically walks with walker. However the patient stated that she ran her foot over and is now having some discomfort. X-ray showed no current fracture. She will need PT OT evaluation as well. 03/23/2023 interval history: 77 y/o female with history of chronic lymphocytic leukemia presented with c/o righ foot and ankle pain, she had injured herself when walking with her walker, x-ray of ankle does not show any acute bony injury however patient is unable to bear wt on the right foot due to pain, also patient right foot ankle appears to have cellulitis, being treated with vancomycin, today patient stats pain is litter better, worked with PT/OT and now sitting in the chair, upon arrival patient was also found to have elevated white counts of 102 which is lower than her recent labs, upon arrival also patient hgb was low and there no bleeding or bruising, however on 03/21 night nurse noticed rectal bleeding and GI was consulted, suspect bleeding for hemorrhoids, no GI worke up is recommeded, patient was seen by her manager body and further workup is in progress, today her white counts is little better and trended down to 90, patient received 1 units of PRBC, and has iron deficiency gave venofer [id number], will monitor and further recommendation to follow,. (2) Lymphedema: Code(s): I89.0 - Lymphedema, not elsewhere classified Status: Acute Assessment and Plan: This is chronic. The patient has chronic lymphocytic leukemia. The patient is on Xarelto. Last ultrasound shows no DVTs.No evidence of deep venous thrombosis of right lower extremity?03/08/2023. Dr. Napier was consulted for the chronic lymphocytic leukemia. The patient may take her own Brukinsa treatment. Dr. napier has seen the patient. As per Dr. Napier it is note chronic lymphocytic leukemia Orellana stage 0 initial diagnosis 2018.? Patient was started on oral treatment with zanubrutinib 160 mg twice a day on January 15, 2023.? There was improvement in the WBC count.? Patient is getting slightly more anemic.? We will order the anemia workup including iron and vitamin B12 level.? We will also check for hemolytic anemia.? She will continue treatment with zanibrutinib and follow up with us in outpatient. (3) Acute on chronic anemia: Code(s): D64.9 - Anemia, unspecified Status: Acute Assessment and Plan: Continue to monitor H&H. Her H&H today's 8.029.4. Last month it was 8.5 and 31.1. (4) Paroxysmal atrial fibrillation: Code(s): I48.0 - Paroxysmal atrial fibrillation Status: Acute Assessment and Plan: Continue with Xarelto and amiodarone. (5) Chronic lymphocytic leukemia: Onset Date: 03/2019 Code(s): C91.10 - Chronic lymphocytic leukemia of B-cell type not having achieved remission Status: Acute Assessment and Plan: See Dr. Napier to nodes. (6) Hypertension: Qualifiers: Hypertension type: essential hypertension Qualified Code(s): I10 - Essential (primary) hypertension Code(s): I10 - Essential (primary) hypertension Status: Acute Assessment and Plan: The patient is on amiodarone for AFib and continue amlodipine. Amlodipine can also cause some edema 2. (7) High cholesterol: Code(s): E78.00 - Pure hyper
[2023-03-23 14:00] VITALS: BP 149/57; PULSE 64; RESP 18; TEMP 36; O2SAT 90
[2023-03-23] MEDS: RIVAROXABAN 15 MG TABLET PO (17:38)
[2023-03-23] MEDS: SODIUM CHLORIDE 0.9% IV 1,000 ML 100 ML IV CONT (18:31)
[2023-03-23] MEDS: ATORVASTATIN 40 MG TABLET 80 MG PO (20:58)
[2023-03-23 21:10] VITALS: BP 152/54
[2023-03-23 22:00] VITALS: BP 198/76; PULSE 69; RESP 16; TEMP 36.4; O2SAT 96
[2023-03-23] MEDS: traMADol HCL (*CRX) 25 MG TABLET PO (23:16)
[2023-03-24] MEDS: SODIUM CHLORIDE 0.9% IV 1,000 ML 100 ML IV CONT (04:39)
[2023-03-24 06:00] VITALS: BP 159/61; PULSE 65; RESP 18; TEMP 36.7; O2SAT 93
[2023-03-24 06:43] LABS: Basophils Absolute Auto 0.1 K/mm3 (0.0-0.1); Basophils Percent Auto 0.1 % (0.2-1.2); Eosinophils Absolute Auto 0.2 K/mm3 (0-0.3); Eosinophils Percent Auto 0.3 % (0-4.4); Hemoglobin 7.6 g/dL (12.0-15.0); Immature Granulocyte Percent A 0.1 % (0-0.5); Lymphocytes Absolute Auto 74.55 K/mm3 (0.9-3.2); Lymphocytes Percent Auto 94.5 % (18.3-44.2); Mean Corpuscular HGB Conc 28.1 g/dl (32-36); Mean Corpuscular Volume 92.5 fl (80-100); Monocytes Absolute Auto 0.4 K/mm3 (0.1-0.6); Monocytes Percent Auto 0.5 % (2.6-8.5); Neutrophils Absolute Auto 3.6 K/mm3 (1.3-6.7); Neutrophils Percent Auto 4.5 % (45.5-73.1); Platelet Count Result 207 k/mm3 (150-375); Red Blood Count 2.92 M/mm3 (4.2-5.4); Red Cell Distribution Width 18.8 % (11.5-14.5)
[2023-03-24 06:47] LABS: Alanine Aminotransferase 14 U/L (6-35); Albumin Level 2.5 g/dL (3.5-5.1); Alkaline Phosphatase 69 U/L (38-126); Anion Gap -2 mmol/L (8-16); Aspartate Amino Transferase 21 U/L (14-36); Bilirubin,Total 0.5 mg/dL (0.2-1.3); Blood Urea Nitrogen 11 mg/dL (7-17); Calcium 7.2 mg/dL (8.4-10.2); Carbon Dioxide 30 mmol/L (22-30); Chloride 106 mmol/L (98-107); Estimated CRCL calculation 58 ml/min; Estimated Glomerular Filt Rate > 60; Glucose 101 mg/dL (65-110); Magnesium 1.7 mg/dL (1.6-2.3); Potassium 3.6 mmol/L (3.4-5.0); Sodium 134 mmol/L (137-145)
[2023-03-24 07:30] LABS: White Blood Count 78.9 K/mm3 (4.5-10.0)
[2023-03-24 07:31] LABS: Hypochromasia 1+ (NORMAL); Platelet Estimate Adequate (Adequate); Schistocytes None Seen (NORMAL); Smudge Cells MODERATE
[2023-03-24 08:28] VITALS: PULSE 62
[2023-03-24] MEDS: PANTOPRAZOLE 40 MG TABLET PO (08:28)
[2023-03-24] MEDS: amLODIPine BESYLATE 2.5 MG TABLET BY MOUTH (08:28)
[2023-03-24] MEDS: allopurinoL 300 MG TABLET PO (08:28)
[2023-03-24] MEDS: DOCUSATE SODIUM 100 MG CAPSULE PO (08:28)
[2023-03-24] MEDS: FUROSEMIDE 10 MG TABLET PO (08:28)
[2023-03-24] MEDS: MAGNESIUM OXIDE 400 MG TABLET PO (08:28)
[2023-03-24] MEDS: AMIODARONE HCL 100 MG TABLET PO (08:28)
[2023-03-24] MEDS: FERROUS SULFATE 324 MG TABLET PO (08:29)
[2023-03-24] MEDS: FLUTICASONE PROPIONATE 0.05% NA SPR 16 GM BTL (*BKC) 2 SPRAY NASAL (08:30)
--- NOTE | 2023-03-24 12:38 | PM.DS ---
DS: Admitting Diagnosis Discharge Date 03/24/2023 Admitting Diagnosis Increased swelling to right lower extra DS: Discharge Diagnosis Discharge Diagnosis (1) Cellulitis of leg, right: Code(s): L03.115 - Cellulitis of right lower limb Status: Acute Assessment and Plan: Venous Doppler on 03/08/2023 was read as no evidence of deep vein thrombosis of the right lower extremity. The patient is chronically treated with Xarelto for atrial fibrillation. Awaiting blood cultures. The lower extremity is slightly red and edematous. The patient does have chronic lymphedema. The patient was complaining of severe tenderness to the right lower quadrant. The patient was started on vancomycin. Continue with analgesics. The patient will need out of school hours care worker for pursue rehab. The patient typically walks with walker. However the patient stated that she ran her foot over and is now having some discomfort. X-ray showed no current fracture. She will need PT OT evaluation as well. 03/23/2023 interval history: 77 y/o female with history of chronic lymphocytic leukemia presented with c/o righ foot and ankle pain, she had injured herself when walking with her walker, x-ray of ankle does not show any acute bony injury however patient is unable to bear wt on the right foot due to pain, also patient right foot ankle appears to have cellulitis, being treated with vancomycin, today patient stats pain is litter better, worked with PT/OT and now sitting in the chair, upon arrival patient was also found to have elevated white counts of 102 which is lower than her recent labs, upon arrival also patient hgb was low and there no bleeding or bruising, however on 03/21 night nurse noticed rectal bleeding and GI was consulted, suspect bleeding for hemorrhoids, no GI worke up is recommeded, patient was seen by her ground crew chief and further workup is in progress, today her white counts is little better and trended down to 90, patient received 1 units of PRBC, and has iron deficiency gave venofer [id number], will monitor and further recommendation to follow,. (2) Lymphedema: Code(s): I89.0 - Lymphedema, not elsewhere classified Status: Acute Assessment and Plan: This is chronic. The patient has chronic lymphocytic leukemia. The patient is on Xarelto. Last ultrasound shows no DVTs.No evidence of deep venous thrombosis of right lower extremity?03/08/2023. Dr. Napier was consulted for the chronic lymphocytic leukemia. The patient may take her own Brukinsa treatment. Dr. napier has seen the patient. As per Dr. Napier it is note chronic lymphocytic leukemia Orellana stage 0 initial diagnosis 2018.? Patient was started on oral treatment with zanubrutinib 160 mg twice a day on January 15, 2023.? There was improvement in the WBC count.? Patient is getting slightly more anemic.? We will order the anemia workup including iron and vitamin B12 level.? We will also check for hemolytic anemia.? She will continue treatment with zanibrutinib and follow up with us in outpatient. (3) Acute on chronic anemia: Code(s): D64.9 - Anemia, unspecified Status: Acute Assessment and Plan: Continue to monitor H&H. Her H&H today's 8.029.4. Last month it was 8.5 and 31.1. (4) Paroxysmal atrial fibrillation: Code(s): I48.0 - Paroxysmal atrial fibrillation Status: Acute Assessment and Plan: Continue with Xarelto and amiodarone. (5) Chronic lymphocytic leukemia: Onset Date: 03/2019 Code(s): C91.10 - Chronic lymphocytic leukemia of B-cell type not having achieved remission Status: Acute Assessment and Plan: See Dr. Napier to nodes. (6) Hypertension: Qualifiers: Hypertension type: essential hypertension Qualified Code(s): I10 - Essential (primary) hypertension Code(s): I10 - Essential (primary) hypertension Status: Acute Assessment and Plan: The patient is on amiodarone for AFib and
[2023-03-24 14:00] VITALS: BP 155/53; PULSE 73; RESP 20; TEMP 36.6; O2SAT 96
== END 2023-03-24 14:20 | disposition home or self-care (01) | DRG 603 ==
LOC: ANHED 10:44 → ANH3MEDSUR 11:43
PROVIDERS: Internal Medicine; Internal Medicine Gastroenterology; Internal Medicine Hematology & Oncology; Nurse Practitioner; Admitting Provider Family Medicine; Emergency Provider Emergency Medicine; PCP Family Medicine; Visit Provider Family Medicine
DX: L03.115 Cellulitis of right lower limb (principal); C91.10 Chronic lymphocytic leukemia of B-cell type not having achieved remission; Z68.41 Body mass index [BMI] 40.0-44.9, adult; K62.5 Hemorrhage of anus and rectum; I12.9 Hypertensive chronic kidney disease with stage 1 through stage 4 chronic kidney disease, or unspecified chronic kidney disease; N18.30 Chronic kidney disease, stage 3 unspecified; I89.0 Lymphedema, not elsewhere classified; D64.9 Anemia, unspecified; I48.0 Paroxysmal atrial fibrillation; E78.00 Pure hypercholesterolemia, unspecified; K21.9 Gastro-esophageal reflux disease without esophagitis; E66.01 Morbid (severe) obesity due to excess calories; Z79.01 Long term (current) use of anticoagulants; Z85.828 Personal history of other malignant neoplasm of skin; Z90.49 Acquired absence of other specified parts of digestive tract
CPT/HCPCS: 36415; 36430; 73600; 80053; 80202; 82274; 82607; 82728; 82746; 83540; 83550; 83605; 83615; 83735; 84439; 84443; 84480; 85014; 85018; 85025; 85055; 86140; 86850; 86900; 86901; 86923; 87040; 93306; 96365; 96367; 97161; 97165; 97530; 97535; 99285; A9270; G0378; J1756; J1885; J1940; J3370; J3475; J7030; P9016

== ENCOUNTER 2023-04-15 10:26 | Emergency (ER) | payer MEDICARE, SELFPAY ==
[2023-04-15] VITALS (20 sets, daily range): BP systolic 122–176; BP diastolic 61–131; PULSE 64–76; RESP 14–26; TEMP 36.7; O2SAT 100
--- NOTE | ~2023-04-15 | XR_ITS ---
EXAMINATION: XR chest 1V portable DATE: 04/15/2023 11:12 INDICATION: Shortness of breath. TECHNIQUE: A single frontal view of the chest was obtained. COMPARISON: Chest single view 03/07/2023, chest CT 10/21/22 FINDINGS: There are mild peripheral airspace opacities in right midlung zone and left lower lung zone . No pleural effusion or pneumothorax. Cardiomegaly is noted. IMPRESSION: 1. Mild peripheral airspace opacities in right midlung zone and left lower lung zone, consistent with atelectasis versus pneumonia. 2. Cardiomegaly. Reviewed, dictated and finalized at location B.
--- NOTE | 2023-04-15 10:35 | ECG_ITS ---
Measurements Intervals [place] Rate: 66 P: 76 LA: 305 QRS: 46 QRSD: 94 T: 32 QT: 418 QTc: 441 Interpretive Statements SINUS RHYTHM WITH FIRST DEGREE AV BLOCK INDETERMINATE AXIS INCOMPLETE RIGHT BUNDLE BRANCH BLOCK [90+ ms QRS DURATION, TERMINAL R IN V1/V2, 40+ ms S IN I/aVL/V4/V5/V6] COMPARED TO ECG 03/07/2023 15:33:11 NO SIGNIFICANT CHANGES Electronically Signed On 04-15-2023 19:35:07 CDT by April Huynh M.D.
--- NOTE | 2023-04-15 10:37 | ED.GENADULT ---
HPI - General Adult General Chief complaint: Extremity Problem,Nontraumatic Stated complaint: leg edema, hematuria History of Present Illness HPI narrative: 78-year-old female presents to the emergency room complaints of increased swelling to her right lower extremity and hematuria this AM. Patient denies any new injury or trauma. Patient is a history of lymphedema and leukemia. Patient is also complaining of shortness of breath and difficulty breathing with activity. Currently anticoagulated with Xarelto for history of A-fib. Related Data Home Medications Medication Instructions Recorded Confirmed omeprazole magnesium 20 mg 20 mg PO DAILY 12/15/19 03/20/23 tablet,delayed release (Prilosec OTC) zanubrutinib 80 mg capsule 160 mg PO BID 03/07/23 03/20/23 (Brukinsa) allopurinol 300 mg tablet 300 mg PO DAILY 03/08/23 03/20/23 amiodarone 100 mg tablet (Pacerone) 100 mg PO DAILY 03/08/23 03/20/23 atorvastatin 80 mg tablet 80 mg PO HS 03/08/23 03/20/23 rivaroxaban 15 mg tablet (Xarelto) 15 mg PO HS 03/08/23 03/20/23 Allergies Allergy/AdvReac Type Severity Reaction Status Date / Time No Known Allergies Allergy Verified 04/15/23 10:47 Review of Systems Review of Systems: CONSTITUTIONAL: Denies fever, chills, or sweats. EYES: Denies visual changes, redness, or discharge. ENT: Denies rhinorrhea, congestion, sore throat, or otalgia. CARDIOVASCULAR: Denies chest pain, palpitations, or edema. RESPIRATORY: Reports dyspnea. GASTROINTESTINAL: Denies abdominal pain, nausea, vomiting, or diarrhea. GENITOURINARY: Denies dysuria or hematuria. SKIN: Denies rash or itching. MUSCULOSKELETAL: Denies back pain, joint pain, or myalgia. NEUROLOGIC: Denies headache, numbness, dizziness, or weakness. PSYCHIATRIC: Denies anxiety or depression. 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 Napier. Diastolic dysfunction Diverticulitis Dyslipidemia Gastroesophageal reflux disease High cholesterol Hyperparathyroidism, primary Status post parathyroidectomy. Hypertension Morbid obesity with BMI of 40.0-44.9, adult Paroxysmal atrial fibrillation Paroxysmal atrial flutter Polymyalgia rheumatica Pulmonary hypertension Mild pulmonary hypertension on echo from March 2019 Rheumatic fever Skin cancer Basal and squamous cell. 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 With subsequent acquired deformity of the nose due to reconstruction Family History Family History Mother Obesity of complications of obesity in her 60s. Hypertension Father Heart disease in his 60s of heart disease. Hypertension Sibling Parkinson disease Brother Grandparent Malignant neoplasm of prostate Grandparent Cerebrovascular accident Sibling Breast cancer Daughter Lymphedema Social History Social History Social History: The patient lives independently in a mobile home in [place]. She has been since 2004. Daughter and [id number] live nearby. 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 Ambulates with a walker. Nonsmoker. Drinks alcohol perhaps once a year. No drug use. Surrogate guy
--- NOTE | 2023-04-15 10:45 | PC.NURSE ---
Bilateral pedal pulses found and marked
[2023-04-15 11:01] LABS: Basophils Absolute Auto 0.1 K/mm3 (0.0-0.1); Basophils Percent Auto 0.1 % (0.2-1.2); Eosinophils Absolute Auto 0.1 K/mm3 (0-0.3); Eosinophils Percent Auto 0.1 % (0-4.4); Hematocrit 34.5 % (37.0-47.0); Hemoglobin 9.8 g/dL (12.0-15.0); Immature Granulocyte Absolute 0.24 K/mm3 (0.00-0.031); Immature Granulocyte Percent A 0.3 % (0-0.5); Immature Platelet Fraction Pct 12.3 % (0.9-11.2); Lymphocytes Absolute Auto 62.55 K/mm3 (0.9-3.2); Lymphocytes Percent Auto 89.3 % (18.3-44.2); Mean Corpuscular HGB Conc 28.4 g/dl (32-36); Mean Corpuscular Volume 91.5 fl (80-100); Mean Platelet Volume 13.3 fl (7.4-10.4); Monocytes Absolute Auto 0.5 K/mm3 (0.1-0.6); Monocytes Percent Auto 0.8 % (2.6-8.5); Neutrophils Absolute Auto 6.6 K/mm3 (1.3-6.7); Neutrophils Percent Auto 9.4 % (45.5-73.1); Platelet Count Result 195 k/mm3 (150-375); Red Blood Count 3.77 M/mm3 (4.2-5.4); Red Cell Distribution Width 20.4 % (11.5-14.5)
[2023-04-15 11:10] LABS: Alanine Aminotransferase 18 U/L (6-35); Albumin Level 3.6 g/dL (3.5-5.1); Alkaline Phosphatase 92 U/L (38-126); Anion Gap 3 mmol/L (8-16); Aspartate Amino Transferase 26 U/L (14-36); Bilirubin,Total 0.7 mg/dL (0.2-1.3); Blood Urea Nitrogen 23 mg/dL (7-17); Calcium 8.5 mg/dL (8.4-10.2); Carbon Dioxide 28 mmol/L (22-30); Chloride 102 mmol/L (98-107); Estimated CRCL calculation 73 ml/min; Estimated Glomerular Filt Rate 53; Glucose 113 mg/dL (65-110); Potassium 4.3 mmol/L (3.4-5.0); Sodium 133 mmol/L (137-145)
[2023-04-15 11:12] LABS: INR 1.4; Prothrombin Time 18.1 Seconds (11.1-14.7)
[2023-04-15 11:13] LABS: Partial Thromboplastin Time 51.4 SECONDS (22.3-36.8)
[2023-04-15 11:24] LABS: NT Pro B Type Natriuretic Pept 367 pg/mL (19.9-100); Troponin I < 0.012 ng/mL (0.000-0.034)
[2023-04-15 11:28] LABS: White Blood Count 70.1 K/mm3 (4.5-10.0)
[2023-04-15 11:46] LABS: D Dimer 0.47 ug/mL (<0.48)
[2023-04-15 11:55] LABS: Bacteria Urine 4+ /hpf; Need Manual Microscopic Reviewed; Non Pathogenic Casts 0-2; RBC Urine 21-50 /hpf (0-2); Squamous Epithelial Cell Urine Occasional /hpf (Few); WBC Urine >100 /hpf
[2023-04-15 12:00] LABS: Appearance Urine Turbid (Clear); Bilirubin Urine Negative (Negative); Blood Urine 3+ (Negative); Glucose Urine UA Negative (Negative); Ketones Urine Trace mg/dL (Negative); Leukocyte Esterase Ur 3+ LEU/UL (Negative); Nitrate Urine Positive (Negative); Protein Urine 2+ mg/dL (Negative); Specific Grav Ur 1.016 (1.001-1.035); pH Urine 6.5 (5.0-9.0)
[2023-04-15 12:02] LABS: Add Urine Microscopic? YES; Color Urine Red (Yellow)
== END 2023-04-15 13:28 | disposition home or self-care (01) ==
PROVIDERS: Emergency Provider Nurse Practitioner Family; PCP Family Medicine
DX: N30.91 Cystitis, unspecified with hematuria (principal); C91.10 Chronic lymphocytic leukemia of B-cell type not having achieved remission; I48.91 Unspecified atrial fibrillation; Z79.01 Long term (current) use of anticoagulants; F41.9 Anxiety disorder, unspecified; M19.90 Unspecified osteoarthritis, unspecified site; I12.9 Hypertensive chronic kidney disease with stage 1 through stage 4 chronic kidney disease, or unspecified chronic kidney disease; N18.30 Chronic kidney disease, stage 3 unspecified; K21.9 Gastro-esophageal reflux disease without esophagitis; R06.02 Shortness of breath
CPT/HCPCS: 36415; 71045; 80053; 81001; 83880; 84484; 85025; 85055; 85380; 85610; 85730; 87086; 87088; 93005; 96365; 99284; J0696

== ENCOUNTER 2023-04-20 11:16 | Outpatient (CLI) | payer MEDICARE, SELFPAY ==
[2023-04-20 11:30] LABS: Basophils Absolute Auto 0.1 K/mm3 (0.0-0.1); Basophils Percent Auto 0.1 % (0.2-1.2); Eosinophils Absolute Auto 0.1 K/mm3 (0-0.3); Eosinophils Percent Auto 0.2 % (0-4.4); Hematocrit 35.2 % (37.0-47.0); Immature Granulocyte Absolute 0.42 K/mm3 (0.00-0.031); Immature Granulocyte Percent A 0.7 % (0-0.5); Lymphocytes Absolute Auto 50.66 K/mm3 (0.9-3.2); Lymphocytes Percent Auto 89.5 % (18.3-44.2); Mean Corpuscular HGB Conc 28.4 g/dl (32-36); Mean Corpuscular Volume 91.4 fl (80-100); Mean Platelet Volume 12.2 fl (7.4-10.4); Monocytes Absolute Auto 0.4 K/mm3 (0.1-0.6); Monocytes Percent Auto 0.7 % (2.6-8.5); Neutrophils Percent Auto 8.8 % (45.5-73.1); Platelet Count Result 209 k/mm3 (150-375); Red Blood Count 3.85 M/mm3 (4.2-5.4); Red Cell Distribution Width 19.1 % (11.5-14.5)
[2023-04-20 11:34] LABS: White Blood Count 56.6 K/mm3 (4.5-10.0)
[2023-04-20 11:36] LABS: Blood Urea Nitrogen 26 mg/dL (8-26); Carbon Dioxide 26 mmol/L (22-30); Chloride 104 mmol/L (98-109); Estimated Glomerular Filt Rate 53; Glucose 115 mg/dL (70-105); Ionized Calcium (POC) 1.14 mmol/L (1.11-1.31); Potassium 4.5 mmol/L (3.5-4.9); Sodium 140 mmol/L (138-146)
== END 2023-04-20 11:17 ==
PROVIDERS: PCP Family Medicine; Visit Provider Internal Medicine Hematology & Oncology
DX: C91.10 Chronic lymphocytic leukemia of B-cell type not having achieved remission (principal)
CPT/HCPCS: 36415; 80047; 85025

== ENCOUNTER 2023-06-17 12:34 | Outpatient (CLI) | payer MEDICARE, SELFPAY ==
--- NOTE | 2023-06-17 15:27 | WPDPFTINT ---
PFT Procedure Performed PFT Procedure Performed Spirometry w/o Bronchodil PFT Interpretation Spirometry showed normal expiratory flow rates and a normal FEV1 to FVC ratio 78%. No post bronchodilator study carried out. The flow-volume loop is unremarkable. Impression: Spirometry within the normal range.
== END 2023-06-17 12:35 | disposition home or self-care (01) ==
PROVIDERS: PCP Family Medicine; Visit Provider Family Medicine
DX: R06.02 Shortness of breath (principal)
CPT/HCPCS: 94375

== ENCOUNTER 2023-07-30 09:46 | Outpatient (CLI) | payer MEDICARE, SELFPAY ==
[2023-07-30 10:10] LABS: Basophils Absolute Auto 0.1 K/mm3 (0.0-0.1); Basophils Percent Auto 0.5 % (0.2-1.2); Eosinophils Absolute Auto 0.1 K/mm3 (0-0.3); Eosinophils Percent Auto 1.1 % (0-4.4); Immature Granulocyte Absolute 0.06 K/mm3 (0.00-0.031); Immature Granulocyte Percent A 0.6 % (0-0.5); Immature Platelet Fraction Pct 13.5 % (0.9-11.2); Lymphocytes Absolute Auto 5.59 K/mm3 (0.9-3.2); Lymphocytes Percent Auto 51.6 % (18.3-44.2); Mean Corpuscular Hemoglobin 25.6 pg (26-34); Mean Corpuscular Volume 85.3 fl (80-100); Monocytes Absolute Auto 0.5 K/mm3 (0.1-0.6); Monocytes Percent Auto 4.5 % (2.6-8.5); Neutrophils Absolute Auto 4.5 K/mm3 (1.3-6.7); Neutrophils Percent Auto 41.7 % (45.5-73.1); Platelet Count Result 154 k/mm3 (150-375); Red Blood Count 4.69 M/mm3 (4.2-5.4); Red Cell Distribution Width 19.1 % (11.5-14.5); White Blood Count 10.8 K/mm3 (4.5-10.0)
[2023-07-30 10:15] LABS: Platelet Estimate Adequate (Adequate); Schistocytes None Seen (NORMAL)
[2023-07-30 10:16] LABS: Anisocytosis 1+ (NORMAL); Atypical Lymphocytes Present; Microcytosis 1+ (NORMAL); Ovalocytes 1+ (NORMAL); Poikilocytosis 1+ (NORMAL)
[2023-07-30 10:56] LABS: Alanine Aminotransferase 19 U/L (6-35); Albumin Level 3.9 g/dL (3.5-5.1); Alkaline Phosphatase 105 U/L (38-126); Anion Gap 10 mmol/L (8-16); Aspartate Amino Transferase 31 U/L (14-36); Bilirubin,Total 0.7 mg/dL (0.2-1.3); Blood Urea Nitrogen 25 mg/dL (7-17); Calcium 8.8 mg/dL (8.4-10.2); Carbon Dioxide 28 mmol/L (22-30); Chloride 103 mmol/L (98-107); Estimated Glomerular Filt Rate 53; Glucose 117 mg/dL (65-110); Lactate Dehydrogenase 207 U/L (120-246); Potassium 4.2 mmol/L (3.4-5.0); Sodium 141 mmol/L (137-145)
== END 2023-07-30 09:47 | disposition home or self-care (01) ==
LOC: ANHLAB 09:49
PROVIDERS: PCP Family Medicine; Visit Provider Internal Medicine Hematology & Oncology
DX: C91.10 Chronic lymphocytic leukemia of B-cell type not having achieved remission (principal)
CPT/HCPCS: 36415; 80053; 83615; 85025; 85055

== ENCOUNTER → 2023-08-25 14:55 | Outpatient (CLI) | payer MEDICARE, SELFPAY ==
--- NOTE | ~2023-08-25 | CT_ITS ---
EXAMINATION: CT brain wo/w con DATE: 08/25/2023 16:02 INDICATION: Squamous cell carcinoma of skin. TECHNIQUE: Computed tomography (CT) of the head was performed without and with 100 mL Omnipaque 350 i ntravenous contrast. The mA was adjusted according to patient size. Iterative reconstruction techniqu e was employed. The dose-length product was 1291.38 mGy-cm. COMPARISON: Head CT 03/07/2023 FINDINGS: There are scattered areas of low attenuation in the cerebral white matter, which is within normal limits for the patient's age. There is no intracranial hemorrhage, acute infarction, or abnorm al intracranial mass lesion. The ventricles are normal in size. The orbits are normal. There is mild mucosal thickening in the paranasal sinuses. There is thickening and sclerosis of the weaver of left s phenoid sinus, consistent with chronic sinusitis. There are bilateral mastoid effusions. There is a 2 .4 x 1.7 x 2.3 cm mass in the right preauricular area at the skin. IMPRESSION: 1. 2.4 cm skin mass in the right preauricular area, consistent with malignancy. 2. Normal aging brain. Reviewed, dictated and finalized at location A. ET TAKER FERRYBOAT
--- NOTE | ~2023-08-25 | CT_ITS ---
EXAMINATION: CT soft tissue neck w con DATE: 08/25/2023 16:02 INDICATION: Squamous cell carcinoma of skin. TECHNIQUE: Computed tomography (CT) of the neck was performed with 100 mL Omnipaque-350 intravenous c ontrast. Automated exposure control and iterative reconstruction technique were employed. The dose-le ngth product was 402.53 mGy-cm. COMPARISON: Neck CTA 03/07/2023 FINDINGS: There is a pneumatocele in right lung. There is a mass at the skin in right preauricular ar ea measuring 2.4 x 1.7 x 2.3 cm. There are no pathologically enlarged lymph nodes. There are nodules in the thyroid measuring up to 6 mm, likely not clinically significant. 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 There is mild mucosal thickeni ng in the paranasal sinuses. There is thickening and sclerosis of the weaver of left sphenoid sinus, c onsistent with chronic sinusitis. There are bilateral mastoid effusions. There is severe cervical spo ndylosis. IMPRESSION: 1. 2.4 cm skin mass in the right preauricular area, consistent with malignancy. 2. No evidence of metastatic disease. Reviewed, dictated and finalized at location A. PPER PRELIMINARY
== END ==
PROVIDERS: PCP Nurse Practitioner Adult Health
DX: C44.92 Squamous cell carcinoma of skin, unspecified (principal)
CPT/HCPCS: 70470; 70491; Q9967

== ENCOUNTER 2024-03-07 14:56 | Outpatient (CLI) | payer MEDICARE, SELFPAY ==
[2024-03-07 15:08] LABS: Basophils Absolute Auto 0.1 K/mm3 (0.0-0.1); Basophils Percent Auto 0.5 % (0.2-1.2); Eosinophils Absolute Auto 0.1 K/mm3 (0-0.3); Eosinophils Percent Auto 0.8 % (0-4.4); Hematocrit 42.8 % (37.0-47.0); Hemoglobin 13.5 g/dL (12.0-15.0); Immature Granulocyte Absolute 0.04 K/mm3 (0.00-0.031); Immature Granulocyte Percent A 0.4 % (0-0.5); Lymphocytes Absolute Auto 5.32 K/mm3 (0.9-3.2); Lymphocytes Percent Auto 51.8 % (18.3-44.2); Mean Corpuscular HGB Conc 31.5 g/dl (32-36); Mean Corpuscular Hemoglobin 26.9 pg (26-34); Mean Corpuscular Volume 85.3 fl (80-100); Monocytes Absolute Auto 0.6 K/mm3 (0.1-0.6); Monocytes Percent Auto 5.7 % (2.6-8.5); Neutrophils Absolute Auto 4.2 K/mm3 (1.3-6.7); Neutrophils Percent Auto 40.8 % (45.5-73.1); Platelet Count Result 158 k/mm3 (150-375); Red Blood Count 5.02 M/mm3 (4.2-5.4); Red Cell Distribution Width 16.4 % (11.5-14.5); White Blood Count 10.3 K/mm3 (4.5-10.0)
[2024-03-07 17:06] LABS: Alanine Aminotransferase 17 U/L (6-35); Albumin Level 4.1 g/dL (3.5-5.1); Alkaline Phosphatase 80 U/L (38-126); Anion Gap 8 mmol/L (4-12); Aspartate Amino Transferase 23 U/L (14-36); Bilirubin,Total 0.7 mg/dL (0.2-1.3); Blood Urea Nitrogen 30 mg/dL (7-17); Calcium 8.9 mg/dL (8.4-10.2); Carbon Dioxide 27 mmol/L (22-30); Chloride 104 mmol/L (98-107); Estimated Glomerular Filt Rate 48; Glucose 117 mg/dL (65-110); Lactate Dehydrogenase 164 U/L (120-246); Potassium 4.4 mmol/L (3.4-5.0); Sodium 139 mmol/L (137-145)
== END 2024-03-07 14:57 | disposition home or self-care (01) ==
LOC: ANHLAB 14:57
PROVIDERS: PCP Nurse Practitioner Adult Health; Visit Provider Internal Medicine Hematology & Oncology
DX: C91.10 Chronic lymphocytic leukemia of B-cell type not having achieved remission (principal)
CPT/HCPCS: 36415; 80053; 83615; 85025

== ENCOUNTER 2024-05-09 15:05 | Outpatient (CLI) | payer MEDICARE, SELFPAY ==
[2024-05-09 15:20] LABS: Basophils Absolute Auto 0.1 K/mm3 (0.0-0.1); Basophils Percent Auto 0.4 % (0.2-1.2); Eosinophils Absolute Auto 0.2 K/mm3 (0-0.3); Eosinophils Percent Auto 0.6 % (0-4.4); Hematocrit 40.1 % (37.0-47.0); Hemoglobin 12.4 g/dL (12.0-15.0); Immature Granulocyte Absolute 0.06 K/mm3 (0.00-0.031); Immature Granulocyte Percent A 0.2 % (0-0.5); Lymphocytes Absolute Auto 23.29 K/mm3 (0.9-3.2); Lymphocytes Percent Auto 82.2 % (18.3-44.2); Mean Corpuscular HGB Conc 30.9 g/dl (32-36); Mean Corpuscular Hemoglobin 28.2 pg (26-34); Mean Corpuscular Volume 91.1 fl (80-100); Mean Platelet Volume 12.2 fl (7.4-10.4); Monocytes Absolute Auto 0.4 K/mm3 (0.1-0.6); Monocytes Percent Auto 1.5 % (2.6-8.5); Neutrophils Absolute Auto 4.3 K/mm3 (1.3-6.7); Neutrophils Percent Auto 15.1 % (45.5-73.1); Platelet Count Result 203 k/mm3 (150-375); Red Cell Distribution Width 15.8 % (11.5-14.5); White Blood Count 28.3 K/mm3 (4.5-10.0)
[2024-05-09 16:31] LABS: Anion Gap 10 mmol/L (4-12); Blood Urea Nitrogen 25 mg/dL (7-17); Calcium 8.4 mg/dL (8.4-10.2); Carbon Dioxide 28 mmol/L (22-30); Chloride 98 mmol/L (98-107); Estimated Glomerular Filt Rate 53; Glucose 121 mg/dL (65-110); Potassium 4.3 mmol/L (3.4-5.0); Sodium 136 mmol/L (137-145)
== END 2024-05-09 15:06 | disposition home or self-care (01) ==
LOC: ANHLAB 15:06
PROVIDERS: PCP Nurse Practitioner Adult Health; Visit Provider Internal Medicine Hematology & Oncology
DX: C91.10 Chronic lymphocytic leukemia of B-cell type not having achieved remission (principal); C22.1 Intrahepatic bile duct carcinoma
CPT/HCPCS: 36415; 80048; 85025

== ENCOUNTER 2024-08-30 14:20 | Outpatient (CLI) | payer MEDICARE, SELFPAY ==
[2024-08-30 14:44] LABS: Basophils Absolute Auto 0.1 K/mm3 (0.0-0.1); Basophils Percent Auto 0.7 % (0.2-1.2); Eosinophils Absolute Auto 0.1 K/mm3 (0-0.3); Eosinophils Percent Auto 1.2 % (0-4.4); Hematocrit 40.1 % (37.0-47.0); Hemoglobin 12.3 g/dL (12.0-15.0); Immature Granulocyte Absolute 0.04 K/mm3 (0.00-0.031); Immature Granulocyte Percent A 0.4 % (0-0.5); Immature Platelet Fraction Pct 13.5 % (0.9-11.2); Lymphocytes Absolute Auto 4.18 K/mm3 (0.9-3.2); Lymphocytes Percent Auto 45.9 % (18.3-44.2); Mean Corpuscular HGB Conc 30.7 g/dl (32-36); Mean Corpuscular Volume 91.3 fl (80-100); Mean Platelet Volume 13.1 fl (7.4-10.4); Monocytes Absolute Auto 0.6 K/mm3 (0.1-0.6); Neutrophils Absolute Auto 4.2 K/mm3 (1.3-6.7); Neutrophils Percent Auto 45.8 % (45.5-73.1); Platelet Count Result 158 k/mm3 (150-375); Red Blood Count 4.39 M/mm3 (4.2-5.4); Red Cell Distribution Width 15.7 % (11.5-14.5); White Blood Count 9.1 K/mm3 (4.5-10.0)
[2024-08-30 17:08] LABS: Anion Gap 1 mmol/L (4-12); Blood Urea Nitrogen 29 mg/dL (7-17); Calcium 8.6 mg/dL (8.4-10.2); Carbon Dioxide 33 mmol/L (22-30); Chloride 104 mmol/L (98-107); Estimated Glomerular Filt Rate 48; Glucose 97 mg/dL (65-110); Potassium 4.8 mmol/L (3.4-5.0); Sodium 138 mmol/L (137-145)
== END 2024-08-30 14:21 | disposition home or self-care (01) ==
LOC: ANHLAB 14:21
PROVIDERS: PCP Nurse Practitioner Adult Health; Visit Provider Internal Medicine Hematology & Oncology
DX: C91.10 Chronic lymphocytic leukemia of B-cell type not having achieved remission (principal)
CPT/HCPCS: 36415; 80048; 85025; 85055

== ENCOUNTER 2024-12-28 19:03 | Emergency (ER) | payer MEDICARE, SELFPAY ==
--- OUTSIDE RECORDS SUMMARY | 2024-12-28 19:05 | XMS_ITS ---
Author Organization [facility] Address [address] [place] [address] Care Team Providers Care Certified Scrub Tech Name Role Phone Michele Coleman MD Primary Care Provider Aries Soliman MD Unavailable [phone] Yanira Granda MD Unavailable [phone] Dennis Gentile MD Unavailable [phone] Active Problems Patient Care Coordination No te Formatting of this note migh t be different from the original. Referring provider: Felecia Avila NP Ms. Cheryl Murillo is an 79-year-old with a lung nodule. 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 She had 1 positive lymph node. She went on to receive radiation therapy. This was completed in December of 2023. On 10/18/2024 the patient underwent chest CT with contrast which showed an enlarging left upper lobe 1.1 cm solid nodule as well as a new 1.2 cm left upper lobe lung nodule. This is suspicious for a site of metastatic disease. There was stable to decreased in size of the previously noted left supraclavicular lymph node which is not pathologically enlarged by size criteria. On 10/18/2024 the patient underwent a PET scan which again demonstrated interval increase in size and FDG uptake of a now 1.1 cm left upper lobe lung nodule and a new 1.3 cm moderately hypermetabolic left upper lobe lung nodule. Both are highly suspicious for metastatic disease. There were no additional sites of hypermetabolic metastatic disease identified. Patient is wheelchair-bound. 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 She also has a history of atrial fibrillation. Patient is a never smoker. Patient is getting scheduled for pulmonary function testing prior to her appointment today. Patient presents today for further surgical evaluation. Problem Noted Date Diagnosed Date Left upper lobe consolidation 10/27/2024 Recurrent squamous cell carcinoma of cheek 09/01 Squamous cell carcinoma of cheek 09/01/2023 Cancer Staging:Pathologic stage from 09/10/2023:Stage III(pT2, pN1(U), cM0) - Signed by Joselo Fernandez MD on 10/08/2023 Current Treatment and Therapy Plans No current plan information found. Past Treatment and Therapy Plans No past plan information found. Radiation Treatments (No Episode) * Course C2_Lt_LUNG_202412/06/2024 - 12/16/2024 Treatment Period Energy Fraction Dose Fractions Total Dose Plans Planned LT LUNG 12/06/2024 - 12/16/2024 750 8 / 6,000 Reference Points Delivered DPV_LT_LUNG 12/06/2024 - 12/16/2024 6,000 * Course C1_HN_202311/03/2023 - 12/05/2024 Treatment Period Energy Fraction Dose Fractions Total Dose Plans Planned RIGHT HN 11/03/2023 - 12/05/2024 200 11 / 6,000 RT HN RESCAN 11/23/2023 - 12/05/2024 200 19 / 3,800 Reference Points Delivered PTV_6000 11/03/2023 - 12/05/2024 6,000 Lifetime Dose Tracking * Chemical Lifetime Dose Automatic Entry Manual Entr y DLP 1,317 mGycm 1,317 mGycm 0 mGycm
--- OUTSIDE RECORDS SUMMARY | 2024-12-28 19:05 | XMS_ITS | Encounter Summary ---
Author Organization [facility] Address [address] [place] [address] Care Team Providers Care School Based Therapist Name Role Phone Idalia Serrano MD Primary Care Provider [phone] Encounter Details Date Type Department Care Team (Late st Contact Info) Description 10/09/2022 Lab Requisition [facility] [address] [place] [address] Yanira Granda MD [address] [address] [place] [address] Social History Tobacco Use Types Packs/Day Years Used Date Smoking Tobacco: Never Smokeless Tobacco: Never Alcohol Use Standard Drinks/Week Comments No 0 (1 standard drink = 0.6 oz pur e alcohol) Comments No Sex and Gender Information Value Date Recorded Sex Assigned at Not on file Legal Sex Female 4:26 PM CDT Gender Identity Not on file Sexual Orientation Not on file documented as of this encounter Plan of Treatment Not on file documented as of this encounter Procedures Procedure Name Priority Date/Time Associated Diagnosis Comments DERMATOPATHOLOGY Routine 10/07/2022 12:0 0 AM HEALTHCARE SOCIAL WORKER documented in this encounter Results * DERMATOPATHOLOGY (10/07/2022 12:00 AM HEALTHCARE SOCIAL WORKER) Case Report Dermatopathology Report Case: [id number] Authorizing Provider: Yanira Granda MD Collected: 10/07/2022 12:00 AM Ordering Location: [facility] Lab Received: 10/09/2022 01:05 PM Pathologist: Leyda Lorenzo MD Specimen: Skin, left inferior central forehead 4:51 PM [facility] DERMAT[facility]ATHOLOGY [facility]ORAT[facility] Final Diagnosis Specimen A. SKIN, left inferior central forehead: SQUAMOUS CELL CARCINOMA IN SITU, PRESENT AT THE BASE OF THE SPECIMEN (D04.39) (see microscopic description and comment) 4:51 PM [facility] DERMATOPATHOLOGY [facility]OR[facility] Clinical History Neoplasm of Uncertain Behavior vs. Squamous Cell Carcinoma 4:51 PM [facility] DERMATOPATHOLOGY [facility] Gross Description Specimen A: Received is one formalin filled container labeled with the patient's name and designated left inferior central forehead. The specimen consists of a shave biopsy measuring [id number]. Jar 0. 4:51 PM [facility] DERMATOPATHOLOGY [facility] Microscopic Description Specimen A. SKIN, left inferior central forehead: Focal tangential sectioning is present. The epidermis shows parakeratosis, full thickness disorderly maturation of keratinocytes, mitoses at different levels, and dyskeratotic cells. Adnexal extension of the lesion is seen. The lesion broadly extends to the base of the biopsy. COMMENT: An invasive squamous cell carcinoma cannot be ruled out. 4:51 PM [facility] DERMATOPATHOLOGY [facility]OR[facility]ORY Disclaimer An external and internal positive and negative controls are appropriate for the histochemical, immunohistochemical and immunofluorescence stain(s) in this case (if any), except where stated explicitly. The performance characteristics of the stain(s) cited in this report were developed and its performance characteristic determined by the Dermatopathology Laboratory at [facility], directed by Dr. Corrine Baker. These tests need not be, and therefore are not, approved by the [place] Food and Drug Administration. The tests are used for clinical purposes. Billing Codes Specimen Charges Stain Charges 95881 1 3 4:51 PM HEALTHCARE SOCIAL WORKER DERMATOPATHOLOGY LABORATORY Embedded Images 3 4:51 PM HEALTHCARE SOCIAL WORKER DERMATOPATHOLOGY LABORATORY Pathology/Cytolog y TISSUE SPECIMEN FROM SKIN / Unknown 10/07/2022 10/09/2022 1:05 PM HEALTHCARE SOCIAL WORKER Yanira Granda MD LAB - PATHOLOGY/CYTOLOGY ORDER DONAL Final Result DERMATOPATHOLOGY LABORATORY [facility] - Department of Dermatology [facility] Special[facility] Medicine [address] [place] [address], [address] [phone] documented in this encounter Visit Diagnoses Not on filedocumented in this encounter Care Teams School Based Therapist Relationship Specialty Start Date End Date Idalia Serrano MD [address] [place] [address] PCP - General 04/30/22 documented as of this encounter
--- OUTSIDE RECORDS SUMMARY | 2024-12-28 19:05 | XMS_ITS | Encounter Summary ---
Author Organization [facility] NAYELIrumr: turn off the lights [facility] Address [address] [place] [address] Care Team Providers Care Air Brush Artist Name Role Phone Tino Hernandez MD Primary Care Provider Encounter Details Date Type Department Care Team (Late st Contact Info) Description 01/08/2023 Abstract [facility] Oncology and Hematology - [address] [address] Nish Vásquez, DARNELL Social History Tobacco Use Types Packs/Day Years Used Date Smoking Tobacco: Never Smokeless Tobacco: Never Alcohol Use Standard Drinks/Week Comments No 0 (1 standard drink = 0.6 oz pur e alcohol) Comments No Sex and Gender Information Value Date Recorded Sex Assigned at Not on file Legal Sex Female 4:45 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 No / Unsure 01/06/2023 11:34 AM CDT documented as of this encounter Plan of Treatment Not on file documented as of this encounter Visit Diagnoses Not on filedocumented in this encounter Care Teams Air Brush Artist Relationship Specialty Start Date End Date Tino Hernandez MD [address] [place], [place] [id number] PCP - General Family Practice 11/24/22 documented as of this encounter
--- OUTSIDE RECORDS SUMMARY | 2024-12-28 19:05 | XMS_ITS | Clinical Summary ---
Author Organization [facility] Address [address] [place] [address] Phone Care Team Providers Care Account Management Assistant Name Role Phone Tino Hernandez MD Primary Care Provider Allergies No known active allergies Medications omeprazole (PRILOSEC) 20 mg Capsule, Delayed Release(E.C.) Take 20 mg by mouth daily. Active atorvastatin (LIPITOR) 80 mg tablet 9 Active Pacerone 100 mg Tablet TAKE 1 TABLET BY MOUTH ONCE DAILY 0 Active amLODIPine (NORVASC) 2.5 mg tablet TAKE 1 TABLET BY MOUTH ONCE DAILY 0 Active furosemide (LASIX) 10 mg/mL Solution Take by mouth two times daily, 7 hours apart. Active albuterol sulfate HFA 90 mcg/actuation aerosol inhaler Take 2 Puffs by inhalation every 6 hours as needed for Shortness of Breath. Active magnesium oxide (MAG-OX) 400 mg (241.3 mg magnesium) tablet Take 400 mg by mouth daily in the morning. 3 Active allopurinoL (ZYLOPRIM) 300 mg tablet Take 1 tablet by mouth once daily 30 Tablet 3 Active zanubrutinib 80 mg capsule Take 2 Capsules (160 mg) by mouth 2 times daily. 120 Capsule 3 5 Active Active Problems Problem Noted Date Diagnosed Date Rheumatoid arthritis 10/31/2019 CLL (chronic lymphocytic leukemia) 04/20/2019 Elevated sedimentation rate 06/22/2015 Pain, joint, multiple sites 06/22/2015 Edema Encounters Date Type Department Care Team Description 12/27/2024 External Device Data STL ABSTRACTION Provider, Abstract 12/27/2024 External Device Data [facility] ABSTRACTION Provider, Abstract 12/15/2024 Telephone [facility] Oncology and Hematology [facility] [address] [place] [address] Luther Napier MD Palliative Care 11/30/2024 External Device Data ST[facility] ABSTRACTION Provider, Abstract 11/21/2024 Telephone [facility] Oncology and Hematology [facility] [address] [place] [address] Luther Napier MD Medication Review 10/05/2024 External Device Data [facility] ABSTRACTION Provider, Abstract from Last 3 Months Immunizations Immunization Administration Dates Next Due ([employer] Video)(12 YR UP) COVID-19 VACCINE - EMERGENCY USE AUTHORIZATION, MRNA, [id number](PF) 30 MCG/0.3 ML IM SUSP 11/23/2020,11/02/2020 Family History Medical History Relation Name Comments Breast Cancer Sister Relation Name Status Comments Father Mother Sister Social History Tobacco Use Types Packs/Day Years Used Date Smoking Tobacco: Never Smokeless Tobacco: Never Tobacco Cessation:Counseling Given: Not Answered Alcohol Use Standard Drinks/Week Comments No 0 (1 standard drink = 0.6 oz pur e alcohol) Comments No Sex and Gender Information Value Date Recorded Sex Assigned at Not on file Legal Sex Female 4:45 AM BUDGET AND POLICY ANALYST Gender Identity Not on file Sexual Orientation Not on file Last Filed Vital Signs Vital Sign Reading Time Taken Comments Blood Pressure 149/60 05/11/2024 3:03 PM CDT Pulse 60 05/11/2024 3:03 PM CDT Temperature 36.6 C (97.8 F) 05/11/2024 3:03 PM CDT Respiratory Rate 16 05/11/2024 3:03 PM CDT Oxygen Saturation 97% 05/11/2024 3:03 PM CDT Inhaled Oxygen Concentration - - Weight 97.5 kg (215 lb) 05/11/2024 3:03 PM CDT Height 152.4 cm (5') 05/21/2022 11:25 AM CDT Body Mass Index 41.99 05/21/2022 11:25 AM CDT Plan of Treatment Health Maintenance Due Date Last Done Comments DTAP/TDAP/TD VACCINES (1 - Tdap) 1962 ZOSTER VACCINE (1 of 2) 1962 OSTEOPOROSIS SCREENING 2008 RSV VACCINE (60+ or ) (1 - 1-dose 75+ series) 2018 PNEUMOCOCCAL VACCINE 50+ YEA RS (2 of 2 - PPSV23) 08/23/2019 06/28/2019 INFLUENZA VACCINE (#1) 2024 , 06/18/2022, 07/08/2021, Additional history exists COVID-19 Vaccine (2023-2 5 season) 2024 07/11/2023, 06/18/2022, 07/31/2021, Additional history exists Insurance RX [employer] Medicare Part D RX PHARMACY SENIOR DATA MINING 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
--- OUTSIDE RECORDS SUMMARY | 2024-12-28 19:05 | XMS_ITS | Clinical Summary ---
Author Organization [facility] Address [address] [place] [address] Care Team Providers Care Surfacing Technician Name Role Phone Idalia Serrano MD Primary Care Provider [phone] Source Comments [facility],non-owned Affiliates and Associated Physician Practices is amultiple site organization consisting of ambulatory clinics and hospital sitesin [place], [place], [place] and [place]. This disclosure is being madepursuant to the Care Everywhere program and may not contain all information available regarding this patient. Last updated 18.[facility] Allergies No known active allergies Medications * Be aware that medications may not be up to date on this document. Alwaysverify current medications with the patient. methotrexate 2.5 MG tablet Take 5 mg by mouth every 7 days On Sundays. Active omeprazole (PRILOSEC) 20 MG capsule Take 20 mg by mouth daily before breakfast Active amphetamine-dex troamphetamine (ADDERALL) 5 MG tablet Take 5 mg by mouth every morning Active rivaroxaban (XARELTO) 10 MG tablet Take 10 mg by mouth daily with food Active amLODIPine (NORVASC) 2.5 MG tablet Take 2.5 mg by mouth once daily Active amiodarone (CORDARONE) 100 MG half tablet Take 100 mg by mouth once daily Active ATORVASTATIN CALCIUM PO Active Family History Medical History Relation Name Comments CAD (Coronary Artery Disease) Father CVA Mother Hypertension Mother Cancer - Breast Sister Relation Name Status Comments Father Mother [...] Sign Reading Time Taken Comments Blood Pressure 174/82 04/02/2021 3:24 PM CDT Pulse 101 06/12/2020 6:30 PM CDT Temperature 36.7 C (98 F) 09/08/2019 1:02 PM DIVISION MANAGER Respiratory Rate 14 06/12/2020 6:30 PM CDT Oxygen Saturation 98% 06/12/2020 6:30 PM CDT Inhaled Oxygen Concentration - - Weight 98 kg (216 lb) 04/02/2021 3:24 PM CDT Height 152.4 cm (5') 04/02/2021 3:24 PM CDT Body Mass Index 42.18 04/02/2021 3:24 PM CDT Plan of Treatment Health Maintenance Due Date Last Done Comments BONE DENSITY TESTING 1945 MEDICARE AWV 12 MONTHS 1945 DTAP/TDAP/TD VACCINES (1 - Tdap) 1962 PNEUMOCOCCAL VACCINE 50+ (1 of 1 - PCV) 1993 ZOSTER VACCINE (1 of 2) 1993 Respiratory Syncytial Virus (RSV) Vaccine Pt: or over 60 yrs (1 - 1-dose 75+ series) 2018 COVID-19 VACCINE (3 - 2023-2 5 season) 2024 11/23/2020, 11/02/2020 DEPRESSION SCREENING 09/14/2024 INFLUENZA VACCINE (Season Ended) 2025 HEPATITIS B VACCINE Aged Out No longe r eligible based on patient's age to complete this topic HIB VACCINE Aged Out No longer eligi ble based on patient's age to complete this topic HPV VACCINE Aged Out No longer eligi ble based on patient's age to complete this topic MENINGOCOCCAL (Group B) VACCINE SHARED DECISION-MAKING Aged Out No longer eligible based on patient's age to complete this topic MENINGOCOCCAL GROUPS A/C/Y/W VACCINE Aged Out No longer eligible b ased on patient's age to complete this topic Insurance MEDICARE ADVANTAGE GENERIC AETNA Advance Directives Documents on File Type Date Recorded Patient Change Person Expl anation Adv Directive/Living Will/POA 01/19/2017 Care Teams Surfacing Technician Relationship Specialty Start Date End Date Idalia Serrano MD [address] [place] [address] PCP - General 04/30/22
--- OUTSIDE RECORDS SUMMARY | 2024-12-28 19:05 | XMS_ITS | Referral Summary ---
Author Organization [facility] Address [address] [place] [address] Care Team Providers Care Regulatory Scientist Name Role Phone Michele Coleman MD Primary Care Provider Aries Soliman MD Unavailable [phone] Yanira Granda MD Unavailable [phone] Dennis Gentile MD Unavailable [phone] Encounters Date Type Department Care Team Description 12/16/2024 Orders Only RAD ONC TREATMENTS Miscellaneous, Not In File 12/16/2024 Orders Only [facility] Radiation Oncology [facility] [place] [address] Felecia Avila NP 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) 12/16/2024 3:56 PM CDT - 12/16/2024 11:59 PM CDT Hospital Encounter [facility] Radiation Oncology [address] [place] [address] Jimmy Andrea MD Discharge Disposition: Discharge to home or self care 12/15/2024 Orders Only RAD ONC TREATMENTS Miscellaneous, Not In File 12/15/2024 2:43 PM CDT - 12/15/2024 11:59 PM CDT Hospital Encounter [facility] Radiation Oncology [address] [place] [address] Discharge Disposition: Discharge to home or self care 12/14/2024 Telephone [facility] Radiation Oncology [address] [facility] [place] [address] Cristina Ann RN Reschedule (Radiation treatment 12/14/24.) 12/13/2024 OTV [facility] Radiation Oncology [address] [place] [address] Shaheen Navarrete MD PhD 12/13/2024 Orders Only RAD ONC TREATMENTS Miscellaneous, Not In File 12/13/2024 2:51 PM CDT - 12/13/2024 11:59 PM CDT Hospital Encounter [facility] On[facility] [address] [place] [address] Discharge Disposition: Discharge to home or self care 12/12/2024 Orders Only RAD ONC TREATMENTS Miscellaneous, Not In File 12/12/2024 2:30 PM CDT - 12/12/2024 11:59 PM CDT Hospital Encounter [facility] Radiation Oncology [address] [place] [address] Discharge Disposition: Discharge to home or self care 12/09/2024 Orders Only RAD ONC TREATMENTS Miscellaneous, Not In File 12/09/2024 1:58 PM CDT - 12/09/2024 11:59 PM CDT Hospital Encounter [facility] Radiation Oncology [address] [place] [address] Discharge Disposition: Discharge to home or self care 12/08/2024 Orders Only RAD ONC TREATMENTS Miscellaneous, Not In File 12/08/2024 3:39 PM CDT - 12/08/2024 11:59 PM CDT Hospital Encounter [facility] Radiation Oncology [address] [place] [address] Discharge Disposition: Discharge to home or self care 12/07/2024 Orders Only RAD ONC TREATMENTS Miscellaneous, Not In File 12/07/2024 2:43 PM CDT - 12/07/2024 11:59 PM CDT Hospital Encounter [facility] Radiation Oncology [address] [place] [address] Discharge Disposition: Discharge to home or self care 12/06/2024 OTV [facility] Radiation Oncology [address] [place] [address] Ernestine Davis MD Squamous cell carcinoma of cheek (Primary Dx); Left upper lobe consolidation; Yeast infection 12/06/2024 Orders Only RAD ONC TREATMENTS Miscellaneous, Not In File 12/06/2024 9:48 AM CDT - 12/06/2024 11:59 PM CDT Hospital Encounter [facility] Radiation Oncology [address] [place] [address] Shaheen Navarrete MD PhD Discharge Disposition: Discharge to home or self care 12/05/2024 8:45 PM CDT - 12/05/2024 11:59 PM CDT Hospital En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) 11/22/2024 3:00 PM CDT - 11/22/2024 11:59 PM CDT Hospital Encounter [facility] Radiation Oncology [address] [place] [address] Shaheen Navarrete MD PhD Discharge Disposition: Discharge to home or self care 11/16/2024 Telephone [facility] [address] [place] [address] Floor [address] [place] [address] Idalia Bello NP 11/15/2024 1:36 PM WIRELESS STORE MANAGER - 11/15/2024 11:59 PM WIRELESS STORE MANAGER Hospital Encounter [facility] [address] [place] [address] Zioe Zuniga MD Discharge Disposition: Discharge to home or self care 11/15/2024 11:25 AM WIRELESS STORE MANAGER - 11/15/2024 11:59 PM WIRELESS STORE MANAGER Hospital Encounter [facility] Interventional Pulmonology 1 [place] [address] Left upper lobe consolidation Discharge Disposition: Discharge to home or self care 11/14/2024 Telephone [facility] [address] [place] [address] Hetal Spencer RN 11/07/2024 Telephone [facility] Radiation Oncology at [facility] [address] [place] [address] Yaneth Bain RN 11/04/2024 9:40 PM WIRELESS STORE MANAGER - 11/04/2024 11:59 PM WIRELESS STORE MANAGER Hospital Encounter [facility] Radiation Oncology [address] [place] [address] Discharge Disposition: Discharge to home or self care 11/04/2024 Telephone [facility] Radiation Oncology [address] [place] [phone] Felecia Avila NP 10/27/2024 Orders Only [facility] Pulmonary [address] [facility] Advanced Medicine 8th [place] [address] [place] [phone] Bobo Luna RMA Left upper lobe consolidation (Primary Dx) 10/27/2024 Telephone [facility] Pulmonary [address] [facility] Medicine 8th [place] [address] [place] [address] Bobo Luna RMA 10/25/2024 Orders Only [facility] Rad[facility] [address] [facility] [place] [address] Felecia Avila, PARESH Squamous cell carcinoma of cheek (Primary Dx); Lung nodule seen on imaging study 10/25/2024 Telephone Radiology 1 [place] [address] Iliana Shirleybelén Nicole, 10/25/2024 Orders Only [facility] Surgery [address] [facility] Floor 5 [place] [phone] Jane Perez NP Pulmonary nodule (Primary Dx) 10/25/2024 9:00 AM WIRELESS STORE MANAGER Office Visit [facility] [address] [facility] [address] [place] [address] Santana Rahman MD Squamous cell carcinoma of cheek [C44.329]; Lung nodule seen on imaging study 10/20/2024 Telephone [facility] [address] [facility] [address] [place] [phone] Nanci Bello RMA 10/20/2024 Orders Only [facility] [address] [facility] [address] [place] [phone] Santana Rahman MD Squamous cell carcinoma of cheek (Primary Dx) 10/18/2024 2:00 PM WIRELESS STORE MANAGER Office Visit [facility] Radiation Oncology [address] [facility] [place] [address] Felecia Avila NP Squamous cell carcinoma of cheek [C44.329] (Primary Dx); Lung nodule seen on imaging study 10/18/2024 7:31 AM WIRELESS STORE MANAGER - 10/18/2024 11:59 PM WIRELESS STORE MANAGER Hospital Encounter [facility] [address] [place] [address] Discharge Disposition: Discharge to home or self care 10/18/2024 7:31 AM WIRELESS STORE MANAGER - 10/18/2024 11:59 PM WIRELESS STORE MANAGER Hospital Encounter [facility] [address] [place] [address] Squamous cell carcinoma of cheek Discharge Disposition: Discharge to home or self care 10/18/2024 7:31 AM WIRELESS STORE MANAGER - 10/18/2024 11:59 PM WIRELESS STORE MANAGER Hospital Encounter [facility] ([facility] [address] [place] [address] Shaheen Navarrete MD PhD Squamous cell carcinoma of cheek Discharge Disposition: Discharge to home or self care from Last 3 Months Allergies No known active allergies Medications allopurinoL (ZYLOPRIM) 300 mg tabletIndication s:prevention of acute gout attack Take 1 tablet (300 mg total) by mouth every morning Active amLODIPine (NORVASC) 2.5 mg tabletIndication s:hypertension Take 1 tablet (2.5 mg total) by mouth every morning Active atorvastatin (LIPITOR) 80 mg tabletIndication s:hyperlipidemia Take 1 tablet (80 mg total) by mouth nightly Active Pacerone 100 mg tabletIndication s:afib Take 1 tablet (100 mg total) by mouth every morning Active furosemide (LASIX) 20 mg tabletIndication s:Edema,hyperten miguel angel Take 1 tablet (20 mg total) by mouth every morning 3 Active omeprazole (PriLOSEC) 20 mg capsuleIndicatio ns:acid reflux Take 1 capsule (20 mg total) by mouth every morning Active zanubrutinib (BRUKINSA) 80 mg capsuleIndicatio ns:Chronic Lymphocytic Leukemia Take 2 capsules (160 mg total) by mouth 2 (two) times a day 2 capsules 3 Active ferrous sulfate (IRON ORAL)Indications :supplement Take 325 mg by mouth 2 (two) times a day Active multivitamin tabletIndication s:Vitamin Deficiency Prevention Take 1 tablet by mouth nightly Active acetaminophen (TYLENOL) 500 mg tabletIndication s:Headache Disorder Take 2 tablets (1,000 mg total) by mouth as needed for headaches 2 tablets Active polyvinyl alcohol-povidone (REFRESH CLASSIC) 1.4-0.6 % dropperette Administer 2 drops into the right eye every 2 (two) hours while awake 50 each 3 Active white petrolatum-coroner/medical examiner al oil (REFRESH PM) ointment Apply 1 Application to right eye nightly 5 g 11 3 Active clonazePAM (KlonoPIN) 1 mg tabletIndication s:Squamous cell carcinoma of cheek,Anxiety Take 1 tablet (1 mg total) by mouth 2 (two) times a day as needed for anxiety 30 tablet 5 Active LORazepam (ATIVAN) 0.5 mg tabletIndication s:anxiety Take 1 tablet 30 minutes prior to radiation treatment 6 tablet 5 Active nystatin powderIndication s:Yeast infection Apply topically 4 (four) times a day 15 g 5 12/07/19 26 Active Active Problems Patient Care Coordination No te [...] Signed by Joselo Fernandez MD on 10/08/2023 Immunizations Immunization Administration Dates Next Due COVID-19 mRNA ([employer]) 0.3 m L (30 mcg) vaccine (12 years and up) 07/11/2023 Influenza, Quad, Adjuvantate d, Intramuscular 07/11/2023,06/18/2022,07/08/2021,06/21 Influenza, Trivalent, IM (MDV) 06/19/2015,2013 Influenza, Trivalent, Preser vative Free, Intramuscular 06/17/2016 Pfizer SARS-CoV-2 Monovalent Vaccination (12+ Yrs) PURPLE 07/31/2021 Pfizer Sars-Cov-2 Bivalent V accination (12+ YRS) 06/18/2022 Pneumococcal Conjugate PCV 13 06/28/2019 Social History Tobacco Use Types Packs/Day Years Used Date Smoking Tobacco: Never Passive Smoke Exposure: Never Smokeless Tobacco: Never Tobacco Cessation:Counseling Given: Not Answered Alcohol Use Standard Drinks/Week Comments Not Currently 0 (1 standard drink = 0.6 oz pur e alcohol) AUDIT-C Answer Date Recorded Q1: How often do you have a drink containing alcohol? Never 11/15/2024 Q2: How many drinks containi ng alcohol do you have on a typical day when you are drinking? Patient does not drink Q3: How often do you have si x or more drinks on one occasion? Never 11/15/2024 Hunger Vital Sign Answer Date Recorded Within the past 12 months, y ou worried that your food would run out before you got the money to buy more. Never true 11/16/19 25 Within the past 12 months, t he food you bought just didn't last and you didn't have money to get more. Never true 11/15/2024 Personal Safety Answer Date Recorded Have you ever been in or are you currently in a harmful physical or emotional relationship or is someone making you feel afraid or unsafe? Denies 11/10/2023 Comments Unknown Sex and Gender Information Value Date Recorded Sex Assigned at Not on file Legal Sex Female 1:08 PM CDT Gender Identity Not on file Sexual Orientation Not on file Last Filed Vital Signs Vital Sign Reading Time Taken Comments Blood Pressure 137/100 11/15/2024 2:50 PM WIRELESS STORE MANAGER Pulse 47 11/15/2024 2:50 PM WIRELESS STORE MANAGER Temperature 36.6 C (97.9 F) 11/15/2024 1:38 PM WIRELESS STORE MANAGER Respiratory Rate 15 11/15/2024 2:50 PM WIRELESS STORE MANAGER Oxygen Saturation 93% 11/15/2024 2:50 PM WIRELESS STORE MANAGER Inhaled Oxygen Concentration - - Weight 97.5 kg (215 lb) 10/18/2024 1:23 PM WIRELESS STORE MANAGER Height 152.4 cm (5') 10/18/2024 1:23 PM WIRELESS STORE MANAGER Body Mass Index 41.99 10/18/2024 1:23 PM WIRELESS STORE MANAGER Plan of Treatment Not on file Procedures Procedure Name Priority Date/Time Associated Diagnosis Comments RAD ONC ARIA SESSION SUMMARY 12/16/2024 4:24 PM CDT RAD ONC ARIA SESSION SUMMARY 12/15/2024 3:28 PM CDT RAD ONC ARIA SESSION SUMMARY 12/13/2024 3:30 PM CDT RAD ONC ARIA SESSION SUMMARY 12/12/2024 3:23 PM CDT RAD ONC ARIA SESSION SUMMARY 12/09/2024 2:48 PM CDT RAD ONC ARIA SESSION SUMMARY 12/08/2024 4:39 PM CDT RAD ONC ARIA SESSION SUMMARY 12/07/2024 3:15 PM CDT RAD ONC ARIA SESSION SUMMARY 12/06/2024 10:29 AM CDT RAD ONC ARIA COURSE SUMMARY 12/05/2024 3:02 PM CDT XR CHEST 1 VIEW IP Routine 11/15/2024 2:16 PM WIRELESS STORE MANAGER SURGICAL PATHOLOGY Routine 11/15/2024 1: 23 PM WIRELESS STORE MANAGER CYTOLOGY Routine 11/15/2024 12:53 PM WIRELESS STORE MANAGER BRONCHOSCOPY Routine 11/15/2024 12:30 PM WIRELESS STORE MANAGER Left upper lobe consolidation PET/CT FDG SKULL TO THIGH Schedule Routine, Read Routine (OP Routine) 10/18/2024 11:04 AM WIRELESS STORE MANAGER Squamous cell carcinoma of cheek CT CHEST W CONTRAST Schedule Routine, Read Routine (OP Routine) 10/18/2024 8:34 AM WIRELESS STORE MANAGER Squamous cell carcinoma of cheek POCT CREATININE - DEVICE Routine 10/18/2024 8:05 AM WIRELESS STORE MANAGER from Last 3 Months Results * RAD ONC ARIA SESSION SUMMARY (12/16/2024 4:24 PM CDT) Course Name C2_Lt_LUNG _2024 ARIA Course Plan Date 11/22/2024 6:59 AM ARIA Elapsed Days 10 ARIA Treatment Start Date 12/06/2024 ARIA Treatment Site DPV_LT_LUN G ARIA Dose Given To Date (cGy) 6,000 ARIA Session Dosage Given (cGy) 750 ARIA Plan ID LT LUNG ARIA Fractions Treated 8 ARIA Prescribed Dose Per Fraction (cGy) 750 ARIA Prescribed Total Dose (cGy) 6,000 ARIA 12/16/2024 4:24 PM CDT us Not In File Miscellaneous RADIATION ONCOLOGY ORD ERABLES Final Result ARIA * RAD ONC ARIA SESSION SUMMARY (12/15/2024 3:28 PM CDT) Course Name C2_Lt_LUNG _2024 ARIA Course Plan Date 11/22/2024 6:59 AM ARIA Elapsed Days 9 ARIA Treatment Start Date 12/06/2024 ARIA Treatment Site DPV_LT_LUN G ARIA Dose Given To Date (cGy) 5,250 ARIA Session Dosage Given (cGy) 750 ARIA Plan ID LT LUNG ARIA Fractions Treated 7 ARIA Prescribed Dose Per Fraction (cGy) 750 ARIA Prescribed Total Dose (cGy) 6,000 ARIA 12/15/2024 3:28 PM CDT us Not In File Miscellaneous RADIATION ONCOLOGY ORD ERABLES Final Result ARIA * RAD ONC ARIA SESSION SUMMARY (12/13/2024 3:30 PM CDT) Course Name C2_Lt_LUNG _2024 ARIA Course Plan Date 11/22/2024 6:59 AM ARIA Elapsed Days 7 ARIA Treatment Start Date 12/06/2024 ARIA Treatment Site DPV_LT_LUN G ARIA Dose Given To Date (cGy) 4,500 ARIA Session Dosage Given (cGy) 750 ARIA Plan ID LT LUNG ARIA Fractions Treated 6 ARIA Prescribed Dose Per Fraction (cGy) 750 ARIA Prescribed Total Dose (cGy) 6,000 ARIA 12/13/2024 3:30 PM CDT us Not In File Miscellaneous RADIATION ONCOLOGY ORD ERABLES Final Result Performing Organization Address [facility] de Phone Number ARIA * RAD ONC ARIA SESSION SUMMARY (12/12/2024 3:23 PM CDT) Course Name C2_Lt_LUNG ARIA Course Plan Date 11/22/2024 6:59 AM ARIA Elapsed Days 6 ARIA Treatment Start Date 12/06/2024 ARIA Treatment Site DPV_LT_LUN G ARIA Dose Given To Date (cGy) 3,750 ARIA Session Dosage Given (cGy) 750 ARIA Plan ID LT LUNG ARIA Fractions Treated 5 ARIA Prescribed Dose Per Fraction (cGy) 750 ARIA Prescribed Total Dose (cGy) 6,000 ARIA 12/12/2024 3:23 PM CDT us Not In File Miscellaneous RADIATION ONCOLOGY ORD ERABLES Final Result ARIA * RAD ONC ARIA SESSION SUMMARY (12/09/2024 2:48 PM CDT) Course Name C2_Lt_LUNG ARIA Course Plan Date 11/22/2024 6:59 AM ARIA Elapsed Days 3 ARIA Treatment Start Date 12/06/2024 ARIA Treatment Site DPV_LT_LUN G ARIA Dose Given To Date (cGy) 3,000 ARIA Session Dosage Given (cGy) 750 ARIA Plan ID LT LUNG ARIA Fractions Treated 4 ARIA Prescribed Dose Per Fraction (cGy) 750 ARIA Prescribed Total Dose (cGy) 6,000 ARIA 12/09/2024 2:48 PM CDT us Not In File Miscellaneous RADIATION ONCOLOGY ORD ERABLES Final Result Performing Organization Address City/State/[facility] Co de Phone Number ARIA * RAD ONC ARIA SESSION SUMMARY (12/08/2024 4:39 PM CDT) Course Name C2_Lt_LUNG ARIA Course Plan Date 11/22/2024 6:59 AM ARIA Elapsed Days 2 ARIA Treatment Start Date 12/06/2024 ARIA Treatment Site DPV_LT_LUN G ARIA Dose Given To Date (cGy) 2,250 ARIA Session Dosage Given (cGy) 750 ARIA Plan ID LT LUNG ARIA Fractions Treated 3 ARIA Prescribed Dose Per Fraction (cGy) 750 ARIA Prescribed Total Dose (cGy) 6,000 ARIA 12/08/2024 4:39 PM CDT us Not In File Miscellaneous RADIATION ONCOLOGY ORD ERABLES Final Result ARIA * RAD ONC ARIA SESSION SUMMARY (12/07/2024 3:15 PM CDT) Course Name C2_Lt_LUNG ARIA Course Plan Date 11/22/2024 6:59 AM ARIA Elapsed Days 1 ARIA Treatment Start Date 12/06/2024 ARIA Treatment Site DPV_LT_LUN G ARIA Dose Given To Date (cGy) 1,500 ARIA Session Dosage Given (cGy) 750 ARIA Plan ID LT LUNG ARIA Fractions Treated 2 ARIA Prescribed Dose Per Fraction (cGy) 750 ARIA Prescribed Total Dose (cGy) 6,000 ARIA 12/07/2024 3:15 PM CDT us Not In File Miscellaneous RADIATION ONCOLOGY ORD ERABLES Final Result Performing Organization Address City/[facility] Co de Phone Number ARIA * RAD ONC ARIA SESSION SUMMARY (12/06/2024 10:29 AM CDT) Course Name C2_Lt_LUNG _2024 ARIA Course Plan Date 11/22/2024 6:59 AM ARIA Elapsed Days 0 ARIA Treatment Start Date 12/06/2024 ARIA Treatment Site DPV_LT_LUN G ARIA Dose Given To Date (cGy) 750 ARIA Session Dosage Given (cGy) 750 ARIA Plan ID LT LUNG ARIA Fractions Treated 1 ARIA Prescribed Dose Per Fraction (cGy) 750 ARIA Prescribed Total Dose (cGy) 6,000 ARIA 12/06/2024 10:2 9 AM CDT us Not In File Miscellaneous RADIATION ONCOLOGY ORD ERABLES Final Result Performing Organization Address [facility] de Phone Number ARIA * RAD ONC ARIA COURSE SUMMARY (12/05/2024 3:02 PM CDT) Course Name C1_HN_2023 ARIA Course Plan Date 10/15/2023 4:06 PM ARIA Elapsed Days 50 ARIA Treatment Start Date 11/03/2023 ARIA Treatment Site PTV_6000 ARIA Dose Given To Date (cGy) 6,000 ARIA Session Dosage Given (cGy) 0 ARIA Treatment Site PTV_6000 ARIA Dose Given To Date (cGy) 6,000 ARIA Session Dosage Given (cGy) 0 ARIA Plan ID RIGHT HN ARIA Fractions Treated 11 ARIA Prescribed Dose Per Fraction (cGy) 200 ARIA Prescribed Total Dose (cGy) 6,000 ARIA Plan ID RT HN RESCAN ARIA Fractions Treated 19 ARIA Prescribed Dose Per Fraction (cGy) 200 ARIA Prescribed Total Dose (cGy) 3,800 ARIA 12/05/2024 3:02 PM CDT us Not In File Miscellaneous RADIATION ONCOLOGY ORD ERABLES Final Result LANEY * XR Chest 1 Vw (11/15/2024 2:16 PM WIRELESS STORE MANAGER) Anatomical Region Laterality Modality Body, Chest N/A Computed Radiogr aphy 11/15/2024 4:08 PM WIRELESS STORE MANAGER Impressions 11/15/2024 4:12 PM WIRELESS STORE MANAGER No prior radiograph available for comparison. Small lung volumes. Left upper lobe nodular opacities are better evaluated on recent PET/CT dated 10/18/2024. No pneumothorax. No pleural effusion. Stable cardiac mediastinal silhouette. Dictated by: Gold Shepherd MD The radiology attending physician has personally reviewed this study, and had reviewed and/or edited this written report and agrees with it. Electronically signed by: Pola Floyd M.D. Narrative 11/15/2024 4:12 PM WIRELESS STORE MANAGER EXAMINATION: 1 view chest radiograph Procedure Note Pola Floyd MD - 11/15/2024 EXAMINATION: 1 view chest radiograph IMPRESSION: No prior radiograph available for comparison. Small lung volumes. Left upper lobe nodular opacities are better evaluated on recent PET/CT dated 10/18/2024. No pneumothorax. No pleural effusion. Stable cardiac mediastinal silhouette. Dictated by: Gold Shepherd MD The radiology attending physician has personally reviewed this study, and had reviewed and/or edited this written report and agrees with it. Electronically signed by: Pola Floyd M.D. us Zoie Zuniga MD IMG XR PROCEDURES Final Result * Surgical pathology (11/15/2024 1:23 PM WIRELESS STORE MANAGER) Tissue specimen (specimen) (Lung Biopsy) 11/15/2024 1:23 PM WIRELESS STORE MANAGER 11/15/2024 5:48 PM WIRELESS STORE MANAGER Narrative PATHOLOGY [facility] - 11/16/2024 9:33 AM WIRELESS STORE MANAGER EPIC results best viewed via link to PDF [facility] [place] [address] [place] [address] Note to Patients: This report may contain a detailed description of human tissue sent by a health care provider to the laboratory for pathologic evaluation. The content of this report is essential for diagnosis and may provide important critical findings. This information may be unfamiliar to patients to review without a medical professional present. It is advised that the patient review this report in the presence of a health care provider who can answer questions and explain the details. SURGICAL PATHOLOGY REPORT FINAL Patient Name: CHERYL MURILLO Gender: F : 1945 (Age: 79) Address: [address] [place], [place] [id number] Hospital #: [id number] Taken:11/15/2024 Received:11/15/2024 Reported: 11/16/2024 Patient Type: [facility] Ancillary Service: Pulmonary Location: Physician(s): Kaushik Guerin M.D. Diagnosis: A. Lung, left upper lobe, transbronchial biopsy - Squamous cell carcinoma, keratinizing juro/11/16/2024 08:03 By this signature, I attest that the above diagnosis is based upon my personal examination of the slides(and/or other material indicated in the diagnosis). Jamil Menard MD PhD Report Electronically Reviewed and Signed Out By Jamil Menard MD PhD 11/16/2024 09:33:01 Microscopic Description and Comment: Microscopic examination substantiates the above cited diagnosis. Clinical correlation is required to ascertain whether this is a second lung primary versus metastasis from patient's known head and neck primary. Eloina Palma D.O. History: The patient is an 79-year-old woman presenting with an NISH nodule. Operative procedure: Bronchoscopy with TB Bx. Specimen(s) Received: A: NISH nodule Gross Description: Received in formalin, labeled with the patient s identifiers and NISH TB Bx and consists of multiple tim-red fragment(s) of soft tissue with an aggregate measurement of 0.6 x 0.4 x 0.1 cm. Labeled A1. Jar 0. elsw/11/15/2024 18:23 PA(s): Shirley Da Silva By this signature, I attest that the above diagnosis is based upon my personal examination of the slides(and/or other material). Addenda/Procedures The performance characteristics of some immunohistochemical stains, fluorescence in-situ hybridization tests and immunophenotyping by flow cytometry cited in this report (if any) were determined by the Surgical Pathology and Flow Cytometry Departments at [facility] as part of an ongoing manufacturing quality manager program and in compliance with federally mandated regulations drawn from the Clinical Laboratory Improvement Act of 1988 (CLIA '88). Some of these tests rely on the use of analyte specific reagents and are subject to specific labeling requirements by the [place] Food and Drug Administration. Such diagnostic tests may only be performed in a facility that is certified by the Department of Health and Human Services as a high complexity laboratory under CLIA '88. The FDA has determined that such clearance or approval is not necessary. This test is used for clinical purposes. It should not be regarded as investigational or for research. Nevertheless, federal rules concerning the medical use of analyte specific reagents require that the following disclaimer be attached to the report: This test was developed and its performance characteristics determined by the Surgical Pathology and Flow Cytometry Departments of [facility]. It has not been cleared or approved by the U. S. Food and Drug Administration. IMAGES AND SCANNED DOCUMENTS, IF INCLUDED, ONLY VIEWABLE IN PDF VERSION OF REPORT us Pako Gaytan MD LAB PATHOLOGY ORDERABLES Final Result PATHOLOGY [facility] 3rd Floor [place], [place] [phone] * Cytology (11/15/2024 12:53 PM WIRELESS STORE MANAGER) Fluid (Lung (Cytology)) 11/15/2024 12:53 PM WIRELESS STORE MANAGER 11/15/2024 1:35 PM WIRELESS STORE MANAGER Narrative PATHOLOGY [facility] - 11/16/2024 3:05 PM WIRELESS STORE MANAGER EPIC results best viewed via link to PDF [facility] [place] [address] Note to Patients: This report may contain a detailed description of human tissue sent by a health care provider to the laboratory for pathologic evaluation. The content of this report is essential for diagnosis and may provide important critical findings. This information may be unfamiliar to patients to review without a medical professional present. It is advised that the patient review this report in the presence of a health care provider who can answer questions and explain the details. CYTOPATHOLOGY REPORT FINAL Patient Name: CHERYL MURILLO Gender: F : 1945 (Age: 79) Address: [address] [place], [place] [id number] Hospital #: [id number] Taken:11/15/2024 Received:11/15/2024 Reported: 11/16/2024 Patient Type: [facility] Ancillary Service: UNKNOWN Location: Physician(s): Pako Gaytan M.D. FINAL DIAGNOSIS A. Lung, left upper lobe, endobronchial ultrasound guided, fluoroscopy assisted, fine needle aspiration: - Squamous cell carcinoma Comments The cell block confirms the diagnosis. [facility]/11/16/2024 15:05 By this signature, I attest that the above diagnosis is based upon my personal examination of the slides(and/or other material indicated in the diagnosis). Uri Najera DO Report Electronically Reviewed and Signed Out By Uri Najera DO 11/16/2024 15:05:33 Hetal Perez MS, CT (ASCP) Gross Description A. Lung, left upper lobe, endobronchial ultrasound guided, fluoroscopy assisted, fine needle aspiration: 5 Pap stained smear(s) and 5 Diff-Quik stained smear(s). 1 cell block prepared from needle rinse tube. Aspirated by clinician. (ML) Clinical Diagnosis and History The patient is a 79 year old female with NISH nodule. Immediate Evaluation A. Lung, left upper lobe, endobronchial ultrasound guided, fluoroscopy assisted, fine needle aspiration: Evaluation Episode 1 Overall Adequacy: Indeterminate Evaluation Episode 2 Overall Adequacy: Indeterminate Total Evaluation Episodes: 2 Preliminary Diagnosis: Rare atypical cells Uri Najera D.O. 11/15/2024 REPORT IMAGES AND SCANNED DOCUMENTS, IF INCLUDED, ONLY VIEWABLE IN PDF VERSION OF REPORT The performance characteristics of some immunohistochemical stains, in-situ hybridization and fluorescence in-situ hybridization tests and immunophenotyping by flow cytometry cited in this report (if any) were determined by the Surgical Pathology and Flow Cytometry Departments at [facility] as part of an ongoing manufacturing quality manager program and in compliance with federally mandated regulations drawn from the Clinical Laboratory Improvement Act of 1988 (CLIA '88). Some of these tests rely on the use of analyte specific reagents and are subject to specific labeling requirements by the US Food and Drug Administration. Such diagnostic tests may only be performed in a facility that is certified by the Department of Health and Human Services as a high complexity laboratory under CLIA '88. The FDA has determined that such clearance or approval is not necessary. This test is used for clinical purposes. It should not be regarded as investigational or for research. Nevertheless, federal rules concerning the medical use of analyte specific reagents require that the following disclaimer be attached to the report: This test was developed and its performance characteristics determined by the Surgical Pathology and Flow Cytometry Departments of [facility]. It has not been cleared or approved by the U. S. Food and Drug Administration. Pako Gaytan MD LAB CYTOLOGY ORDERABLES F inal Result PATHOLOGY [facility] 3rd Floor [place], [place] [phone] * Bronchoscopy -[facility] Interventional Pulm; Bronchoscopy, RADIAL BIOPSY (11/15/2024 12:30 PM WIRELESS STORE MANAGER) Anatomical Region Laterality Modality Other Narrative Procedure Note Pako Gaytan MD - 11/15/2024 12:30 PM CST [facility] Interventional Pulmonary Patient Name: Cheryl Murillo Procedure Date: 11/15/2024 12:30 PM Date of : 1945 Admit Type: Outpatient Age: 79 Room: ROOM 1 Gender: Female Note Status: Finalized Procedure: Bronchoscopy RADIAL EBUS TBNA TBBx Indications: Left upper lobe nodule Providers: Pako Gaytan M.D. Referring MD: Santana Rahman M.D. Complications: No immediate complications Procedure: After obtaining informed consent, the Bronchoscopewas introduced through the mouth, via laryngeal mask airway and advanced to the tracheobronchial tree of both lungs. Estimated Blood Loss: Estimated blood loss was minimal. Findings: 1. AIRWAY INSPECTION --- The trachea is of normal caliber. The jhoan is sharp. The tracheobronchial tree was examined to at least the first subsegmental level. Bronchial mucosa and anatomy are normal; there are no endobronchial lesions, and no secretions. 2. Radial EBUS of NISH nodule with TBNA/TBBx The 1.7mm 20Mhz radial EBUS probe was advanced through the working channel of the 4mm bronchoscope and was used to examine the distal airways and lung parenchyma. A lesion was identified in the NISH using radial EBUS. The radial probe was positioned adjacent to the LULlesion. Transbronchial needle aspiration times 8 was performed using a 21gauge needle advanced to the lesion in the NISH through the working channelof the 4mm bronchoscope and was sent for routine cytology. The procedure was fluoroscopically guided. Transbronchial biopsies were performed in the NISH using forceps and 5 biopsies were obtained. Moderate Sedation: I personally provided direct face to face monitoring of conscious sedation administered by an independently trained nurse/respiratory therapist using: fentanyl mcg 100 REMIMAZOLAM mg12.5 total sedation time (min) 50 Impression: 1. AIRWAY INSPECTION 2. Radial EBUS of NISH nodule with TBNA/TBBx Attending Participation: I was present and participated during the entire procedure, including non-burgess portions. Electronically signed by Pako Gaytan MD Pako Gaytan M.D. 11/15/2024 1:35:53 PM Number of Addenda: 0 Note Initiated On: 11/15/2024 12:30 PM us Pako Gaytan MD BRONCH ORDERABLES Final R esult * PET/CT FDG Skull to Thigh (10/18/2024 11:04 AM WIRELESS STORE MANAGER) Anatomical Region Laterality Modality N/A Positron Emissio n Tomography (PET) 10/18/2024 11:3 8 AM WIRELESS STORE MANAGER Impressions 10/18/2024 12:17 PM WIRELESS STORE MANAGER Interval increase in size and FDG uptake of a now 1.1 cm left upper lobe nodule with a new 1.3 cm moderately hypermetabolic left upper lobe nodule, both of which are highly suspicious for metastatic disease. No additional sites of hypermetabolic metastatic disease identified. Dictated by: Edmond Smith MD The radiology attending physician has personally reviewed this study, and had reviewed and/or edited this written report and agrees with it. Electronically signed by: Efraín Marie M.D. Narrative 10/18/2024 12:17 PM WIRELESS STORE MANAGER EXAMINATION: TUMOR FDG-PET/CT IMAGING DATE OF STUDY: 10/18/2024 SCANNER: [facility] PET Vision (NV1). This is a high-resolution scanner, which can result in higher SUVs (and even detection of new small lesions) compared to older scanners. RADIOPHARMACEUTICAL: 17.08 mCi F-18 Fluorodeoxyglucose (FDG) i.v. 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 Adjuvant radiation therapy was completed on 12/23/2023. New and enlarging left upper lobe nodules noted on recent CT. The study is requested for detection of suspected recurrence. Subsequent treatment strategy. TECHNIQUE: The patient's fasting blood glucose level, measured by glucometer before injection of FDG, was 95 mg/dL. After intravenous administration of FDG, noncontrast CT images were obtained for attenuation correction and for fusion with emission PET images to allow for anatomical localization of PET findings. Emission PET images were then obtained. The study was interpreted on the [employer] workstation. The mean liver SUV (reported for quality control scientist purposes) is 3.4. The total scanned area was skull vertex to proximal thighs. Images of the body were obtained starting 50 minutes after injection of tracer. All reported SUVs are maximum SUVs, unless otherwise specified. COMPARISON: Same-day chest CT, neck CT 07/18/2024, FDG PET/CT 04/22/2024 DESCRIPTORS OF LESION FDG AVIDITY: Minimal: <= blood pool Mild: > blood pool and <= liver Moderate: > liver and <= 2x SUVmax liver Moderate to marked: >2x SUVmax liver and <= 3x SUVmax liver Marked: > 3x SUVmax liver FINDINGS: Interval decrease in right cheek soft tissue thickening with associated mild FDG uptake, likely representing posttreatment changes. No hypermetabolic or enlarged lymph nodes in the neck, chest, abdomen, or pelvis. Interval increase in size and uptake of a moderately hypermetabolic left upper lobe nodule, now measuring up to 1.1 cm with SUV of 8.4 (axial image 98), previously measuring up to 7 mm with SUV of 2.4. New moderately hypermetabolic 1.3 cm medial left upper lobe nodule, with SUV of 8.6 (axial image 104). Diffuse muscular FDG uptake noted in the pectoralis musculature. Degenerative pattern uptake noted about both shoulders. Additional CT findings: Postsurgical changes of right neck dissection. Unchanged mild cardiomegaly. Mild coronary artery and mitral annular calcifications. Mild atherosclerotic calcifications of the thoracic aorta which is non-aneurysmal. Emphysematous changes throughout both lungs. Right upper lobe cyst is unchanged. Mild bibasilar atelectasis versus scarring. Small hiatal hernia. Cholecystectomy. Excreted contrast noted within both renal collecting systems and the urinary bladder. Left renal cyst. Unchanged simple right ovarian cyst measuring up to 11.3 cm, not significantly changed compared to CT from 06/02/2018. Atherosclerotic calcifications of the abdominal aorta and its branches. Calcified fibroid uterus. There is colonic diverticulosis without evidence of diverticulitis. Multilevel degenerative changes throughout the spine, most pronounced throughout the lumbar spine with associated lumbar dextroscoliosis. Procedure Note Efraín Marie MD - 10/18/2024 EXAMINATION: TUMOR FDG-PET/CT IMAGING DATE OF STUDY: 10/18/2024 SCANNER: [facility] [employer] (NV1). This is a high-resolution scanner, which can result in higher SUVs (and even detection of new small lesions) compared to older scanners. RADIOPHARMACEUTICAL: 17.08 mCi F-18 Fluorodeoxyglucose (FDG) i.v. 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 Adjuvant radiation therapy was completed on 12/23/2023. New and enlarging left upper lobe nodules noted on recent CT. The study is requested for detection of suspected recurrence. Subsequent treatment strategy. TECHNIQUE: The patient's fasting blood glucose level, measured by glucometer before injection of FDG, was 95 mg/dL. After intravenous administration of FDG, noncontrast CT images were obtained for attenuation correction and for fusion with emission PET images to allow for anatomical localization of PET findings. Emission PET images were then obtained. The study was interpreted on the [employer] workstation. The mean liver SUV (reported for quality control scientist purposes) is 3.4. The total scanned area was skull vertex to proximal thighs. Images of the body were obtained starting 50 minutes after injection of tracer. All reported SUVs are maximum SUVs, unless otherwise specified. COMPARISON: Same-day chest CT, neck CT 07/18/2024, FDG PET/CT 04/22/2024 DESCRIPTORS OF LESION FDG AVIDITY: Minimal: <= blood pool Mild: > blood pool and <= liver Moderate: > liver and <= 2x SUVmax liver Moderate to marked: >2x SUVmax liver and <= 3x SUVmax liver Marked: > 3x SUVmax liver FINDINGS: Interval decrease in right cheek soft tissue thickening with associated mild FDG uptake, likely representing posttreatment changes. No hypermetabolic or enlarged lymph nodes in the neck, chest, abdomen, or pelvis. Interval increase in size and uptake of a moderately hypermetabolic left upper lobe nodule, now measuring up to 1.1 cm with SUV of 8.4 (axial image 98), previously measuring up to 7 mm with SUV of 2.4. New moderately hypermetabolic 1.3 cm medial left upper lobe nodule, with SUV of 8.6 (axial image 104). Diffuse muscular FDG uptake noted in the pectoralis musculature. Degenerative pattern uptake noted about both shoulders. Additional CT findings: Postsurgical changes of right neck dissection. Unchanged mild cardiomegaly. Mild coronary artery and mitral annular calcifications. Mild atherosclerotic calcifications of the thoracic aorta which is non-aneurysmal. Emphysematous changes throughout both lungs. Right upper lobe cyst is unchanged. Mild bibasilar atelectasis versus scarring. Small hiatal hernia. Cholecystectomy. Excreted contrast noted within both renal collecting systems and the urinary bladder. Left renal cyst. Unchanged simple right ovarian cyst measuring up to 11.3 cm, not significantly changed compared to CT from 06/02/2018. Atherosclerotic calcifications of the abdominal aorta and its branches. Calcified fibroid uterus. There is colonic diverticulosis without evidence of diverticulitis. Multilevel degenerative changes throughout the spine, most pronounced throughout the lumbar spine with associated lumbar dextroscoliosis. IMPRESSION: Interval increase in size and FDG uptake of a now 1.1 cm left upper lobe nodule with a new 1.3 cm moderately hypermetabolic left upper lobe nodule, both of which are highly suspicious for metastatic disease. No additional sites of hypermetabolic metastatic disease identified. Dictated by: Edmond Smith MD The radiology attending physician has personally reviewed this study, and had reviewed and/or edited this written report and agrees with it. Electronically signed by: Efraín Marie M.D. us Shaheen Navarrete MD PhD IMG PET PROCEDURES Final Result * CT chest with contrast (10/18/2024 8:34 AM WIRELESS STORE MANAGER) Anatomical Region Laterality Modality Body N/A Computed Tomogra phy 10/18/2024 8:51 AM WIRELESS STORE MANAGER Impressions 10/18/2024 8:51 AM WIRELESS STORE MANAGER 1. Increasing size of 1.1 cm solid left upper lobe pulmonary nodule along with a new 1.2 cm left upper lobe nodule/interlobar lymph node suspicious for sites of metastatic disease. Recommend correlation with same day FDG PET/CT and tissue sampling 2. Stable to decreased size of previously noted left supraclavicular lymph node which is not pathologically enlarged per size criteria. Electronically signed by: Nilton Rashid M.D. Narrative 10/18/2024 8:51 AM WIRELESS STORE MANAGER EXAMINATION: Computed tomography of the chest with intravenous contrast HISTORY: Right cheek squamous cell carcinoma with one positive lymph node status post radiation completed 12/23/2023. TECHNIQUE: Transaxial computed tomographic images of the chest were obtained with intravenous contrast according to the standard protocol after the uneventful administration of 70 mL Opti-Ray 350 intravenous contrast. COMPARISON: PET/CT at 924 FINDINGS: Normal thyroid. Left supraclavicular lymph node is similar to decreased from prior PET/CT measuring 8 mm short axis with benign morphology. Mild cardiomegaly. There is an aberrant right subclavian artery. Mild atherosclerotic disease of the thoracic aorta is noted. Mild coronary artery calcification. Main pulmonary arteries normal caliber. No mediastinal lymphadenopathy. Within the imaged upper abdomen there are cholecystectomy changes. Left renal cyst and a small moderate hiatal hernia. There is mild centrilobular emphysema along with scattered areas of air trapping. Dependent fine reticular opacities are unchanged, likely representing a mild fibrotic process is. 7 left upper lobe solid pulmonary nodule has increased in size now measuring 11 x 10 mm previously 8 x 6 mm (table position 128.2). New solid nodule versus interlobar lymph node in the left upper lobe measures 12 x 11 mm (table position 150.2). Stable 4 mm right lower lobe solid nodule (table position 232.2). Chronic left rib fracture noted. 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 No suspicious lytic or blastic osseous lesion. Procedure Note Nilton Rashid MD - 10/18/2024 EXAMINATION: Computed tomography of the chest with intravenous contrast HISTORY: Right cheek squamous cell carcinoma with one positive lymph node status post radiation completed 12/23/2023. TECHNIQUE: Transaxial computed tomographic images of the chest were obtained with intravenous contrast according to the standard protocol after the uneventful administration of 70 mL Opti-Ray 350 intravenous contrast. COMPARISON: PET/CT at 924 FINDINGS: Normal thyroid. Left supraclavicular lymph node is similar to decreased from prior PET/CT measuring 8 mm short axis with benign morphology. Mild cardiomegaly. There is an aberrant right subclavian artery. Mild atherosclerotic disease of the thoracic aorta is noted. Mild coronary artery calcification. Main pulmonary arteries normal caliber. No mediastinal lymphadenopathy. Within the imaged upper abdomen there are cholecystectomy changes. Left renal cyst and a small moderate hiatal hernia. There is mild centrilobular emphysema along with scattered areas of air trapping. Dependent fine reticular opacities are unchanged, likely representing a mild fibrotic process is. 7 left upper lobe solid pulmonary nodule has increased in size now measuring 11 x 10 mm previously 8 x 6 mm (table position 128.2). New solid nodule versus interlobar lymph node in the left upper lobe measures 12 x 11 mm (table position 150.2). Stable 4 mm right lower lobe solid nodule (table position 232.2). Chronic left rib fracture noted. 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 No suspicious lytic or blastic osseous lesion. IMPRESSION: 1. Increasing size of 1.1 cm solid left upper lobe pulmonary nodule along with a new 1.2 cm left upper lobe nodule/interlobar lymph node suspicious for sites of metastatic disease. Recommend correlation with same day FDG PET/CT and tissue sampling 2. Stable to decreased size of previously noted left supraclavicular lymph node which is not pathologically enlarged per size criteria. Electronically signed by: Nilton Rashid M.D. us Shaheen Navarrete MD PhD IMG CT PROCEDURES Final R esult * POCT creatinine (10/18/2024 8:05 AM WIRELESS STORE MANAGER) Creatinine POC 1.1 0.6 - 1.1 mg/dL Blood 10/18/2024 8:05 AM WIRELESS STORE MANAGER 10/18/2024 8:05 AM WIRELESS STORE MANAGER us Shaheen Navarrete MD PhD LAB POCT ORDERABLES - DEV ICE Final Result [facility] Department [place] [address] from Last 3 Months Insurance FOR[facility]–1983 MEDICARE [facility] IDPA [facility], [facility]1983 MEDICARE [facility] [employer] MEDICARE [employer] Advance Directives For more information, please contact: [phone] * Full Code (Latest Code Status on File) Date Activated Date Inactivated Comments 09/10/2023 3:28 PM 09/11/2023 6:00 PM Care Teams Regulatory Scientist Relationship Specialty Start Date End Date Ruben-Michele Payne MD PCP - General 12/12/16 Aries Soliman MD [address] [place] [address] [place] [address] Dermatology 09/01/23 Yanira Granda MD [address] [place] [address] Referring Physician Dermatology 09/01/23 Dennis Gentile MD [address] [place] [address] Referring Physician Otolaryngology 10/25/24
--- OUTSIDE RECORDS SUMMARY | 2024-12-28 19:06 | XMS_ITS | Encounter Summary ---
Author Organization [facility] Address 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
--- OUTSIDE RECORDS SUMMARY | 2024-12-28 19:06 | XMS_ITS | Encounter Summary ---
Author Organization [facility] Address 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
--- OUTSIDE RECORDS SUMMARY | 2024-12-28 19:06 | XMS_ITS | Clinical Summary ---
Author Organization [facility] Address [address] [place] [address] Care Team Providers Care Detail Assembler Name Role Phone Michele Coleman MD Primary Care Provider Aries Soliman MD Unavailable [phone] Yanira Granda MD Unavailable [phone] Dennis Gentile MD Unavailable [phone] Allergies No known active allergies Medications allopurinoL [...] while awake 50 each 3 Active white petrolatum-liability claims examiner al oil (REFRESH PM) ointment Apply [...] Signed by Joselo Fernandez MD on 10/08/2023 Encounters Date Type Department Care Team Description 12/16/2024 3:56 PM CDT - 12/16/2024 11:59 PM CDT Hospital Encounter [facility] Radiation Oncology [address] [place] [address] Jimmy Andrea MD Discharge Disposition: Discharge to home or self care 12/16/2024 Orders Only RAD ONC TREATMENTS Miscellaneous, Not In File 12/16/2024 Orders Only [facility] Radiation Oncology [address] [place] [address] Felecia Avila NP 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) 12/15/2024 2:43 PM CDT - 12/15/2024 11:59 PM CDT Hospital Encounter [facility] Radiation Oncology [address] [place] [address] Discharge Disposition: Discharge to home or self care 12/15/2024 Orders Only RAD ONC TREATMENTS Miscellaneous, Not In File 12/14/2024 Telephone [facility] Radiation Oncology [address] [place] [address] Cristina Ann RN Reschedule (Radiation treatment 12/14/24.) 12/13/2024 2:51 PM CDT - 12/13/2024 11:59 PM CDT Hospital Encounter [facility] Radiation Oncology [address] [place] [address] Discharge Disposition: Discharge to home or self care 12/13/2024 OTV [facility] Radiation Oncology [address] [place] [address] Shaheen Navarrete MD PhD 12/13/2024 Orders Only RAD ONC TREATMENTS Miscellaneous, Not In File 12/12/2024 2:30 PM CDT - 12/12/2024 11:59 PM CDT Hospital Encounter [facility] [place] Radiation Oncology [address] [place] [address] Discharge Disposition: Discharge to home or self care 12/12/2024 Orders Only RAD ONC TREATMENTS Miscellaneous, Not In File 12/09/2024 1:58 PM CDT - 12/09/2024 11:59 PM CDT Hospital Encounter [facility] Radiation Oncology [address] [place] [address] Discharge Disposition: Discharge to home or self care 12/09/2024 Orders Only RAD ONC TREATMENTS Miscellaneous, Not In File 12/08/2024 3:39 PM CDT - 12/08/2024 11:59 PM CDT Hospital Encounter [facility] Radiation Oncology [address] [place] [address] Discharge Disposition: Discharge to home or self care 12/08/2024 Orders Only RAD ONC TREATMENTS Miscellaneous, Not In File 12/07/2024 2:43 PM CDT - 12/07/2024 11:59 PM CDT Hospital Encounter [facility] Radiation Oncology [address] [place] [address] Discharge Disposition: Discharge to home or self care 12/07/2024 Orders Only RAD ONC TREATMENTS Miscellaneous, Not In File 12/06/2024 9:48 AM CDT - 12/06/2024 11:59 PM CDT Hospital Encounter [facility] Radiation Oncology [address] [place] [address] Shaheen Navarrete MD PhD Discharge Disposition: Discharge to home or self care 12/06/2024 OTV [facility] Radiation Oncology [address] [place] [address] Ernestine Davis MD Squamous cell carcinoma of cheek (Primary Dx); Left upper lobe consolidation; Yeast infection 12/06/2024 Orders Only RAD ONC TREATMENTS Miscellaneous, Not In File 12/05/2024 8:45 PM CDT - 12/05/2024 11:59 PM CDT Hospital Encounter [facility] [place] Radiation Oncology [address] [place] [address] Discharge Disposition: Discharge to home or self care 12/05/2024 Orders Only RAD ONC TREATMENTS Miscellaneous, Not In File 11/22/2024 3:00 PM CDT - 11/22/2024 11:59 PM CDT Hospital Encounter [facility] [place] Radiation Oncology [address] [place] [address] Shaheen Navarrete MD PhD Discharge Disposition: Discharge to home or self care 11/22/2024 2:00 PM CDT Office Visit [facility] Radiation Oncology [address] [place] [address] Shaheen Navarrete MD PhD 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) 11/16/2024 Telephone [facility] Surgery [facility] Floor [address] [place] [address] Idalia Bello NP 11/15/2024 1:36 PM HOT METAL CAR OPERATOR - 11/15/2024 11:59 PM HOT METAL CAR OPERATOR Hospital Encounter [facility] Radiology [address] [place] [address] Zoie Zuniga MD Discharge Disposition: Discharge to home or self care 11/15/2024 11:25 AM HOT METAL CAR OPERATOR - 11/15/2024 11:59 PM HOT METAL CAR OPERATOR Hospital Encounter [facility] Interventional Pulmonology [address] [place] [address] Left upper lobe consolidation Discharge Disposition: Discharge to home or self care 11/14/2024 Telephone [facility] Interventional Pulmonology [address] [place] [address] Hetal Spencer, DARNELL 11/07/2024 Telephone [facility] Radiation Oncology at [facility] [address] [place] [address] Yaneth Bain RN 11/04/2024 9:40 PM HOT METAL CAR OPERATOR - 11/04/2024 11:59 PM HOT METAL CAR OPERATOR Hospital Encounter [facility] Radiation Oncology [address] [facility] [place] [address] Discharge Disposition: Discharge to home or self care 11/04/2024 Telephone [facility] Radiation Oncology [address] [facility] [place] [phone] Felecia Avila NP 10/27/2024 Orders Only [facility] Pulmonary [address] [facility] Advanced Medicine 8th [place] [address] [place] [address] Bobo Luna RMA Left upper lobe consolidation (Primary Dx) 10/27/2024 Telephone [facility] Pulmonary [address] [facility] Medicine 8th [place] [address] [place] [address] Bobo Luna RMA 10/25/2024 9:00 AM HOT METAL CAR OPERATOR Office Visit [facility] Surgery [address] [facility] [address] [place] [address] Santana Rahman MD Squamous cell carcinoma of cheek [C44.329]; Lung nodule seen on imaging study 10/25/2024 Orders Only [facility] Radiation Oncology [address] [facility] [place] [address] Felecia Avila NP Squamous cell carcinoma of cheek (Primary Dx); Lung nodule seen on imaging study 10/25/2024 Telephone Radiology [address] [place] [address] Shirley Barrientos, RT 10/25/2024 Orders Only [facility] Surgery [address] [facility] Floor [address] [place] [address] Jane Perez NP Pulmonary nodule (Primary Dx) 10/20/2024 Telephone [facility] Surgery [address] [facility] [address] [address] [place] [address] Nanci Bello RMA 10/20/2024 Orders Only [facility] Surgery [address] [place] [address] Santana Rahman MD Squamous cell carcinoma of cheek (Primary Dx) 10/18/2024 2:00 PM HOT METAL CAR OPERATOR Office Visit [facility] Radiation Oncology [address] [facility] [place] [address] Felecia Avila NP Squamous cell carcinoma of cheek [C44.329] (Primary Dx); Lung nodule seen on imaging study 10/18/2024 7:31 AM HOT METAL CAR OPERATOR - 10/18/2024 11:59 PM HOT METAL CAR OPERATOR Hospital Encounter [facility] [address] [place] [address] Discharge Disposition: Discharge to home or self care 10/18/2024 7:31 AM HOT METAL CAR OPERATOR - 10/18/2024 11:59 PM HOT METAL CAR OPERATOR Hospital Encounter [facility] [address] [place] [address] Squamous cell carcinoma of cheek Discharge Disposition: Discharge to home or self care 10/18/2024 7:31 AM HOT METAL CAR OPERATOR - 10/18/2024 11:59 PM HOT METAL CAR OPERATOR Hospital Encounter [facility] [address] [place] [address] Shaheen Navarrete MD PhD Squamous cell carcinoma of cheek Discharge Disposition: Discharge to home or self care from Last 3 Months Immunizations Immunization Administration Dates Next Due COVID-19 mRNA (Uepaa) 0.3 m L (30 mcg) vaccine (12 years and up) 07/11/2023 Influenza, Quad, Adjuvantate d, Intramuscular 07/11/2023,06/18/2022,07/08/2021,06/21 Influenza, Trivalent, IM (MDV) 06/19/2015,2013 Influenza, Trivalent, Preser vative Free, Intramuscular 06/17/2016 Pfizer SARS-CoV-2 Monovalent Vaccination (12+ Yrs) PURPLE 07/31/2021 Pfizer Sars-Cov-2 Bivalent V accination (12+ YRS) 06/18/2022 Pneumococcal Conjugate PCV 13 06/28/2019 Surgical History Surgery Date Site/Laterality Comments MULTIPLE TOOTH EXTRACTIONS 1960s HERNIA REPAIR 09/14/2012 - 09/13/2013 SKIN CANCER EXCISION 09/14/2017 - 09/13/2018 nose PARATHYROIDECTOMY unknown date CHOLECYSTECTOMY 1960s COLONOSCOPY over 10 years ago SKIN BIOPSY FRACTURE SURGERY COLON SURGERY Medical History Medical History Date Comments Hypertension GERD (gastroesophageal reflux disease) Chronic kidney disease Chronic pain disorder Cancer (HCC) Atrial fibrillation, controlled (HCC) Lymphedema Arthritis Coronary artery disease Family History Medical History Relation Name Comments Heart attack Father Heart attack Other Anesthesia problems Neg Hx Relation Name Status Comments Father Other Social History Tobacco Use Types Packs/Day Years [...] on file Sexual Orientation Not on file Obstetrics History Last Filed Vital Signs Vital Sign Reading Time Taken Comments Blood Pressure 137/100 11/15/2024 2:50 PM HOT METAL CAR OPERATOR Pulse 47 11/15/2024 2:50 PM HOT METAL CAR OPERATOR Temperature 36.6 C (97.9 F) 11/15/2024 1:38 PM HOT METAL CAR OPERATOR Respiratory Rate 15 11/15/2024 2:50 PM HOT METAL CAR OPERATOR Oxygen Saturation 93% 11/15/2024 2:50 PM HOT METAL CAR OPERATOR Inhaled Oxygen Concentration - - Weight 97.5 kg (215 lb) 10/18/2024 1:23 PM HOT METAL CAR OPERATOR Height 152.4 cm (5') 10/18/2024 1:23 PM HOT METAL CAR OPERATOR Body Mass Index 41.99 10/18/2024 1:23 PM HOT METAL CAR OPERATOR Plan of Treatment Health Maintenance Due Date Last Done Comments Depression Screening 1945 Osteoporosis Screening-Bone Density Scan 1945 DTaP/Tdap/Td Vaccine (1 - Tdap) 1954 Hepatitis B Screening 1961 Zoster Vaccine (1 of 2) 1962 Well Visit 65+ 2008 Pneumococcal vaccine 65+ (2 of 2 - PPSV23) 08/23/2019 06/28/2019 Covid-19 Vaccine (2023-2 5 season) 2024 07/11/2023, 06/18/2022, 07/31/2021, Additional history exists Influenza Vaccine (Season Ended) 2025 07/11/2023, 06/18/2022, 07/08/2021, Additional history exists Fall Risk Assessment 11/15/2025 11/15/2024, 10/08/19 24 Procedures Procedure Name Priority Date/Time Associated Diagnosis [...] 1 VIEW IP Routine 11/15/2024 2:16 PM HOT METAL CAR OPERATOR SURGICAL PATHOLOGY Routine 11/15/2024 1: 23 PM HOT METAL CAR OPERATOR CYTOLOGY Routine 11/15/2024 12:53 PM HOT METAL CAR OPERATOR BRONCHOSCOPY Routine 11/15/2024 12:30 PM HOT METAL CAR OPERATOR Left upper lobe consolidation PET/CT FDG SKULL TO THIGH Schedule Routine, Read Routine (OP Routine) 10/18/2024 11:04 AM HOT METAL CAR OPERATOR Squamous cell carcinoma of cheek CT CHEST W CONTRAST Schedule Routine, Read Routine (OP Routine) 10/18/2024 8:34 AM HOT METAL CAR OPERATOR Squamous cell carcinoma of cheek POCT CREATININE - DEVICE Routine 10/18/2024 8:05 AM HOT METAL CAR OPERATOR from Last 3 Months Results * RAD ONC ARIA SESSION SUMMARY (12/16/2024 4:24 PM CDT) Course Name C2_Lt_LUNG ARIA Course [...] Final Result Performing Organization Address [facility] Co de Phone Number ARIA * RAD ONC ARIA SESSION SUMMARY (12/15/2024 3:28 PM CDT) Course Name C2_Lt_LUNG ARIA Course [...] (12/13/2024 3:30 PM CDT) Course Name C2_Lt_LUNG ARIA Course [...] ORD ERABLES Final Result Performing Organization Address City/[facility]/ZIP Co de Phone Number ARIA * RAD ONC ARIA SESSION SUMMARY (12/12/2024 3:23 PM CDT) Course Name C2_Lt_LUNG _2024 ARIA [...] Final Result Performing Organization Address [facility] Co de Phone Number ARIA * RAD ONC ARIA SESSION SUMMARY (12/09/2024 2:48 PM CDT) Course Name C2_Lt_LUNG _2024 ARIA [...] ORD ERABLES Final Result Performing Organization Address City/[facility] Co de Phone Number ARIA * [...] Final Result Performing Organization Address [facility] de Phone Number ARIA * RAD [...] ORD ERABLES Final Result Performing Organization Address City/[facility] Co de Phone Number ARIA * RAD ONC ARIA SESSION SUMMARY (12/06/2024 10:29 AM CDT) Course Name C2_Lt_LUNG ARIA Course Plan [...] ONCOLOGY ORD ERABLES Final Result [facility]ANE[facility] * RAD ONC ARIA COURSE SUMMARY (12/05/2024 [...] XR Chest 1 Vw (11/15/2024 2:16 PM HOT METAL CAR OPERATOR) Anatomical Region Laterality Modality Body, Chest N/A Computed Radiogr aphy 11/15/2024 4:08 PM HOT METAL CAR OPERATOR Impressions 11/15/2024 4:12 PM HOT METAL CAR OPERATOR No prior radiograph available for comparison. Small [...] Pola Floyd M.D. Narrative 11/15/2024 4:12 PM HOT METAL CAR OPERATOR EXAMINATION: 1 view chest radiograph Procedure Note [...] it. Electronically signed by: Pola Floyd M.D. Zoie Zuniga MD IMG XR PROCEDURES Final Result * Surgical pathology (11/15/2024 1:23 PM HOT METAL CAR OPERATOR) Tissue specimen (specimen) (Lung Biopsy) 11/15/2024 1:23 PM HOT METAL CAR OPERATOR 11/15/2024 5:48 PM HOT METAL CAR OPERATOR Narrative PATHOLOGY [facility] - 11/16/2024 9:33 AM HOT METAL CAR OPERATOR EPIC results best viewed via link to PDF [facility] Laboratory of Surgical Pathology [facility], [place] [address] Note to Patients: This report may contain [...] Gender: F : 1945 (Age: 79) Address: [address] [place], [place] [id number] Hospital #: [id number] Taken:11/15/2024 Received:11/15/2024 Reported: 11/16/2024 Patient Type: [facility] Ancillary Service: Pulmonary Location: Physician(s): Kaushik Guerin [...] Surgical Pathology and Flow Cytometry Departments at [facility] as part of an ongoing quality control operator program and in compliance with federally mandated [...] Surgical Pathology and Flow Cytometry Departments of [facility]. It has not been cleared or approved by the U. S. Food and Drug Administration. IMAGES AND SCANNED DOCUMENTS, IF INCLUDED, ONLY VIEWABLE IN PDF VERSION OF REPORT us Pako Gaytan MD LAB PATHOLOGY ORDERABLES Final Result PATHOLOGY [facility] 3rd Floor [place], [place] [phone] * Cytology (11/15/2024 12:53 PM HOT METAL CAR OPERATOR) Fluid (Lung (Cytology)) 11/15/2024 12:53 PM HOT METAL CAR OPERATOR 11/15/2024 1:35 PM HOT METAL CAR OPERATOR Narrative PATHOLOGY [facility] - 11/16/2024 3:05 PM HOT METAL CAR OPERATOR EPIC results best viewed via link to PDF [facility] [place] [address] Note to Patients: This report may contain [...] Gender: F : 1945 (Age: 79) Address: [address] [place] [address] Hospital #: [id number] Taken:11/15/2024 Received:11/15/2024 Reported: 11/16/2024 Patient Type: [facility] Ancillary Service: UNKNOWN Location: Physician(s): Pako Gaytan M.D. FINAL DIAGNOSIS A. Lung, left upper lobe, endobronchial ultrasound guided, fluoroscopy assisted, fine needle aspiration: - Squamous cell carcinoma Comments The cell block confirms the diagnosis. wp/11/16/2024 15:05 By this signature, I attest that [...] Surgical Pathology and Flow Cytometry Departments at [facility] as part of an ongoing quality control operator program and in compliance with federally mandated [...] Surgical Pathology and Flow Cytometry Departments of [facility]. It has not been cleared or approved by the U. S. Food and Drug Administration. Pako Gaytan MD LAB CYTOLOGY ORDERABLES F inal Result PATHOLOGY [facility] 3rd Floor [place], [place] [phone] * Bronchoscopy -[facility] Interventional Pulm; Bronchoscopy, RADIAL BIOPSY (11/15/2024 12:30 PM HOT METAL CAR OPERATOR) Anatomical Region Laterality Modality Other Narrative Procedure Note Pako Gaytan MD - 11/15/2024 12:30 PM CST [facility] Interventional Pulmonary Patient Name: Cheryl Murillo Procedure [...] FDG Skull to Thigh (10/18/2024 11:04 AM HOT METAL CAR OPERATOR) Anatomical Region Laterality Modality N/A Positron Emissio n Tomography (PET) 10/18/2024 11:3 8 AM HOT METAL CAR OPERATOR Impressions 10/18/2024 12:17 PM HOT METAL CAR OPERATOR Interval increase in size and FDG uptake [...] Efraín Marie M.D. Narrative 10/18/2024 12:17 PM HOT METAL CAR OPERATOR EXAMINATION: TUMOR FDG-PET/CT IMAGING DATE OF STUDY: 10/18/2024 SCANNER: [facility] WebVisible (NV1). This is a high-resolution scanner, which [...] obtained. The study was interpreted on the Coveroo workstation. The mean liver SUV (reported for housing quality standard inspector purposes) is 3.4. The total scanned area [...] FDG-PET/CT IMAGING DATE OF STUDY: 10/18/2024 SCANNER: [facility] Vascular Pathways (NV1). This is a high-resolution scanner, which [...] obtained. The study was interpreted on the Coveroo workstation. The mean liver SUV (reported for housing quality standard inspector purposes) is 3.4. The total scanned area [...] it. Electronically signed by: Efraín Marie M.D. Shaheen Navarrete MD PhD IMG PET PROCEDURES Final Result * CT chest with contrast (10/18/2024 8:34 AM HOT METAL CAR OPERATOR) Anatomical Region Laterality Modality Body N/A Computed Tomogra phy 10/18/2024 8:51 AM HOT METAL CAR OPERATOR Impressions 10/18/2024 8:51 AM HOT METAL CAR OPERATOR 1. Increasing size of 1.1 cm solid [...] Nilton Rashid M.D. Narrative 10/18/2024 8:51 AM HOT METAL CAR OPERATOR EXAMINATION: Computed tomography of the chest with [...] criteria. Electronically signed by: Nilton Rashid M.D. Shaheen Navarrete MD PhD IMG CT PROCEDURES Final R esult * POCT creatinine (10/18/2024 8:05 AM HOT METAL CAR OPERATOR) Creatinine POC 1.1 0.6 - 1.1 mg/dL Blood 10/18/2024 8:05 AM HOT METAL CAR OPERATOR 10/18/2024 8:05 AM HOT METAL CAR OPERATOR us Shaheen Navarrete MD PhD LAB POCT ORDERABLES - DEV ICE Final Result [facility] One [facility] [place] [address] from Last 3 Months Insurance [facility] IDCT [facility] [place] [address] [place] [address] MEDICARE [facility] IDPA Advance Directives For more information, please contact: [phone] * Full Code (Latest Code Status on File) Date Activated Date Inactivated Comments 09/10/2023 3:28 PM 09/11/2023 6:00 PM Care Teams Detail Assembler Relationship Specialty Start Date End Date Michele Coleman MD PCP - General 12/12/16 Aries Soliman MD [address] [place] [address] [place] [address] Dermatology 09/01/23 Yanira Granda MD [address] [place] [address] Referring Physician Dermatology 09/01/23 Dennis Gentile MD [address] [place] [address] Referring Physician Otolaryngology 10/25/24
[2024-12-28 19:34] VITALS: BP 118/56; PULSE 65; RESP 14; TEMP 36.6; O2SAT 100
--- NOTE | 2024-12-28 20:54 | ED.WOUNDLAC ---
HPI - Wound/Laceration General Chief Complaint: Wound/Laceration Stated Complaint: Laceration right leg-cut with walker Time Seen by Provider: 12/28/24 20:05 Source: patient Mode of arrival: ambulatory Limitations: no limitations History of Present Illness HPI narrative: Patient is an 79-year-old female, with past medical history of lymphedema, who presents the ED with report of a laceration to her right lower leg. Patient reports she scraped her lower leg against the edge of her walker, causing a superficial laceration to her right lower leg. Denies any other injuries. Denies numbness. Tetanus status is unknown. She is not on any anticoagulation. Related Data Home Medications ?Medication ?Instructions ?Recorded ?Confirmed ?Last Taken ?Type omeprazole magnesium 20 mg 20 mg PO DAILY 12/15/19 05/27/23 09/17/21 08:00 History tablet,delayed release (Prilosec OTC) zanubrutinib 80 mg capsule 160 mg PO BID 03/07/23 05/27/23 Unknown History (Brukinsa) allopurinol 300 mg tablet 300 mg PO DAILY 03/08/23 05/27/23 Unknown History Allergies Allergy/AdvReac Type Severity Reaction Status Date / Time No Known Allergies Allergy Verified 12/28/24 19:04 Review of Systems Review of Systems: All systems reviewed & are unremarkable except as noted in HPI. All systems reviewed & are unremarkable except as noted in HPI and below PMFSH Past Medical History Medical History Morbid obesity with BMI of 40.0-44.9, adult Squamous cell carcinoma of skin of left cheek Squamous cell carcinoma of neck Dyslipidemia BCC (basal cell carcinoma), face Basal cell carcinoma of nasal tip Basal cell carcinoma of clavicular area AK (actinic keratosis) Skin cancer Basal and squamous cell. Paroxysmal atrial fibrillation Gastroesophageal reflux disease Chronic lymphocytic leukemia (03/2019) Followed by Dr. Napier. Chronic anticoagulation Hyperparathyroidism, primary Status post parathyroidectomy. Pulmonary hypertension Mild pulmonary hypertension on echo from March 2019 Chronic kidney disease, stage 3 Anxiety Polymyalgia rheumatica Diverticulitis Diastolic dysfunction Paroxysmal atrial flutter Arthritis Hypertension Rheumatic fever High cholesterol Surgical History Surgical History Status post surgical removal of malignant neoplasm of skin Both basal and squamous cell carcinomas. With subsequent acquired deformity of the nose due to reconstruction History of colonoscopy with polypectomy History of inguinal hernia repair History of cholecystectomy Family History Family History Mother Obesity of complications of obesity in her 60s. Hypertension Father Heart disease in his 60s of heart disease. Hypertension Sibling Parkinson disease Brother Grandparent Malignant neoplasm of prostate Grandparent Cerebrovascular accident Sibling Breast cancer Daughter Lymphedema Social History Social History Social History: The patient lives independently in a mobile home in [place]. She has been since 2004. Daughter and [id number] live nearby. 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 Ambulates with a walker. Nonsmoker. Drinks alcohol perhaps once a year. No drug use. Surrogate decision maker: Melina Murillo, daughter. Code status: DNR/DNI (per patient request) Smoking status: Never smoker Alcohol intake: former Substance use: never Lack of Transportation: No Lack of Food: Never True Current Housing: I Have Housing Concerned About Future Housing: No Difficulty Paying Gas/Electric Bills: No Difficulty Paying for Meds: No Currently Unemployed: No Education: High School Diploma/GED Difficulty w/ Childcare or Family Care: No Living arrangements: alone Occupation/Education: retired Spiritual care concerns: No Exam Narrative: GENERAL: Elderly, chronically ill-appearing, morbidly obese with BMI of 43.1, non-toxic, in no acute distress. HEAD: Normocephalic, atraumatic. RESPIRATORY: Airway patent, respirations nonlabored. CARDIOVASCULAR: Regular rate and rhythm without murmurs, rubs, or gallops. Pedal pulses are intact and easily palpable. MUSCULOSKELETAL: Moves all extremities. Diffuse lymphedema to bilateral lower extremities. Venous stasis changes. Sensation intact. Approximately 8 cm linear laceration to right lower lateral leg with minimal active bleeding. Laceration is fairly superficial. Minimal amount of subq fat exposed. SKIN: Warm, dry, normal color. NEURO: A&O X3. Speech clear. No ataxic movements. PSYCHIATRIC: Appropriate mood and affect. Normal interaction. Course Vital Signs Vital signs: Vital Signs Temperature 97.8 F 12/28/24 19:34 Pulse Rate 65 12/28/24 19:34 Respiratory Rate 14 12/28/24 19:34 Blood Pressure 118/56 L 12/28/24 19:34 Pulse Oximetry 100 12/28/24 19:34 Oxygen Delivery Room Air 12/28/24 19:34 Temperature 97.8 F 12/28/24 19:34 Pulse Rate 65 12/28/24 19:34 Respiratory Rate 14 12/28/24 19:34 Blood Pressure 118/56 L 12/28/24 19:34 Pulse Oximetry 100 12/28/24 19:34 Oxygen Delivery Room Air 12/28/24 19:34 Procedures Laceration Laceration 1: Date: 12/28/24 Time: 21:30 Site: lower extremity Side (If applicable): right Size (cm): 8 Description: linear Depth: simple, single layer Local Anesthetic: lidocaine 1% Amount of anesthesia used (mL): 10 Pre-repair: wound explored, irrigated and irrigated extensively ====== Skin Level ====== Skin layer closed with: nylon Size (cm): 4-0 Number of sutures: 11 Technique: simple, interrupted ====== Subcutaneous Layer ====== ====== Muscle Layer ====== ====== Tendon Layer ====== MDM - Wound/Laceration MDM Narrative Medical decision making narrative: Laceration fairly superficial, minimal tenderness, no indication for imaging. Laceration repaired without complications. Tetanus updated in the ED. Patient reports longstanding history of chronic lymphedema with frequent episodes of cellulitis. Will cover for cellulitis with prophylactic antibiotics. Patient given wound care instructions and reasons to return. She is in agreement w/ plan. Discharged in stable condition. Medical Records Attestation: I reviewed the patient's medical records. Discharge Plan Discharge Clinical Impression: Lymphedema Laceration of right lower leg Qualifiers: Encounter type: initial encounter Qualified Code(s): S81.811A - Laceration without foreign body, right lower leg, initial encounter Patient Disposition: Home Condition: Stable Instructions: Antibiotic Form, Care For Your Stitches (ED), Laceration (ED) Additional Instructions: Return to the ED or visit an urgent care or your PCP for follow-up and wound check/suture removal in 10 to 14 days. Keep the wound as dry as possible for 24 hours. You may remove the bandage after 24 hours and wash with simple soap and water, but do not scrub. Change bandage daily or whenever visibly soiled. Take antibiotics as prescribed for protection against infection. Return to the ED if you experience uncontrolled bleeding, fever, chills, pus-like drainage, or redness/swelling/warmth surrounding the wound, as these could be signs of an infection. Patient Language: Monegasque Prescriptions: New cephalexin 500 mg capsule 500 mg PO TID 5 Days Qty: 15 0RF No Action omeprazole magnesium [Prilosec OTC] 20 mg Tablet,Delayed Release (Dr/Ec) 20 mg PO DAILY cephalexin 500 mg capsule 500 mg PO Q12H Qty: 14 0RF ferrous sulfate 325 mg (65 mg iron) Tablet 324 mg PO BIDWM Qty: 60 1RF Rx Instructions: START IRON SUPPLEMENTS AFTER YOU HAVE FINISIHED THE DOXYCYCLINE albuterol sulfate [ProAir HFA] 90 mcg/actuation HFA aerosol inhaler 2 puff inhalation QID PRN (Reason: shortness of breath or wheezing) Qty: 6.7 0RF Brukinsa 80 mg capsule 160 mg PO BID Rx Instructions: pt states she takes 7am and 7pm allopurinol 300 mg Tablet 300 mg PO DAILY fluticasone propionate 50 mcg/actuation [place],Suspension 2 spray intranasal QAM Qty: 16 0RF polyethylene glycol 3350 [Miralax] 17 gram Powder In Packet 17 g PO QAM PRN (Reason: Constipation) Qty: 14 0RF docusate sodium 100 mg Capsule 100 mg PO Q12HR Qty: 60 0RF tramadol 50 mg tablet 25 mg PO Q6H PRN (Reason: pain) Qty: 10 0RF amiodarone [Pacerone] 100 mg tablet See Rx Instructions .ROUTE .COMPLEX Qty: 90 2RF Dose Instruction: Take 1 tablet by mouth once daily Rx Instructions: Take 1 tablet by mouth once daily amlodipine 2.5 mg tablet See Rx Instructions .ROUTE .COMPLEX Qty: 90 2RF Dose Instruction: Take 1 tablet by mouth once daily Rx Instructions: Take 1 tablet by mouth once daily atorvastatin 80 mg tablet See Rx Instructions .ROUTE .COMPLEX Qty: 90 2RF Dose Instruction: Take 1 tablet by mouth once daily Rx Instructions: Take 1 tablet by mouth once daily furosemide 20 mg tablet See Rx Instructions .ROUTE .COMPLEX Qty: 90 2RF Dose Instruction: TAKE 1 TABLET BY MOUTH IN THE MORNING Rx Instructions: TAKE 1 TABLET BY MOUTH IN THE MORNING Follow-up/Referrals: Sally,Joselo Castle APRN [Non-Staff] - Time of Disposition: 21:50
[2024-12-28] MEDS: TETANUS,DIPHTHERIA,AC PERTUSSIS ADULT (0.5 ML) BOOSTRIX IM (20:59)
--- OUTSIDE RECORDS SUMMARY | 2024-12-28 21:01 | XMS_ITS | Encounter Summary ---
Author Organization [facility] [employer] [facility] Address [address] [place] [address] Care Team Providers Care Cable Assembler Name Role Phone Tino Hernandez MD Primary Care Provider Encounter Details Date Type Department Care Team (Late st Contact Info) Description 01/08/2023 Abstract [facility] Oncology [facility] H[facility]ology - [place] [address] [address] Nish Vásquez, DARNELL Social History Tobacco Use Types Packs/Day Years Used Date Smoking Tobacco: Never Smokeless Tobacco: Never Alcohol Use Standard Drinks/Week Comments No 0 (1 standard drink = 0.6 oz pur e alcohol) Comments No Sex and Gender Information Value Date Recorded Sex Assigned at Not on file Legal 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
--- OUTSIDE RECORDS SUMMARY | 2024-12-28 21:01 | XMS_ITS | Clinical Summary ---
Author Organization [employer] [facility] [address] Address [address] [place] [address] Phone Care Team Providers Care Power Brake Operator Name Role Phone Tino Hernandez MD Primary [...] Data STL ABSTRACTION Provider, Abstract 12/15/2024 Telephone [facility] Oncology and Hematology [facility] [place] [place] [address] [place] [address] Luther Napier MD Palliative Care 11/30/2024 External Device Data STL ABSTRACTION Provider, Abstract 11/21/2024 Telephone [facility] Oncology and Hematology 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
--- OUTSIDE RECORDS SUMMARY | 2024-12-28 21:02 | XMS_ITS | Clinical Summary ---
Author Organization [facility] [employer] Address [address] [place] [address] Care Team Providers Care Pan Greaser Name Role Phone Idalia Serrano MD Primary Care Provider [phone] Source Comments [facility],non-owned Affiliates and Associated Physician Practices is amultiple site organization consisting of ambulatory clinics and hospital sitesin [place], [place], [place] and [place]. This disclosure is being madepursuant to the Care Everywhere program and may not contain all information available regarding this patient. Last updated 18.[facility] [employer] Allergies No known active allergies Medications * [...] 36.7 C (98 F) 09/08/2019 1:02 PM EVENT REPRESENTATIVE Respiratory Rate 14 06/12/2020 6:30 PM CDT [...] Documents on File Type Date Recorded Patient Edge Banding Off Bearer Expl anation Adv Directive/Living Will/POA 01/19/2017 Care Teams Pan Greaser Relationship Specialty Start Date End Date Idalia Serrano MD [address] [place] [address] PCP - General 04/30/22
--- OUTSIDE RECORDS SUMMARY | 2024-12-28 21:02 | XMS_ITS | Encounter Summary ---
Author Organization [facility] Address [address] [place] [address] Care Team Providers Care Signal Maintainer Name Role Phone Tino Hernandez MD Primary [...] on file Legal Sex Female 4:45 AM TOP LIFT CUTTER Gender Identity Not on file Sexual Orientation Not on file documented as of this encounter Plan of Treatment Not on file documented as of this encounter Visit Diagnoses Not on filedocumented in this encounter Care Teams Signal Maintainer Relationship Specialty Start Date End Date Tino Hernandez MD [address] [place] [address] PCP - General Family Practice 11/24/22 documented as of this encounter
--- OUTSIDE RECORDS SUMMARY | 2024-12-28 21:02 | XMS_ITS | Encounter Summary ---
Author Organization [facility] Address [address] [place] [address] Care Team Providers Care Personnel Consultant Name Role Phone Idalia Serrano MD Primary Care Provider [phone] Encounter Details Date Type Department Care Team (Late st Contact Info) Description 10/09/2022 Lab Requisition [facility] [address] [place] [address] Yanira Granda MD [address] [facility] [facility] [place] [address] [place] [address] Social History Tobacco Use Types [...] Comments DERMATOPATHOLOGY Routine 10/07/2022 12:0 0 AM MARKETING INFORMATION MANAGER documented in this encounter Results * DERMATOPATHOLOGY (10/07/2022 12:00 AM MARKETING INFORMATION MANAGER) Case Report Dermatopathology Report Case: [id number] Authorizing Provider: Yanira Granda MD Collected: 10/07/2022 12:00 AM Ordering Location: [facility] Received: 10/09/2022 01:05 PM Pathologist: Leyda Lorenzo MD Specimen: Skin, left inferior central forehead 4:51 PM [facility] Final Diagnosis Specimen A. SKIN, left inferior central forehead: SQUAMOUS CELL CARCINOMA IN SITU, PRESENT AT THE BASE OF THE SPECIMEN (D04.39) (see microscopic description and comment) 4:51 PM [facility] Clinical History Neoplasm of Uncertain Behavior vs. Squamous Cell Carcinoma 4:51 PM [facility] Gross Description Specimen A: Received is one formalin filled container labeled with the patient's name and designated left inferior central forehead. The specimen consists of a shave biopsy measuring [id number]. Jar 0. 4:51 PM [facility] Microscopic Description Specimen A. SKIN, left inferior central forehead: Focal tangential sectioning is present. The epidermis shows parakeratosis, full thickness disorderly maturation of keratinocytes, mitoses at different levels, and dyskeratotic cells. Adnexal extension of the lesion is seen. The lesion broadly extends to the base of the biopsy. COMMENT: An invasive squamous cell carcinoma cannot be ruled out. 4:51 PM [facility] Disclaimer An external and internal positive and negative controls are appropriate for the histochemical, immunohistochemical and immunofluorescence stain(s) in this case (if any), except where stated explicitly. The performance characteristics of the stain(s) cited in this report were developed and its performance characteristic determined by the Dermatopathology Laboratory at [facility], directed by Dr. Corrine Baker. These tests need not be, and therefore are not, approved by the [place] Food and Drug Administration. The tests are used for clinical purposes. Billing Codes Specimen Charges Stain Charges 95487 1 3 4:51 PM MARKETING INFORMATION MANAGER DERMATOPATHOLOGY LABORATORY Embedded Images 3 4:51 PM MARKETING INFORMATION MANAGER DERMATOPATHOLOGY LABORATORY Pathology/Cytolog y TISSUE SPECIMEN FROM SKIN / Unknown 10/07/2022 10/09/2022 1:05 PM MARKETING INFORMATION MANAGER Yanira Granda MD LAB - PATHOLOGY/CYTOLOGY ORDER DONAL Final Result DERMATOPATHOLOGY LABORATORY [facility] - Department of Dermatology [facility] [address] [place] [address], [address] [phone] documented in this encounter Visit Diagnoses Not on filedocumented in this encounter Care Teams Personnel Consultant Relationship Specialty Start Date End Date Idalia Serrano MD [address] [place] [address] PCP - General 04/30/22 documented as of this encounter
--- OUTSIDE RECORDS SUMMARY | 2024-12-28 21:02 | XMS_ITS | Referral Summary ---
Author Organization [facility] Address [address] [place] [address] Care Team Providers Care Lettuce Cutter Name Role Phone Michele Coleman MD Primary Care Provider Aries Soliman MD Unavailable [phone] Yanira Granda MD Unavailable [phone] Dennis Gentile MD Unavailable [phone] Encounters Date Type Department Care Team Description 12/16/2024 Orders Only RAD ONC TREATMENTS Miscellaneous, Not In File 12/16/2024 Orders Only [facility] Radiation Oncology [facility] [place] [address] Felecia Avila NP 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) 12/16/2024 3:56 PM CDT - 12/16/2024 11:59 PM CDT Hospital Encounter [facility] Radiation Oncology [address] [place] [address] Jimmy Andrea MD Discharge Disposition: Discharge to home or self care 12/15/2024 Orders Only RAD ONC TREATMENTS Miscellaneous, Not In File 12/15/2024 2:43 PM CDT - 12/15/2024 11:59 PM CDT Hospital Encounter [facility] Radiation Oncology [address] [place] [address] Discharge Disposition: Discharge to home or self care 12/14/2024 Telephone [facility] Radiation Oncology [address] [facility] [place] [address] Cristina Ann RN Reschedule (Radiation treatment 12/14/24.) 12/13/2024 OTV [facility] Radiation Oncology [address] [place] [address] Shaheen Navarrete MD PhD 12/13/2024 Orders Only RAD ONC TREATMENTS Miscellaneous, Not In File 12/13/2024 2:51 PM CDT - 12/13/2024 11:59 PM CDT Hospital Encounter [facility] Radiation Oncology [address] [place] [address] Discharge Disposition: Discharge to home or self care 12/12/2024 Orders Only RAD ONC TREATMENTS Miscellaneous, Not In File 12/12/2024 2:30 PM CDT - 12/12/2024 11:59 PM CDT Hospital Encounter [facility] Radiation Oncology [address] [place] [address] Discharge Disposition: Discharge to home or self care 12/09/2024 Orders Only RAD ONC TREATMENTS Miscellaneous, Not In File 12/09/2024 1:58 PM CDT - 12/09/2024 11:59 PM CDT Hospital Encounter [facility] Radiation Oncology [address] [place] [address] Discharge Disposition: Discharge to home or self care 12/08/2024 Orders Only RAD ONC TREATMENTS Miscellaneous, Not In File 12/08/2024 3:39 PM CDT - 12/08/2024 11:59 PM CDT Hospital Encounter [facility] Radiation Oncology [address] [place] [address] Discharge Disposition: Discharge to home or self care 12/07/2024 Orders Only RAD ONC TREATMENTS Miscellaneous, Not In File 12/07/2024 2:43 PM CDT - 12/07/2024 11:59 PM CDT Hospital Encounter [facility] Radiation Oncology [address] [place] [address] Discharge Disposition: Discharge to home or self care 12/06/2024 OTV [facility] Radiation Oncology [address] [place] [address] Ernestine Davis MD Squamous cell carcinoma of cheek (Primary Dx); Left upper lobe consolidation; Yeast infection 12/06/2024 Orders Only RAD ONC TREATMENTS Miscellaneous, Not In File 12/06/2024 9:48 AM CDT - 12/06/2024 11:59 PM CDT Hospital Encounter [facility] Radiation Oncology [address] [place] [address] Shaheen Navarrete MD PhD Discharge Disposition: Discharge to home or self care 12/05/2024 8:45 PM CDT - 12/05/2024 11:59 PM CDT Hospital Encounter [facility] Radiation Oncology [address] [place] [address] Discharge Disposition: Discharge to home or self care 12/05/2024 Orders Only RAD ONC TREATMENTS Miscellaneous, Not In File 11/22/2024 2:00 PM CDT Office Visit [facility] Radiation Oncology [address] [place] [address] Shaheen Navarrete MD PhD 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) 11/22/2024 3:00 PM CDT - 11/22/2024 11:59 PM CDT Hospital Encounter [facility] Radiation Oncology [address] [place] [address] Shaheen Navarreet MD PhD Discharge Disposition: Discharge to home or self care 11/16/2024 Telephone [facility] Surgery [address] [place] [address] Floor [address] [place] [address] Idalia Bello NP 11/15/2024 1:36 PM ACCOUNT SUPPORT ASSOCIATE - 11/15/2024 11:59 PM ACCOUNT SUPPORT ASSOCIATE Hospital Encounter [facility] Radiology 1 [place] [address] Zoie Zuniga MD Discharge Disposition: Discharge to home or self care 11/15/2024 11:25 AM ACCOUNT SUPPORT ASSOCIATE - 11/15/2024 11:59 PM ACCOUNT SUPPORT ASSOCIATE Hospital Encounter [facility] Interventional Pulmonology 1 [place] [address] Left upper lobe consolidation Discharge Disposition: Discharge to home or self care 11/14/2024 Telephone [facility] Interventional Pulmonology [address] [place] [address] Hetal Spencer RN 11/07/2024 Telephone [facility] Radiation Oncology at [facility] [address] [place] [address] Yaneth Bain RN 11/04/2024 9:40 PM ACCOUNT SUPPORT ASSOCIATE - 11/04/2024 11:59 PM ACCOUNT SUPPORT ASSOCIATE Hospital Encounter [facility] Radiation Oncology [address] [place] [address] Discharge Disposition: Discharge to home or self care 11/04/2024 Telephone [facility] Radiation Oncology [address] [place] [phone] Felecia Avila NP 10/27/2024 Orders Only [facility] Pulmonary [address] [facility] Advanced Medicine 8th [place] [address] [place] [address] Bobo Luna RMA Left upper lobe consolidation (Primary Dx) 10/27/2024 Telephone [facility] Pulmonary [address] [facility] Medicine 8th [place] [address] [place] [address] Bobo Luna RMA 10/25/2024 Orders Only [facility] Radiation Oncology [address] [facility] [place] [address] Felecia Avila, PARESH Squamous cell carcinoma of cheek (Primary Dx); Lung nodule seen on imaging study 10/25/2024 Telephone Radiology 1 [place] [address] Iliana Shirleybelén Nicole, 10/25/2024 Orders Only [facility] Surgery [address] [facility] Floor 5 [place] [address] Jane Perez NP Pulmonary nodule (Primary Dx) 10/25/2024 9:00 AM ACCOUNT SUPPORT ASSOCIATE Office Visit [facility] Surgery [address] [facility] [address] [place] [address] Santana Rahman MD Squamous cell carcinoma of cheek [C44.329]; Lung nodule seen on imaging study 10/20/2024 Telephone [facility] Surgery [address] [facility] [address] [place] [address] Nanci Bello RMA 10/20/2024 Orders Only [facility] Surgery [address] [facility] [address] [place] [address] Santana Rahman MD Squamous cell carcinoma of cheek (Primary Dx) 10/18/2024 2:00 PM ACCOUNT SUPPORT ASSOCIATE Office Visit [facility] Radiation Oncology [address] [facility] [place] [address] Felecia Avila NP Squamous cell carcinoma of cheek [C44.329] (Primary Dx); Lung nodule seen on imaging study 10/18/2024 7:31 AM ACCOUNT SUPPORT ASSOCIATE - 10/18/2024 11:59 PM ACCOUNT SUPPORT ASSOCIATE Hospital Encounter [facility] [address] [place] [address] Discharge Disposition: Discharge to home or self care 10/18/2024 7:31 AM ACCOUNT SUPPORT ASSOCIATE - 10/18/2024 11:59 PM ACCOUNT SUPPORT ASSOCIATE Hospital Encounter [facility] [address] [place] [address] Squamous cell carcinoma of cheek Discharge Disposition: Discharge to home or self care 10/18/2024 7:31 AM ACCOUNT SUPPORT ASSOCIATE - 10/18/2024 11:59 PM ACCOUNT SUPPORT ASSOCIATE Hospital Encounter [facility] ([facility]) [address] [place] [address] Shaheen Navarrete MD PhD Squamous cell carcinoma [...] while awake 50 each 3 Active white petrolatum-medical examiner al oil (REFRESH PM) ointment Apply [...] Immunization Administration Dates Next Due COVID-19 mRNA ([employer]) 0.3 m L (30 mcg) vaccine (12 [...] Comments Blood Pressure 137/100 11/15/2024 2:50 PM ACCOUNT SUPPORT ASSOCIATE Pulse 47 11/15/2024 2:50 PM ACCOUNT SUPPORT ASSOCIATE Temperature 36.6 C (97.9 F) 11/15/2024 1:38 PM ACCOUNT SUPPORT ASSOCIATE Respiratory Rate 15 11/15/2024 2:50 PM ACCOUNT SUPPORT ASSOCIATE Oxygen Saturation 93% 11/15/2024 2:50 PM ACCOUNT SUPPORT ASSOCIATE Inhaled Oxygen Concentration - - Weight 97.5 kg (215 lb) 10/18/2024 1:23 PM ACCOUNT SUPPORT ASSOCIATE Height 152.4 cm (5') 10/18/2024 1:23 PM ACCOUNT SUPPORT ASSOCIATE Body Mass Index 41.99 10/18/2024 1:23 PM ACCOUNT SUPPORT ASSOCIATE Plan of Treatment Not on file Procedures [...] 1 VIEW IP Routine 11/15/2024 2:16 PM ACCOUNT SUPPORT ASSOCIATE SURGICAL PATHOLOGY Routine 11/15/2024 1: 23 PM ACCOUNT SUPPORT ASSOCIATE CYTOLOGY Routine 11/15/2024 12:53 PM ACCOUNT SUPPORT ASSOCIATE BRONCHOSCOPY Routine 11/15/2024 12:30 PM ACCOUNT SUPPORT ASSOCIATE Left upper lobe consolidation PET/CT FDG SKULL TO THIGH Schedule Routine, Read Routine (OP Routine) 10/18/2024 11:04 AM ACCOUNT SUPPORT ASSOCIATE Squamous cell carcinoma of cheek CT CHEST W CONTRAST Schedule Routine, Read Routine (OP Routine) 10/18/2024 8:34 AM ACCOUNT SUPPORT ASSOCIATE Squamous cell carcinoma of cheek POCT CREATININE - DEVICE Routine 10/18/2024 8:05 AM ACCOUNT SUPPORT ASSOCIATE from Last 3 Months Results * RAD [...] ORD ERABLES Final Result Performing Organization Address [facility] de Phone Number ARIA * RAD [...] ORD ERABLES Final Result Performing Organization Address City/State/[facility] Co de Phone Number ARIA * RAD [...] ORD ERABLES Final Result Performing Organization Address City/[facility] Co de Phone Number ARIA * RAD [...] ORD ERABLES Final Result Performing Organization Address [facility] de Phone Number ARIA * RAD [...] XR Chest 1 Vw (11/15/2024 2:16 PM ACCOUNT SUPPORT ASSOCIATE) Anatomical Region Laterality Modality Body, Chest N/A Computed Radiogr aphy 11/15/2024 4:08 PM ACCOUNT SUPPORT ASSOCIATE Impressions 11/15/2024 4:12 PM ACCOUNT SUPPORT ASSOCIATE No prior radiograph available for comparison. Small [...] Pola Floyd M.D. Narrative 11/15/2024 4:12 PM ACCOUNT SUPPORT ASSOCIATE EXAMINATION: 1 view chest radiograph Procedure Note [...] Result * Surgical pathology (11/15/2024 1:23 PM ACCOUNT SUPPORT ASSOCIATE) Tissue specimen (specimen) (Lung Biopsy) 11/15/2024 1:23 PM ACCOUNT SUPPORT ASSOCIATE 11/15/2024 5:48 PM ACCOUNT SUPPORT ASSOCIATE Narrative PATHOLOGY [facility] - 11/16/2024 9:33 AM ACCOUNT SUPPORT ASSOCIATE EPIC results best viewed via link to PDF [facility] [place] [address] Note to Patients: This report may contain [...] Gender: F : 1945 (Age: 79) Address: [address] [place], [place] [id number] Hospital #: [id number] Taken:11/15/2024 Received:11/15/2024 Reported: 11/16/2024 Patient Type: [facility] Ancillary Service: Pulmonary Location: Physician(s): Kaushik Guerin [...] Surgical Pathology and Flow Cytometry Departments at [facility] as part of an ongoing quality systems engineer program and in compliance with federally mandated [...] Surgical Pathology and Flow Cytometry Departments of [facility]. It has not been cleared or approved by the U. S. Food and Drug Administration. IMAGES AND SCANNED DOCUMENTS, IF INCLUDED, ONLY VIEWABLE IN PDF VERSION OF REPORT us Pako Gaytan MD LAB PATHOLOGY ORDERABLES Final Result PATHOLOGY [facility] 3rd Floor [place], [place] [phone] * Cytology (11/15/2024 12:53 PM ACCOUNT SUPPORT ASSOCIATE) Fluid (Lung (Cytology)) 11/15/2024 12:53 PM ACCOUNT SUPPORT ASSOCIATE 11/15/2024 1:35 PM ACCOUNT SUPPORT ASSOCIATE Narrative PATHOLOGY [facility] - 11/16/2024 3:05 PM ACCOUNT SUPPORT ASSOCIATE EPIC results best viewed via link to PDF [facility] [place] [address] Note to Patients: This report may contain [...] F : 1945 (Age: 79) Address: [address] [place], [place] [phone] Hospital #: [id number] Taken:11/15/2024 Received:11/15/2024 Reported: 11/16/2024 Patient Type: [facility] Ancillary Service: UNKNOWN Location: Physician(s): Pako Gaytan M.D. FINAL DIAGNOSIS A. Lung, left upper lobe, endobronchial ultrasound guided, fluoroscopy assisted, fine needle aspiration: - Squamous cell carcinoma Comments The cell block confirms the diagnosis. [facility]/11/16/2024 15:05 By this signature, I attest that the above diagnosis is based upon my personal examination of the slides(and/or other material indicated in the diagnosis). Uri Najera DO Report Electronically Reviewed and Signed Out By Uri Najera DO 11/16/2024 15:05:33 Hteal Perez MS, CT (ASCP) Gross Description A. [...] Surgical Pathology and Flow Cytometry Departments at [facility] as part of an ongoing quality systems engineer program and in compliance with federally mandated [...] Surgical Pathology and Flow Cytometry Departments of [facility]. It has not been cleared or approved by the U. S. Food and Drug Administration. Pako Gaytan MD LAB CYTOLOGY ORDERABLES F inal Result PATHOLOGY [facility] 3rd Floor [place], [place] [phone] * Bronchoscopy -[facility] Interventional Pulm; Bronchoscopy, RADIAL BIOPSY (11/15/2024 12:30 PM ACCOUNT SUPPORT ASSOCIATE) Anatomical Region Laterality Modality Other Narrative Procedure Note Pako Gaytan MD - 11/15/2024 12:30 PM CST [facility] Interventional Pulmonary Patient Name: Cheryl Murillo Procedure Date: 11/15/2024 12:30 PM Date of : 1945 Admit Type: Outpatient Age: 79 Room: ROOM 1 Gender: Female Note Status: Finalized Procedure: Bronchoscopy RADIAL EBUS TBNA TBBx Indications: Left upper lobe nodule Providers: Pkao Gaytan M.D. Referring MD: Santana Rahman M.D. [...] FDG Skull to Thigh (10/18/2024 11:04 AM ACCOUNT SUPPORT ASSOCIATE) Anatomical Region Laterality Modality N/A Positron Emissio n Tomography (PET) 10/18/2024 11:3 8 AM ACCOUNT SUPPORT ASSOCIATE Impressions 10/18/2024 12:17 PM ACCOUNT SUPPORT ASSOCIATE Interval increase in size and FDG uptake [...] Efraín Marie M.D. Narrative 10/18/2024 12:17 PM ACCOUNT SUPPORT ASSOCIATE EXAMINATION: TUMOR FDG-PET/CT IMAGING DATE OF STUDY: 10/18/2024 SCANNER: [facility] PET Vision (NV1). This is a high-resolution [...] obtained. The study was interpreted on the Cellity workstation. The mean liver SUV (reported for quality assurance assistant purposes) is 3.4. The total scanned area [...] FDG-PET/CT IMAGING DATE OF STUDY: 10/18/2024 SCANNER: [facility] [employer] (NV1). This is a high-resolution scanner, which [...] obtained. The study was interpreted on the Cellity workstation. The mean liver SUV (reported for quality assurance assistant purposes) is 3.4. The total scanned area [...] CT chest with contrast (10/18/2024 8:34 AM ACCOUNT SUPPORT ASSOCIATE) Anatomical Region Laterality Modality Body N/A Computed Tomogra phy 10/18/2024 8:51 AM ACCOUNT SUPPORT ASSOCIATE Impressions 10/18/2024 8:51 AM ACCOUNT SUPPORT ASSOCIATE 1. Increasing size of 1.1 cm solid [...] Nilton Rashid M.D. Narrative 10/18/2024 8:51 AM ACCOUNT SUPPORT ASSOCIATE EXAMINATION: Computed tomography of the chest with [...] esult * POCT creatinine (10/18/2024 8:05 AM ACCOUNT SUPPORT ASSOCIATE) Creatinine POC 1.1 0.6 - 1.1 mg/dL Blood 10/18/2024 8:05 AM ACCOUNT SUPPORT ASSOCIATE 10/18/2024 8:05 AM ACCOUNT SUPPORT ASSOCIATE us Shaheen Navarrete MD PhD LAB POCT ORDERABLES - DEV ICE Final Result [facility] [place] [address] from Last 3 Months Insurance [facility] MEDICARE [facility] IDPA [facility] MEDICARE [facility] AET[employer] MEDICARE GOLD IDPA Advance Directives For more information, please contact: [phone] * Full Code (Latest Code Status on File) Date Activated Date Inactivated Comments 09/10/2023 3:28 PM 09/11/2023 6:00 PM Care Teams Lettuce Cutter Relationship Specialty Start Date End Date Ruben-Michele Payne MD PCP - General 12/12/16 Aries Soliman MD [address] [place] [address] [place] [address] Dermatology 09/01/23 Yanira Granda MD [address] [place] [address] Referring Physician Dermatology 09/01/23 Dennis Gentile MD [address] [facility] [address] [place] [address] Referring Physician Otolaryngology 10/25/24
--- OUTSIDE RECORDS SUMMARY | 2024-12-28 21:02 | XMS_ITS ---
Author Organization [facility] Address [address] [place] [address] Care Team Providers Care Merchandise Flow Team Member Name Role Phone Michele Coleman MD Primary Care Provider Aries Soliman MD Unavailable [phone] Yanira Granda MD Unavailable [phone] Dennis Gentile MD Unavailable [phone] Active Problems Patient Care Coordination No te [...]
--- OUTSIDE RECORDS SUMMARY | 2024-12-28 21:02 | XMS_ITS | Clinical Summary ---
Author Organization [facility] Address [address] [place] [address] Care Team Providers Care Caddymaster Name Role Phone Michele Coleman MD Primary Care Provider Aries Soliman MD Unavailable [phone] Yanira Granda MD Unavailable [phone] Dennis Gentile MD Unavailable Allergies No known active allergies Medications allopurinoL [...] while awake 50 each 3 Active white petrolatum-yarn skeins examiner al oil (REFRESH PM) ointment Apply [...] - 12/16/2024 11:59 PM CDT Hospital Encounter [facility] Radiation Oncology [address] [place] [address] Jimmy Andrea MD Discharge Disposition: Discharge to home or self care 12/16/2024 Orders Only RAD ONC TREATMENTS Miscellaneous, Not In File 12/16/2024 Orders Only 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 Radiation Oncology [address] [place] [address] Discharge Disposition: Discharge to home or self care 12/15/2024 Orders Only RAD ONC TREATMENTS Miscellaneous, Not In File 12/14/2024 Telephone [facility] Radiation Oncology [address] [place] [address] Cristina Ann RN Reschedule (Radiation treatment 12/14/24.) 12/13/2024 2:51 PM CDT - 12/13/2024 11:59 PM CDT Hospital Encounter [facility] Radiation Oncology [address] [place] [address] Discharge Disposition: Discharge to home or self care 12/13/2024 OTV [facility] Radiation Oncology [address] [place] [address] Shaheen Navarrete MD PhD 12/13/2024 Orders Only RAD ONC TREATMENTS Miscellaneous, Not In File 12/12/2024 2:30 PM CDT - 12/12/2024 11:59 PM CDT Hospital Encounter [facility] Radiation Oncology [address] [place] [address] Discharge Disposition: Discharge to home or self care 12/12/2024 Orders Only RAD ONC TREATMENTS Miscellaneous, Not In File 12/09/2024 1:58 PM CDT - 12/09/2024 11:59 PM CDT Hospital Encounter [facility] Radiation Oncology [address] [place] [address] Discharge Disposition: Discharge to home or self care 12/09/2024 Orders Only RAD ONC TREATMENTS Miscellaneous, Not In File 12/08/2024 3:39 PM CDT - 12/08/2024 11:59 PM CDT Hospital Encounter [facility] Radiation Oncology [address] [place] [address] Discharge Disposition: Discharge to home or self care 12/08/2024 Orders Only RAD ONC TREATMENTS Miscellaneous, Not In File 12/07/2024 2:43 PM CDT - 12/07/2024 11:59 PM CDT Hospital Encounter [facility] Radiation Oncology [address] [place] [address] Discharge Disposition: Discharge to home or self care 12/07/2024 Orders Only RAD ONC TREATMENTS Miscellaneous, Not In File 12/06/2024 9:48 AM CDT - 12/06/2024 11:59 PM CDT Hospital Encounter [facility] Radiation Oncology [address] [place] [address] Shaheen Navarrete MD PhD Discharge Disposition: Discharge to home or self care 12/06/2024 OTV [facility] Radiation Oncology [address] [place] [address] Ernestine Davis MD Squamous cell carcinoma of cheek (Primary Dx); Left upper lobe consolidation; Yeast infection 12/06/2024 Orders Only RAD ONC TREATMENTS Miscellaneous, Not In File 12/05/2024 8:45 PM CDT - 12/05/2024 11:59 PM CDT Hospital Encounter [facility] Radiation Oncology [address] [place] [address] Discharge Disposition: Discharge to home or self care 12/05/2024 Orders Only RAD ONC TREATMENTS Miscellaneous, Not In File 11/22/2024 3:00 PM CDT - 11/22/2024 11:59 PM CDT Hospital Encounter 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) 11/16/2024 Telephone [facility] Floor [address] [place] [address] Idalia Bello NP 11/15/2024 1:36 PM CLINICAL RESEARCH SPECIALIST - 11/15/2024 11:59 PM CLINICAL RESEARCH SPECIALIST Hospital Encounter [facility] Radiology [address] [place] [address] Zoie Zuniga MD Discharge Disposition: Discharge to home or self care 11/15/2024 11:25 AM CLINICAL RESEARCH SPECIALIST - 11/15/2024 11:59 PM CLINICAL RESEARCH SPECIALIST Hospital Encounter [facility] Interventional Pulmonology 1 [place] [address] Left upper lobe consolidation Discharge Disposition: Discharge to home or self care 11/14/2024 Telephone [facility] Interventional Pulmonology [address] [place] [address] Hetal Spencer, DARNELL 11/07/2024 Telephone [facility] Radiation On[facility] [address] [place] [address] Yaneth Bain RN 11/04/2024 9:40 PM CLINICAL RESEARCH SPECIALIST - 11/04/2024 11:59 PM CLINICAL RESEARCH SPECIALIST Hospital Encounter [facility] Radiation Oncology [address] [facility] [place] [address] Discharge Disposition: Discharge to home or self care 11/04/2024 Telephone [facility] Radiation Oncology [address] [facility] [facility] [address] [place] [phone] Felecia Avila NP 10/27/2024 Orders Only [facility] Pulmonary [address] [facility] Advanced Medicine 8th [place] [address] [place] [address] Bobo Luna RMA Left upper lobe consolidation (Primary Dx) 10/27/2024 Telephone [facility] [address] [facility] Medicine 8th [place] [address] [place] [address] Bobo Luna RMA 10/25/2024 9:00 AM CLINICAL RESEARCH SPECIALIST Office Visit [facility] [address] [facility] [address] [place] [phone] Santana Rahman MD Squamous cell carcinoma of cheek [C44.329]; Lung nodule seen on imaging study 10/25/2024 Orders Only [facility] Radiation On[facility] [address] [facility] [place] [address] Felecia Avila NP Squamous cell carcinoma of cheek (Primary Dx); Lung nodule seen on imaging study 10/25/2024 Telephone Radiology 1 [place] [address] Shirley Barrientos, RT 10/25/2024 Orders Only [facility] [address] [facility] Floor [address] [place] [address] Jane Perez NP Pulmonary nodule (Primary Dx) 10/20/2024 Telephone [facility] [address] [facility] [address] [place] [address] Nanci Bello RMA 10/20/2024 Orders Only [facility] [address] [facility] [address] [place] [address] Santana Rahman MD Squamous cell carcinoma of cheek (Primary Dx) 10/18/2024 2:00 PM CLINICAL RESEARCH SPECIALIST Office Visit [facility] Radiation On[facility] [address] [facility] [place] [address] Felecia Avila NP Squamous cell carcinoma of cheek [C44.329] (Primary Dx); Lung nodule seen on imaging study 10/18/2024 7:31 AM CLINICAL RESEARCH SPECIALIST - 10/18/2024 11:59 PM CLINICAL RESEARCH SPECIALIST Hospital Encounter [facility] [address] [place] [address] Discharge Disposition: Discharge to home or self care 10/18/2024 7:31 AM CLINICAL RESEARCH SPECIALIST - 10/18/2024 11:59 PM CLINICAL RESEARCH SPECIALIST Hospital Encounter [facility] [address] [place] [address] Squamous cell carcinoma of cheek Discharge Disposition: Discharge to home or self care 10/18/2024 7:31 AM CLINICAL RESEARCH SPECIALIST - 10/18/2024 11:59 PM CLINICAL RESEARCH SPECIALIST Hospital Encounter [facility] [address] [place] [address] Shaheen Navarrete MD PhD Squamous cell carcinoma of cheek Discharge Disposition: Discharge to home or self care from Last 3 Months Immunizations Immunization Administration Dates Next Due COVID-19 mRNA ([employer]) 0.3 m L (30 mcg) vaccine (12 [...] Comments Blood Pressure 137/100 11/15/2024 2:50 PM CLINICAL RESEARCH SPECIALIST Pulse 47 11/15/2024 2:50 PM CLINICAL RESEARCH SPECIALIST Temperature 36.6 C (97.9 F) 11/15/2024 1:38 PM CLINICAL RESEARCH SPECIALIST Respiratory Rate 15 11/15/2024 2:50 PM CLINICAL RESEARCH SPECIALIST Oxygen Saturation 93% 11/15/2024 2:50 PM CLINICAL RESEARCH SPECIALIST Inhaled Oxygen Concentration - - Weight 97.5 kg (215 lb) 10/18/2024 1:23 PM CLINICAL RESEARCH SPECIALIST Height 152.4 cm (5') 10/18/2024 1:23 PM CLINICAL RESEARCH SPECIALIST Body Mass Index 41.99 10/18/2024 1:23 PM CLINICAL RESEARCH SPECIALIST Plan of Treatment Health Maintenance Due Date [...] 1 VIEW IP Routine 11/15/2024 2:16 PM CLINICAL RESEARCH SPECIALIST SURGICAL PATHOLOGY Routine 11/15/2024 1: 23 PM CLINICAL RESEARCH SPECIALIST CYTOLOGY Routine 11/15/2024 12:53 PM CLINICAL RESEARCH SPECIALIST BRONCHOSCOPY Routine 11/15/2024 12:30 PM CLINICAL RESEARCH SPECIALIST Left upper lobe consolidation PET/CT FDG SKULL TO THIGH Schedule Routine, Read Routine (OP Routine) 10/18/2024 11:04 AM CLINICAL RESEARCH SPECIALIST Squamous cell carcinoma of cheek CT CHEST W CONTRAST Schedule Routine, Read Routine (OP Routine) 10/18/2024 8:34 AM CLINICAL RESEARCH SPECIALIST Squamous cell carcinoma of cheek POCT CREATININE - DEVICE Routine 10/18/2024 8:05 AM CLINICAL RESEARCH SPECIALIST from Last 3 Months Results * RAD [...] ORD ERABLES Final Result Performing Organization Address [facility] Co de Phone Number ARIA * RAD [...] ORD ERABLES Final Result Performing Organization Address City/[facility]/ZIP Co de Phone Number ARIA * RAD [...] ORD ERABLES Final Result Performing Organization Address [facility] Co de Phone Number ARIA * RAD [...] ORD ERABLES Final Result Performing Organization Address City/[facility] Co de Phone Number ARIA * RAD [...] ORD ERABLES Final Result Performing Organization Address [facility] de Phone Number ARIA * RAD ONC [...] ORD ERABLES Final Result Performing Organization Address City/[facility] Co de Phone Number ARIA * RAD [...] XR Chest 1 Vw (11/15/2024 2:16 PM CLINICAL RESEARCH SPECIALIST) Anatomical Region Laterality Modality Body, Chest N/A Computed Radiogr aphy 11/15/2024 4:08 PM CLINICAL RESEARCH SPECIALIST Impressions 11/15/2024 4:12 PM CLINICAL RESEARCH SPECIALIST No prior radiograph available for comparison. Small [...] Pola Floyd M.D. Narrative 11/15/2024 4:12 PM CLINICAL RESEARCH SPECIALIST EXAMINATION: 1 view chest radiograph Procedure Note [...] Result * Surgical pathology (11/15/2024 1:23 PM CLINICAL RESEARCH SPECIALIST) Tissue specimen (specimen) (Lung Biopsy) 11/15/2024 1:23 PM CLINICAL RESEARCH SPECIALIST 11/15/2024 5:48 PM CLINICAL RESEARCH SPECIALIST Narrative PATHOLOGY [facility] - 11/16/2024 9:33 AM CLINICAL RESEARCH SPECIALIST EPIC results best viewed via link to PDF [facility] Path[facility], [place] [address] Note to Patients: This report may contain [...] Gender: F : 1945 (Age: 79) Address: [address] [place], [place] [address] Hospital #: [id number] Taken:11/15/2024 Received:11/15/2024 Reported: 11/16/2024 Patient Type: [facility] Ancillary Service: Pulmonary Location: Physician(s): Kaushik [...] Surgical Pathology and Flow Cytometry Departments at [facility] as part of an ongoing lead quality technician program and in compliance with federally mandated [...] Surgical Pathology and Flow Cytometry Departments of [facility]. It has not been cleared or approved by the U. S. Food and Drug Administration. IMAGES AND SCANNED DOCUMENTS, IF INCLUDED, ONLY VIEWABLE IN PDF VERSION OF REPORT us Pako Gaytan MD LAB PATHOLOGY ORDERABLES Final Result PATHOLOGY [facility] 3rd Floor [place], [place] [phone] * Cytology (11/15/2024 12:53 PM CLINICAL RESEARCH SPECIALIST) Fluid (Lung (Cytology)) 11/15/2024 12:53 PM CLINICAL RESEARCH SPECIALIST 11/15/2024 1:35 PM CLINICAL RESEARCH SPECIALIST Narrative PATHOLOGY [facility] - 11/16/2024 3:05 PM CLINICAL RESEARCH SPECIALIST EPIC results best viewed via link to PDF [facility] [place] [address] Note to Patients: This report may contain [...] Gender: F : 1945 (Age: 79) Address: [address] [place] [id number] Hospital #: [id number] Taken:11/15/2024 Received:11/15/2024 Reported: 11/16/2024 Patient Type: [facility] Ancillary Service: UNKNOWN Location: Physician(s): Pako [...] Surgical Pathology and Flow Cytometry Departments at [facility] as part of an ongoing lead quality technician program and in compliance with federally mandated [...] Surgical Pathology and Flow Cytometry Departments of [facility]. It has not been cleared or approved by the U. S. Food and Drug Administration. Pako Gaytan MD LAB CYTOLOGY ORDERABLES F inal Result PATHOLOGY [facility] 3rd Floor [place], [place] [phone] * Bronchoscopy -[facility] Interventional Pulm; Bronchoscopy, RADIAL BIOPSY (11/15/2024 12:30 PM CLINICAL RESEARCH SPECIALIST) Anatomical Region Laterality Modality Other Narrative Procedure Note Pako Gaytan MD - 11/15/2024 12:30 PM CST [facility] Interventional Pulmonary Patient Name: Cheryl Murillo Procedure [...] FDG Skull to Thigh (10/18/2024 11:04 AM CLINICAL RESEARCH SPECIALIST) Anatomical Region Laterality Modality N/A Positron Emissio n Tomography (PET) 10/18/2024 11:3 8 AM CLINICAL RESEARCH SPECIALIST Impressions 10/18/2024 12:17 PM CLINICAL RESEARCH SPECIALIST Interval increase in size and FDG uptake [...] Efraín Marie M.D. Narrative 10/18/2024 12:17 PM CLINICAL RESEARCH SPECIALIST EXAMINATION: TUMOR FDG-PET/CT IMAGING DATE OF STUDY: 10/18/2024 SCANNER: [facility] [employer] (NV1). This is a high-resolution scanner, which [...] obtained. The study was interpreted on the Wordlock workstation. The mean liver SUV (reported for director of quality purposes) is 3.4. The total scanned area [...] FDG-PET/CT IMAGING DATE OF STUDY: 10/18/2024 SCANNER: [facility] [employer] (NV1). This is a high-resolution scanner, which [...] obtained. The study was interpreted on the [employer] workstation. The mean liver SUV (reported for director of quality purposes) is 3.4. The total scanned area [...] CT chest with contrast (10/18/2024 8:34 AM CLINICAL RESEARCH SPECIALIST) Anatomical Region Laterality Modality Body N/A Computed Tomogra phy 10/18/2024 8:51 AM CLINICAL RESEARCH SPECIALIST Impressions 10/18/2024 8:51 AM CLINICAL RESEARCH SPECIALIST 1. Increasing size of 1.1 cm solid [...] Nilton Rashid M.D. Narrative 10/18/2024 8:51 AM CLINICAL RESEARCH SPECIALIST EXAMINATION: Computed tomography of the chest with [...] esult * POCT creatinine (10/18/2024 8:05 AM CLINICAL RESEARCH SPECIALIST) Creatinine POC 1.1 0.6 - 1.1 mg/dL Blood 10/18/2024 8:05 AM CLINICAL RESEARCH SPECIALIST 10/18/2024 8:05 AM CLINICAL RESEARCH SPECIALIST us Shaheen Navarrete MD PhD LAB POCT ORDERABLES - DEV ICE Final Result [facility] Department [place] [address] from Last 3 Months Insurance [facility] MEDICARE [facility] IDDC [facility] MEDICARE [facility] [place] [address] MEDICARE [facility] IDPA Advance Directives For more information, please contact: [phone] * Full Code (Latest Code Status on File) Date Activated Date Inactivated Comments 09/10/2023 3:28 PM 09/11/2023 6:00 PM Care Teams Caddymaster Relationship Specialty Start Date End Date Michele Coleman MD PCP - General 12/12/16 Aries Soliman MD [address] [place] [address] [place] [address] Dermatology 09/01/23 Yanira Granda MD [address] [place] [address] Referring Physician Dermatology 09/01/23 Dennis Gentile MD [address] [place] [address] Referring Physician Otolaryngology 10/25/24
--- OUTSIDE RECORDS SUMMARY | 2024-12-28 21:02 | XMS_ITS | Encounter Summary ---
Author Organization [facility] Address [address] [place] [address] Care Team Providers Care Sales Department Manager Name Role Phone Tino Hernandez MD Primary [...] on file Legal Sex Female 4:45 AM IMPROVEMENT DIRECTOR Gender Identity Not on file Sexual Orientation Not on file documented as of this encounter Plan of Treatment Not on file documented as of this encounter Visit Diagnoses Not on filedocumented in this encounter Care Teams Sales Department Manager Relationship Specialty Start Date End Date Tino Hernandez MD [address] [place] [address] PCP - General Family Practice 11/24/22 documented as of this encounter
== END 2024-12-28 22:05 | disposition home or self-care (01) ==
PROVIDERS: Emergency Provider Physician Assistant
DX: S81.811A Laceration without foreign body, right lower leg, initial encounter (principal); I89.0 Lymphedema, not elsewhere classified; Z23 Encounter for immunization; C91.10 Chronic lymphocytic leukemia of B-cell type not having achieved remission; I12.9 Hypertensive chronic kidney disease with stage 1 through stage 4 chronic kidney disease, or unspecified chronic kidney disease; N18.30 Chronic kidney disease, stage 3 unspecified; I48.92 Unspecified atrial flutter; I27.20 Pulmonary hypertension, unspecified; I11.9 Hypertensive heart disease without heart failure; I48.0 Paroxysmal atrial fibrillation; E78.00 Pure hypercholesterolemia, unspecified; E66.01 Morbid (severe) obesity due to excess calories; Z68.41 Body mass index [BMI] 40.0-44.9, adult; Z66 Do not resuscitate; Z85.828 Personal history of other malignant neoplasm of skin; Z90.89 Acquired absence of other organs; Z90.49 Acquired absence of other specified parts of digestive tract; Z79.899 Other long term (current) drug therapy; W22.8XXA Striking against or struck by other objects, initial encounter
CPT/HCPCS: 12004; 90471; 90715; 99282; J2003

== ENCOUNTER 2025-01-19 13:07 | Outpatient (CLI) | payer MEDICARE, SELFPAY ==
--- OUTSIDE RECORDS SUMMARY | 2025-01-19 13:10 | XMS_ITS | Referral Summary ---
Author Organization [facility] Address [address] [place] [address] Care Team Providers Care Cementing Machine Operator Name Role Phone Michele Coleman MD Primary Care Provider Aries Soliman MD Unavailable [phone] Yanira Granda MD Unavailable [phone] Dennis Gentile MD Unavailable [phone] Encounters Date Type Department Care Team Description 12/16/2024 Orders Only RAD ONC TREATMENTS Miscellaneous, Not In File 12/16/[address] 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 Radiation Oncology [address] [place] [address] Jimmy Andrea MD Discharge Disposition: Discharge to home or self care 12/15/2024 Orders Only RAD ONC TREATMENTS Miscellaneous, Not In File 12/15/2024 2:43 PM CDT - 12/15/2024 11:59 PM CDT Hospital Encounter [facility] Radiation Oncology [address] [place] [address] Discharge Disposition: Discharge to home or self care 12/14/[address] [facility] Radiation Oncology [address] [facility] [place] [address] Cristina Ann RN Reschedule (Radiation treatment 12/14/24.) 12/13/[address] [facility] Radiation Oncology [address] [place] [address] Shaheen Navarrete MD PhD 12/13/2024 Orders Only RAD ONC TREATMENTS Miscellaneous, Not In File 12/13/2024 2:51 PM CDT - 12/13/2024 11:59 PM CDT Hospital Encounter [facility] Radiation Oncology [address] [place] [address] Discharge Disposition: Discharge to home or self care 12/12/2024 Orders Only RAD ONC TREATMENTS Miscellaneous, Not In File 12/12/2024 2:30 PM CDT - 12/12/2024 11:59 PM CDT Hospital Encounter [facility] Radiation Oncology [address] [place] [address] Discharge Disposition: Discharge to home or self care 12/09/2024 Orders Only RAD ONC TREATMENTS Miscellaneous, Not In File 12/09/2024 1:58 PM CDT - 12/09/2024 11:59 PM CDT Hospital Encounter [facility] Radiation Oncology [address] [place] [address] Discharge Disposition: Discharge to home or self care 12/08/2024 Orders Only RAD ONC TREATMENTS Miscellaneous, Not In File 12/08/2024 3:39 PM CDT - 12/08/2024 11:59 PM CDT Hospital Encounter [facility] Radiation Oncology [address] [place] [address] Discharge Disposition: Discharge to home or self care 12/07/2024 Orders Only RAD ONC TREATMENTS Miscellaneous, Not In File 12/07/2024 2:43 PM CDT - 12/07/2024 11:59 PM CDT Hospital Encounter [facility] Radiation Oncology [address] [place] [address] Discharge Disposition: Discharge to home or self care 12/06/[address] [facility] Radiation Oncology [address] [place] [address] Ernestine Davis MD Squamous cell carcinoma of cheek (Primary Dx); Left upper lobe consolidation; Yeast infection 12/06/2024 Orders Only RAD ONC TREATMENTS Miscellaneous, Not In File 12/06/2024 9:48 AM CDT - 12/06/2024 11:59 PM CDT Hospital Encounter [facility] Radiation Oncology [address] [place] [address] Shaheen Navarrete MD PhD Discharge Disposition: Discharge to home or self care 12/05/2024 8:45 PM CDT - 12/05/2024 11:59 PM CDT Hospital Encounter [facility] Radiation Oncology [address] [place] [address] Discharge Disposition: Discharge to home or self care 12/05/2024 Orders Only RAD ONC TREATMENTS Miscellaneous, Not In File 11/22/2024 2:00 PM CDT Office Visit 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 Radiation Oncology [address] [place] [address] Shaheen Navarrete MD PhD Discharge Disposition: Discharge to home or self care 11/16/[address] [facility] Surgery [address] [place] [address] Floor 5 [place] [address] Idalia Bello NP 11/15/2024 1:36 PM TRADE RECRUITER - 11/15/2024 11:59 PM TRADE RECRUITER Hospital Encounter [facility] Radiology 1 [place] [address] Zoie Zuniga MD Discharge Disposition: Discharge to home or self care 11/15/2024 11:25 AM TRADE RECRUITER - 11/15/2024 11:59 PM TRADE RECRUITER Hospital Encounter [facility] Interventional Pulmonology 1 [place] [address] Left upper lobe consolidation Discharge Disposition: Discharge to home or self care 11/14/2024 Telephone [facility] Interventional Pulmonology [address] [place] [address] Hetal Spencer RN 11/07/2024 Telephone [facility] Radiation Oncology at [facility] [address] [place] [address] Yaneth Bain RN 11/04/2024 9:40 PM TRADE RECRUITER - 11/04/2024 11:59 PM TRADE RECRUITER Hospital Encounter [facility] Radiation Oncology [address] [place] [address] Discharge Disposition: Discharge to home or self care 11/04/2024 Telephone [facility] Radiation Oncology [address] [place] [phone] Felecia Avila NP 10/27/2024 Orders Only [facility] Pulmonary [address] [facility] Medicine 8th [place] [address] [place] [phone] Bobo Luna RMA Left upper lobe consolidation (Primary Dx) 10/27/2024 Telephone [facility] Pulmonary [address] [facility] Medicine 8th [place] [address] [place] [address] Bobo Luna RMA 10/25/2024 Orders Only [facility] Radiation Oncology [address] [facility] [place] [address] Felecia Avila, PARESH Squamous cell carcinoma of cheek (Primary Dx); Lung nodule seen on imaging study 10/25/2024 Telephone Radiology 1 [place] [address] Iliana Shirley Bonnie, 10/25/2024 Orders Only [facility] Surgery [address] [facility] Floor 5 [place] [phone] Jane Perez NP Pulmonary nodule (Primary Dx) 10/25/2024 9:00 AM TRADE RECRUITER Office Visit [facility] Surgery [address] [facility] [address] [place] Gutierrez [id number] Santana Rahman MD Squamous cell carcinoma of cheek [C44.329]; Lung nodule seen on imaging study from Last 3 Months Allergies No known [...] while awake 50 each 3 Active white petrolatum-currency examiner al oil (REFRESH PM) ointment Apply [...] Immunization Administration Dates Next Due COVID-19 mRNA (Zhanzuo) 0.3 m L (30 mcg) vaccine (12 [...] Comments Blood Pressure 137/100 11/15/2024 2:50 PM TRADE RECRUITER Pulse 47 11/15/2024 2:50 PM TRADE RECRUITER Temperature 36.6 C (97.9 F) 11/15/2024 1:38 PM TRADE RECRUITER Respiratory Rate 15 11/15/2024 2:50 PM TRADE RECRUITER Oxygen Saturation 93% 11/15/2024 2:50 PM TRADE RECRUITER Inhaled Oxygen Concentration - - Weight 97.5 kg (215 lb) 10/18/2024 1:23 PM TRADE RECRUITER Height 152.4 cm (5') 10/18/2024 1:23 PM TRADE RECRUITER Body Mass Index 41.99 10/18/2024 1:23 PM TRADE RECRUITER Plan of Treatment Not on file Procedures [...] 1 VIEW IP Routine 11/15/2024 2:16 PM TRADE RECRUITER SURGICAL PATHOLOGY Routine 11/15/2024 1: 23 PM TRADE RECRUITER CYTOLOGY Routine 11/15/2024 12:53 PM TRADE RECRUITER BRONCHOSCOPY Routine 11/15/2024 12:30 PM TRADE RECRUITER Left upper lobe consolidation from Last 3 Months Results * RAD [...] Final Result LANEY * RAD ONC ARIA SESSION SUMMARY (12/13/2024 [...] ORD ERABLES Final Result Performing Organization Address [facility] Co de Phone Number ARIA * [...] ORD ERABLES Final Result Performing Organization Address [facility] Co de Phone Number ARIA * [...] ONCOLOGY ORD ERABLES Final Result ARIA * XR Chest 1 Vw (11/15/2024 2:16 PM TRADE RECRUITER) Anatomical Region Laterality Modality Body, Chest N/A Computed Radiogr aphy 11/15/2024 4:0 8 PM TRADE RECRUITER Impressions 11/15/2024 4:12 PM TRADE RECRUITER No prior radiograph available for comparison. Small [...] Pola Floyd M.D. Narrative 11/15/2024 4:12 PM TRADE RECRUITER EXAMINATION: 1 view chest radiograph Procedure Note [...] Result * Surgical pathology (11/15/2024 1:23 PM TRADE RECRUITER) Tissue specimen (specimen) (Lung Biopsy) 11/15/2024 1:23 PM TRADE RECRUITER 11/15/2024 5:48 PM TRADE RECRUITER Narrative PATHOLOGY [facility] - 11/16/2024 9:33 AM TRADE RECRUITER EPIC results best viewed via link to PDF [facility] Marsha Cosby [facility] [place] [address] Note to Patients: This report may contain [...] Gender: F : 1945 (Age: 79) Address: [address] [place] [address] Hospital #: [id number] Taken:11/15/2024 Received:11/15/2024 Reported: 11/16/2024 Patient Type: [facility] Ancillary Service: Pulmonary Location: Physician(s): Kaushik [...] Surgical Pathology and Flow Cytometry Departments at [facility] as part of an ongoing quality control expert program and in compliance with federally mandated [...] Surgical Pathology and Flow Cytometry Departments of [facility]. It has not been cleared or approved by the U. S. Food and Drug Administration. IMAGES AND SCANNED DOCUMENTS, IF INCLUDED, ONLY VIEWABLE IN PDF VERSION OF REPORT Pako Gaytan MD LAB PATHOLOGY ORDERABLES Final Result PATHOLOGY [facility] 3rd Floor [place], [place] [phone] * Cytology (11/15/2024 12:53 PM TRADE RECRUITER) Fluid (Lung (Cytology)) 11/15/2024 12:53 PM TRADE RECRUITER 11/15/2024 1:35 PM TRADE RECRUITER Narrative PATHOLOGY [facility] - 11/16/2024 3:05 PM TRADE RECRUITER EPIC results best viewed via link to PDF [facility] Marsha Cosby [facility] [place] [address] Note to Patients: This report may contain [...] Gender: F : 1945 (Age: 79) Address: [address] [place], [place] [id number] Hospital #: [id number] Taken:11/15/2024 Received:11/15/2024 Reported: 11/16/2024 Patient Type: [facility] Ancillary Service: UNKNOWN Location: Physician(s): Pako Gaytan M.D. FINAL DIAGNOSIS A. Lung, left upper lobe, endobronchial ultrasound guided, fluoroscopy assisted, fine needle aspiration: - Squamous cell carcinoma Comments The cell block confirms the diagnosis. [facility]/11/16/2024 15:05 By this signature, I attest [...] Surgical Pathology and Flow Cytometry Departments at [facility] as part of an ongoing quality control expert program and in compliance with federally mandated [...] Surgical Pathology and Flow Cytometry Departments of [facility]. It has not been cleared or approved by the [place]. S. Food and Drug Administration. Pako Gaytan MD LAB CYTOLOGY ORDERABLES F inal Result PATHOLOGY [facility] 3rd Floor [place], [place] [phone] * Bronchoscopy -[facility] Interventional Pulm; Bronchoscopy, RADIAL BIOPSY (11/15/2024 12:30 PM TRADE RECRUITER) Anatomical Region Laterality Modality Other Narrative Procedure Note Pako Gaytan MD - 11/15/2024 12:[address] [facility] Interventional Pulmonary Patient Name: Cheryl uMrillo Procedure Date: 11/15/2024 12:30 PM Date of [...] Gaytan MD BRONCH ORDERABLES Final R esult from Last 3 Months Insurance [employer] MEDICARE GOLD IDPA AETNA MEDICARE GOLD AETNA MEDICARE GOLD IDPA Advance Directives For more information, please contact: [phone] * Full Code (Latest Code Status on File) Date Activated Date Inactivated Comments 09/10/2023 3:28 PM 09/11/2023 6:00 PM Care Teams Cementing Machine Operator Relationship Specialty Start Date End Date Ruben-Michele Payne MD PCP - General 12/12/16 Aries Soliman MD [address] [place] [address] [place] [address] Dermatology 09/01/23 Yanira Granda MD [address] [place] [address] Referring Physician Dermatology 09/01/23 Dennis Gentile MD [address] [place] [address] Referring Physician Otolaryngology 10/25/24
--- OUTSIDE RECORDS SUMMARY | 2025-01-19 13:10 | XMS_ITS | Clinical Summary ---
Author Organization [facility] Address [address] [facility] [place] [address] Care Team Providers Care Petroleum Sampler Name Role Phone Idalia Serrano MD Primary Care Provider [phone] Source Comments [facility],non-owned Affiliates and Associated Physician Practices is amultiple site organization consisting of ambulatory clinics and hospital sitesin [place], [place], [place] and [place]. This disclosure is being madepursuant to the Care Everywhere program and may not contain all information available regarding this patient. Last updated 18.[facility] Allergies No known active allergies Medications * [...] 36.7 C (98 F) 09/08/2019 1:02 PM ACCOUNTS RECEIVABLE BOOKKEEPER Respiratory Rate 14 06/12/2020 6:30 PM CDT [...] Documents on File Type Date Recorded Patient Apron Man Expl anation Adv Directive/Living Will/POA 01/19/2017 Care Teams Petroleum Sampler Relationship Specialty Start Date End Date Idalia Serrano MD [address] [place] [address] PCP - General 04/30/22
--- OUTSIDE RECORDS SUMMARY | 2025-01-19 13:10 | XMS_ITS | Encounter Summary ---
Author Organization [facility] Address [address] [place] [address] Care Team Providers Care Motorcycle Designer Name Role Phone Idalia Serrano MD Primary Care Provider [phone] Encounter Details Date Type Department Care Team (Late st Contact Info) Description 10/09/2022 Lab Requisition [facility] [address] [facility] [place] [address] Yanira Granda MD [address] [facility] [place] [address] [place] [address] Social History Tobacco Use Types [...] Comments DERMATOPATHOLOGY Routine 10/07/2022 12:0 0 AM FINANCIAL CONSULTANT documented in this encounter Results * DERMATOPATHOLOGY (10/07/2022 12:00 AM FINANCIAL CONSULTANT) Case Report Dermatopathology Report Case: [id number] Authorizing Provider: Yanira Granda MD Collected: 10/07/2022 12:00 AM Ordering Location: [facility] DermPath Lab Received: 10/09/2022 01:05 PM Pathologist: Leyda Lorenzo MD Specimen: Skin, left inferior central forehead 4:51 PM [facility] DERMATOPATHOLOGY LABORATORY Final Diagnosis Specimen A. SKIN, left inferior central forehead: SQUAMOUS CELL CARCINOMA IN SITU, PRESENT AT THE BASE OF THE SPECIMEN (D04.39) (see microscopic description and comment) 4:51 PM [facility] DERMATOPATHOLOGY LABORATORY Clinical History Neoplasm of Uncertain Behavior vs. Squamous Cell Carcinoma 4:51 PM [facility] DERMATOPATHOLOGY LABORATORY Gross Description Specimen A: Received is one formalin filled container labeled with the patient's name and designated left inferior central forehead. The specimen consists of a shave biopsy measuring [id number]. Jar 0. 4:51 PM [facility] DERMATOPATHOLOGY LABORATORY Microscopic Description Specimen [...] carcinoma cannot be ruled out. 4:51 PM [facility] DERMATOPATHOLOGY LABORATORY Disclaimer An external and internal positive and negative controls are appropriate for the histochemical, immunohistochemical and immunofluorescence stain(s) in this case (if any), except where stated explicitly. The performance characteristics of the stain(s) cited in this report were developed and its performance characteristic determined by the Dermatopathology Laboratory at [facility], directed by Dr. Corrine Baker. These tests need not be, and therefore are not, approved by the [place] Food and Drug Administration. The tests are used for clinical purposes. Billing Codes Specimen Charges Stain Charges 36554 1 3 4:51 PM FINANCIAL CONSULTANT DERMATOPATHOLOGY LABORATORY Embedded Images 3 4:51 PM FINANCIAL CONSULTANT DERMATOPATHOLOGY LABORATORY Pathology/Cytolog y TISSUE SPECIMEN FROM SKIN / Unknown 10/07/2022 10/09/2022 1:05 PM FINANCIAL CONSULTANT Yanira Granda MD LAB - PATHOLOGY/CYTOLOGY ORDER DONAL Final Result DERMATOPATHOLOGY LABORATORY [facility] - Department of Dermatology [facility] Specialized Medicine [address] [place] [address], [address]rd [address] [phone] documented in this encounter Visit Diagnoses Not on filedocumented in this encounter Care Teams Motorcycle Designer Relationship Specialty Start Date End Date Idalia Serrano MD [address] [place] [address] PCP - General 04/30/22 documented as of this encounter
--- OUTSIDE RECORDS SUMMARY | 2025-01-19 13:10 | XMS_ITS | Clinical Summary ---
Author Organization [facility] Address [address] [facility] [place] [address] Phone Care Team Providers Care Box Hinge And Lock Attacher Name Role Phone Tino Hernandez MD Primary Care Provider [phone] Allergies No known active allergies Medications omeprazole [...] Data STL ABSTRACTION Provider, Abstract 12/15/2024 Telephone [facility] Oncology [facility] Hematology [address] [place] [address] Luther Napier MD Palliative Care 11/30/2024 External Device Data STL ABSTRACTION Provider, Abstract 11/21/2024 Telephone [facility] Oncology [facility] Hematology [address] [place] [address] Luther Napier MD Medication Review from Last 3 Months Immunizations Immunization Administration Dates Next Due (PFIZER)(12 YR UP) COVID-19 VACCINE - EMERGENCY USE AUTHORIZATION, MRNA, [id number](PF) 30 MCG/0.3 ML IM SUSP 11/23/2020,11/02/2020 Family [...] on file Legal Sex Female 4:45 AM BUILDING MANAGER Gender Identity Not on file Sexual Orientation [...] 06/18/2022, 07/08/2021, Additional history exists COVID-19 Vaccine ( - 2023-2 5 season) 2024 07/11/2023, 06/18/2022, 07/31/2021, Additional history exists Medicare Ad[place] ([place]) Preventative Visit/Annual Wellness Visit 09/14/2024 Insurance RX AETNA Medicare Part D RX 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
--- OUTSIDE RECORDS SUMMARY | 2025-01-19 13:10 | XMS_ITS | Clinical Summary ---
Author Organization [facility] Address [address] [place] [address] Care Team Providers Care Polymer Materials Consultant Name Role Phone Michele Coleman MD Primary Care Provider Aries Soliman MD Unavailable [phone] Yanira Granda MD Unavailable [phone] Dennis Gentile MD Unavailable [phone] Allergies No known active allergies Medications allopurinoL [...] while awake 50 each 3 Active white petrolatum-continuous mining machine coal miner al oil (REFRESH PM) ointment Apply 1 [...] - 12/16/2024 11:59 PM CDT Hospital Encounter [facility] Radiation Oncology [address] [place] [address] Jimmy Andrea MD Discharge Disposition: Discharge to home or self care 12/16/2024 Orders Only RAD ONC TREATMENTS Miscellaneous, Not In File 12/16/2024 Orders Only [facility] Radiation Oncology [address] [place] [address] Felecia Avila NP 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) 12/15/2024 2:43 PM CDT - 12/15/2024 11:59 PM CDT Hospital Encounter [facility] Radiation Oncology [address] [place] [address] Discharge Disposition: Discharge to home or self care 12/15/2024 Orders Only RAD ONC TREATMENTS Miscellaneous, Not In File 12/14/2024 Telephone [facility] Radiation Oncology [address] [place] [address] Cristina Ann RN Reschedule (Radiation treatment 12/14/24.) 12/13/2024 2:51 PM CDT - 12/13/2024 11:59 PM CDT Hospital Encounter [facility] Radiation Oncology [address] [place] [address] Discharge Disposition: Discharge to home or self care 12/13/2024 OTV [facility] Radiation Oncology [address] [place] [address] Shaheen Navarrete MD PhD 12/13/2024 Orders Only RAD ONC TREATMENTS Miscellaneous, Not In File 12/12/2024 2:30 PM CDT - 12/12/2024 11:59 PM CDT Hospital Encounter [facility] Radiation Oncology [address] [place] [address] Discharge Disposition: Discharge to home or self care 12/12/2024 Orders Only RAD ONC TREATMENTS Miscellaneous, Not In File 12/09/2024 1:58 PM CDT - 12/09/2024 11:59 PM CDT Hospital Encounter [facility] Radiation Oncology [address] [place] [address] Discharge Disposition: Discharge to home or self care 12/09/2024 Orders Only RAD ONC TREATMENTS Miscellaneous, Not In File 12/08/2024 3:39 PM CDT - 12/08/2024 11:59 PM CDT Hospital Encounter [facility] Radiation Oncology [address] [place] [address] Discharge Disposition: Discharge to home or self care 12/08/2024 Orders Only RAD ONC TREATMENTS Miscellaneous, Not In File 12/07/2024 2:43 PM CDT - 12/07/2024 11:59 PM CDT Hospital Encounter [facility] Radiation Oncology [address] [place] [address] Discharge Disposition: Discharge to home or self care 12/07/2024 Orders Only RAD ONC TREATMENTS Miscellaneous, Not In File 12/06/2024 9:48 AM CDT - 12/06/2024 11:59 PM CDT Hospital Encounter [facility] Radiation Oncology [address] [place] [address] Shaheen Navarrete MD PhD Discharge Disposition: Discharge to home or self care 12/06/2024 OTV [facility] Radiation Oncology [address] [place] [address] Ernestine Davis MD Squamous cell carcinoma of cheek (Primary Dx); Left upper lobe consolidation; Yeast infection 12/06/2024 Orders Only RAD ONC TREATMENTS Miscellaneous, Not In File 12/05/2024 8:45 PM CDT - 12/05/2024 11:59 PM CDT Hospital Encounter [facility] Radiation Oncology [address] [place] [address] Discharge Disposition: Discharge to home or self care 12/05/2024 Orders Only RAD ONC TREATMENTS Miscellaneous, Not In File 11/22/2024 3:00 PM CDT - 11/22/2024 11:59 PM CDT Hospital Encounter 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) 11/16/2024 Telephone [facility] Surgery [facility] Floor [address] [place] [address] Idalia Bello NP 11/15/2024 1:36 PM HAND MARKER - 11/15/2024 11:59 PM HAND MARKER Hospital Encounter [facility] Radiology [address] [place] [address] Zoie Zuniga MD Discharge Disposition: Discharge to home or self care 11/15/2024 11:25 AM HAND MARKER - 11/15/2024 11:59 PM HAND MARKER Hospital Encounter [facility] Interventional Pulmonology [address] [place] [address] Left upper lobe consolidation Discharge Disposition: Discharge to home or self care 11/14/2024 Telephone [facility] Interventional Pulmonology [address] [place] [address] Hetal Spencer, DARNELL 11/07/2024 Telephone [facility] Radiation Oncology at [facility] [address] [place] [address] Yaneth Bain RN 11/04/2024 9:40 PM HAND MARKER - 11/04/2024 11:59 PM HAND MARKER Hospital Encounter [facility] Radiation Oncology [address] [facility] [place] [address] Discharge Disposition: Discharge to home or self care 11/04/2024 Telephone [facility] Radiation Oncology [address] [address] Felecia Avila NP 10/27/2024 Orders Only [facility] Pulmonary [address] [facility] 8th [place] [address] [place] [address] Bobo Luna RMA Left upper lobe consolidation (Primary Dx) 10/27/2024 Telephone [facility] Pulmonary [address] [facility] 8th [place] [address] [place] [address] Bobo Luna RMA 10/25/2024 9:00 AM HAND MARKER Office Visit [facility] Surgery [address] [facility] [address] [place] [address] Santana Rahman MD Squamous cell carcinoma of cheek [C44.329]; Lung nodule seen on imaging study 10/25/2024 Orders Only [facility] Radiation Oncology [address] [facility] [place] [address] Felecia Avila, PARESH Squamous cell carcinoma of cheek (Primary Dx); Lung nodule seen on imaging study 10/25/2024 Telephone Radiology 1 [place] [address] Shirley Barrientosley, RT 10/25/2024 Orders Only [facility] Surgery [address] [facility] Floor [address] [place] [address] Jane Perez, PARESH Pulmonary nodule (Primary Dx) from Last 3 Months Immunizations Immunization Administration Dates Next Due COVID-19 mRNA ([employer]) 0.3 m L (30 mcg) vaccine (12 [...] Comments Blood Pressure 137/100 11/15/2024 2:50 PM HAND MARKER Pulse 47 11/15/2024 2:50 PM HAND MARKER Temperature 36.6 C (97.9 F) 11/15/2024 1:38 PM HAND MARKER Respiratory Rate 15 11/15/2024 2:50 PM HAND MARKER Oxygen Saturation 93% 11/15/2024 2:50 PM HAND MARKER Inhaled Oxygen Concentration - - Weight 97.5 kg (215 lb) 10/18/2024 1:23 PM HAND MARKER Height 152.4 cm (5') 10/18/2024 1:23 PM HAND MARKER Body Mass Index 41.99 10/18/2024 1:23 PM HAND MARKER Plan of Treatment Health Maintenance Due Date [...] 1 VIEW IP Routine 11/15/2024 2:16 PM HAND MARKER SURGICAL PATHOLOGY Routine 11/15/2024 1: 23 PM HAND MARKER CYTOLOGY Routine 11/15/2024 12:53 PM HAND MARKER BRONCHOSCOPY Routine 11/15/2024 12:30 PM HAND MARKER Left upper lobe consolidation from Last 3 [...] ORD ERABLES Final Result Performing Organization Address [facility] Co de Phone Number ARIA * [...] LANEY * RAD ONC ARIA SESSION SUMMARY (12/12/2024 [...] ORD ERABLES Final Result Performing Organization Address City/[facility] Co de Phone Number LANEY * RAD ONC ARIA SESSION SUMMARY (12/09/2024 [...] ORD ERABLES Final Result Performing Organization Address [facility] de Phone Number ARIPablo * RAD ONC ARIA SESSION SUMMARY (12/08/2024 4:39 PM CDT) Course Name [id number] _2024 ARIA [...] ORD ERABLES Final Result Performing Organization Address [facility] de Phone Number ARIPablo * RAD ONC ARIA SESSION SUMMARY (12/07/2024 [...] ORD ERABLES Final Result Performing Organization Address [facility] Co de Phone Number ARIA * [...] XR Chest 1 Vw (11/15/2024 2:16 PM HAND MARKER) Anatomical Region Laterality Modality Body, Chest N/A Computed Radiogr aphy 11/15/2024 4:08 PM HAND MARKER Impressions 11/15/2024 4:12 PM HAND MARKER No prior radiograph available for comparison. Small [...] Pola Floyd M.D. Narrative 11/15/2024 4:12 PM HAND MARKER EXAMINATION: 1 view chest radiograph Procedure Note [...] Result * Surgical pathology (11/15/2024 1:23 PM HAND MARKER) Tissue specimen (specimen) (Lung Biopsy) 11/15/2024 1:23 PM HAND MARKER 11/15/2024 5:48 PM HAND MARKER Narrative PATHOLOGY [facility] - 11/16/2024 9:33 AM HAND MARKER EPIC results best viewed via link to PDF [facility] of Surgical Pathology [facility] [place] [address] Note to Patients: This report may contain [...] Gender: F : 1945 (Age: 79) Address: [address] [place], [place] [address] Hospital #: [id number] Taken:11/15/2024 Received:11/15/2024 Reported: 11/16/2024 Patient Type: [facility] Ancillary Service: Pulmonary Location: Physician(s): Kaushik Guerin [...] Surgical Pathology and Flow Cytometry Departments at [facility] as part of an ongoing quality control engineering technician program and in compliance with federally mandated regulations drawn from the Clinical Laboratory Improvement Act of 1988 (CLIA '). Some of these tests rely on the [...] Surgical Pathology and Flow Cytometry Departments of [facility]. It has not been cleared or approved by the U. S. Food and Drug Administration. IMAGES AND SCANNED DOCUMENTS, IF INCLUDED, ONLY VIEWABLE IN PDF VERSION OF REPORT us Pako Gaytan MD LAB PATHOLOGY ORDERABLES Final Result PATHOLOGY [facility] 3rd Floor [place], [place] [phone] * Cytology (11/15/2024 12:53 PM HAND MARKER) Fluid (Lung (Cytology)) 11/15/2024 12:53 PM HAND MARKER 11/15/2024 1:35 PM HAND MARKER Narrative PATHOLOGY [facility] - 11/16/2024 3:05 PM HAND MARKER EPIC results best viewed via link to PDF [facility] [place] [address] Note to Patients: This report may contain [...] Gender: F : 1945 (Age: 79) Address: [address] [place] [address], [place] [address] Hospital #: [id number] Taken:11/15/2024 Received:11/15/2024 Reported: 11/16/2024 Patient Type: [facility] Ancillary Service: UNKNOWN Location: Physician(s): Pako Gaytan M.D. FINAL DIAGNOSIS A. Lung, left upper lobe, endobronchial ultrasound guided, fluoroscopy assisted, fine needle aspiration: - Squamous cell carcinoma Comments The cell block confirms the diagnosis. rcwp/11/16/2024 15:05 By this signature, I attest that [...] Surgical Pathology and Flow Cytometry Departments at [facility] as part of an ongoing quality control engineering technician program and in compliance with federally [...] Surgical Pathology and Flow Cytometry Departments of [facility]. It has not been cleared or approved by the U. S. Food and Drug Administration. Pako Gaytan MD LAB CYTOLOGY ORDERABLES F inal Result PATHOLOGY [facility] 3rd Floor [place], [place] [phone] * Bronchoscopy -[facility] Interventional Pulm; Bronchoscopy, RADIAL BIOPSY (11/15/2024 12:30 PM HAND MARKER) Anatomical Region Laterality Modality Other Narrative Procedure Note Pako Gaytan MD - 11/15/2024 12:30 PM CST [facility] Interventional Pulmonary Patient Name: Cheryl Murillo [...] 0 Note Initiated On: 11/15/2024 12:30 PM Pako Gaytan MD BRONCH ORDERABLES Final R esult from Last 3 Months Insurance * Guarantor: Cheryl Murillo Account Type Relation to Patient Date of Phone Billing Address Personal/Family Self [address] [place] [id number] A[employer] MEDICARE GOLD [facility] * Guarantor: Cheryl Murillo Account Type Relation to Patient Date of Phone Billing Address Personal/Family Self [address] [place] [id number] A[employer] MEDICARE GOLD [employer] MEDICARE GOLD [employer] Advance Directives For more information, please contact: [phone] * Full Code (Latest Code Status on File) Date Activated Date Inactivated Comments 09/10/2023 3:28 PM 09/11/2023 6:00 PM Care Teams Polymer Materials Consultant Relationship Specialty Start Date End Date Michele Coleman MD PCP - General 12/12/16 Aries Soliman MD [address] [place] [address] [place] [address] Dermatology 09/01/23 Yanira Granda MD [address] [place] [address] Referring Physician Dermatology 09/01/23 Dennis Gentile MD [address] [place] [address] Referring Physician Otolaryngology 10/25/24
--- OUTSIDE RECORDS SUMMARY | 2025-01-19 13:10 | XMS_ITS ---
Author Organization [facility] Address [address] [place] [address] Care Team Providers Care Instructional Technology Teacher Name Role Phone Michele Coleman MD Primary Care Provider Aries Soliman MD Unavailable [phone] Yanira Granda MD Unavailable [phone] Dennis Gentile MD Unavailable [phone] Active Problems Patient Care Coordination No te [...]
--- OUTSIDE RECORDS SUMMARY | 2025-01-19 13:10 | XMS_ITS | Encounter Summary ---
Author Organization [facility] LIDIA Banerjee [facility] Address [address] [place] [address] Care Team Providers Care Blade Grinder Name Role Phone Tino Hernandez MD Primary Care Provider Encounter Details Date Type Department Care Team (Late st Contact Info) Description 01/08/2023 [facility] Oncology and Hematology - [address] [address] Nish Vásquez RN Social History Tobacco Use Types Packs/Day Years Used Date Smoking Tobacco: Never Smokeless Tobacco: Never Alcohol Use Standard Drinks/Week Comments No 0 (1 standard drink = 0.6 oz pur e alcohol) Comments No Sex and Gender Information Value Date Recorded Sex Assigned at Not on file Legal Sex Female 4: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
[2025-01-19 13:22] LABS: Basophils Percent Auto 0.6 % (0.2-1.2); Eosinophils Absolute Auto 0.1 K/mm3 (0-0.3); Eosinophils Percent Auto 1.7 % (0-4.4); Hematocrit 42.1 % (37.0-47.0); Hemoglobin 13.4 g/dL (12.0-15.0); Immature Granulocyte Absolute 0.03 K/mm3 (0.00-0.031); Immature Granulocyte Percent A 0.4 % (0-0.5); Lymphocytes Percent Auto 21.3 % (18.3-44.2); Mean Corpuscular HGB Conc 31.8 g/dl (32-36); Mean Corpuscular Hemoglobin 28.2 pg (26-34); Mean Corpuscular Volume 88.6 fl (80-100); Mean Platelet Volume 11.6 fl (7.4-10.4); Monocytes Absolute Auto 0.4 K/mm3 (0.1-0.6); Monocytes Percent Auto 6.3 % (2.6-8.5); Neutrophils Absolute Auto 4.9 K/mm3 (1.3-6.7); Neutrophils Percent Auto 69.7 % (45.5-73.1); Platelet Count Result 160 k/mm3 (150-375); Red Blood Count 4.75 M/mm3 (4.2-5.4); Red Cell Distribution Width 15.2 % (11.5-14.5)
[2025-01-19 13:25] LABS: Blood Urea Nitrogen 32 mg/dL (8-26); Carbon Dioxide 28 mmol/L (22-30); Chloride 100 mmol/L (98-109); Estimated Glomerular Filt Rate 39; Glucose 125 mg/dL (70-105); Ionized Calcium (POC) 1.09 mmol/L (1.11-1.31); Potassium 4.3 mmol/L (3.5-4.9); Sodium 139 mmol/L (138-146)
== END 2025-01-19 13:08 | disposition home or self-care (01) ==
LOC: ANHLAB 13:08
PROVIDERS: Visit Provider Internal Medicine Hematology & Oncology
DX: C91.10 Chronic lymphocytic leukemia of B-cell type not having achieved remission (principal)
CPT/HCPCS: 36415; 80047; 85025

== ENCOUNTER 2025-02-27 16:33 | Outpatient (CLI) | payer MEDICARE, SELFPAY ==
--- NOTE | ~2025-02-27 | XR_ITS ---
HISTORY: KNEE PAIN/UNABLE TO STAND COMPARISON: None TECHNIQUE: 4 views of the right knee were performed FINDINGS: No acute or subacute fracture. Medial and lateral tibiofemoral joint space narrowing is identified, with tibiofemoral joint space me dial deviation. Near complete obliteration of the patellofemoral joint space is also noted. A large suprapatellar joint effusion is identified. The infrapatellar joint space is clear. 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 No acute fracture. Reviewed, dictated and finalized at location A. IMPRESSION: Large suprapatellar joint effusion with severe degenerative diseas e. No acute fracture.
--- NOTE | ~2025-02-27 | XR_ITS ---
HISTORY: PAIN/UNABLE TO WALK COMPARISON: None TECHNIQUE: 4 views of the left knee were performed FINDINGS: Near complete obliteration of the medial tibiofemoral joint space with osteophytic bridging and scler osis. Lateral tibiofemoral joint space narrowing is identified. Osteophytic bridging is also noted. Diffuse bony demineralization is identified. Near complete obliteration of the patellofemoral joint space is also present. Small suprapatellar joint effusion is identified. The infrapatellar joint space is clear. IMPRESSION: Severe degenerative disease without acute fracture. Reviewed, dictated and finalized at location A.
--- OUTSIDE RECORDS SUMMARY | 2025-02-27 17:11 | XMS_ITS | Encounter Summary ---
Author Organization [facility] Address [address] [place] [address] Care Team Providers Care Foot Piece Assembler Name Role Phone Tino Hernandez MD Primary Care Provider [phone] Encounter Details Date Type Department Care Team (Late Contact Info) Description 01/08/2023 Abstract [facility] Oncology and Hematology [facility] [address] [place] [address] Nish Vásquez, DARNELL Social History Tobacco Use Types Packs/Day Years Used Date Smoking Tobacco: Never Smokeless Tobacco: Never Alcohol Use Standard Drinks/Week Comments No 0 (1 standard drink = 0.6 oz pur e alcohol) Comments No Sex and Gender Information Value Date Recorded Sex Assigned at Not on file Legal Sex Female 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 No / Unsure 01/06/2023 11:34 AM CDT documented as of this encounter Plan of Treatment Upcoming Encounters Date Type Department Care Team (Late Contact Info) Description 04/11/2025 3:45 PM CDT Office Visit [facility] Oncology and Hematology [address] [place] [address] Luther Napier MD [address] [facility] [address] [place] [address] documented as of this encounter Visit Diagnoses Not on filedocumented in this encounter Care Teams Foot Piece Assembler Relationship Specialty Start Date End Date Tino Hernandez MD [address] [place], [place] [id number] PCP - General Family Practice 11/24/22 documented as of this encounter
--- OUTSIDE RECORDS SUMMARY | 2025-02-27 17:11 | XMS_ITS | Clinical Summary ---
Author Organization [facility] Address [address] [place] [address] Care Team Providers Care Supervisor Epoxy Fabrication Name Role Phone Michele Coleman MD Primary Care Provider Aries Soliman MD Unavailable [phone] Yanira Granda MD Unavailable [phone] Dennis Gentile MD Unavailable [phone] Allergies No known active allergies Medications allopurinoL [...] while awake 50 each 3 Active white petrolatum-compliance examiner al oil (REFRESH PM) ointment Apply [...] - 12/16/2024 11:59 PM CDT Hospital Encounter [facility] Radiation Oncology [address] [place] [address] Jimmy Andrea MD Discharge Disposition: Discharge to home or self care 12/16/2024 Completion of Therapy 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) 12/15/2024 2:43 PM CDT - 12/15/2024 11:59 PM CDT Hospital Encounter [facility] Radiation Oncology [address] [place] [address] Discharge Disposition: Discharge to home or self care 12/15/2024 Orders Only RAD ONC TREATMENTS Miscellaneous, Not In File 12/14/2024 Telephone [facility] Radiation Oncology [address] [facility] [place] [address] Cristina Ann RN Reschedule (Radiation treatment 12/14/24.) 12/13/2024 2:51 PM CDT - 12/13/2024 11:59 PM CDT Hospital Encounter [facility] Radiation Oncology [address] [place] [address] Discharge Disposition: Discharge to home or self care 12/13/2024 OTV [facility] Radiation Oncology [address] [place] [address] Shaheen Navarreet MD PhD 12/13/2024 Orders Only RAD ONC TREATMENTS Miscellaneous, Not In File 12/12/2024 2:30 PM CDT - 12/12/2024 11:59 PM CDT Hospital Encounter [facility] Radiation Oncology [address] [place] [address] Discharge Disposition: Discharge to home or self care 12/12/2024 Orders Only RAD ONC TREATMENTS Miscellaneous, Not In File 12/09/2024 1:58 PM CDT - 12/09/2024 11:59 PM CDT Hospital Encounter [facility] Radiation Oncology [address] [place] [address] Discharge Disposition: Discharge to home or self care 12/09/2024 Orders Only RAD ONC TREATMENTS Miscellaneous, Not In File 12/08/2024 3:39 PM CDT - 12/08/2024 11:59 PM CDT Hospital Encounter [facility] Radiation Oncology [address] [place] [address] Discharge Disposition: Discharge to home or self care 12/08/2024 Orders Only RAD ONC TREATMENTS Miscellaneous, Not In File 12/07/2024 2:43 PM CDT - 12/07/2024 11:59 PM CDT Hospital Encounter [facility] Radiation Oncology [address] [place] [address] Discharge Disposition: Discharge to home or self care 12/07/2024 Orders Only RAD ONC TREATMENTS Miscellaneous, Not In File 12/06/2024 9:48 AM CDT - 12/06/2024 11:59 PM CDT Hospital Encounter [facility] Radiation Oncology [address] [place] [address] Shaheen Navarrete MD PhD Discharge Disposition: Discharge to home or self care 12/06/2024 OTV [facility] Radiation Oncology [address] [place] [address] Ernestine Davis MD Squamous cell carcinoma of cheek (Primary Dx); Left upper lobe consolidation; Yeast infection 12/06/2024 Orders Only RAD ONC TREATMENTS Miscellaneous, Not In File 12/05/2024 8:45 PM CDT - 12/05/2024 11:59 PM CDT Hospital Encounter [facility] Radiation Oncology [address] [place] [address] Discharge Disposition: Discharge to home or self care 12/05/2024 Orders Only RAD ONC TREATMENTS Miscellaneous, Not In File from Last 3 Months Immunizations Immunization Administration Dates Next Due COVID-19 mRNA ([employer]) 0.3 m L (30 mcg) vaccine (12 [...] Comments Blood Pressure 137/100 11/15/2024 2:50 PM PRESS CLEANER Pulse 47 11/15/2024 2:50 PM PRESS CLEANER Temperature 36.6 C (97.9 F) 11/15/2024 1:38 PM PRESS CLEANER Respiratory Rate 15 11/15/2024 2:50 PM PRESS CLEANER Oxygen Saturation 93% 11/15/2024 2:50 PM PRESS CLEANER Inhaled Oxygen Concentration - - Weight 97.5 kg (215 lb) 10/18/2024 1:23 PM PRESS CLEANER Height 152.4 cm (5') 10/18/2024 1:23 PM PRESS CLEANER Body Mass Index 41.99 10/18/2024 1:23 PM PRESS CLEANER Plan of Treatment Health Maintenance Due Date [...] ARIA COURSE SUMMARY 12/05/2024 3:02 PM CDT from Last 3 Months Results * RAD [...] ORD ERABLES Final Result Performing Organization Address [facility] Co de Phone Number ARIA * [...] LANEY * RAD ONC ARIA SESSION SUMMARY (12/08/2024 [...] ORD ERABLES Final Result Performing Organization Address City/[facility]/ZIP Co de Phone Number LANEY * RAD ONC ARIA SESSION SUMMARY (12/07/2024 3:15 PM CDT) Course Name C2_[id number]_[id number] _2024 ARIA [...] ORD ERABLES Final Result Performing Organization Address [facility] de Phone Number ARIPablo * RAD ONC ARIA COURSE SUMMARY (12/05/2024 [...] RADIATION ONCOLOGY ORD ERABLES Final Result LANEY from Last 3 Months Insurance [employer] MEDICARE GOLD [facility] [employer] MEDICARE GOLD IDPA Advance Directives For more information, please contact: [phone] * Full Code (Latest Code Status on File) Date Activated Date Inactivated Comments 09/10/2023 3:28 PM 09/11/2023 6:00 PM Care Teams Supervisor Epoxy Fabrication Relationship Specialty Start Date End Date Michele Coleman MD PCP - General 12/12/16 Aries Soliman MD [address] [place] [address] [place] [address] Dermatology 09/01/23 Yanira Granda MD [address] [place] [address] Referring Physician Dermatology 09/01/23 Dennis Gentile MD [address] [place] [address] Surgeon Otolaryngology 10/25/24
--- OUTSIDE RECORDS SUMMARY | 2025-02-27 17:11 | XMS_ITS ---
Author Organization [facility] Address [address] [place] [address] Care Team Providers Care Binder And Box Builder Name Role Phone Michele Coleman MD Primary Care Provider Aries Soliman MD Unavailable [phone] Yanira Granda MD Unavailable [phone] Dennis Gentile MD Unavailable [phone] Active Problems Patient Care Coordination No te [...]
--- OUTSIDE RECORDS SUMMARY | 2025-02-27 17:11 | XMS_ITS | Clinical Summary ---
Author Organization [employer] [facility] [address] Address [address] [facility] [place] [address] Phone Care Team Providers Care Ice Cream Mixer Name Role Phone Tino Hernandez MD Primary Care Provider [phone] Allergies No known active allergies Medications omeprazole [...] Encounters Date Type Department Care Team Description 01/23/[address] [facility] Oncology and Hematology [facility] [address] [place] [address] Luther Napier MD 01/19/2025 1:00 PM CDT Office Visit [facility] On[facility] and Hematology [facility] [address] [place] [address] Luther Napier MD CLL (chronic lymphocytic leukemia) (CMS/HCC) (Primary Dx) 12/27/2024 External Device Data STL ABSTRACTION Provider, Abstract 12/27/2024 External Device Data STL ABSTRACTION Provider, Abstract 12/15/[address] 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 Gender Identity Not on file Sexual Orientation Not on file Last Filed Vital Signs Vital Sign Reading Time Taken Comments Blood Pressure 117/75 01/19/2025 1:25 PM CDT Pulse 91 01/19/2025 1:25 PM CDT Temperature 35.8 C (96.5 F) 01/19/2025 1:25 PM CDT Respiratory Rate 15 01/19/2025 1:25 PM CDT Oxygen Saturation 93% 01/19/2025 1:25 PM CDT Inhaled Oxygen Concentration - - Weight 97.5 kg (215 lb) 01/19/2025 1:25 PM CDT Height 152.4 cm (5') 05/21/2022 11:25 AM CDT Body Mass Index 41.99 05/21/2022 11:25 AM CDT Plan of Treatment Upcoming Encounters Date Type Department Care Team (Late st Contact Info) Description 04/11/2025 3:45 PM CDT Office Visit [facility] Oncology and Hematology - [place] [address] [facility] [address] [place] [address] Luther Napier MD [address] [facility] [address] [place] [address] Health Maintenance Due Date Last Done Comments DTAP/TDAP/TD VACCINES (1 - Tdap) 1962 ZOSTER VACCINE (1 of 2) 1962 OSTEOPOROSIS SCREENING 2008 RSV VACCINE (60+ or ) (1 - 1-dose 75+ series) 2018 PNEUMOCOCCAL VACCINE 50+ YEA RS (2 of 2 - PPSV23) 08/23/2019 06/28/2019 INFLUENZA VACCINE (#1) 2024 , 06/18/2022, 07/08/2021, Additional history exists COVID-19 Vaccine (6 - 2023-2 5 season) 2024 07/11/2023, 06/18/2022, 07/31/2021, Additional history exists Procedures Procedure Name Priority Date/Time Associated Diagnosis Comments BASIC METABOLIC PANEL Routine 01/19/2025 11:43 AM CDT CBC WITH DIFFERENTIAL Routine 01/19/2025 11:40 AM CDT from Last 3 Months Results * BASIC METABOLIC PANEL (01/19/2025 11:43 AM CDT) Blood Luther Napier MD CHEMISTRY ORDERABLES Final Resu lt * CBC WITH DIFFERENTIAL (01/19/2025 11:40 AM CDT) Blood us Luther Napier MD HEMATOLOGY ORDERABLES Final Res ult from Last 3 Months Insurance RX AET Medicare Part D RX PHARMACY [facility] Medicare Part D Care Teams Ice Cream Mixer Relationship Specialty Start Date End Date Tino Hernandez MD [address] [place] [address] PCP - General Family Practice 11/24/22
--- OUTSIDE RECORDS SUMMARY | 2025-02-27 17:11 | XMS_ITS | Referral Summary ---
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) 12/16/2024 Orders Only RAD ONC TREATMENTS Miscellaneous, Not In File 12/16/2024 Orders Only [facility] Radiation Oncology [address] [place] [address] Felecia Avila NP 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) 12/16/2024 3:56 PM CDT - 12/16/2024 11:59 PM CDT Hospital Encounter [facility] Radiation Oncology [address] [place] [address] Jimmy Andrea MD Discharge Disposition: Discharge to home or self care 12/15/2024 Orders Only RAD ONC TREATMENTS Miscellaneous, Not In File 12/15/2024 2:43 PM CDT - 12/15/2024 11:59 PM CDT Hospital Encounter [facility] Radiation Oncology [address] [place] [address] Discharge Disposition: Discharge to home or self care 12/14/2024 Telephone [facility] Radiation Oncology [address] [place] [address] Cristina Ann RN Reschedule (Radiation treatment 12/14/24.) 12/13/2024 OTV [facility] Radiation Oncology [address] [place] [address] Shaheen Navarrete MD PhD 12/13/2024 Orders Only RAD ONC TREATMENTS Miscellaneous, Not In File 12/13/2024 2:51 PM CDT - 12/13/2024 11:59 PM CDT Hospital Encounter [facility] Radiation Oncology [address] [place] [address] Discharge Disposition: Discharge to home or self care 12/12/2024 Orders Only RAD ONC TREATMENTS Miscellaneous, Not In File 12/12/2024 2:30 PM CDT - 12/12/2024 11:59 PM CDT Hospital Encounter [facility] Radiation Oncology [address] [place] [address] Discharge Disposition: Discharge to home or self care 12/09/2024 Orders Only RAD ONC TREATMENTS Miscellaneous, Not In File 12/09/2024 1:58 PM CDT - 12/09/2024 11:59 PM CDT Hospital Encounter [facility] Radiation Oncology [address] [place] [address] Discharge Disposition: Discharge to home or self care 12/08/2024 Orders Only RAD ONC TREATMENTS Miscellaneous, Not In File 12/08/2024 3:39 PM CDT - 12/08/2024 11:59 PM CDT Hospital Encounter [facility] Radiation Oncology [address] [facility] [place] [address] Discharge Disposition: Discharge to home or self care 12/07/2024 Orders Only RAD ONC TREATMENTS Miscellaneous, Not In File 12/07/2024 2:43 PM CDT - 12/07/2024 11:59 PM CDT Hospital Encounter [facility] Radiation Oncology [address] [place] [address] Discharge Disposition: Discharge to home or self care 12/06/2024 OTV [facility] Radiation Oncology [address] [place] [address] Ernestine Davis MD Squamous cell carcinoma of cheek (Primary Dx); Left upper lobe consolidation; Yeast infection 12/06/2024 Orders Only RAD ONC TREATMENTS Miscellaneous, Not In File 12/06/2024 9:48 AM CDT - 12/06/2024 11:59 PM CDT Hospital Encounter [facility] Radiation Oncology [address] [place] [address] Shaheen Navarrete MD PhD Discharge Disposition: Discharge to home or self care 12/05/2024 8:45 PM CDT - 12/05/2024 11:59 PM CDT Hospital Encounter [facility] Radiation Oncology [address] [place] [address] Discharge Disposition: Discharge to home or self care 12/05/2024 Orders Only RAD ONC TREATMENTS Miscellaneous, Not In File from Last 3 Months Allergies No known [...] while awake 50 each 3 Active white petrolatum-tunnel miner al oil (REFRESH PM) ointment Apply [...] Immunization Administration Dates Next Due COVID-19 mRNA ([facility])) 0.3 m L (30 mcg) vaccine (12 [...] money to buy more. Never true 11/16/19 Within the past 12 months, t he [...] Comments Blood Pressure 137/100 11/15/2024 2:50 PM NATIONAL EXPANSION RECRUITER Pulse 47 11/15/2024 2:50 PM NATIONAL EXPANSION RECRUITER Temperature 36.6 C (97.9 F) 11/15/2024 1:38 PM NATIONAL EXPANSION RECRUITER Respiratory Rate 15 11/15/2024 2:50 PM NATIONAL EXPANSION RECRUITER Oxygen Saturation 93% 11/15/2024 2:50 PM NATIONAL EXPANSION RECRUITER Inhaled Oxygen Concentration - - Weight 97.5 kg (215 lb) 10/18/2024 1:23 PM NATIONAL EXPANSION RECRUITER Height 152.4 cm (5') 10/18/2024 1:23 PM NATIONAL EXPANSION RECRUITER Body Mass Index 41.99 10/18/2024 1:23 PM NATIONAL EXPANSION RECRUITER Plan of Treatment Not on file [...] Miscellaneous RADIATION ONCOLOGY ORD ERABLES Final Result ARIPablo * RAD ONC ARIA SESSION SUMMARY (12/12/2024 [...] ORD ERABLES Final Result Performing Organization Address [facility] Co de Phone Number ARIA * RAD [...] ORD ERABLES Final Result Performing Organization Address [facility] Co de Phone Number ARIA * RAD [...] Final Result ARIA * RAD ONC ARIA COURSE SUMMARY [...] RADIATION ONCOLOGY ORD ERABLES Final Result ARIA from Last 3 Months [place] [employer] [address] [facility] MEDICARE GOLD [facility] [place] [place] [address] [facility] MEDICARE GOLD [employer] MEDICARE GOLD [facility] Advance Directives For more information, please contact: [phone] * Full Code (Latest Code Status on File) Date Activated Date Inactivated Comments 09/10/2023 3:28 PM 09/11/2023 6:00 PM Care Teams Campus Police Officer Relationship Specialty Start Date End Date Michele Coleman MD PCP - General 12/12/16 Aries Soliman MD [address] [place] [address] Dermatology 09/01/23 Yanira Granda MD [address] [place] [address] Referring Physician Dermatology 09/01/23 Dennis Gentile MD [address] [facility] [address] [place] [address] Surgeon Otolaryngology 10/25/24
--- OUTSIDE RECORDS SUMMARY | 2025-02-27 17:11 | XMS_ITS | Clinical Summary ---
Author Organization [facility] Address [address] [facility] [place] [address] Care Team Providers Care Theatre Instructor Name Role Phone Idalia Serrano MD Primary Care Provider [phone] Source Comments [facility],non-owned Affiliates and Associated Physician Practices is amultiple site organization consisting of ambulatory clinics and hospital sitesin [place], [place] and [place]. This disclosure is being madepursuant to the Care Everywhere program and may not contain all information available regarding this patient. Last updated 18.[facility] Allergies No known active allergies Medications * [...] 36.7 C (98 F) 09/08/2019 1:02 PM RUBBER CUTTER AND SHAPE CARVER Respiratory Rate 14 06/12/2020 6:30 PM CDT [...] Documents on File Type Date Recorded Patient Registered Public Surveyor Expl anation Adv Directive/Living Will/POA 01/19/2017 Care Teams Theatre Instructor Relationship Specialty Start Date End Date Idalia Serrano MD [address] [place] [address] PCP - General 04/30/22
--- OUTSIDE RECORDS SUMMARY | 2025-02-27 17:11 | XMS_ITS | Encounter Summary ---
Author Organization [facility] Address [address] [facility] [place] [address] Care Team Providers Care Automobile Locator Name Role Phone Idalia Serrano MD Primary Care Provider [phone] Encounter Details Date Type Department Care Team (Late st Contact Info) Description 10/09/2022 Lab Requisition [facility] [address] [facility] [place] [address] Yanira Granda MD [address] [facility] [place] [address] [place] [address] Social History Tobacco Use Types [...] Comments DERMATOPATHOLOGY Routine 10/07/2022 12:0 0 AM HUMAN RESOURCES RECRUITER documented in this encounter Results * DERMATOPATHOLOGY (10/07/2022 12:00 AM HUMAN RESOURCES RECRUITER) Case Report Dermatopathology Report Case: [id number] Authorizing Provider: Yanira Granda MD Collected: 10/07/2022 12:00 AM Ordering Location: [facility] [place] [facility] Received: 10/09/2022 01:05 PM Pathologist: Leyda Lorenzo MD Specimen: Skin, left inferior central forehead 4:51 PM HUMAN RESOURCES RECRUITER DERMATOPATHOLOGY LABORATORY Final Diagnosis Specimen A. SKIN, left inferior central forehead: SQUAMOUS CELL CARCINOMA IN SITU, PRESENT AT THE BASE OF THE SPECIMEN (D04.39) (see microscopic description and comment) 4:51 PM [facility] at [address] HUMAN RESOURCES RECRUITER Clinical History Neoplasm of Uncertain Behavior vs. Squamous Cell Carcinoma 4:51 PM [facility] Gross Description Specimen A: Received is one formalin filled container labeled with the patient's name and designated left inferior central forehead. The specimen consists of a shave biopsy measuring [id number]. Jar 0. 4:51 PM [facility] [...] characteristic determined by the Dermatopathology Laboratory at [facility], directed by Dr. Corrine Baker. These tests need not be, and therefore are not, approved by the [place] Food and Drug Administration. The tests are used for clinical purposes. Billing Codes Specimen Charges Stain Charges 84615 1 3 4:51 PM HUMAN RESOURCES RECRUITER DERMATOPATHOLOGY LABORATORY Embedded Images 3 4:51 PM HUMAN RESOURCES RECRUITER DERMATOPATHOLOGY LABORATORY Pathology/Cytolog y TISSUE SPECIMEN FROM SKIN / Unknown 10/07/2022 10/09/2022 1:05 PM HUMAN RESOURCES RECRUITER Yanira Granda MD LAB - PATHOLOGY/CYTOLOGY ORDER DONAL Final Result DERMATOPATHOLOGY LABORATORY [facility] - Department of Dermatology [facility] [address] [place] [address], [address] [phone] documented in this encounter Visit Diagnoses Not on filedocumented in this encounter Care Teams Automobile Locator Relationship Specialty Start Date End Date Idalia Serrano MD [address] [place] [address] PCP - General 04/30/22 documented as of this encounter
== END 2025-02-27 16:34 | disposition home or self-care (01) ==
PROVIDERS: Visit Provider Physical Medicine & Rehabilitation Pain Medicine
DX: M17.0 Bilateral primary osteoarthritis of knee (principal); M25.461 Effusion, right knee
CPT/HCPCS: 73564

== ENCOUNTER 2025-04-11 14:54 | Outpatient (CLI) | payer MEDICARE, SELFPAY ==
--- OUTSIDE RECORDS SUMMARY | 2025-04-11 15:00 | XMS_ITS | Encounter Summary ---
Author Organization [facility] Address [address] [place] [address] Care Team Providers Care Inserting Press Operator Name Role Phone Tino Hernandez MD Primary Care Provider Encounter Details Date Type Department Care Team (Late Contact Info) Description 01/08/2023 Abstract [facility] Oncology and Hematology [facility] [address] [place] [address] Nish Vásquez, DARNELL Social History Tobacco Use Types Packs/Day Years Used Date Smoking Tobacco: Never Smokeless Tobacco: Never Alcohol Use Standard Drinks/Week Comments No 0 (1 standard drink = 0.6 oz pur e alcohol) Comments No Sex and Gender Information Value Date Recorded Sex Assigned at Not on file Legal Sex Female 4:45 AM CABLE 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
--- OUTSIDE RECORDS SUMMARY | 2025-04-11 15:02 | XMS_ITS ---
Author Organization [facility] Address [address] [place] [address] Care Team Providers Care Container Filler Name Role Phone Michele Coleman MD Primary Care Provider Aries Soliman MD Unavailable [phone] Yanira Granda MD Unavailable [phone] Dennis Gentile MD Unavailable [phone] Shaheen Navarrete MD PhD Unavailable [phone] Active Problems Patient Care Coordination No te [...] Dose Automatic Entry Manual Entr y DLP 2,072 mGycm 2,072 mGycm 0 mGycm
--- OUTSIDE RECORDS SUMMARY | 2025-04-11 15:02 | XMS_ITS | Clinical Summary ---
Author Organization [facility] Address [address] [facility] [place] [address] Care Team Providers Care Bankruptcy Manager Name Role Phone Idalia Serrano MD Primary Care Provider [phone] Source Comments [facility],non-owned Affiliates and Associated Physician Practices is amultiple site organization consisting of ambulatory clinics and hospital sitesin [place], [place], [place] and [place]. This disclosure is being madepursuant to the Care Everywhere program and may not contain all information available regarding this patient. Last updated 18.[facility] Allergies No known active allergies Medications * [...] 36.7 C (98 F) 09/08/2019 1:02 PM FAN RUNNER Respiratory Rate 14 06/12/2020 6:30 PM CDT [...] 11/23/2020, 11/02/2020 DEPRESSION SCREENING 09/14/2024 INFLUENZA VACCINE (#1) 2025 HEPATITIS B VACCINE Aged Out No [...] Documents on File Type Date Recorded Patient Dental Assistant Teacher Expl anation Adv Directive/Living Will/POA 01/19/2017 Care Teams Bankruptcy Manager Relationship Specialty Start Date End Date Idalia Serrano MD [address] [place] [address] PCP - General 04/30/22
--- OUTSIDE RECORDS SUMMARY | 2025-04-11 15:02 | XMS_ITS | Continuity of Care Document ---
Author Organization [facility] Address [address] [place] [phone] Phone Care Team Providers Care Clinical Support Manager Name Role Phone Kris Bains MD Unavailable Unavailable Allergies, Adverse Reactions, Alerts Substance Reaction Status Criticality No Known Allergies Active No Inform ation Medications Medication Instructions Dosage Effective Dates (start - stop) Status Comments esomeprazole magnesium 20 mg capsule,delayed release take 1 capsule by oral route every day - Active hydrochlorothiazide 25 mg tablet take 1 tablet by oral route every day 25 MG - Active enalapril maleate 5 mg tablet take 1 tablet by oral route every day 5 MG - Active albuterol sulfate 2.5 mg/3 mL (0.083 %) solution for nebulization inhale 3 milliliter by nebulization route every 6 hrs - Active ProAir HFA 90 mcg/actuation aerosol inhaler inhale 2 puff by inhalation route every 4 - 6 hours as needed - Active Vitamin B-12 1,000 mcg tablet take 1 tablet by oral route every day 1 tablet - Active Probiotic 10 billion cell capsule take 1 capsule by oral route every day 1 capsule - Active aspirin 81 mg tablet,delayed release take 1 tablet by oral route every day 81 MG - Active Tums 200 mg calcium (500 mg) chewable tablet take 1 Tablet by Oral route as needed 1 Tablet - Active Kaopectate (bismuth subsalicylate) 262 mg/15 mL oral suspension 1 bottle per week - Active Active Q 200 mg capsule daily - Active Krill Oil ([place] 3 and 6) 1,500 mg-165 mg-67.5 mg capsule daily - Active iron 325 mg (65 mg iron) tablet take 1 by oral route once daily - Active Vitamin D3 400 unit capsule take 1 capsule by oral route every day 1 capsule - Active Procedures Procedure Date Offic/outpt E&m [facility] 45 8 Advance Directives Directive Yes / No Effective Date File Name No Information Encounters Encounter Description Practice Location Reason(s) For Visit Diagnoses Date Provider Providers Copied on Encounter [facility], [address] [place] [address], [id number] tel:[phone] [facility] [employer] No Information Herson JACKSON Kris. [address] [place] [address], [id number] , . tel:[phone] Offic/outpt E&m [facility] 45 [facility], [address] [place] [address], [id number] tel:[phone] [facility] [employer] iron deficiency anemia (chief complaint) Iron deficiency anemia due to chronic blood lossSmall bowel arteriovenous malformationC hronic diarrheaRecta l bleeding 8 Herson JACKSON Kris. [address] [place] [address], [id number] , . tel:[phone] Referring Provider: Macario Martinez MD, [facility] [place], [place], [facility]. tel:[phone] Family History Family Member Type Diagnosis Age At Onset Problem (finding) No family history of Co noelle polyps Problem (finding) No family history of Ca ncer, colon Immunizations Vaccine Date Status Comments Pneumo (2 yrs or older)(PPV) administered Source: Other Provider Flu (split) (3 yrs or older) administered Source: Other Provider Payers Payer name Insurance type Covered constitution party ID Authoriza tion(s) Nelida TRAN [id number] Social History Type Description Quantity Date Captured Comments Sex Female Smoking Status No Information Chief Complaint And Reason For Visit No Information Reason For Referral Reason For Referral No Information History Of Present Illness Encounter Date Complaint History Of Prese nt Illness iron deficiency anemia (comments ) The patient is a 72-year-old woman who presents for evaluation of iron deficiency anemia. She experienced similar issues in 2016. She underwent EGD at [facility] that was normal. She subsequently underwent colonoscopy that showed diverticulosis. A small bowel video capsule endoscopy showed multiple AVMs throughout the small intestine. 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 She is also on oral and IV iron infusions. Her most recent lab work from December showed hemoglobin 6.3 with transferrin saturation 7% and ferritin 13.6. She mentions very infrequent rectal bleeding at times of diarrhea. She has a history of C. difficile colitis a couple years ago which was treated with antibiotics with resolution. She experiences intermittent diarrhea, however mentions going 2-3 days without any bowel movement at all. She also passes formed stools. She takes Kaopectate as needed. Otherwise, her gastrointestinal review of systems is unremarkable. She is on aspirin daily. She mentions fatigue and shortness of breath at times of lower hemoglobin. She has a history of COPD and is on oxygen at nighttime.A recent C. difficile sample was negative. iron deficiency anemia Functional Status Date Functional Assessmen t No Information Instructions Date Instruction Additional Infor konrad obtain upcoming lab results Rela frandy to Small bowel arteriovenous malformation obtain EGD report from 2016 Rela frandy to Small bowel arteriovenous malformation Assessments Type Assessment Date No Information Patient Care Teams Name Effective Dates (start - stop) Status Members No Information
--- OUTSIDE RECORDS SUMMARY | 2025-04-11 15:02 | XMS_ITS | Encounter Summary ---
Author Organization [facility] Address [address] [facility] [place] [address] Care Team Providers Care Semiconductor Processing Technician Name Role Phone Idalia Serrano MD Primary Care Provider [phone] Encounter Details Date Type Department Care Team (Late st Contact Info) Description 10/09/2022 Lab Requisition [facility] [address] [facility] [place] [address] Yanira Granda MD [address] [facility] [place] [address] [place] [address] Social History Tobacco Use Types [...] Comments DERMATOPATHOLOGY Routine 10/07/2022 12:0 0 AM [facility] documented in this encounter Results * DERMATOPATHOLOGY (10/07/2022 12:00 AM [facility]ILD [facility]) Case Report Dermatopathology Report Case: [id number] Authorizing Provider: Yanira Granda MD Collected: 10/07/2022 12:00 AM Ordering Location: [facility] Received: 10/09/2022 01:05 PM Pathologist: Leyda Lorenzo MD Specimen: Skin, left inferior central forehead 4:51 PM [facility] Final Diagnosis Specimen A. SKIN, left inferior central forehead: SQUAMOUS CELL CARCINOMA IN SITU, PRESENT AT THE BASE OF THE SPECIMEN (D04.39) (see microscopic description and comment) 4:51 PM [facility] at 1651 [facility] Clinical History Neoplasm of Uncertain Behavior vs. Squamous Cell Carcinoma 4:51 PM [facility] Gross Description Specimen A: Received is one formalin filled container labeled with the patient's name and designated left inferior central forehead. The specimen consists of a shave biopsy measuring [id number]. Jar 0. 4:51 PM [facility] Microscopic Description Specimen A. SKIN, left inferior central forehead: Focal tangential sectioning is present. The epidermis shows parakeratosis, full thickness disorderly maturation of keratinocytes, mitoses at different levels, and dyskeratotic cells. Adnexal extension of the lesion is seen. The lesion broadly extends to the base of the biopsy. COMMENT: An invasive squamous cell carcinoma cannot be ruled out. 4:51 PM [facility] Disclaimer An external and internal positive and negative controls are appropriate for the histochemical, immunohistochemical and immunofluorescence stain(s) in this case (if any), except where stated explicitly. The performance characteristics of the stain(s) cited in this report were developed and its performance characteristic determined by the Dermatopathology Laboratory at [facility], directed by Dr. Corrine Baker. These tests need not be, and therefore are not, approved by the [place] Food and Drug Administration. The tests are used for clinical purposes. Billing Codes Specimen Charges Stain Charges 13564 1 3 4:51 PM [facility] Embedded Images 3 4:51 PM [facility] Pathology/Cytolog y TISSUE SPECIMEN FROM SKIN / Unknown 10/07/2022 10/09/2022 1:05 PM [facility] Yanira Granda MD LAB - PATHOLOGY/CYTOLOGY ORDER DONAL Final Result DERMATOPATHOLOGY LABORATORY [facility] - Department of Dermatology [facility] [address] [place] [address], [address] [phone] documented in this encounter Visit Diagnoses Not on filedocumented in this encounter Care Teams Semiconductor Processing Technician Relationship Specialty Start Date End Date Idalia Serrano MD [address] [place] [address] PCP - General 04/30/22 documented as of this encounter
--- OUTSIDE RECORDS SUMMARY | 2025-04-11 15:02 | XMS_ITS | Clinical Summary ---
Author Organization [employer] [facility] [address] Address [address] [place] [address] Phone Care Team Providers Care Watch Assembler Name Role Phone Tino Hernandez MD Primary Care Provider Allergies No known active allergies Medications omeprazole (PRILOSEC) 20 mg Capsule, Delayed Release(E.C.) Take 20 mg by mouth daily. Active atorvastatin (LIPITOR) 80 mg tablet 08/14/20 19 Active Pacerone 100 mg Tablet TAKE 1 TABLET BY MOUTH ONCE DAILY 01/05/20 20 Active amLODIPine (NORVASC) 2.5 mg tablet TAKE 1 TABLET BY MOUTH ONCE DAILY 04/15/20 20 Active furosemide (LASIX) 10 mg/mL Solution Take by mouth two times daily, 7 hours apart. Active albuterol sulfate HFA 90 mcg/actuation aerosol inhaler Take 2 Puffs by inhalation every 6 hours as needed for Shortness of Breath. Active magnesium oxide (MAG-OX) 400 mg (241.3 mg magnesium) tablet Take 400 mg by mouth daily in the morning. 03/24/20 23 Active allopurinoL (ZYLOPRIM) 300 mg tablet Take 1 tablet by mouth once daily 30 Tablet 08/10/20 23 Active zanubrutinib (Brukinsa) 80 mg capsule TAKE 2 CAPSULES BY MOUTH TWICE A DAY. 120 Capsule 03/16/20 25 Active zanubrutinib 80 mg capsule Take 2 Capsules (160 mg) by mouth 2 times daily. 120 Capsule 3 09/22/19 25 025 Discontinued Active Problems Problem Noted Date Diagnosed Date Rheumatoid arthritis 10/31/2019 CLL (chronic lymphocytic leukemia) 04/20/2019 Elevated sedimentation rate 06/22/2015 Pain, joint, multiple sites 06/22/2015 Edema Encounters Date Type Department Care Team Description 03/16/2025 Refill [facility]ology [facility] [address] [place] [address] Luther Napier MD 02/28/2025 External Device Data STL ABSTRACTION Provider, Abstract 01/23/2025 Orders Only [facility]ology [facility] [address] [place] [address] Luther Napier MD 01/19/2025 1:00 PM CDT Office Visit [facility] On[facility] Hematology [facility] [address] [place] [address] Luther Napier MD CLL (chronic lymphocytic leukemia) (CMS/FORMERLY [facility]) (Primary Dx) from Last 3 Months Immunizations Immunization Administration Dates Next Due (PFIZER)(12 YR UP) COVID-19 VACCINE - EMERGENCY USE AUTHORIZATION, MRNA, [id number]) 30 MCG/0.3 ML IM SUSP 11/23/2020,11/02/2020 Family [...] file Legal Sex 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 Gender Identity Not on file Sexual Orientation [...] Visit [facility] Oncology and Hematology - Ye [address] [facility] [address] [place] [address] Luther Napier MD [address] [facility] [address] [place] [address] Health Maintenance Due Date Last Done Comments DTAP/TDAP/TD VACCINES (1 - Tdap) 1962 ZOSTER VACCINE (1 of 2) 1962 OSTEOPOROSIS SCREENING 2008 RSV VACCINE (60+ or ) (1 - 1-dose 75+ series) 2018 PNEUMOCOCCAL VACCINE 50+ YEA RS (2 of 2 - PPSV23, PCV20, or PCV21) 08/23/2019 06/28/2019 COVID-19 Vaccine (6 - 2023-2 5 season) 2024 07/11/2023, 06/18/2022, 07/31/2021, Additional history exists INFLUENZA VACCINE (#1) 2025 3, 06/18/2022, 07/08/2021, Additional history exists Procedures Procedure Name Priority Date/Time Associated Diagnosis Comments BASIC METABOLIC PANEL Routine 01/19/2025 11:43 AM CDT CBC WITH DIFFERENTIAL Routine 01/19/2025 11:40 AM CDT from Last 3 Months Results * BASIC METABOLIC PANEL (01/19/2025 11:43 AM CDT) Blood us Luther Napier MD CHEMISTRY ORDERABLES Final Resu lt * CBC WITH DIFFERENTIAL (01/19/2025 11:40 AM CDT) Blood Luther Napier MD HEMATOLOGY ORDERABLES Final Res ult from Last 3 Months Insurance [facility] Address: [place] [id number] Member Subscriber Plan / Payer (Ef fective 2024-Present) Name:Cheryl Murillo Relation to Subscriber:Self Name:Cheryl Murillo Payer ID:Not on file Type:HMO Address: [place] [id number] [facility] Medicare Part D [employer] Medicare Part D Care Teams Watch Assembler Relationship Specialty Start Date End Date Tino Hernandez MD [address] [place] [address] PCP - General Family Practice 11/24/22
--- OUTSIDE RECORDS SUMMARY | 2025-04-11 15:02 | XMS_ITS | Referral Summary ---
Author Organization [facility] Address [address] [place] [address] Care Team Providers Care Flight Hostess Name Role Phone Michele Coleman MD Primary Care Provider Aries Soliman MD Unavailable [phone] Yanira Granda MD Unavailable [phone] Dennis Gentile MD Unavailable [phone] Shaheen Navarrete MD PhD Unavailable [phone] Encounters Date Type Department Care Team Description 03/14/2025 3:00 PM CDT Office Visit [facility] Radiation Oncology [address] 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); Squamous cell carcinoma of cheek 03/14/2025 1:30 PM CDT - 03/14/2025 11:59 PM CDT Hospital Encounter [facility] [address] [place] [address] Recurrent squamous cell carcinoma of cheek Discharge Disposition: Discharge [...] while awake 50 each 3 Active white petrolatum-lease examiner al oil (REFRESH PM) ointment Apply [...] Immunization Administration Dates Next Due COVID-19 mRNA (Baroc Pub) 0.3 m L (30 mcg) vaccine (12 years and up) 07/11/2023 Influenza, Quad, Adjuvantate d, Intramuscular 07/11/2023,06/18/2022,07/08/2021,06/21 Influenza, Trivalent, IM (MDV) 06/19/2015,2013 Influenza, Trivalent, Preser vative Free, Intramuscular 06/17/2016 WalkMe SARS-CoV-2 Monovalent Vaccination (12+ Yrs) PURPLE 07/31/2021 [...] Sign Reading Time Taken Comments Blood Pressure 156/98 03/14/2025 2:48 PM CDT Pulse 78 03/14/2025 2:48 PM CDT Temperature 36.6 C (97.9 F) 11/15/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 Respiratory Rate 15 11/15/2024 2:50 PM BUILDING TRADES TEACHER Oxygen Saturation 96% 03/14/2025 2:4 8 PM CDT Inhaled Oxygen Concentration - - Weight 97.5 kg (215 lb) 03/14/2025 2:48 PM CDT patient voiced Height 152.4 cm (5') 10/18/2024 1:23 PM BUILDING TRADES TEACHER Body Mass Index 41.99 10/18/2024 1:23 PM BUILDING 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 Interval decrease in size of left upper lobe pulmonary nodules in keeping with favorable treatment response of biopsy-proven squamous cell carcinoma. 2. New indeterminate 5 mm right apical pulmonary nodule. Stable additional sub-6 mm right lower lobe pulmonary nodules. Close attention on short-term imaging follow-up is recommended. Dictated by: Janis Amador MD The radiology attending physician has personally reviewed this study, and had reviewed and/or edited this written report and agrees with it. Electronically signed by: Nicholas Davalos M.D. Narrative 03/14/2025 3:39 PM CDT EXAMINATION: Computed tomography of the chest with intravenous contrast HISTORY: Right cheek and left upper lobe squamous cell carcinoma. TECHNIQUE: Transaxial computed tomographic images of the chest were obtained with intravenous contrast according to the standard protocol after the uneventful administration of 119 mL Opti-Ray 350 intravenous contrast. COMPARISON: Multiple prior studies, most recently 10/18/2024 FINDINGS: Normal caliber thoracic aorta and main pulmonary artery. Aberrant right subclavian artery. Thoracic aortic, aortic valve and mitral annular calcifications. Coronary artery atherosclerosis. Mild cardiomegaly without pericardial effusion. Small hiatal hernia. Unchanged prominent left supraclavicular lymph node measuring up to 8 mm in the short axis (12/29). No suspicious enlarging thoracic lymphadenopathy. Interval decrease in size of left upper lobe pulmonary nodule measuring up to 8 mm, previously 11 mm (12/04). Interval decrease in additional medial left upper lobe pulmonary nodule measuring up to 8 mm, previously 12 mm (3/31). New 5 mm right apical pulmonary nodule (3/21). Unchanged additional sub-6 mm right lower lobe pulmonary nodules (3/63 and 73). Surgical clips in the neck. Cholecystectomy. No acute abnormality in the partially imaged upper abdomen. Degenerative changes of the spine. Chronic left rib fracture deformity. No suspicious osseous lesion. Procedure Note Nicholas Davalos MD - 03/14/2025 EXAMINATION: Computed tomography of the chest with intravenous contrast HISTORY: Right cheek and left upper lobe squamous cell carcinoma. TECHNIQUE: Transaxial computed tomographic images of the chest were obtained with intravenous contrast according to the standard protocol after the uneventful administration of 119 mL Opti-Ray 350 intravenous contrast. COMPARISON: Multiple prior studies, most recently 10/18/2024 FINDINGS: Normal caliber thoracic aorta and main pulmonary artery. Aberrant right subclavian artery. Thoracic aortic, aortic valve and mitral annular calcifications. Coronary artery atherosclerosis. Mild cardiomegaly without pericardial effusion. Small hiatal hernia. Unchanged prominent left supraclavicular lymph node measuring up to 8 mm in the short axis (4/17). No suspicious enlarging thoracic lymphadenopathy. Interval decrease in size of left upper lobe pulmonary nodule measuring up to 8 mm, previously 11 mm (3/23). Interval decrease in additional medial left upper lobe pulmonary nodule measuring up to 8 mm, previously 12 mm (3/31). New 5 mm right apical pulmonary nodule (3/21). Unchanged additional sub-6 mm right lower lobe pulmonary nodules (3/63 and 73). Surgical clips in the neck. Cholecystectomy. No acute abnormality in the partially imaged upper abdomen. Degenerative changes of the spine. Chronic left rib fracture deformity. No suspicious osseous lesion. IMPRESSION: 1. Interval decrease in size of left upper lobe pulmonary nodules in keeping with favorable treatment response of biopsy-proven squamous cell carcinoma. 2. New indeterminate 5 mm right apical pulmonary nodule. Stable additional sub-6 mm right lower lobe pulmonary nodules. Close attention on short-term imaging follow-up is recommended. Dictated by: Janis Amador MD The radiology attending physician has personally reviewed this study, and had reviewed and/or edited this written report and agrees with it. Electronically signed by: Nicholas Davalos M.D. Felecia Avila DELIVERY TECHNICIAN IMG CT PROCEDURES Final Re sult * CT soft tissue neck with contrast (03/14/2025 2:17 PM CDT) Anatomical Region Laterality Modality Head and Neck N/A Computed Tomogra phy 03/14/2025 4:14 PM CDT Impressions 03/14/2025 10:11 PM CDT 1. Stable postsurgical changes of right cheek excision and reconstruction without new enhancing lesion. 2. Previously seen plaque-like skin lesion superficial to the left parotid gland below the left ear, has intervally became 1 x 0.7 cm round lesion. Correlation with physical exam is recommended and biopsy can be performed if clinically warranted. 3. Slightly decreased in size of the left supraclavicular conglomerated lymph nodes, now measuring 1.5 x 0.9 cm, previously 1.6 x 1 cm. No new enlarging lymphadenopathy. 4. Redemonstrated subcentimeter bilateral lung nodules. Please refer to same-day CT chest for further details. This study was dictated by Dr. Lisandro Florentino (Neuroradiology fellow). Dictated by: Lisandro Florentino M.D. The radiology attending physician has personally reviewed this study, and had reviewed and/or edited this written report and agrees with it. Electronically signed by: Reena Cobb M.D. Narrative 03/14/2025 10:11 PM CDT EXAMINATION: CT of the neck with contrast HISTORY: Squamous cell carcinoma right cheek. Status post surgery and radiation treatment TECHNIQUE: CT of the neck was performed according to the standard protocol with intravenous contrast. Contrast information: 119 mL Optiray-350 IV COMPARISON: CT neck soft tissues from 08/04/2024 and 02/02/2024. FINDINGS: Redemonstrated stable postsurgical changes of right cheek excision with reconstruction, similar to prior study. There are postradiation changes and fat stranding in the right cheek soft tissues and fatty atrophy of the right parotid gland. Slightly decreased in size of the left supraclavicular conglomerated lymph nodes, now measuring 1.5 x 0.9 cm (series 2 image 79), previously 1.6 x 1 cm. There is a 1 x 0.7 cm round superficial lesion just below the earlobe and superficial to the left parotid gland (series 2 image 30), previously was a plaque-like lesion on study dated 07/18/2024. There is no new enlarging lymphadenopathy. A 9 mm nodule in the left upper lobe and a 5 mm nodule in the right upper lobe are identified, similar to prior study. The muscles of the neck are normal. Vessels of the neck demonstrate normal course and caliber. Fascial planes are preserved and the deep spaces of the neck are normal. The visualized airway is widely patent. The base of the skull and the temporal bones are normal. Limited views of the brain including the cerebellum and brainstem are normal. The limited view of the [place] is unremarkable. The visualized portions of the orbits are normal. Redemonstrated multilevel moderate degenerative disc/facet/uncovertebral disease is present in the cervical spine, not significantly changed from prior study. Scattered coronary artery calcifications are present. Procedure Note Reena Cobb MD - 03/14/2025 EXAMINATION: CT of the neck with contrast HISTORY: Squamous cell carcinoma right cheek. Status post surgery and radiation treatment TECHNIQUE: CT of the neck was performed according to the standard protocol with intravenous contrast. Contrast information: 119 mL Optiray-350 IV COMPARISON: CT neck soft tissues from 08/04/2024 and 02/02/2024. FINDINGS: Redemonstrated stable postsurgical changes of right cheek excision with reconstruction, similar to prior study. There are postradiation changes and fat stranding in the right cheek soft tissues and fatty atrophy of the right parotid gland. Slightly decreased in size of the left supraclavicular conglomerated lymph nodes, now measuring 1.5 x 0.9 cm (series 2 image 79), previously 1.6 x 1 cm. There is a 1 x 0.7 cm round superficial lesion just below the earlobe and superficial to the left parotid gland (series 2 image 30), previously was a plaque-like lesion on study dated 07/18/2024. There is no new enlarging lymphadenopathy. A 9 mm nodule in the left upper lobe and a 5 mm nodule in the right upper lobe are identified, similar to prior study. The muscles of the neck are normal. Vessels of the neck demonstrate normal course and caliber. Fascial planes are preserved and the deep spaces of the neck are normal. The visualized airway is widely patent. The base of the skull and the temporal bones are normal. Limited views of the brain including the cerebellum and brainstem are normal. The limited view of the [place] is unremarkable. The visualized portions of the orbits are normal. Redemonstrated multilevel moderate degenerative disc/facet/uncovertebral disease is present in the cervical spine, not significantly changed from prior study. Scattered coronary artery calcifications are present. IMPRESSION: 1. Stable postsurgical changes of right cheek excision and reconstruction without new enhancing lesion. 2. Previously seen plaque-like skin lesion superficial to the left parotid gland below the left ear, has intervally became 1 x 0.7 cm round lesion. Correlation with physical exam is recommended and biopsy can be performed if clinically warranted. 3. Slightly decreased in size of the left supraclavicular conglomerated lymph nodes, now measuring 1.5 x 0.9 cm, previously 1.6 x 1 cm. No new enlarging lymphadenopathy. 4. Redemonstrated subcentimeter bilateral lung nodules. Please refer to same-day CT chest for further details. This study was dictated by Dr. Lisandro Florentino (Neuroradiology fellow). Dictated by: Lisandro Florentino M.D. The radiology attending physician has personally reviewed this study, and had reviewed and/or edited this written report and agrees with it. Electronically signed by: Reena Cobb M.D. Felecia Avila NP IMG CT PROCEDURES Final Re sult from Last 3 Months Insurance AETNA MEDICARE GOLD IDPA AETNA MEDICARE GOLD AETNA MEDICARE GOLD IDMO Advance Directives For more information, please contact: [phone] * Full Code (Latest Code Status on File) Date Activated Date Inactivated Comments 09/10/2023 3:28 PM 09/11/2023 6:00 PM Care Teams Flight Hostess Relationship Specialty Start Date End Date Michele Coleman MD PCP - General 12/12/16 Aries Soliman MD Dermatology 09/01/23 Yanira Granda MD [address] [place] [address] Referring Physician Dermatology 09/01/23 Dennis Gentile MD [address] [place] [address] Surgeon Otolaryngology 10/25/24 Shaheen Navarrete MD PhD [address] [facility]Y, [place] [address] Radiation Oncologist Radiation Oncology 03/15/25
--- OUTSIDE RECORDS SUMMARY | 2025-04-11 15:02 | XMS_ITS | Clinical Summary ---
Author Organization [facility] Address [address] [place] [address] Care Team Providers Care Hand Grinder Name Role Phone Michele Coleman MD Primary Care Provider [phone] Aries Soliman MD Unavailable [phone] Yanira Granda MD Unavailable [phone] Dennis Gentile MD Unavailable [phone] Shaheen Navarrete MD PhD Unavailable [phone] Allergies No known active allergies Medications allopurinoL [...] while awake 50 each 3 Active white petrolatum-iron miner al oil (REFRESH PM) ointment Apply [...] Description 03/14/2025 3:00 PM CDT Office Visit [facility] Radiation Oncology [address] [facility] [place] [address] Felecia Avila NP 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); Squamous cell carcinoma of cheek 03/14/2025 1:30 PM CDT - 03/14/2025 11:59 PM CDT Hospital Encounter [facility] ([facility]) [address] [place] [id number] Recurrent squamous cell carcinoma of cheek Discharge Disposition: Discharge to home or self care from Last 3 Months Immunizations Immunization Administration Dates Next Due COVID-19 mRNA (IdentiGEN) 0.3 m L (30 mcg) vaccine (12 years and up) 07/11/2023 Influenza, Quad, Adjuvantate d, Intramuscular 07/11/2023,06/18/2022,07/08/2021,06/21 Influenza, Trivalent, IM (MDV) 06/19/2015,2013 Influenza, Trivalent, Preser vative Free, Intramuscular 06/17/2016 Syntensia SARS-CoV-2 Monovalent Vaccination (12+ Yrs) PURPLE 07/31/2021 [...] 36.6 C (97.9 F) 11/15/2024 1:38 PM SENIOR PARALEGAL Respiratory Rate 15 11/15/2024 2:50 PM SENIOR PARALEGAL Oxygen Saturation 96% 03/14/2025 2:4 8 PM CDT Inhaled Oxygen Concentration - - Weight 97.5 kg (215 lb) 03/14/2025 2:48 PM CDT patient voiced Height 152.4 cm (5') 10/18/2024 1:23 PM SENIOR PARALEGAL Body Mass Index 41.99 10/18/2024 1:23 PM SENIOR PARALEGAL Plan of Treatment Health Maintenance Due Date Last Done Comments Depression Screening 1945 Osteoporosis Screening-Bone Density Scan 1945 DTaP/Tdap/Td Vaccine (1 - Tdap) 1954 Hepatitis B Screening 1961 Zoster Vaccine (1 of 2) 1962 Well Visit 65+ 2008 Pneumococcal vaccine 65+ (2 of 2 - PPSV23) 08/23/2019 06/28/2019 Covid-19 Vaccine (2023-2 5 season) 2024 07/11/2023, 06/18/2022, 07/31/2021, Additional history exists Influenza Vaccine (#1) 2025 , 06/18/2022, 07/08/2021, Additional history exists Fall Risk [...] signed by: Nicholas Davalos M.D. Felecia Avila NP IMG CT PROCEDURES Final Re sult * [...] are normal. The limited view of the [place] is unremarkable. The visualized portions [...] are normal. The limited view of the [place] is unremarkable. The visualized portions [...] Electronically signed by: Reena Cobb M.D. Felecia Wilson [place] [employer] AC[employer]IC COACH IMG CT PROCEDURES Final Re sult from Last 3 Months Insurance AETNA MEDICARE GOLD [facility] PENDING SALE TO [facility] MEDICARE [facility] AETNA MEDICARE GOLD IDPA Advance Directives For more information, please contact: [phone] * Full Code (Latest Code Status on File) Date Activated Date Inactivated Comments 09/10/2023 3:28 PM 09/11/2023 6:00 PM Care Teams Hand Grinder Relationship Specialty Start Date End Date Michele Coleman MD PCP - General 12/12/16 Arise Soliman MD Dermatology 09/01/23 Yanira Granda MD [address] [place] [address] Referring Physician Dermatology 09/01/23 Dennis Gentile MD [address] [facility] [address] [place] [address] Surgeon Otolaryngology 10/25/24 Shaheen Navarrete MD PhD [address] [facility]ATION [facility]COL[facility]Y, [place] [address] Radiation Oncologist Radiation Oncology 03/15/25
[2025-04-11 15:13] LABS: Hematocrit 39.0 % (37.0-47.0); Hemoglobin 12.3 g/dL (12.0-15.0); Immature Granulocyte Percent A 0.6 % (0-0.5); Lymphocytes Absolute Auto 1.99 K/mm3 (0.9-3.2); Mean Corpuscular HGB Conc 31.5 g/dl (32-36); Mean Corpuscular Hemoglobin 28.3 pg (26-34); Mean Corpuscular Volume 89.9 fl (80-100); Nucleated Red Blood Cells Absolute Auto 0.000 K/mm3 (0.0-0.012); Nucleated Red Blood Cells Perc 0.0 % (0.0-0.2); Platelet Count Result 164 k/mm3 (150-375); Red Blood Count 4.34 M/mm3 (4.2-5.4); White Blood Count 6.7 K/mm3 (4.5-10.0)
[2025-04-12 10:55] LABS: Blood Urea Nitrogen 23 mg/dL (8-26); Carbon Dioxide 26 mmol/L (22-30); Chloride 101 mmol/L (98-109); Estimated Glomerular Filt Rate 48; Glucose 120 mg/dL (70-105); Ionized Calcium (POC) 1.09 mmol/L (1.11-1.31); Potassium 4.3 mmol/L (3.5-4.9); Sodium 138 mmol/L (138-146)
== END 2025-04-11 14:55 | disposition home or self-care (01) ==
LOC: ANHLAB 14:55
PROVIDERS: Visit Provider Internal Medicine Hematology & Oncology
DX: C91.10 Chronic lymphocytic leukemia of B-cell type not having achieved remission (principal)
CPT/HCPCS: 36415; 80047; 83615; 85025

== ENCOUNTER 2025-05-22 20:20 | Inpatient (IN) | payer MEDICARE, SELFPAY ==
[2025-05-22] VITALS (8 sets, daily range): BP systolic 102–150; BP diastolic 46–99; PULSE 77–92; RESP 16–19; TEMP 37; O2SAT 97–100
--- NOTE | ~2025-05-22 | CT_ITS ---
EXAMINATION: CT lumbar spine wo con DATE: 05/23/2025 15:24 CDT INDICATION: Back pain. Sciatica TECHNIQUE: Computed tomography (CT) of the lumbar spine was performed without intravenous contrast. The dose-length product was 1221.99 mGy-cm. COMPARISON: None FINDINGS: Bones appear osteopenic. Moderate dextroconvex curvature of the lumbar spine. Severe intervertebral disc space narrowing at L5-S1 level. Grade 1 anterior listhesis of L4 on L5. Moderate intervertebral disc space narrowing at the L1-L2 and L2-L3 levels. Diverticulosis. Probable contrast in the bladder. Small opacities in the lower lungs. Small hiatal hernia. Evaluation of the spinal canal contents and bilateral neuroforamen is limited due to CT technique. At the L2-3 level, there is a small concentric disc bulge with degenerative change in the facet joints causing mild narrowing of the spinal canal and mild and bilateral neural foramen. At the L3-4 level, there is a small broad-based disc bulge with degenerative change in the facet joints causing moderate narrowing of the spinal canal and mild to moderate narrowing of the bilateral neural foramen. At the L4-5 level, there is a moderate-sized broad-based disc bulge with degenerative change in the facet joints and hypertrophy of ligamenta flavum causing severe narrowing of the spinal canal. Moderate narrowing of the left neural foramen and severe narrowing of the right neural foramen. There is a 3.1 x 2.8 x 4.1 cm lytic lesion in the L5 vertebral body with a soft tissue component which extends into the paravertebral and epidural space anterior lateral and posterior to the L5 vertebral body causing extensive narrowing of the spinal canal and bilateral neural foramen. An MRI of the lumbar spine with and without contrast is recommended for further assessment. IMPRESSION: 1. There is a 3.1 x 2.8 x 4.1 cm lytic lesion in the L5 vertebral body with a soft tissue component which extends into the paravertebral and epidural space anterior,lateral and posterior to the L5 vertebral body causing extensive narrowing of the spinal canal and bilateral neural foramen. An MRI of the lumbar spine with and without contrast is recommended for further assessment. Evaluation of the spinal canal contents and bilateral neuroforamen is limited due to CT technique. 2. Multilevel discogenic and degenerative change in the lumbar spine as detailed above. Reviewed, dictated and finalized at location Q. IMPRESSION: 1. There is a 3.1 x 2.8 x 4.1 cm lytic lesion in the L5 vertebral body with a s oft tissue component which extends into the paravertebral and epidural space an terior,lateral and posterior to the L5 vertebral body causing extensive narrowi ng of the spinal canal and bilateral neural foramen. An MRI of the lumbar spine with and without contrast is recommended for further assessment. 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 2. Multilevel discogenic and degenerative change in the lumbar spine as detaile d above.
--- NOTE | ~2025-05-22 | CT_ITS ---
CTA CHEST CLINICAL HISTORY: SOB, cancer, le edema . COMPARISON: Chest x-ray 04/15/2023 TECHNIQUE: Helical CTA performed from thoracic inlet to upper abdomen 100 mL Omnipaque 350 Coronal, sagittal reformats. Multiplanar MIPS CT images acquired with automatic exposure control for dose reduction DLP: 571 mGy-cm FINDINGS: Pulmonary arteries: No PE. Thoracic Aorta: No dissection or aneurysm. Aberrant origin right subclavian artery. Atherosclerotic disease. Heart/pericardium: Unremarkable. RV/LV ratio: Normal. Lungs/Pleura: Minimal interlobular septal thickening. Small scattered airspace opacities left upper lobe. Mild mosaic attenuation. Trace pleural effusions, mild dependent atelectasis. Tracheobronchial tree: Patent. Nodes: No enlarged nodes. Bones: No acute bony abnormality. Soft tissues: Unremarkable. Visualized upper abdomen: Small hiatal hernia. IMPRESSION: 1. No PE. 2. Mild left upper lobe pneumonitis. 3. Minimal interstitial pulmonary edema with trace pleural effusions. Reviewed, dictated and finalized at location R.
--- NOTE | ~2025-05-22 | US_ITS ---
BILATERAL LOWER EXTREMITY VENOUS DUPLEX Clinical History: LE swelling, mx cancers, no on AC . Comparison: Right leg duplex 03/08/2023. Technique: Grayscale, color, duplex/spectral Doppler sonography bilateral lower extremities. Findings/impression: 1. Large edematous legs significantly obscuring visualization of popliteal veins and calf veins. 2. No DVT within common femoral or femoral veins. Reviewed, dictated and finalized at location R.
--- NOTE | 2025-05-22 20:35 | ECG_ITS ---
Test Date: 2025-05-22 20:45:09 Measurements Intervals Becker Rate: 82 P: 0 TN: 0 QRS: 112 QRSD: 97 T: 175 QT: 390 QTc: 456 Interpretive Statements ATRIAL FIBRILLATION INCOMPLETE RIGHT BUNDLE BRANCH BLOCK [90+ ms QRS DURATION, TERMINAL R IN V1/V2, 40+ ms S IN I/aVL/V4/V5/V6] POSSIBLE RIGHT VENTRICULAR HYPERTROPHY [SOME/ALL OF: PROMINENT R IN V1, LATE TRANSITION, RAD, MARU, SSS] NONSPECIFIC T-WAVE ABNORMALITY ABNORMAL ECG No previous ECG available for comparison Electronically Signed On 05-24-2025 15:27:19 CDT by Joselo Araiza M.D.
[2025-05-22 21:02] LABS: Hematocrit 37.7 % (37.0-47.0); Hemoglobin 11.5 g/dL (12.0-15.0); Immature Platelet Fraction Pct 14.1 % (0.9-11.2); Mean Corpuscular HGB Conc 30.5 g/dl (32-36); Mean Corpuscular Hemoglobin 27.8 pg (26-34); Mean Corpuscular Volume 91.3 fl (80-100); Platelet Count Result 130 k/mm3 (150-375); Red Blood Count 4.13 M/mm3 (4.2-5.4); White Blood Count 11.1 K/mm3 (4.5-10.0)
[2025-05-22 21:18] LABS: Alanine Aminotransferase 19 U/L (6-35); Albumin Level 3.8 g/dL (3.5-5.1); Alkaline Phosphatase 95 U/L (38-126); Anion Gap 8 mmol/L (4-12); Aspartate Amino Transferase 30 U/L (14-36); Bilirubin,Total 0.9 mg/dL (0.2-1.3); Blood Urea Nitrogen 25 mg/dL (7-17); Calcium 8.7 mg/dL (8.4-10.2); Carbon Dioxide 29 mmol/L (22-30); Chloride 101 mmol/L (98-107); Estimated CRCL calculation 39 ml/min; Estimated Glomerular Filt Rate 49; Glucose 194 mg/dL (65-110); Lipase 40 U/L (23-300); Potassium 4.4 mmol/L (3.4-5.0); Sodium 138 mmol/L (137-145); Total Protein 6.9 g/dL (6.3-8.2)
[2025-05-22] MEDS: SODIUM CHLORIDE 0.9% IV 1,000 ML 999 ML IV CONT (21:28)
[2025-05-22] MEDS: ONDANSETRON INJ 4 MG/2 ML VIAL IV PUSH (21:29)
[2025-05-22 21:30] LABS: Band Neutrophils Percent 7 % (0-6); Basophils Absolute Manual 0.11 K/mm3 (0.0-0.1); Basophils Percent Manual 1 % (0-1); Lymphocytes Absolute Manual 0.99 K/mm3 (1.1-4.5); Lymphocytes Percent Manual 9.0 % (18-44); Monocytes Absolute Manual 0.33 K/mm3 (0.1-0.90); Monocytes Percent Manual 3 % (3-9); Neutrophils Absolute Manual 9.65 K/mm3 (1.3-6.7); Neutrophils Percent Manual 80 % (46-73); Total Cells Counted 100
[2025-05-22 21:31] LABS: Hypochromasia 1+; Schistocytes None Seen
[2025-05-22 21:32] LABS: Anisocytosis 2+; Influenza A QL RT-PCR Negative (Negative); Influenza B QL RT-PCR Negative (Negative); RSV RNA, RT-PCR Negative (Negative); SARS-CoV-2 RNA PCR Negative (Negative)
[2025-05-22 21:55] LABS: INR 1.0; Prothrombin Time 13.2 Seconds (11.1-14.7)
[2025-05-22 21:56] LABS: Partial Thromboplastin Time 28.1 Seconds (22.3-36.8)
[2025-05-22 22:07] LABS: Magnesium 1.8 mg/dL (1.6-2.3)
[2025-05-22 22:21] LABS: Troponin I < 0.012 ng/mL (0.000-0.034)
[2025-05-22] MEDS: diazePAM INJ (*CRX) 10 MG/2 ML SYRINGE 5 MG IV PUSH (22:28)
[2025-05-22] MEDS: oxyCODONE HCL (*CRX) 5 MG TAB IR PO (22:28)
[2025-05-22 22:29] LABS: Add Urine Microscopic? YES; Appearance Urine Turbid (Clear); Glucose Urine UA Negative (Negative); Leukocyte Esterase Ur 3+ LEU/UL (Negative); Need Manual Microscopic Reviewed; Nitrate Urine Positive (Negative); Non Pathogenic Casts 0-2; Specific Grav Ur 1.013 (1.001-1.035)
[2025-05-23] VITALS (16 sets, daily range): BP systolic 119–131; BP diastolic 44–86; PULSE 47–110; RESP 16–20; TEMP 36.8–37.1; O2SAT 94–100; BMI 45.3; BMI 45.7; BMI 10.0
--- NOTE | 2025-05-23 | ECHO_ITS ---
Patient Info Name: Cheryl Murillo Age: 80 years : 1945 Gender: Female Ht: 62 in Wt: 232 lbs BSA: 2.21 m2 HR: 75 bpm BP: 120 / 55 mmHg Heart Rhythm: Sinus Rhythm Technical Quality: Fair Exam Date: 05/23/2025 2:38 PM Patient Status: O Admit Date: 05/23/2025 Exam Type: CA echo doppler color flow Complete two-dimensional, color flow and Doppler transthoracic echocardiogram is performed. Staff Referring Physician: Ivette Malcolm Medical Claims Assistant: Erin Cuevas Attending Provider: Sanjana Morgan Summary 1. Complete two-dimensional, color flow and Doppler transthoracic echocardiogram is performed. 2. Mild concentric LVH with vigorous systolic function and grade 2 diastolic noncompliance. 3. Dilated left atrium. 4. Small about of mitral and trivial level to be aortic regurgitation. 5. Compared to exam from 2022 findings are without significant change. Left Ventricle Left ventricular chamber dimension is normal. There is mild concentric increased left ventricular wall thickness. The left ventricular diastolic function is grade II diastolic dysfunction. Right Ventricle Right ventricular chamber dimension is normal. Left Atria Left atrial chamber dimension is moderately enlarged. Right Atria Right atrial chamber dimension is normal. Aortic Valve The aortic valve is normal. There is trace aortic valve regurgitation. Pulmonic Valve The pulmonic valve is normal. Mitral Valve The mitral valve has normal leaflets. There is mild mitral valve regurgitation. Tricuspid Valve The tricuspid valve leaflets are normal. There is mild tricuspid valve regurgitation. Pericardium/Pleural The pericardium appears normal. Aorta The aortic root size at the sinus of Valsalva is normal. Left Ventricular Outflow Tract Name Value Normal LVOT 2D LVOT Diameter 1.8 cm LVOT Doppler LVOT Peak Velocity 176 cm/s LVOT Peak Gradient 7 mmHg LVOT Mean Gradient 5 mmHg LVOT VTI 44 cm LVOT VTI/AV VTI Ratio 0.9 LVOT Stroke Volume 113 ml LVOT CO 17.2 l/min LVOT CI 7.8 l/min/m2 Pulmonic Valve Name Value Normal PV Doppler PV Peak Velocity 129 cm/s PV Peak Gradient 7 mmHg Mitral Valve Name Value Normal MV Diastolic Function MV E Peak Velocity 109 cm/s MV A Peak Velocity 106 cm/s MV E/A 1.0 MV Decel Time (PW) 299 ms MV Annular TDI MV E/e' (Septal) 16.3 MV E/e' (Lateral) 13.7 MV E/e' (Average) 15.0 Tricuspid Valve Name Value Normal TV Regurgitation Doppler TR Peak Velocity 297 cm/s TR Peak Gradient 35 mmHg Estimated PAP/RSVP RA Pressure 10 mmHg <=5 PA Systolic Pressure 45 mmHg <36 RV Systolic Pressure 45 mmHg <36 TV Annular TDI TV Lateral Nely s' Velocity 8.6 cm/s >=9.5 Aorta Name Value Normal Ascending Aorta Ao Root Diameter (MM) 3.0 cm Ao Root Diam Index (MM) 1.4 cm/m2 Aortic Valve Name Value Normal AV Doppler AV Peak Velocity 192 cm/s AV Peak Gradient 15 mmHg AV Mean Gradient 10 mmHg AV VTI 48 cm AV Area (Cont Eq VTI) 2.4 cm2 >=3.0 AV Area (Cont Eq Cuong) 2.4 cm2 AV DI (Cuong) 0.92 AV Regurgitation 2D LVOT Area 2.6 cm2 Ventricles Name Value Normal LV Dimensions 2D/MM IVS Diastolic Thickness (2D) 1.1 cm 0.6-1.0 LVID Diastole (2D) 4.1 cm 3.8-5.2 LVIW Diastolic Thickness (2D) 1.1 cm 0.6-0.9 LVID Systole (2D) 2.2 cm 2.2-3.5 LVOT Diameter 1.8 cm LV Mass (2D Cubed) 160.28 g 67.00-162.00 LV Mass Index (2D Cubed) 73 g/m2 43-95 Relative Wall Thickness (2D) 0.56 <=0.42 LV Fractional Shortening/Ejection Fraction 2D/MM LV Fractional Shortening (2D) 45 % 27-45 LV EF (2D Teichholz) 77 % LV Diastolic Volume (4C MOD) 98 ml LV EF (4C MOD) 73 % LV Diastolic Volume (2C MOD) 92 ml LV EF (2C MOD) 60 % LV Diastolic Volume (BP MOD) 97 ml 46-106 LV Diastolic Volume Index (BP MOD) 44 ml/m2 29-61 LV Systolic Volume (BP MOD) 32 ml 14-42 LV Systolic Volume Index (BP MOD) 14 ml/m2 8-24 LV EF (BP MOD) 67 % 54-74 LV Diastolic Length (4C) 7.8 cm LV Systolic Length (4C) 6.1 cm LV Stroke Volume (4C MOD) 71 ml RV Dimensions 2D/MM RVID Diastole (2D) 4.5 cm 2.1-3.5 Atria Name Value Normal LA Dimensions LA Dimension (MM) 4.5 cm 2.7-3.8 LA Volume (4C A-L) 68 ml LA Volume (BP A-L) 63 ml RA Dimensions RA Systolic Major Roberts Length (4C) 5.5 cm 2.2-2.8 RA Area (4C) 17.2 cm2 <=18.0 Report Signatures
--- NOTE | 2025-05-23 00:35 | ED.GENADULT ---
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 Patient states that over the last several days she has been more weak than usual. She is also having increased pain in her lower legs. Patient has severe lymphedema and typically has pain but it is use the worse than usual. She has not noticed any increased swelling although it is difficult to determine given her baseline leg diameter. Patient is not on anticoagulation. Patient is having difficulty moving around her house due to the leg pain. Patient also notes that she feels more winded than usual over the last 1-2 days. She denies fevers productive cough chest pain abdominal pain or urinary symptoms. Patient lives in a house by herself. She has home health care for 4 hours per day. She is finding it harder to perform her activities of daily living. Patient and her [id number] do not feel it is safer to live at home anymore. Patient has a surgery scheduled tomorrow with dermatology for a basal cell tumor in her left earlobe as well as a squamous cell tumor on the back of her left leg. Related Data Home Medications ?Medication ?Instructions ?Recorded ?Confirmed ?Last Taken ?Type omeprazole magnesium 20 mg 20 mg PO DAILY 12/15/19 05/27/23 09/17/21 08:00 History tablet,delayed release (Prilosec OTC) zanubrutinib 80 mg capsule 160 mg PO BID 03/07/23 05/27/23 Unknown History (Brukinsa) allopurinol 300 mg tablet 300 mg PO DAILY 03/08/23 05/27/23 Unknown History Allergies Allergy/AdvReac Type Severity Reaction Status Date / Time No Known Allergies Allergy Verified 05/22/25 20:32 [facility] Past Medical History Medical History Morbid obesity with BMI of 40.0-44.9, adult Squamous cell carcinoma of skin of left cheek Squamous cell carcinoma of neck Dyslipidemia BCC (basal cell carcinoma), face Basal cell carcinoma of nasal tip Basal cell carcinoma of clavicular area AK (actinic keratosis) Skin cancer Basal and squamous cell. Paroxysmal atrial fibrillation Gastroesophageal reflux disease Chronic lymphocytic leukemia (03/2019) Followed by Dr. Napier. Chronic anticoagulation Hyperparathyroidism, primary Status post parathyroidectomy. Pulmonary hypertension Mild pulmonary hypertension on echo from March 2019 Chronic kidney disease, stage 3 Anxiety Polymyalgia rheumatica Diverticulitis Diastolic dysfunction Paroxysmal atrial flutter Arthritis Hypertension Rheumatic fever High cholesterol Surgical History Surgical History Status post surgical removal of malignant neoplasm of skin Both basal and squamous cell carcinomas. With subsequent acquired deformity of the nose due to reconstruction History of colonoscopy with polypectomy History of inguinal hernia repair History of cholecystectomy Family History Family History Mother Obesity of complications of obesity in her 60s. Hypertension Father Heart disease in his 60s of heart disease. Hypertension Sibling Parkinson disease Brother Grandparent Malignant neoplasm of prostate Grandparent Cerebrovascular accident Sibling Breast cancer Daughter Lymphedema Social History Social History Social History: The patient lives independently in a mobile home in [place]. She has been since 2004. Daughter and [id number] live nearby. 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 Ambulates with a walker. Nonsmoker. Drinks alcohol perhaps once a year. No drug use. Surrogate decision maker: Melina Murillo, alexandra. Code status: DNR/DNI (per patient request) Smoking status: Never smoker Alcohol intake: former Substance use: never Lack of Transportation: No Lack of Food: Never True Current Housing: I Have Housing Concerned About Future Housing: No Difficulty Paying Gas/Electric Bills: No Difficulty Paying for Meds: No Currently Unemployed: No Education: High School Diploma/GED Difficulty w/ Childcare or Family Care: No Living arrangements: alone Occupation/Education: retired Spiritual care concerns: No Exam Narrative: APPEARANCE: Patient is chronically unwell appearing Head: atraumatic. EYES: EOMI, NOSE: Atraumatic NECK: Trachea midline RESPIRATORY: No increased rate of breathing clear to auscultation CARDIOVASCULAR: RRR, severe chronic appearing lymphedema of the lower extremities right greater than left ABDOMINAL: Obese, soft nontender MUSCULOSKELETAl: No obvious deformities NEURO: Alert. Moving 4/4 extremities SKIN:: Necrotic mass in the left earlobe, fungating mass in the back of the left calf, necrotic lesion over the right anterior chest wall PSYCHIATRIC: Normal affect Course Vital Signs Vital signs: Vital Signs Temperature 98.6 F 05/22/25 20:24 Pulse Rate 77 05/22/25 20:24 Respiratory Rate 19 05/22/25 20:24 Blood Pressure 144/75 H 05/22/25 20:24 Pulse Oximetry 97 05/22/25 20:24 Oxygen Delivery Room Air 05/22/25 20:24 Temperature 98.6 F 05/22/25 20:24 Pulse Rate 92 05/22/25 21:00 Respiratory Rate 17 05/22/25 21:00 Blood Pressure 102/61 05/22/25 23:32 Pulse Oximetry 100 05/22/25 23:03 Oxygen Delivery Room Air 05/22/25 20:24 Medical Decision Making MDM Narrative Medical decision making narrative: -Course: 80-year-old female with multiple medical comorbidities who lives by herself at home presenting for increased leg pain and weakness. DVT showed a possible thrombus in the femoral vein although body habitus made the scan difficult to perform. Additionally the patient is in atrial fibrillation. She will be started Lovenox. Prelim- CT PE did not reveal any central pulmonary embolism. They noted increased reticular interstitial markings left upper markings and PNA is not excluded. Urine was indicative infection. Patient be started on ceftriaxone and doxycycline which will cover both UTI and possible pneumonia. Patient is not capable of living and home with her current condition. Patient will be admitted for treatment of her UTI and for PT OT eval. -DDX includes but is not limited to: Sepsis UTI dehydration pneumonia debility PE DVT Vital Signs Vital Signs: Vital Signs Temperature 98.6 F 05/22/25 20:24 Pulse Rate 77 05/22/25 20:24 Respiratory Rate 19 05/22/25 20:24 Blood Pressure 144/75 H 05/22/25 20:24 Pulse Oximetry 97 05/22/25 20:24 Oxygen Delivery Room Air 05/22/25 20:24 Temperature 98.6 F 05/22/25 20:24 Pulse Rate 92 05/22/25 21:00 Respiratory Rate 17 05/22/25 21:00 Blood Pressure 102/61 05/22/25 23:32 Pulse Oximetry 100 05/22/25 23:03 Oxygen Delivery Room Air 05/22/25 20:24 Lab Data 05/22/25 20:45 05/22/25 20:45 Labs: Lab Results 05/22/25 05/22/25 05/22/25 Range/Units 20:44 20:45 21:20 WBC 11.1 H (4.5-10.0) K/mm3 RBC 4.13 L (4.2-5.4) M/mm3 Hgb 11.5 L (12.0-15.0) g/dL Hct 37.7 (37.0-47.0) % MCV 91.3 (80-100) fl MCH 27.8 (26-34) pg MCHC 30.5 L (32-36) g/dl RDW 16.4 H (11.5-14.5) % Plt Count 130 L (150-375) k/mm3 MPV 13.8 H (7.4-10.4) fl Immature Gran % (Auto) Not Reportable Neut % (Auto) Not Reportable Lymph % (Auto) Not Reportable [place] % (Auto) Not Reportable Eos % (Auto) Not Reportable Baso % (Auto) Not Reportable Lymph # (Auto) Not Reportable [place] # (Auto) Not Reportable Eos # (Auto) Not Reportable Baso # (Auto) Not Reportable Abs Immat Gran (auto) Not Reportable Absolute Neuts (auto) Not Reportable Absolute Nucleated RBC Not Reportable Total Counted 100 Neutrophils % (Manual) 80 H (46-73) % Band Neutrophils % 7 H (0-6) % Lymphocytes % (Manual) 9.0 L (18-44) % Monocytes % (Manual) 3 (3-9) % Basophils % (Manual) 1 (0-1) % Nucleated RBC % Not Reportable Abs Neuts (Manual) 9.65 H (1.3-6.7) K/mm3 Abs Lymphs (Manual) 0.99 L (1.1-4.5) K/mm3 Abs Monocytes (Manual) 0.33 (0.1-0.90) K/mm3 Abs Basophils (Manual) 0.11 H (0.0-0.1) K/mm3 Platelet Estimate Slightly decreased (Adequate) Clumped Platelets Present % Immature Plt Fraction 14.1 H (0.9-11.2) % Hypochromasia 1+ Anisocytosis 2+ Schistocytes None seen PT 13.2 (11.1-14.7) Seconds INR 1.0 APTT 28.1 (22.3-36.8) Seconds Sodium 138 (137-145) mmol/L Potassium 4.4 (3.4-5.0) mmol/L Chloride 101 (98-107) mmol/L Carbon Dioxide 29 (22-30) mmol/L Anion Gap 8 (4-12) mmol/L BUN 25 H (7-17) mg/dL Creatinine 1.08 H (0.7-1.0) mg/dL Estim Creat Clear Calc 39 ml/min Estimated GFR 49 L (59 - ) Glucose 194 H (65-110) mg/dL Calcium 8.7 (8.4-10.2) mg/dL Phosphorus 3.4 (2.5-4.5) mg/dL Magnesium 1.8 (1.6-2.3) mg/dL Total Bilirubin 0.9 (0.2-1.3) mg/dL AST 30 (14-36) U/L ALT 19 (6-35) U/L Alkaline Phosphatase 95 (38-126) U/L Troponin I < 0.012 (0.000-0.034) ng/mL Total Protein 6.9 (6.3-8.2) g/dL Albumin 3.8 (3.5-5.1) g/dL Lipase 40 (23-300) U/L Urine Color (Yellow) Urine Appearance (Clear) Urine pH (5.0-9.0) Ur Specific [place] (1.001-1.035) Urine Protein (Negative) mg/dL Urine Glucose (UA) (Negative) mg/dL Urine Ketones (Negative) mg/dL Ur Blood (Man) (Negative) Urine Nitrate (Negative) Urine Bilirubin (Negative) Urine Urobilinogen (<2.0) mg/dL Add Ur Microanalysis Leukocyte Esterase Rfl (Negative) SHARON/UL Urine RBC (0-2) /hpf Urine WBC (0-3) /hpf Ur Squamous Epith Cells (Few) /hpf Urine Bacteria /hpf Urine Casts Influenza A (RT-PCR) Negative (Negative) Influenza B (RT-PCR) Negative (Negative) RSV (RT-PCR) Negative (Negative) SARS-CoV-2 RNA (RT-PCR) Negative (Negative) 05/22/25 Range/Units 22:01 WBC (4.5-10.0) K/mm3 RBC (4.2-5.4) M/mm3 Hgb (12.0-15.0) g/dL Hct (37.0-47.0) % MCV (80-100) fl MCH (26-34) pg MCHC (32-36) g/dl RDW (11.5-14.5) % Plt Count (150-375) k/mm3 MPV (7.4-10.4) fl Immature Gran % (Auto) Neut % (Auto) Lymph % (Auto) [place] % (Auto) Eos % (Auto) Baso % (Auto) Lymph # (Auto) [place] # (Auto) Eos # (Auto) Baso # (Auto) Abs Immat Gran (auto) Absolute Neuts (auto) Absolute Nucleated RBC Total Counted Neutrophils % (Manual) (46-73) % Band Neutrophils % (0-6) % Lymphocytes % (Manual) (18-44) % Monocytes % (Manual) (3-9) % Basophils % (Manual) (0-1) % Nucleated RBC % Abs Neuts (Manual) (1.3-6.7) K/mm3 Abs Lymphs (Manual) (1.1-4.5) K/mm3 Abs Monocytes (Manual) (0.1-0.90) K/mm3 Abs Basophils (Manual) (0.0-0.1) K/mm3 Platelet Estimate (Adequate) Clumped Platelets % Immature Plt Fraction (0.9-11.2) % Hypochromasia Anisocytosis Schistocytes PT (11.1-14.7) Seconds INR APTT (22.3-36.8) Seconds Sodium (137-145) mmol/L Potassium (3.4-5.0) mmol/L Chloride (98-107) mmol/L Carbon Dioxide (22-30) mmol/L Anion Gap (4-12) mmol/L BUN (7-17) mg/dL Creatinine (0.7-1.0) mg/dL Estim Creat Clear Calc ml/min Estimated GFR (59 - ) Glucose (65-110) mg/dL Calcium (8.4-10.2) mg/dL Phosphorus (2.5-4.5) mg/dL Magnesium (1.6-2.3) mg/dL Total Bilirubin (0.2-1.3) mg/dL AST (14-36) U/L ALT (6-35) U/L Alkaline Phosphatase (38-126) U/L Troponin I (0.000-0.034) ng/mL Total Protein (6.3-8.2) g/dL Albumin (3.5-5.1) g/dL Lipase (23-300) U/L Urine Color Green H (Yellow) Urine Appearance Turbid H (Clear) Urine pH 7.0 (5.0-9.0) Ur Specific [place] 1.013 (1.001-1.035) Urine Protein 2+ H (Negative) mg/dL Urine Glucose (UA) Negative (Negative) mg/dL Urine Ketones Negative (Negative) mg/dL Ur Blood (Man) 3+ H (Negative) Urine Nitrate Positive H (Negative) Urine Bilirubin Negative (Negative) Urine Urobilinogen 1.0 (<2.0) mg/dL Add Ur Microanalysis Reviewed Leukocyte Esterase Rfl 3+ H (Negative) SHARON/UL Urine RBC >100 H (0-2) /hpf Urine WBC >100 H (0-3) /hpf Ur Squamous Epith Cells Few (Few) /hpf Urine Bacteria 4+ H /hpf Urine Casts 0-2 Influenza A (RT-PCR) (Negative) Influenza B (RT-PCR) (Negative) RSV (RT-PCR) (Negative) SARS-CoV-2 RNA (RT-PCR) (Negative) Discharge Plan Discharge Clinical Impression: Adult failure to thrive, Acute UTI, Skin cancer, Atrial fibrillation Patient Disposition: Still a Patient Condition: Stable Patient Language: Belarusian Prescriptions: No Action omeprazole magnesium [Prilosec OTC] 20 mg Tablet,Delayed Release (Dr/Ec) 20 mg PO DAILY cephalexin 500 mg capsule 500 mg PO Q12H Qty: 14 0RF ferrous sulfate 325 mg (65 mg iron) Tablet 324 mg PO BIDWM Qty: 60 1RF Rx Instructions: START IRON SUPPLEMENTS AFTER YOU HAVE FINISIHED THE DOXYCYCLINE albuterol sulfate [ProAir HFA] 90 mcg/actuation HFA aerosol inhaler 2 puff inhalation QID PRN (Reason: shortness of breath or wheezing) Qty: 6.7 0RF Brukinsa 80 mg capsule 160 mg PO BID Rx Instructions: pt states she takes 7am and 7pm allopurinol 300 mg Tablet 300 mg PO DAILY fluticasone propionate 50 mcg/actuation [place],Suspension 2 spray intranasal QAM Qty: 16 0RF polyethylene glycol 3350 [Miralax] 17 gram Powder In Packet 17 g PO QAM PRN (Reason: Constipation) Qty: 14 0RF docusate sodium 100 mg Capsule 100 mg PO Q12HR Qty: 60 0RF tramadol 50 mg tablet 25 mg PO Q6H PRN (Reason: pain) Qty: 10 0RF cephalexin 500 mg capsule 500 mg PO TID 5 Days Qty: 15 0RF amiodarone [Pacerone] 100 mg tablet See Rx Instructions .ROUTE .COMPLEX Qty: 90 2RF Dose Instruction: Take 1 tablet by mouth once daily Rx Instructions: Take 1 tablet by mouth once daily amlodipine 2.5 mg tablet See Rx Instructions .ROUTE .COMPLEX Qty: 90 2RF Dose Instruction: Take 1 tablet by mouth once daily Rx Instructions: Take 1 tablet by mouth once daily atorvastatin 80 mg tablet See Rx Instructions .ROUTE .COMPLEX Qty: 90 2RF Dose Instruction: Take 1 tablet by mouth once daily Rx Instructions: Take 1 tablet by mouth once daily furosemide 20 mg tablet See Rx Instructions .ROUTE .COMPLEX Qty: 90 2RF Dose Instruction: TAKE 1 TABLET BY MOUTH IN THE MORNING Rx Instructions: TAKE 1 TABLET BY MOUTH IN THE MORNING Follow-up/Referrals: Dwayne,Betsy [Other]
[2025-05-23] MEDS: cefTRIAXone 1 GM in SODIUM CHLORIDE 0.9% IV 50 ML 100 ML IVPB (00:37)
--- NOTE | 2025-05-23 00:37 | ECG_ITS ---
Test Date: 2025-05-23 00:42:52 Measurements Intervals [place] Rate: 97 P: 0 AL: 0 QRS: 111 QRSD: 93 T: 1 QT: 393 QTc: 500 Interpretive Statements SINUS RHYTHM WITH FIRST-DEGREE AV BLOCK AND FREQUENT PACS INCOMPLETE RIGHT BUNDLE BRANCH BLOCK [90+ ms QRS DURATION, TERMINAL R IN V1/V2, 40+ ms S IN I/aVL/V4/V5/V6] ABNORMAL ECG Compared to ECG 05/22/2025 20:45:09 NOW IN SINUS RHYTHM Electronically Signed On 05-24-2025 15:30:33 CDT by Joselo Araiza M.D.
[2025-05-23] MEDS: HYDROmorphone HCL INJ (*CRX) 1 MG/ML SYR 0.5 MG IV PUSH (00:40)
[2025-05-23] MEDS: ENOXAPARIN 120 MG/0.8 ML SYRINGE 103 MG SUB-Q (01:17)
[2025-05-23 01:47] LABS: Troponin I 0.019 ng/mL (0.000-0.034)
--- NOTE | 2025-05-23 02:24 | ADMGEN ---
This patient, Cheryl Murillo, was admitted to Medical Room 250-01. Patient/family oriented to hospital policies and general routines including ID bracelet, bed and alarms, visiting hours, pain management, procedures, bathroom and other care routines, personal items, smoking policy, room service/diet, and visiting hours. Information on how to activate the Rapid Response Team has been discussed. Patient/Family are encouraged to report perceived risks to care and to ask questions if they do not understand what they are told or what they should do.
[2025-05-23 06:33] LABS: Hematocrit 36.7 % (37.0-47.0); Hemoglobin 11.0 g/dL (12.0-15.0); Immature Granulocyte Percent A 0.6 % (0-0.5); Immature Platelet Fraction Pct 12.8 % (0.9-11.2); Lymphocytes Absolute Auto 0.87 K/mm3 (0.9-3.2); Mean Corpuscular HGB Conc 30.0 g/dl (32-36); Mean Corpuscular Hemoglobin 27.8 pg (26-34); Mean Corpuscular Volume 92.9 fl (80-100); Nucleated Red Blood Cells Absolute Auto 0.000 K/mm3 (0.0-0.012); Nucleated Red Blood Cells Perc 0.0 % (0.0-0.2); Platelet Count Result 135 k/mm3 (150-375); Red Blood Count 3.95 M/mm3 (4.2-5.4); White Blood Count 10.6 K/mm3 (4.5-10.0)
[2025-05-23 06:46] LABS: Alanine Aminotransferase 16 U/L (6-35); Albumin Level 3.1 g/dL (3.5-5.1); Alkaline Phosphatase 89 U/L (38-126); Anion Gap 4 mmol/L (4-12); Aspartate Amino Transferase 23 U/L (14-36); Bilirubin,Total 0.6 mg/dL (0.2-1.3); Blood Urea Nitrogen 24 mg/dL (7-17); Calcium 8.2 mg/dL (8.4-10.2); Carbon Dioxide 30 mmol/L (22-30); Chloride 103 mmol/L (98-107); Estimated CRCL calculation 37 ml/min; Estimated Glomerular Filt Rate 45; Glucose 134 mg/dL (65-110); Potassium 4.4 mmol/L (3.4-5.0); Sodium 137 mmol/L (137-145); Total Protein 5.8 g/dL (6.3-8.2)
[2025-05-23 06:51] LABS: Magnesium 2.0 mg/dL (1.6-2.3)
--- NOTE | 2025-05-23 06:55 | P.HP_ITS ---
H&P: HPI History of Present Illness Date/Time: 05/23/25 06:55 Chief Complaint: - leg pain - weakness Narrative: Patient is an 80 yo female with past medical history of squamous and basal cell carcinoma, pulmonary hypertension, CKDIII, anxiety, PAF, severe lymphedema who presents with increased weakness, increased leg edema. Patient states that over the last several days she has been having increasing weakness and shooting pains down her legs. She does admit to some chronic lower back discomfort and history of sciatica. States her leg pain feels similar to this. She has severe lymphedema, but is normally able to walk with a walker. She denies bowel/bladder incontinence or numbness/tingling of the lower extremities. Denies any specific back injury. She has been compliant with her home medications. Patient has a prior history of squamous and basal cell carcinoma. She was scheduled for outpatient removal of a squamous cell carcinoma of her left lower extremity today however state that she began having extreme anxiety over this and thinks she was having a panic attack. Patient does live alone and has some concerns about caring for herself. She apparently has home health care for 4 hours daily. Patient denies any fevers, chills, chest pain, cough, shortness of breath, nausea, vomiting, dysuria, urinary frequency. In ED, WBC 11.1 with bandemia, Hgb 11.5, Plts 130, BUN 25, Cr 1.08, glucose 194, trop I 0.012. EKG with Afib, incomplete right bundle branch block, heart rate 97. UA with positive nitrates, 3+ LE, >100 WBC, 4+ bacteria. CXR with possible PNA. Influenza, RSV, COVID negative. CTA chest with no PE, muld left upper pneumonitis, minimal pulmonary edema. Received Lovenox 1 mg/kg due to Afib and concern for DVT. BLE venous Doppler obscured by severe edema, no DVT noted. Started on Rocephin and doxycycline for concern pneumonia and UTI. Patient admitted for further evaluation and management. Review of Systems Review of Systems: All systems reviewed & are unremarkable except as noted in HPI and below PMFSH Past Medical History Medical History Morbid obesity with BMI of 40.0-44.9, adult Squamous cell carcinoma of skin of left cheek Squamous cell carcinoma of neck Dyslipidemia BCC (basal cell carcinoma), face Basal cell carcinoma of nasal tip Basal cell carcinoma of clavicular area AK (actinic keratosis) Skin cancer Basal and squamous cell. Paroxysmal atrial fibrillation Gastroesophageal reflux disease Chronic lymphocytic leukemia (03/2019) Followed by Dr. Napier. Chronic anticoagulation Hyperparathyroidism, primary Status post parathyroidectomy. Pulmonary hypertension Mild pulmonary hypertension on echo from March 2019 Chronic kidney disease, stage 3 Anxiety Polymyalgia rheumatica Diverticulitis Diastolic dysfunction Paroxysmal atrial flutter Arthritis Hypertension Rheumatic fever High cholesterol Surgical History Surgical History Status post surgical removal of malignant neoplasm of skin Both basal and squamous cell carcinomas. With subsequent acquired deformity of the nose due to reconstruction History of colonoscopy with polypectomy History of inguinal hernia repair History of cholecystectomy Family History Family History Mother Obesity of complications of obesity in her 60s. Hypertension Father Heart disease in his 60s of heart disease. Hypertension Sibling Parkinson disease Brother Grandparent Malignant neoplasm of prostate Grandparent Cerebrovascular accident Sibling Breast cancer Daughter Lymphedema Social History Social History Social History: The patient lives independently in a mobile home in [place]. She has been since 2004. Daughter and [id number] live nearby. 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 Ambulates with a walker. Nonsmoker. Drinks alcohol perhaps once a year. No drug use. Surrogate decision maker: Melina Murillo, daughter. Code status: DNR/DNI (per patient request) Smoking status: Never smoker Alcohol intake: former Substance use: never Lack of Transportation: No Lack of Food: Never True Current Housing: I Have Housing Concerned About Future Housing: No Difficulty Paying Gas/Electric Bills: No Difficulty Paying for Meds: No Currently Unemployed: No Education: High School Diploma/GED Difficulty w/ Childcare or Family Care: No Living arrangements: alone Occupation/Education: retired Spiritual care concerns: No Meds Home Medications and Allergies Home Medications ?Medication ?Instructions ?Recorded ?Confirmed ?Type omeprazole magnesium 20 mg 20 mg PO DAILY 12/15/1906/08 History tablet,delayed release (Prilosec OTC) albuterol sulfate 90 mcg/actuation 2 puff inhalation Q ID PRN 09/23/21 05/23/25 Rx aerosol inhaler (ProAir HFA) shortness of breath or wh eezing #6.7 grams ferrous sulfate 325 mg (65 mg 324 mg (0.9969 x 325 mg (65 mg 09/23/21 05/23/25 Rx iron) tablet iron)) PO BIDWM #60 tabs zanubrutinib 80 mg capsule 160 mg PO BID 03/07/2306/08 History (Brukinsa) amiodarone 100 mg tablet (Pacerone) See Rx Instruction s .Route 05/26/24 05/23/25 Rx .COMPLEX #90 tabs amlodipine 2.5 mg tablet See Rx Instructions .Route 1 10/24/23 05/23/25 Rx .COMPLEX #90 tabs furosemide 20 mg tablet See Rx Instructions .Route 0 10/10/24 05/23/25 Rx .COMPLEX #90 tabs atorvastatin 80 mg tablet 80 mg PO QPM 05/23/25 History fluticasone propionate 50 2 spray intranasal QAM PRN n bhanu 05/23/25 05/23/25 History mcg/actuation nasal congestion spray,suspension Allergies Allergy/AdvReac Type Severity Reaction Status Date / Time No Known Allergies Allergy Verified 05/22/25 20:32 Vital Signs Vital Signs - 24 hr 05/22/25 20:24 05/22/25 20:30 05/22/25 21:00 Temperature 98.6 F Pulse Rate 77 87 92 Respiratory Rate 19 16 17 Blood Pressure 144/75 H 144/75 H 133/64 Pulse Oximetry 97 99 97 Oxygen Delivery Room Air Oxygen Flow Rate 05/22/25 22:01 05/22/25 22:40 05/22/25 23:03 Temperature Pulse Rate Respiratory Rate Blood Pressure 150/54 H 113/46 L 116/99 H Pulse Oximetry 99 100 Oxygen Delivery Oxygen Flow Rate 05/22/25 23:32 05/22/25 23:45 05/23/25 00:07 Temperature Pulse Rate Respiratory Rate Blood Pressure 102/61 Pulse Oximetry 99 100 Oxygen Delivery Oxygen Flow Rate 05/23/25 00:15 05/23/25 00:32 05/23/25 01:02 Temperature Pulse Rate Respiratory Rate Blood Pressure 120/73 124/44 L Pulse Oximetry 100 Oxygen Delivery Oxygen Flow Rate 05/23/25 02:13 05/23/25 02:23 05/23/25 03:33 Temperature 98.4 F 98.2 F Pulse Rate 88 91 Respiratory Rate 18 17 Blood Pressure 125/86 120/55 L Pulse Oximetry 98 96 94 Oxygen Delivery Nasal Cannula Oxygen Flow Rate 3 05/23/25 04:00 Temperature Pulse Rate 62 Respiratory Rate Blood Pressure Pulse Oximetry Oxygen Delivery Oxygen Flow Rate Exam Narrative: General: NAD, morbidly obese Eyes: EOMI ENT: neck supple Cardiovascular: Regular rate and rhythm Respiratory: Clear to auscultation, respirations even and unlabored on RA Gastrointestinal: Soft, non tender Genitourinary: no suprapubic tenderness Musculoskeletal: very severe bilateral lymphedema Skin: warm, dry, skin lesion in L popliteal fossa consistent with known squamous cell carcinoma. Chronic brawny edema/skin changes. Neuro: Alert. Strength 4/5 in BLEs. Psych: Mood appropriate H&P: Results Labs Labs: Short CBC 05/22/25 05/23/25 Range/Units 20:45 06:07 WBC 11.1 H 10.6 H (4.5-10.0) K/mm3 Hgb 11.5 L 11.0 L (12.0-15.0) g/dL Hct 37.7 36.7 L (37.0-47.0) % Plt Count 130 L 135 L (150-375) k/mm3 BMP 05/22/25 05/23/25 20:45 06:07 Sodium 138 137 Potassium 4.4 4.4 Chloride 101 103 Carbon Dioxide 29 30 BUN 25 H 24 H Creatinine 1.08 H 1.15 H Glucose 194 H 134 H Calcium 8.7 8.2 L Cardiac Enzymes 05/22/25 05/23/25 Range/Units 21:20 01:16 Troponin I < 0.012 0.019 D (0.000-0.034) ng/mL Liver Function 05/22/25 05/23/25 Range/Units 20:45 06:07 Total Bilirubin 0.9 0.6 (0.2-1.3) mg/dL AST 30 23 (14-36) U/L ALT 19 16 (6-35) U/L Alkaline Phosphatase 95 89 (38-126) U/L Albumin 3.8 3.1 L (3.5-5.1) g/dL Urine 05/22/25 Range/Units 22:01 Urine Color Green H (Yellow) Urine Appearance Turbid H (Clear) Urine pH 7.0 (5.0-9.0) Ur Specific [place] 1.013 (1.001-1.035) Urine Protein 2+ H (Negative) mg/dL Urine Glucose (UA) Negative (Negative) mg/dL Assessment and Plan Assessment and plan (1) Back pain: Code(s): M54.9 - Dorsalgia, unspecified Status: Inactive Assessment and Plan: - reported chronic lumbar back pain. Now having shooting pains from back to legs, consistent with her previous sciatica. Denied bowel/bladder incontinence or paresthesia. -obtain CT L-spine -continue p.r.n. Tylenol, heating pad. Consider adding gabapentin pending clinical course. - PT/OT (2) Acute respiratory failure with hypoxia: Code(s): J96.01 - Acute respiratory failure with hypoxia Status: Acute Assessment and Plan: -currently requiring 2 L nasal cannula although no true hypoxia has been documented. No home oxygen requirement. - CTA chest showed no PE, mild left upper lobe pneumonitis, minimal interstitial pulmonary edema and trace pleural effusions -patient is afebrile without symptoms of pneumonia - concern for acute CHF exacerbation - diuresis as below - monitor O2 sat, wean O2 as able (3) Abnormal urinalysis: Code(s): R82.90 - Unspecified abnormal findings in urine Status: Acute Assessment and Plan: - UA with positive nitrates, 3+ LE, >100 WBC, 4+ bacteria - previous urine cultures have been negative - afebrile, WBC 10.6. ESR, CRP and procal elevated - no specific urinary symptoms, but having increased weakness - started on IV Rocephin. Urine culture and blood cultures pending (4) Atrial fibrillation: Code(s): I48.91 - Unspecified atrial fibrillation Status: Acute Assessment and Plan: - EKG with rate-controlled Afib - echo with EF 55%, G2DD, moderate pulmonary hypertension - CTA chest no PE - last saw Dr. Romo 2022 - CHADS2-VASc - 5 - received Lovenox in ED - patient states she was taken off Xarelto while she was on radiation and was never restarted. Per [employer], patient's chemo pill, Brukinsa, may increase risk of bleeding events and suggests close monitoring. Patient agreeable to restart Xarelto at this time. She may need to follow-up with her surgeon to determine how long Xarelto will need to be held prior to removal of squamous cell carcinoma. - monitor on tele -continue home amiodarone - needs outpatient cardiology follow-up (5) Diastolic dysfunction: Code(s): I51.89 - Other ill-defined heart diseases Status: Acute Assessment and Plan: - echo 03/2023 with EF 55-60%, grade 2 diastolic dysfunction, moderate pulmonary hypertension - CTA chest with minimal pulmonary edema - patient is currently requiring 2L NC with no home O2 requirement - start IV lasix, monitor response - repeat echo pending (6) Chronic kidney disease: Code(s): N18.9 - Chronic kidney disease, unspecified Status: Acute Assessment and Plan: - Cr 15, near baseline - monitor BMP closely with diuresis (7) Lymphedema: Code(s): I89.0 - Lymphedema, not elsewhere classified Status: Acute Assessment and Plan: - history of severe lymphedema. Previously receiving lymphedema therapy, but can no longer afford. -continue Lasix (8) Hypertension: Qualifiers: Hypertension type: essential hypertension Qualified Code(s): I10 - Essential (primary) hypertension Code(s): I10 - Essential (primary) hypertension Status: Acute Assessment and Plan: -BP 120/55 -continue home amlodipine (9) Morbid obesity with BMI of 45.0-49.9, adult: Code(s): E66.01 - Morbid (severe) obesity due to excess calories; Z68.42 - Body mass index [BMI] 45.0-49.9, adult Status: Acute Assessment and Plan: -lifestyle modifications as able (10) Adult failure to thrive: Code(s): R62.7 - Adult failure to thrive Status: Acute Assessment and Plan: -progressively worsening weakness and inability care for self. Family expressed concerns about patient returning home alone. -PT/OT consulted. Care coordination following for possible SNF placement. (11) Skin cancer: Code(s): C44.90 - Unspecified malignant neoplasm of skin, unspecified Status: Acute Assessment and Plan: - has history of basal cell carcinoma of the head and neck with mets to the lungs s/p several excisions and chemo/radiation. Currently on p.o. chemo. -had dermatology appointment 05/23 to remove squamous cell tumor on the back of her left leg. Will need to be rescheduled - patient will need to follow-up to determine timing of holding anticoagulation Plan Code status: full code, confirmed on admit Disposition: likely SNF in 2-3 days Quality VTE Prophylaxis VTE prophylaxis: pharmacologic ordered Hospitalist [facility] Advance Care Plan I have confirmed that the patient's Advanced Care Plan is present, code status is documented, or surrogate decision maker is listed in patient medical record.: Yes Medication Reconciliation I have utilized all available resources to obtain, update and review the patients current medications (includes all prescriptions, OTC, herbals, cannabis, and nutritional supplements).: Yes The patient is not eligible for med reconciliation; the patient is in a emergent medical situation where delaying treatment would jeopardize the patients health.: No
[2025-05-23 06:58] LABS: Troponin I 0.031 ng/mL (0.000-0.034)
[2025-05-23 07:04] LABS: CRP 14.7 mg/dL (<1.0)
[2025-05-23 07:28] LABS: Procalcitonin 2.2 ng/mL
--- OUTSIDE RECORDS SUMMARY | 2025-05-23 08:42 | XMS_ITS | Encounter Summary ---
Author Organization [facility] [employer] [facility] Address [address] [place] [address] Care Team Providers Care Cotton Chopper Name Role Phone Tino Hernandez MD Primary Care Provider Encounter Details Date Type Department Care Team (Late Contact Info) Description 01/08/2023 Abstract [facility] Oncology and Hematology [facility] [address] [place] [address] Nish Vásquez, DARNELL Social History Tobacco Use Types Packs/Day Years Used Date Smoking Tobacco: Never Smokeless Tobacco: Never Alcohol Use Standard Drinks/Week Comments No 0 (1 standard drink = 0.6 oz pur e alcohol) Comments No Sex and Gender Information Value Date Recorded Sex Assigned at Not on file Legal Sex Female 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 No / Unsure 01/06/2023 11:34 AM CDT documented as of this encounter Plan of Treatment Upcoming Encounters Date Type Department Care Team (Late Contact Info) Description 07/17/2025 2:45 PM FENCE BUILDER Office Visit [facility] Oncology and Hematology [facility] [address] [place] [address] Luther Napier MD [address] [facility] [address] [place] [address] documented as of this encounter Visit Diagnoses Not on filedocumented in this encounter Care Teams Cotton Chopper Relationship Specialty Start Date End Date Tino Hernandez MD [address] [place], [place] [id number] PCP - General Family Practice 11/24/22 documented as of this encounter
--- OUTSIDE RECORDS SUMMARY | 2025-05-23 08:42 | XMS_ITS ---
Author Organization [facility] Address [address] [place] [address] Care Team Providers Care Pourer Buggy Ladle Name Role Phone Michele Coleman MD Primary Care Provider Aries Soliman MD Unavailable [phone] Yanira Granda MD Unavailable [phone] Dennis Gentile MD Unavailable [phone] Shaheen Navarrete MD PhD Unavailable [phone] Active Problems Patient Care Coordination No te Formatting of this note migh t be different from the original. Referring provider: Felecia Avlia NP Ms. Cheryl Murillo is an 79-year-old [...]
--- OUTSIDE RECORDS SUMMARY | 2025-05-23 08:42 | XMS_ITS | Clinical Summary ---
Author Organization [facility] [employer] Address [address] [place] [address] Care Team Providers Care Supervisor Bridges And Buildings Name Role Phone Idalia Serrano MD Primary Care Provider [phone] Source Comments [facility],non-owned Affiliates and Associated Physician Practices is amultiple site organization consisting of ambulatory clinics and hospital sitesin [place], [place], [place] and [place]. This disclosure is being madepursuant to the Care Everywhere program and may not contain all information available regarding this patient. Last updated 18.[facility] [employer] Allergies No known active allergies Medications * [...] 36.7 C (98 F) 09/08/2019 1:02 PM DIRECTOR OF CONTENT AND PROGRAMMING Respiratory Rate 14 06/12/2020 6:30 PM CDT [...] yrs (1 - 1-dose 75+ series) 2018 DEPRESSION SCREENING 09/14/2024 COVID-19 VACCINE (3 - 2024-2 6 season) 2025 11/23/2020, 11/02/2020 INFLUENZA VACCINE (#1) 2025 HEPATITIS B VACCINE [...] Documents on File Type Date Recorded Patient Pipe Organ Installer Expl anation Adv Directive/Living Will/POA 01/19/2017 Care Teams Supervisor [employer]ges And Buildings Relationship Specialty Start Date End Date Idalia Serrano MD [address] [place] [address] PCP - General 04/30/22
--- OUTSIDE RECORDS SUMMARY | 2025-05-23 08:42 | XMS_ITS | Encounter Summary ---
Author Organization [facility] Address [address] [facility] [place] [address] Care Team Providers Care Lumber Chain Offbearer Name Role Phone Idalia Serrano MD Primary Care Provider [phone] Encounter Details Date Type Department Care Team (Late st Contact Info) Description 10/09/2022 Lab Requisition [facility] [address] [facility] [place] [address] Yanira Granda MD [address] [facility] [address] [place] [address] Social History Tobacco Use Types [...] Comments DERMATOPATHOLOGY Routine 10/07/2022 12:0 0 AM 1 YEAR OLDS PRESCHO[employer] TE[employer]ER documented in this encounter Results * DERMATOPATHOLOGY (10/07/2022 12:00 AM 1 YEAR OLDS PRES[employer] TE[employer]ER) Case Report Dermatopathology Report Case: [id number] Authorizing Provider: Yanira Granda MD Collected: 10/07/2022 12:00 AM Ordering Location: [facility] Received: 10/09/2022 01:05 PM Pathologist: Leyda Lorenzo MD Specimen: Skin, left inferior central forehead 4:51 PM 2 YEAR [employer] TE[employer] DERMATOPATHOLOGY LABORATORY Final Diagnosis Specimen A. SKIN, left inferior central forehead: SQUAMOUS CELL CARCINOMA IN SITU, PRESENT AT THE BASE OF THE SPECIMEN (D04.39) (see microscopic description and comment) 4:51 PM [facility] DERMATOPATHOLOGY LABORATORY at [address] 2 YEAR [employer] Clinical History Neoplasm of Uncertain Behavior vs. Squamous Cell Carcinoma 4:51 PM [facility] DERMATOPATHOLOGY LABORATORY Gross Description Specimen A: Received is one formalin filled container labeled with the patient's name and designated left inferior central forehead. The specimen consists of a shave biopsy measuring [id number]. Jar 0. 4:51 PM [facility] DERMATOPATHOLOGY LABORATORY Microscopic Description Specimen A. SKIN, left inferior central forehead: Focal tangential sectioning is present. The epidermis shows parakeratosis, full thickness disorderly maturation of keratinocytes, mitoses at different levels, and dyskeratotic cells. Adnexal extension of the lesion is seen. The lesion broadly extends to the base of the biopsy. COMMENT: An invasive squamous cell carcinoma cannot be ruled out. 4:51 PM [facility] DERMATOPATHOLOGY LABORATORY Disclaimer An external and internal positive and negative controls are appropriate for the histochemical, immunohistochemical and immunofluorescence stain(s) in this case (if any), except where stated explicitly. The performance characteristics of the stain(s) cited in this report were developed and its performance characteristic determined by the Dermatopathology Laboratory at [facility], directed by Dr. Corrine Baker. These tests need not be, and therefore are not, approved by the [place] Food and Drug Administration. The tests are used for clinical purposes. Billing Codes Specimen Charges Stain Charges 43010 1 3 4:51 PM 2 YEAR [employer] DERMATOPATHOLOGY LABORATORY Embedded Images 3 4:51 PM 2 YEAR OL[employer] TE[employer]ER DERMATOPATHOLOGY LABORATORY Pathology/Cytolog y TISSUE SPECIMEN FROM SKIN / Unknown 10/07/2022 10/09/2022 1:05 PM 1 YEAR OL[employer]ER Yanira Granda MD LAB - PATHOLOGY/CYTOLOGY ORDER DONAL Final Result DERMATOPATHOLOGY LABORATORY [facility] - Department of Dermatology [facility] [address] [place] [address], [address] [phone] documented in this encounter Visit Diagnoses Not on filedocumented in this encounter Care Teams Lumber Chain Offbearer Relationship Specialty Start Date End Date Idalia Serrano MD [address] [place] [address] PCP - General 04/30/22 documented as of this encounter
--- OUTSIDE RECORDS SUMMARY | 2025-05-23 08:42 | XMS_ITS | Clinical Summary ---
Author Organization [facility] Address [address] [place] [address] Care Team Providers Care Aspnet Developer Name Role Phone Michele Coleman MD Primary Care Provider Aries Soliman MD Unavailable [phone] Yanira Granda MD Unavailable [phone] Dennis Gentile MD Unavailable [phone] Shaheen Navarrete MD PhD Unavailable [phone] Allergies No known active allergies Medications allopurinoL [...] while awake 50 each 3 Active white petrolatum-supervisory examiner al oil (REFRESH PM) ointment Apply [...] Description 03/14/2025 3:00 PM CDT Office Visit [facility] Radiation Oncology [address] [place] [address] Felecia Avila NP 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); Squamous cell carcinoma of cheek 03/14/2025 1:30 PM CDT - 03/14/2025 11:59 PM CDT Hospital Encounter [facility] [address] [place] [id number] Recurrent squamous cell carcinoma of cheek Discharge Disposition: Discharge to home or self care from Last 3 Months Immunizations Immunization Administration Dates Next Due COVID-19 mRNA (BookShout!) 0.3 m L (30 mcg) vaccine (12 years and up) 07/11/2023 Influenza, Quad, Adjuvantate d, Intramuscular 07/11/2023,06/18/2022,07/08/2021,06/21 Influenza, Trivalent, IM (MDV) 06/19/2015,2013 Influenza, Trivalent, Preser vative Free, Intramuscular 06/17/2016 Project Insiders SARS-CoV-2 Monovalent Vaccination (12+ Yrs) PURPLE 07/31/2021 [...] 36.6 C (97.9 F) 11/15/2024 1:38 PM EAR MOLD LABORATORY TECHNICIAN Respiratory Rate 15 11/15/2024 2:50 PM EAR MOLD LABORATORY TECHNICIAN Oxygen Saturation 96% 03/14/2025 2:4 8 PM CDT Inhaled Oxygen Concentration - - Weight 97.5 kg (215 lb) 03/14/2025 2:48 PM CDT patient voiced Height 152.4 cm (5') 10/18/2024 1:23 PM EAR MOLD LABORATORY TECHNICIAN Body Mass Index 41.99 10/18/2024 1:23 PM EAR MOLD LABORATORY TECHNICIAN Plan of Treatment Health Maintenance Due Date Last Done Comments Depression Screening 1945 Osteoporosis Screening-Bone Density Scan 1943 DTaP/Tdap/Td Vaccine (1 - Tdap) 1954 Hepatitis B Screening 1961 Zoster Vaccine (1 of 2) 1962 Well Visit 65+ 2008 Pneumococcal vaccine 65+ (2 of 2 - PPSV23, PCV20, or PCV21) 08/23/2019 06/28/2019 Covid-19 Vaccine (6 - 2024-2 6 season) 2025 07/11/2023, 06/18/2022, 07/31/2021, Additional history exists Influenza [...] are normal. The limited view of the [place] is unremarkable. The visualized portions [...] are normal. The limited view of the [place] is unremarkable. The visualized portions [...] Last 3 Months Insurance [employer] MEDICARE GOLD [facility] MEDICARE [facility] AETNA MEDICARE GOLD ID[place] Advance Directives For more information, please contact: [phone] * Full Code (Latest Code Status on File) Date Activated Date Inactivated Comments 09/10/2023 3:28 PM 09/11/2023 6:00 PM Care Teams Aspnet Developer Relationship Specialty Start Date End Date Michele Coleman MD PCP - General 12/12/16 Aries Soliman MD Dermatology 09/01/23 Yanira Granda MD [address] [place] [address] Referring Physician Dermatology 09/01/23 Dennis Gentile MD [address] [facility] [address] [place], [place] [id number] Surgeon Otolaryngology 10/25/24 [place] [address] [place] [address] DEPT RADIATION ONCOLOGY, [place] [address] Radiation Oncologist Radiation Oncology 03/15/25
--- OUTSIDE RECORDS SUMMARY | 2025-05-23 08:42 | XMS_ITS | Clinical Summary ---
Author Organization [employer] [facility] [address] Address [address] [place] [address] Phone Care Team Providers Care Health And Nutrition Specialist Name Role Phone Tino Hernandez MD Primary [...] once daily 30 Tablet 08/10/20 23 Active levothyroxine 25 mcg tablet TAKE 1 TABLET BY MOUTH IN THE MORNING BEFORE ANY OTHER MEDICATIONS OR FOOD 02/10/20 25 Active zanubrutinib (Brukinsa) 80 mg capsule TAKE 2 CAPSULES BY MOUTH TWICE A DAY. 120 Capsule 1 05/18/20 25 Active zanubrutinib (Brukinsa) 80 mg capsule TAKE 2 CAPSULES BY MOUTH TWICE A DAY. 120 Capsule 03/16/20 25 025 Discontinued Active Problems Problem Noted Date Diagnosed Date Rheumatoid arthritis 10/31/2019 CLL (chronic lymphocytic leukemia) 04/20/2019 Elevated sedimentation rate 06/22/2015 Pain, joint, multiple sites 06/22/2015 Edema Encounters Date Type Department Care Team Description 05/18/2025 Refill [facility] Oncology and Hematology - Ye [address] [place] [address] Luther Napier MD 04/12/2025 Orders Only [facility] [address]ailf [address] [place] [address] Luther Napier MD 04/11/2025 3:45 PM CDT Office Visit [facility] [address] [place] [address] Luther Napier MD CLL (chronic lymphocytic leukemia) (CMS/HCC) (Primary Dx) 03/16/2025 Refill [facility] [address] [place] [address] Luther Napier MD 02/28/2025 External Device Data [facility] ABSTRACTION Provider, Abstract from Last 3 Months Immunizations Immunization Administration Dates Next Due (PFIZER)(12 YR UP) COVID-19 VACCINE - EMERGENCY USE AUTHORIZATION, MRNA, [id number](PF) 30 MCG/0.3 ML IM SUSP 11/23/2020,11/02/2020 Family [...] on file Legal Sex Female 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 Gender Identity Not on file Sexual Orientation Not on file Last Filed Vital Signs Vital Sign Reading Time Taken Comments Blood Pressure 139/77 04/11/2025 3:21 PM CDT Pulse 63 04/11/2025 3:21 PM CDT Temperature 36.3 C (97.3 F) 04/11/2025 3:21 PM CDT Respiratory Rate 16 04/11/2025 3:21 PM CDT Oxygen Saturation 97% 04/11/2025 3:21 PM CDT Inhaled Oxygen Concentration - - Weight 97.5 kg (215 lb) 04/11/2025 3:21 PM CDT Height 152.4 cm (5') 05/21/2022 11:25 AM CDT Body Mass Index 41.99 05/21/2022 11:25 AM CDT Plan of Treatment Upcoming Encounters Date Type Department Care Team (Late st Contact Info) Description 07/17/2025 2:45 PM GOVERNMENT OPERATIONS CONSULTANT Office Visit [facility] Oncology and Hematology [facility] [address] [facility] [address] [place] [address] Luther Napier MD [address] [facility] [address] [place] [address] Health Maintenance Due Date Last Done Comments DTAP/TDAP/TD VACCINES (1 - Tdap) 1962 ZOSTER VACCINE (1 of 2) 1962 OSTEOPOROSIS SCREENING 2008 RSV VACCINE (60+ or ) (1 - 1-dose 75+ series) 2018 PNEUMOCOCCAL VACCINE 50+ YEA RS (2 of 2 - PPSV23, PCV20, or PCV21) 08/23/2019 06/28/2019 INFLUENZA VACCINE (#1) 2025 , 06/18/2022, 07/08/2021, Additional history exists COVID-19 Vaccine ( - 2024-2 6 season) 2025 07/11/2023, 06/18/2022, 07/31/2021, Additional history exists Procedures Procedure Name Priority Date/Time Associated Diagnosis Comments BASIC METABOLIC PANEL Routine 04/11/2025 2:30 PM CDT LACTATE DEHYDROGENASE Routine 04/11/2025 1:24 PM CDT CBC WITH AUTODIFFERENTIAL Routine 2024 1:16 PM CDT from Last 3 Months Results * BASIC METABOLIC PANEL (04/11/2025 2:30 PM CDT) Blood us Luther Napier MD CHEMISTRY ORDERABLES Final Resu lt * LACTATE DEHYDROGENASE (04/11/2025 1:24 PM CDT) Blood Luther Napier MD CHEMISTRY ORDERABLES Final Resu lt * CBC WITH AUTODIFFERENTIAL (04/11/2025 1:16 PM CDT) Blood Luther Napier MD HEMATOLOGY ORDERABLES Final Res ult from Last 3 Months Insurance [place] [address] RX AETNA Medicare Part D RX PHARMACY [employer] Medicare Part D Care Teams Health And Nutrition Specialist Relationship Specialty Start Date End Date Tino Hernandez MD [address] [place] [address] PCP - General Family Practice 11/24/22
[2025-05-23] MEDS: PANTOPRAZOLE 40 MG TABLET PO (09:26)
[2025-05-23] MEDS: AMIODARONE HCL 100 MG TABLET PO (09:26)
[2025-05-23] MEDS: FERROUS SULFATE 325 MG TABLET PO ×2 (09:27→17:43)
[2025-05-23] MEDS: FUROSEMIDE 20 MG TABLET PO (09:39)
[2025-05-23] MEDS: ACETAMINOPHEN 325 MG TABLET 650 MG PO (12:51)
[2025-05-23] MEDS: FUROSEMIDE INJ 40 MG/4 ML VIAL IV PUSH (17:42)
[2025-05-23] MEDS: RIVAROXABAN 20 MG TABLET PO (17:43)
--- NOTE | 2025-05-23 19:41 | PHAR ---
verified HOME MED (Zanubrutinib [Brukinsa] 80 mg capsule) take 2 capsules (160mg) bid
[2025-05-23] MEDS: HYDROcodone/acetaminophen (*CRX) 5-325 MG TABLET 1 TAB PO (19:42)
[2025-05-23] MEDS: cefTRIAXone 2 GM in SODIUM CHLORIDE 0.9% IV 100 ML 200 ML IVPB (21:43)
[2025-05-23] MEDS: ATORVASTATIN 40 MG TABLET 80 MG PO (21:43)
[2025-05-24] VITALS (13 sets, daily range): BP systolic 113–144; BP diastolic 50–82; PULSE 45–87; RESP 16–18; TEMP 36.3–37.2; O2SAT 92–99
[2025-05-24 06:01] LABS: Hematocrit 29.7 % (37.0-47.0); Hemoglobin 9.0 g/dL (12.0-15.0); Immature Granulocyte Percent A 0.6 % (0-0.5); Immature Platelet Fraction Pct 11.9 % (0.9-11.2); Lymphocytes Absolute Auto 0.49 K/mm3 (0.9-3.2); Mean Corpuscular HGB Conc 30.3 g/dl (32-36); Mean Corpuscular Hemoglobin 27.7 pg (26-34); Mean Corpuscular Volume 91.4 fl (80-100); Nucleated Red Blood Cells Absolute Auto 0.000 K/mm3 (0.0-0.012); Nucleated Red Blood Cells Perc 0.0 % (0.0-0.2); Platelet Count Result 105 k/mm3 (150-375); Red Blood Count 3.25 M/mm3 (4.2-5.4); White Blood Count 4.9 K/mm3 (4.5-10.0)
[2025-05-24 06:29] LABS: Alanine Aminotransferase 16 U/L (6-35); Albumin Level 2.8 g/dL (3.5-5.1); Alkaline Phosphatase 83 U/L (38-126); Anion Gap 7 mmol/L (4-12); Aspartate Amino Transferase 29 U/L (14-36); Bilirubin,Total 0.5 mg/dL (0.2-1.3); Blood Urea Nitrogen 27 mg/dL (7-17); Calcium 7.3 mg/dL (8.4-10.2); Carbon Dioxide 26 mmol/L (22-30); Chloride 101 mmol/L (98-107); Estimated CRCL calculation 33 ml/min; Estimated Glomerular Filt Rate 40; Glucose 127 mg/dL (65-110); Magnesium 1.8 mg/dL (1.6-2.3); Potassium 4.0 mmol/L (3.4-5.0); Sodium 134 mmol/L (137-145); Total Protein 5.5 g/dL (6.3-8.2)
[2025-05-24 06:32] LABS: Procalcitonin 1.9 ng/mL
[2025-05-24 06:43] LABS: CRP 22.4 mg/dL (<1.0)
[2025-05-24] MEDS: FERROUS SULFATE 325 MG TABLET PO ×2 (08:08→17:45)
[2025-05-24] MEDS: AMIODARONE HCL 100 MG TABLET PO (08:08)
[2025-05-24] MEDS: PANTOPRAZOLE 40 MG TABLET PO (08:09)
[2025-05-24] MEDS: FUROSEMIDE INJ 40 MG/4 ML VIAL IV PUSH ×2 (08:10→17:46)
[2025-05-24] MEDS: ZANUBRUTINIB 80 MG 160 EACH PO ×2 (08:10→17:46)
[2025-05-24] MEDS: HYDROcodone/acetaminophen (*CRX) 5-325 MG TABLET 1 TAB PO ×2 (09:41→22:22)
--- NOTE | 2025-05-24 14:16 | P.PNIM_ITS ---
Progress Note: A&P Assessment and Plan (1) Acute respiratory failure with hypoxia: Code(s): J96.01 - Acute respiratory failure with hypoxia Status: Acute Assessment and Plan: -currently requiring 2 L nasal cannula although no true hypoxia has been documented. No home oxygen requirement. - CTA chest showed no PE, mild left upper lobe pneumonitis, minimal interstitial pulmonary edema and trace pleural effusions -patient is afebrile without symptoms of pneumonia - concern for acute CHF exacerbation - diuresis as below - monitor O2 sat, wean O2 as able (2) Abnormal urinalysis: Code(s): R82.90 - Unspecified abnormal findings in urine Status: Acute Assessment and Plan: - UA with positive nitrates, 3+ LE, >100 WBC, 4+ bacteria - previous urine cultures have been negative - afebrile, WBC 10.6. ESR, CRP and procal elevated - no specific urinary symptoms, but having increased weakness - started on IV Rocephin. Urine culture and blood cultures pending continue antibiotics, downgrade to po as appropriate (3) Atrial fibrillation: Code(s): I48.91 - Unspecified atrial fibrillation Status: Acute Assessment and Plan: - EKG with rate-controlled Afib - echo with EF 55%, G2DD, moderate pulmonary hypertension - CTA chest no PE - last saw Dr. Romo 2022 - CHADS2-VASc - 5 - received Lovenox in ED - patient states she was taken off Xarelto while she was on radiation and was never restarted. Per UptoDate, patient's chemo pill, Brukinsa, may increase risk of bleeding events and suggests close monitoring. Patient agreeable to restart Xarelto at this time. She may need to follow-up with her surgeon to determine how long Xarelto will need to be held prior to removal of squamous cell carcinoma. - monitor on tele -continue home amiodarone - needs outpatient cardiology follow-up (4) Diastolic dysfunction: Code(s): I51.89 - Other ill-defined heart diseases Status: Acute Assessment and Plan: - echo 03/2023 with EF 55-60%, grade 2 diastolic dysfunction, moderate pulmonary hypertension - CTA chest with minimal pulmonary edema - patient is currently requiring 2L NC with no home O2 requirement - start IV lasix, monitor response - repeat echo pending (5) Chronic kidney disease: Code(s): N18.9 - Chronic kidney disease, unspecified Status: Acute Assessment and Plan: - Cr 1.15, near baseline - monitor BMP closely with diuresis (6) Lymphedema: Code(s): I89.0 - Lymphedema, not elsewhere classified Status: Acute Assessment and Plan: - history of severe lymphedema. Previously receiving lymphedema therapy, but can no longer afford. -continue Lasix (7) Hypertension: Qualifiers: Hypertension type: essential hypertension Qualified Code(s): I10 - Essential (primary) hypertension Code(s): I10 - Essential (primary) hypertension Status: Acute Assessment and Plan: -BP 120/55 -continue home amlodipine (8) Morbid obesity with BMI of 45.0-49.9, adult: Code(s): E66.01 - Morbid (severe) obesity due to excess calories; Z68.42 - Body mass index [BMI] 45.0-49.9, adult Status: Acute Assessment and Plan: -lifestyle modifications as able (9) Adult failure to thrive: Code(s): R62.7 - Adult failure to thrive Status: Acute Assessment and Plan: -progressively worsening weakness and inability care for self. Family expressed concerns about patient returning home alone. -PT/OT consulted. Care coordination following for possible SNF placement. 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 Currently on p.o. chemo. -had dermatology appointment 05/23 to remove squamous cell tumor on the back of her left leg. Will need to be rescheduled - patient will need to follow-up to determine timing of holding anticoagulation Plan Code status: full code, confirmed on admit Disposition: likely SNF in 2-3 days Time Spent With Patient Time with patient: 25 - 35 minutes Subjective Date/time seen: 05/24/25 14:16 Interval history: 80 yo female with past medical history of squamous and basal cell carcinoma, pulmonary hypertension, CKDIII, anxiety, PAF, severe lymphedema who presents with increased weakness, increased leg edema. Patient states that over the last several days she has been having increasing weakness and shooting pains down her legs. She does admit to some chronic lower back discomfort and history of sciatica. States her leg pain feels similar to this. She has severe lymphedema, but is normally able to walk with a walker. She denies bowel/bladder incontinence or numbness/tingling of the lower extremities. Denies any specific back injury. She has been compliant with her home medications. Patient has a prior history of squamous and basal cell carcinoma. She was scheduled for outpatient removal of a squamous cell carcinoma of her left lower extremity today however state that she began having extreme anxiety over this and thinks she was having a panic attack. Patient does live alone and has some concerns about caring for herself. She apparently has home health care for 4 hours daily. Patient denies any fevers, chills, chest pain, cough, shortness of breath, nausea, vomiting, dysuria, urinary frequency. In ED, WBC 11.1 with bandemia, Hgb 11.5, Plts 130, BUN 25, Cr 1.08, glucose 194, trop I 0.012. EKG with Afib, incomplete right bundle branch block, heart rate 97. UA with positive nitrates, 3+ LE, >100 WBC, 4+ bacteria. CXR with possible PNA. Influenza, RSV, COVID negative. CTA chest with no PE, muld left upper pneumonitis, minimal pulmonary edema. Received Lovenox 1 mg/kg due to Afib and concern for DVT. BLE venous Doppler obscured by severe edema, no DVT noted. Started on Rocephin and doxycycline for concern pneumonia and UTI. Patient admitted for further evaluation and management. Assuming care - pt is seen and examined. she is resting quietly in bed, denies any acute issues. Review of Systems Review of Systems: All systems reviewed & are unremarkable except as noted in HPI and below Exam Narrative: General: NAD, morbidly obese Eyes: EOMI ENT: neck supple Cardiovascular: Regular rate and rhythm Respiratory: Clear to auscultation, respirations even and unlabored on RA Gastrointestinal: Soft, non tender Genitourinary: no suprapubic tenderness Musculoskeletal: very severe bilateral lymphedema Skin: warm, dry, skin lesion in L popliteal fossa consistent with known squamous cell carcinoma. Chronic brawny edema/skin changes. Neuro: Alert. Strength 4/5 in BLEs. Psych: Mood appropriate Const: General: comfortable Objective Data Vital Signs Vital Signs: Vital Signs - 24 hr 05/23/25 16:00 05/23/25 20:00 05/23/25 20:00 Temperature Pulse Rate 47 L 91 76 Respiratory Rate 20 Blood Pressure Pulse Oximetry 96 Oxygen Delivery Room Air 05/23/25 21:59 05/24/25 00:00 05/24/25 04:00 Temperature 98.8 F Pulse Rate 91 72 77 Respiratory Rate 20 Blood Pressure 119/45 L Pulse Oximetry 96 Oxygen Delivery 05/24/25 05:59 05/24/25 07:59 05/24/25 08:00 Temperature 97.7 F 99.0 F Pulse Rate 74 45 L Respiratory Rate 18 16 Blood Pressure 115/82 128/55 L Pulse Oximetry 96 92 99 Oxygen Delivery Room Air 05/24/25 08:00 05/24/25 08:00 05/24/25 08:07 Temperature Pulse Rate 87 82 Respiratory Rate Blood Pressure 137/58 L Pulse Oximetry Oxygen Delivery Room Air 05/24/25 08:08 05/24/25 12:00 05/24/25 13:33 Temperature 97.3 F L Pulse Rate 84 85 74 Respiratory Rate 18 Blood Pressure 113/55 L Pulse Oximetry 95 Oxygen Delivery Intake/Output Intake/Output: Intake & Output 05/21/25 05/22/25 05/23/25 05/24/25 23:59 23:59 23:59 23:59 Intake Total 1000 850 690 Output Total 700 800 Balance 1000 150 -110 Meds/Results Medications: Active Medications Generic Name Dose Route Start Last Admin Trade Name Freq PRN Reason Stop Dose Admin Acetaminophen 650 mg 05/23/25 12:29 05/23/25 12:51 Acetaminophen 325 Mg Tablet PO 650 mg Q6H PRN Administration Mild Pain (1-3) or Fever Hydrocodone Bitart/Acetaminophen 1 tab 05/23/25 19:35 05/24/25 09:41 Hydrocodone/Acetaminophen (*Crx) 5-325 Mg Tablet PO 1 tab Q6H PRN Administration Pain Rated 4-6 Albuterol 2 puff 05/23/25 05:41 Albuterol Sulfate (*Sp) Aerosol 1 Puff INHALATION Q6HRT PRN Shortness Of Breath Or Wheezing Amiodarone HCl 100 mg 05/23/25 08:00 05/24/25 08:08 Amiodarone Hcl 100 Mg Tablet PO 100 mg DAILY@0800 KATHY Administration Amlodipine Besylate 2.5 mg 05/23/25 09:00 05/24/25 08:08 Amlodipine Besylate 2.5 Mg Tablet PO 2.5 mg QAM KATHY Administration Atorvastatin Calcium 80 mg 05/23/25 21:00 05/23/25 21:43 Atorvastatin 40 Mg Tablet PO 80 mg QHS KATHY Administration Ferrous Sulfate 325 mg 05/23/25 08:00 05/24/25 08:08 Ferrous Sulfate 325 Mg Tablet PO 325 mg BIDWM KATHY Administration Fluticasone Propionate 2 spray 05/23/25 05:41 Fluticasone Propionate 0.05% Na Spr 16 Gm Btl (*Bkc) NASAL QAM PRN Nasal Congestion Furosemide 40 mg 05/23/25 17:00 05/24/25 08:10 Furosemide Inj 40 Mg/4 Ml Vial IV PUSH 40 mg BID KATHY Administration Ceftriaxone Sodium 2 gm/ 100 mls @ 200 mls/hr 05/23/25 22:00 05/23/25 22:56 Sodium Chloride IVPB Infused Q24H KATHY Infusion Home Med ( 160 mg 05/24/25 09:00 05/24/25 08:10 Zanubrutinib [ PO 06/23/25 08:59 160 mg Brukinsa] 80 Mg BID KATHY Administration Capsule) Pantoprazole Sodium 40 mg 05/23/25 09:00 05/24/25 08:09 Pantoprazole 40 Mg Tablet PO 40 mg QAM KATHY Administration Perflutren Lipid Microsphere 0 ml 05/23/25 05:45 Perflutren Lipid Microspheres 1.5 Ml Vial Diluted To 10 Ml Total Volume IV PUSH 05/26/25 05:45 ONCE PRN adequate visualization Protocol Rivaroxaban 20 mg 05/23/25 17:00 05/23/25 17:43 Rivaroxaban 20 Mg Tablet PO 20 mg DAILY@1700 KATHY Administration Radiology Results: ITS Impressions Chest CTA 05/23/25 07:27 IMPRESSION: 1. No PE. 2. Mild left upper lobe pneumonitis. 3. Minimal interstitial pulmonary edema with trace pleural effusions. Lumbar Spine CT 05/23/25 15:24 IMPRESSION: 1. There is a 3.1 x 2.8 x 4.1 cm lytic lesion in the L5 vertebral body with a soft tissue component which extends into the paravertebral and epidural space anterior,lateral and posterior to the L5 vertebral body causing extensive narrowing of the spinal canal and bilateral neural foramen. An MRI of the lumbar spine with and without contrast is recommended for further assessment. Evaluation of the spinal canal contents and bilateral neuroforamen is limited due to CT technique. 2. Multilevel discogenic and degenerative change in the lumbar spine as detailed above. Labs Labs: Laboratory Results - last 24 hr 05/24/25 05:16 WBC 4.9 RBC 3.25 L Hgb 9.0 L Hct 29.7 L MCV 91.4 MCH 27.7 MCHC 30.3 L RDW 16.4 H Plt Count 105 L MPV 13.5 H Immature Gran % (Auto) 0.6 H Neut % (Auto) 77.8 H Lymph % (Auto) 10.1 L Nance % (Auto) 10.9 H Eos % (Auto) 0.2 Baso % (Auto) 0.4 Lymph # (Auto) 0.49 L Nance # (Auto) 0.5 Eos # (Auto) 0.0 Baso # (Auto) 0.0 Abs Immat Gran (auto) 0.03 Absolute Neuts (auto) 3.8 Absolute Nucleated RBC 0.000 Nucleated RBC % 0.0 % Immature Plt Fraction 11.9 H ESR 77 H Sodium 134 L Potassium 4.0 Chloride 101 Carbon Dioxide 26 Anion Gap 7 BUN 27 H Creatinine 1.27 H Estim Creat Clear Calc 33 Estimated GFR 40 L Glucose 127 H Calcium 7.3 L Magnesium 1.8 Total Bilirubin 0.5 AST 29 ALT 16 Alkaline Phosphatase 83 C-Reactive Protein 22.4 H Total Protein 5.5 L Albumin 2.8 L Procalcitonin 1.9 Quality VTE Prophylaxis VTE prophylaxis: pharmacologic ordered
[2025-05-24] MEDS: RIVAROXABAN 20 MG TABLET PO (17:46)
[2025-05-24] MEDS: ATORVASTATIN 40 MG TABLET 80 MG PO (20:29)
[2025-05-24] MEDS: cefTRIAXone 2 GM in SODIUM CHLORIDE 0.9% IV 100 ML 200 ML IVPB (22:19)
[2025-05-25] VITALS (11 sets, daily range): BP systolic 113–139; BP diastolic 51–74; PULSE 43–98; RESP 16–20; TEMP 36.4–37; O2SAT 91–100
[2025-05-25 04:57] LABS: Hematocrit 30.4 % (37.0-47.0); Hemoglobin 9.4 g/dL (12.0-15.0); Immature Granulocyte Percent A 1.9 % (0-0.5); Immature Platelet Fraction Pct 12.0 % (0.9-11.2); Lymphocytes Absolute Auto 0.62 K/mm3 (0.9-3.2); Mean Corpuscular HGB Conc 30.9 g/dl (32-36); Mean Corpuscular Hemoglobin 28.0 pg (26-34); Mean Corpuscular Volume 90.5 fl (80-100); Nucleated Red Blood Cells Absolute Auto 0.000 K/mm3 (0.0-0.012); Nucleated Red Blood Cells Perc 0.0 % (0.0-0.2); Platelet Count Result 110 k/mm3 (150-375); Red Blood Count 3.36 M/mm3 (4.2-5.4); White Blood Count 3.7 K/mm3 (4.5-10.0)
[2025-05-25 05:10] LABS: Alanine Aminotransferase 18 U/L (6-35); Albumin Level 2.9 g/dL (3.5-5.1); Alkaline Phosphatase 86 U/L (38-126); Anion Gap 5 mmol/L (4-12); Aspartate Amino Transferase 33 U/L (14-36); Bilirubin,Total 0.4 mg/dL (0.2-1.3); Blood Urea Nitrogen 31 mg/dL (7-17); Calcium 7.5 mg/dL (8.4-10.2); Carbon Dioxide 29 mmol/L (22-30); Chloride 100 mmol/L (98-107); Estimated CRCL calculation 31 ml/min; Estimated Glomerular Filt Rate 36; Glucose 128 mg/dL (65-110); Magnesium 1.8 mg/dL (1.6-2.3); Potassium 3.5 mmol/L (3.4-5.0); Sodium 134 mmol/L (137-145); Total Protein 5.9 g/dL (6.3-8.2)
[2025-05-25 05:26] LABS: CRP 14.4 mg/dL (<1.0)
[2025-05-25 05:40] LABS: Ovalocytes 1+; Schistocytes None Seen
[2025-05-25] MEDS: HYDROcodone/acetaminophen (*CRX) 5-325 MG TABLET 1 TAB PO ×2 (09:30→22:08)
[2025-05-25] MEDS: AMIODARONE HCL 100 MG TABLET PO (09:31)
[2025-05-25] MEDS: FUROSEMIDE INJ 40 MG/4 ML VIAL IV PUSH ×2 (09:31→17:00)
[2025-05-25] MEDS: FERROUS SULFATE 325 MG TABLET PO ×2 (09:31→16:59)
[2025-05-25] MEDS: PANTOPRAZOLE 40 MG TABLET PO (09:31)
[2025-05-25] MEDS: ZANUBRUTINIB 80 MG 160 EACH PO ×2 (09:32→16:59)
--- NOTE | 2025-05-25 15:47 | P.PNIM_ITS ---
Progress Note: A&P Assessment and Plan (1) Acute respiratory failure with hypoxia: Code(s): J96.01 - Acute respiratory failure with hypoxia Status: Acute Assessment and Plan: -currently requiring 2 L nasal cannula although no true hypoxia has been documented. No home oxygen requirement. - CTA chest showed no PE, mild left upper lobe pneumonitis, minimal interstitial pulmonary edema and trace pleural effusions -patient is afebrile without symptoms of pneumonia - concern for acute CHF exacerbation - diuresis as below - monitor O2 sat, wean O2 as able (2) Abnormal urinalysis: Code(s): R82.90 - Unspecified abnormal findings in urine Status: Acute Assessment and Plan: - UA with positive nitrates, 3+ LE, >100 WBC, 4+ bacteria - previous urine cultures have been negative - afebrile, WBC 10.6. ESR, CRP and procal elevated - no specific urinary symptoms, but having increased weakness - started on IV Rocephin. Urine culture and blood cultures pending continue antibiotics, downgrade to po as appropriate (3) Atrial fibrillation: Code(s): I48.91 - Unspecified atrial fibrillation Status: Acute Assessment and Plan: - EKG with rate-controlled Afib - echo with EF 55%, G2DD, moderate pulmonary hypertension - CTA chest no PE - last saw Dr. Romo 2022 - CHADS2-VASc - 5 - received Lovenox in ED - patient states she was taken off Xarelto while she was on radiation and was never restarted. Per Upto[employer], patient's chemo pill, Brukinsa, may increase risk of bleeding events and suggests close monitoring. Patient agreeable to restart Xarelto at this time. She may need to follow-up with her surgeon to determine how long Xarelto will need to be held prior to removal of squamous cell carcinoma. - monitor on tele -continue home amiodarone - needs outpatient cardiology follow-up (4) Diastolic dysfunction: Code(s): I51.89 - Other ill-defined heart diseases Status: Acute Assessment and Plan: - echo 03/2023 with EF 55-60%, grade 2 diastolic dysfunction, moderate pulmonary hypertension - CTA chest with minimal pulmonary edema - patient is currently requiring 2L NC with no home O2 requirement - start IV lasix, monitor response - repeat echo pending (5) Chronic kidney disease: Code(s): N18.9 - Chronic kidney disease, unspecified Status: Acute Assessment and Plan: - Cr 1.15, near baseline - monitor BMP closely with diuresis (6) Lymphedema: Code(s): I89.0 - Lymphedema, not elsewhere classified Status: Acute Assessment and Plan: - history of severe lymphedema. Previously receiving lymphedema therapy, but can no longer afford. -continue Lasix insurance doesnot cover lymphedema clinic visits will need to f/u with pcp for possible lymphedema boots machine (7) Hypertension: Qualifiers: Hypertension type: essential hypertension Qualified Code(s): I10 - Essential (primary) hypertension Code(s): I10 - Essential (primary) hypertension Status: Acute Assessment and Plan: -BP 120/55 -continue home amlodipine (8) Morbid obesity with BMI of 45.0-49.9, adult: Code(s): E66.01 - Morbid (severe) obesity due to excess calories; Z68.42 - Body mass index [BMI] 45.0-49.9, adult Status: Acute Assessment and Plan: -lifestyle modifications as able (9) Adult failure to thrive: Code(s): R62.7 - Adult failure to thrive Status: Acute Assessment and Plan: -progressively worsening weakness and inability care for self. Family expressed concerns about patient returning home alone. -PT/OT consulted. Care coordination following for possible SNF placement. 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 Currently on p.o. chemo. -had dermatology appointment 05/23 to remove squamous cell tumor on the back of her left leg. Will need to be rescheduled - patient will need to follow-up to determine timing of holding anticoagulation Plan Code status: full code, confirmed on admit Disposition: likely SNF in 2-3 days Time Spent With Patient Time with patient: Greater than 35 minutes Subjective Date/time seen: 05/25/25 15:48 Interval history: 80 yo female with past medical history of squamous and basal cell carcinoma, pulmonary hypertension, CKDIII, anxiety, PAF, severe lymphedema who presents with increased weakness, increased leg edema. Patient states that over the last several days she has been having increasing weakness and shooting pains down her legs. She does admit to some chronic lower back discomfort and history of sciatica. States her leg pain feels similar to this. She has severe lymphedema, but is normally able to walk with a walker. She denies bowel/bladder incontinence or numbness/tingling of the lower extremities. Denies any specific back injury. She has been compliant with her home medications. Patient has a prior history of squamous and basal cell carcinoma. She was scheduled for outpatient removal of a squamous cell carcinoma of her left lower extremity today however state that she began having extreme anxiety over this and thinks she was having a panic attack. Patient does live alone and has some concerns about caring for herself. She apparently has home health care for 4 hours daily. Patient denies any fevers, chills, chest pain, cough, shortness of breath, nausea, vomiting, dysuria, urinary frequency. In ED, WBC 11.1 with bandemia, Hgb 11.5, Plts 130, BUN 25, Cr 1.08, glucose 194, trop I 0.012. EKG with Afib, incomplete right bundle branch block, heart rate 97. UA with positive nitrates, 3+ LE, >100 WBC, 4+ bacteria. CXR with possible PNA. Influenza, RSV, COVID negative. CTA chest with no PE, muld left upper pneumonitis, minimal pulmonary edema. Received Lovenox 1 mg/kg due to Afib and concern for DVT. BLE venous Doppler obscured by severe edema, no DVT noted. Started on Rocephin and doxycycline for concern pneumonia and UTI. Patient admitted for further evaluation and management. Assuming care - pt is seen and examined. she is resting quietly in bed, denies any acute issues. 05/25- she did a lot better with therapy today. She wants to go back home. Insurance didnot cover lymphedema clinic but pt is advised to see if PCP able to help get lymphedema boot machine to help. Pt has flare ups of sciatica but pain is overall controlled now- wants to try lidocaine patch as it helped in the past. Review of Systems Review of Systems: All systems reviewed & are unremarkable except as noted in HPI and below Exam Narrative: General: NAD, morbidly obese Eyes: EOMI ENT: neck supple Cardiovascular: Regular rate and rhythm Respiratory: Clear to auscultation, respirations even and unlabored on RA Gastrointestinal: Soft, non tender Genitourinary: no suprapubic tenderness Musculoskeletal: very severe bilateral lymphedema Skin: warm, dry, skin lesion in L popliteal fossa consistent with known squamous cell carcinoma. Chronic brawny edema/skin changes. Neuro: Alert. Strength 4/5 in BLEs. Psych: Mood appropriate Const: General: comfortable Objective Data Vital Signs Vital Signs: Vital Signs - 24 hr 05/24/25 16:00 05/24/25 19:43 05/24/25 20:00 Temperature 98.2 F Pulse Rate 63 77 77 Respiratory Rate 17 Blood Pressure 144/50 H Pulse Oximetry 95 Oxygen Delivery 05/24/25 21:11 05/25/25 00:00 05/25/25 04:00 Temperature Pulse Rate 84 68 Respiratory Rate Blood Pressure Pulse Oximetry 93 Oxygen Delivery Room Air 05/25/25 05:00 05/25/25 08:00 05/25/25 09:29 Temperature 98.6 F Pulse Rate 79 43 L 98 Respiratory Rate 20 Blood Pressure 113/57 L 121/74 Pulse Oximetry 91 Oxygen Delivery 05/25/25 09:30 05/25/25 09:31 05/25/25 12:00 Temperature Pulse Rate 94 80 Respiratory Rate Blood Pressure Pulse Oximetry Oxygen Delivery Room Air 05/25/25 14:00 Temperature 97.5 F L Pulse Rate 80 Respiratory Rate 18 Blood Pressure 139/56 L Pulse Oximetry 100 Oxygen Delivery Intake/Output Intake/Output: Intake & Output 05/22/25 05/23/25 05/24/25 05/25/25 23:59 23:59 23:59 23:59 Intake Total 3431 796 2521 608 Output Total 231 642 4078 Balance 1000 150 450 -492 Meds/Results Medications: Active Medications Generic Name Dose Route Start Last Admin Trade Name Freq PRN Reason Stop Dose Admin Acetaminophen 650 mg 05/23/25 12:29 05/23/25 12:51 Acetaminophen 325 Mg Tablet PO 650 mg Q6H PRN Administration Mild Pain (1-3) or Fever Hydrocodone Bitart/Acetaminophen 1 tab 05/23/25 19:35 05/25/25 09:30 Hydrocodone/Acetaminophen (*Crx) 5-325 Mg Tablet PO 1 tab Q6H PRN Administration Pain Rated 4-6 Albuterol 2 puff 05/23/25 05:41 Albuterol Sulfate (*Sp) Aerosol 1 Puff INHALATION Q6HRT PRN Shortness Of Breath Or Wheezing Amiodarone HCl 100 mg 05/23/25 08:00 05/25/25 09:31 Amiodarone Hcl 100 Mg Tablet PO 100 mg DAILY@0800 KATHY Administration Amlodipine Besylate 2.5 mg 05/23/25 09:00 05/25/25 09:31 Amlodipine Besylate 2.5 Mg Tablet PO 2.5 mg QAM [facility] Administration Amoxicillin/Clavulanate Potassium 1 tablet 05/25/25 21:00 Amoxicillin/Clavulanate K 875-125 Mg Tab PO 05/30/25 09:01 Q12HR [facility] Atorvastatin Calcium 80 mg 05/23/25 21:00 05/24/25 20:29 Atorvastatin 40 Mg Tablet PO 80 mg QHS [facility] Administration Ferrous Sulfate 325 mg 05/23/25 08:00 05/25/25 09:31 Ferrous Sulfate 325 Mg Tablet PO 325 mg BIDWM KATHY Administration Fluticasone Propionate 2 spray 05/23/25 05:41 Fluticasone Propionate 0.05% Na Spr 16 Gm Btl (*Bkc) NASAL QAM PRN Nasal Congestion Furosemide 40 mg 05/23/25 17:00 05/25/25 09:31 Furosemide Inj 40 Mg/4 Ml Vial IV PUSH 40 mg BID KATHY Administration Home Med ( 160 mg 05/24/25 09:00 05/25/25 09:32 Zanubrutinib [ PO 06/23/25 08:59 160 mg Brukinsa] 80 Mg BID KATHY Administration Capsule) Pantoprazole Sodium 40 mg 05/23/25 09:00 05/25/25 09:31 Pantoprazole 40 Mg Tablet PO 40 mg QAM KATHY Administration Perflutren Lipid Microsphere 0 ml 05/23/25 05:45 Perflutren Lipid Microspheres 1.5 Ml Vial Diluted To 10 Ml Total Volume IV PUSH 05/26/25 05:45 ONCE PRN adequate visualization Protocol Rivaroxaban 20 mg 05/23/25 17:00 05/24/25 17:46 Rivaroxaban 20 Mg Tablet PO 20 mg DAILY@1700 KATHY Administration Radiology Results: ITS Impressions Chest CTA 05/23/25 07:27 IMPRESSION: 1. No PE. 2. Mild left upper lobe pneumonitis. 3. Minimal interstitial pulmonary edema with trace pleural effusions. Lumbar Spine CT 05/23/25 15:24 IMPRESSION: 1. There is a 3.1 x 2.8 x 4.1 cm lytic lesion in the L5 vertebral body with a soft tissue component which extends into the paravertebral and epidural space anterior,lateral and posterior to the L5 vertebral body causing extensive narrowing of the spinal canal and bilateral neural foramen. An MRI of the lumbar spine with and without contrast is recommended for further assessment. Evaluation of the spinal canal contents and bilateral neuroforamen is limited due to CT technique. 2. Multilevel discogenic and degenerative change in the lumbar spine as detailed above. Labs Labs: Laboratory Results - last 24 hr 05/25/25 04:21 WBC 3.7 L RBC 3.36 L Hgb 9.4 L Hct 30.4 L MCV 90.5 MCH 28.0 MCHC 30.9 L RDW 16.2 H Plt Count 110 L MPV 13.5 H Immature Gran % (Auto) 1.9 H Neut % (Auto) 67.1 Lymph % (Auto) 16.6 L [place] % (Auto) 13.4 H Eos % (Auto) 0.5 Baso % (Auto) 0.5 Lymph # (Auto) 0.62 L [place] # (Auto) 0.5 Eos # (Auto) 0.0 Baso # (Auto) 0.0 Abs Immat Gran (auto) 0.07 H Absolute Neuts (auto) 2.5 Absolute Nucleated RBC 0.000 Band Neutrophils % Not Reportable Nucleated RBC % 0.0 Platelet Estimate Decreased % Immature Plt Fraction 12.0 H Ovalocytes 1+ Schistocytes None seen ESR > 140 H Sodium 134 L Potassium 3.5 Chloride 100 Carbon Dioxide 29 Anion Gap 5 BUN 31 H Creatinine 1.40 H Estim Creat Clear Calc 31 Estimated GFR 36 L Glucose 128 H Calcium 7.5 L Magnesium 1.8 Total Bilirubin 0.4 AST 33 ALT 18 Alkaline Phosphatase 86 C-Reactive Protein 14.4 H Total Protein 5.9 L Albumin 2.9 L Quality VTE Prophylaxis VTE prophylaxis: pharmacologic ordered
[2025-05-25] MEDS: RIVAROXABAN 20 MG TABLET PO (16:59)
[2025-05-25] MEDS: ATORVASTATIN 40 MG TABLET 80 MG PO (20:26)
[2025-05-26] VITALS (8 sets, daily range): BP systolic 135–138; BP diastolic 46–56; PULSE 60–90; RESP 16–18; TEMP 36.2–36.7; O2SAT 92–96
[2025-05-26] MEDS: FLUTICASONE PROPIONATE 0.05% NA SPR 16 GM BTL (*BKC) 2 SPRAY NASAL (05:09)
[2025-05-26 05:50] LABS: Hematocrit 30.5 % (37.0-47.0); Hemoglobin 9.4 g/dL (12.0-15.0); Immature Granulocyte Percent A 2.4 % (0-0.5); Immature Platelet Fraction Pct 13.1 % (0.9-11.2); Lymphocytes Absolute Auto 0.70 K/mm3 (0.9-3.2); Mean Corpuscular HGB Conc 30.8 g/dl (32-36); Mean Corpuscular Hemoglobin 27.8 pg (26-34); Mean Corpuscular Volume 90.2 fl (80-100); Nucleated Red Blood Cells Absolute Auto 0.000 K/mm3 (0.0-0.012); Nucleated Red Blood Cells Perc 0.0 % (0.0-0.2); Platelet Count Result 109 k/mm3 (150-375); Red Blood Count 3.38 M/mm3 (4.2-5.4); White Blood Count 3.8 K/mm3 (4.5-10.0)
[2025-05-26 06:11] LABS: Alanine Aminotransferase 20 U/L (6-35); Albumin Level 3.1 g/dL (3.5-5.1); Alkaline Phosphatase 83 U/L (38-126); Anion Gap 9 mmol/L (4-12); Aspartate Amino Transferase 36 U/L (14-36); Bilirubin,Total 0.6 mg/dL (0.2-1.3); Blood Urea Nitrogen 34 mg/dL (7-17); Calcium 7.6 mg/dL (8.4-10.2); Carbon Dioxide 27 mmol/L (22-30); Chloride 99 mmol/L (98-107); Estimated CRCL calculation 34 ml/min; Estimated Glomerular Filt Rate 41; Glucose 118 mg/dL (65-110); Magnesium 1.7 mg/dL (1.6-2.3); Potassium 3.2 mmol/L (3.4-5.0); Sodium 135 mmol/L (137-145); Total Protein 5.9 g/dL (6.3-8.2)
--- NOTE | 2025-05-26 08:56 | PCPTNOTE ---
Patient declined PT at this time stating she did not sleep well last nigt and her back is hurting this morning.
[2025-05-26] MEDS: AMIODARONE HCL 100 MG TABLET PO (09:04)
[2025-05-26] MEDS: HYDROcodone/acetaminophen (*CRX) 5-325 MG TABLET 1 TAB PO ×2 (09:05→16:10)
[2025-05-26] MEDS: FUROSEMIDE INJ 40 MG/4 ML VIAL IV PUSH (09:06)
[2025-05-26] MEDS: FERROUS SULFATE 325 MG TABLET PO ×2 (09:06→16:10)
[2025-05-26] MEDS: LIDOCAINE 5% PATCH 1 PATCH TRANSDERM (09:06)
[2025-05-26] MEDS: PANTOPRAZOLE 40 MG TABLET PO (09:06)
[2025-05-26] MEDS: ZANUBRUTINIB 80 MG 160 EACH PO (09:21)
--- NOTE | 2025-05-26 14:46 | PM.DS ---
DS: Admitting Diagnosis Discharge Date 05/26 Admitting Diagnosis uti DS: Discharge Diagnosis Discharge Diagnosis (1) Acute respiratory failure with hypoxia: Code(s): J96.01 - Acute respiratory failure with hypoxia Status: Acute (2) Abnormal urinalysis: Code(s): R82.90 - Unspecified abnormal findings in urine Status: Acute (3) Atrial fibrillation: Code(s): I48.91 - Unspecified atrial fibrillation Status: Acute (4) Diastolic dysfunction: Code(s): I51.89 - Other ill-defined heart diseases Status: Acute (5) Chronic kidney disease: Code(s): N18.9 - Chronic kidney disease, unspecified Status: Acute (6) Lymphedema: Code(s): I89.0 - Lymphedema, not elsewhere classified Status: Acute Assessment and Plan: - (7) Hypertension: Qualifiers: Hypertension type: essential hypertension Qualified Code(s): I10 - Essential (primary) hypertension Code(s): I10 - Essential (primary) hypertension Status: Acute (8) Morbid obesity with BMI of 45.0-49.9, adult: Code(s): E66.01 - Morbid (severe) obesity due to excess calories; Z68.42 - Body mass index [BMI] 45.0-49.9, adult Status: Acute (9) Adult failure to thrive: Code(s): R62.7 - Adult failure to thrive Status: Acute (10) Skin cancer: Code(s): C44.90 - Unspecified malignant neoplasm of skin, unspecified Status: Acute Assessment and Plan: - DS: Summary Hospital Course Hospital Course: Patient is an 80 yo female with past medical history of squamous and basal cell carcinoma, pulmonary hypertension, CKDIII, anxiety, PAF, severe lymphedema who presents with increased weakness, increased leg edema. Patient states that over the last several days she has been having increasing weakness and shooting pains down her legs. She does admit to some chronic lower back discomfort and history of sciatica. States her leg pain feels similar to this. She has severe lymphedema, but is normally able to walk with a walker. She denies bowel/bladder incontinence or numbness/tingling of the lower extremities. Denies any specific back injury. She has been compliant with her home medications. Patient denies any fevers, chills, chest pain, cough, shortness of breath, nausea, vomiting, dysuria, urinary frequency. Patient has a prior history of squamous and basal cell carcinoma. She was scheduled for outpatient removal of a squamous cell carcinoma of her left lower extremity today however state that she began having extreme anxiety over this and thinks she was having a panic attack. Patient does live alone and has some concerns about caring for herself. She apparently has home health care for 4 hours daily. Pt absolutely refusing to go to snf or any rehab. Insisting on home discharge. she did a lot better with therapy- she is clear for discharge today. She just got a new PCP and will be following up with them soon. Advised to enquire about lymphedema boots/machine for home use as insurance doesnot cover lymphedema clinic visits. she has 8 more doses of antibiotics. will be sent to her pharmacy. Status at Discharge Functional status at discharge: uses cane/walker Overall status at discharge: patient is progressing back to baseline Time Spent with Patient Time attestation: Total time spent providing and/or coordinating discharge services: Time spent: Greater than 30 minutes Exam Narrative: General: NAD, morbidly obese Eyes: EOMI ENT: neck supple Cardiovascular: Regular rate and rhythm Respiratory: Clear to auscultation, respirations even and unlabored on RA Gastrointestinal: Soft, non tender Genitourinary: no suprapubic tenderness Musculoskeletal: very severe bilateral lymphedema Skin: warm, dry, skin lesion in L popliteal fossa consistent with known squamous cell carcinoma. Chronic brawny edema/skin changes. Neuro: Alert. Strength 4/5 in BLEs. Psych: Mood appropriate Const: General: comfortable DS: Data Data Completed and Pending Labs on day of discharge: Labs from last 24 hours 05/26/25 04:57 WBC 3.8 L RBC 3.38 L Hgb 9.4 L Hct 30.5 L MCV 90.2 MCH 27.8 MCHC 30.8 L RDW 16.0 H Plt Count 109 L MPV 13.5 H Immature Gran % (Auto) 2.4 H Neut % (Auto) 62.5 Lymph % (Auto) 18.3 [place] % (Auto) 14.7 H Eos % (Auto) 1.3 Baso % (Auto) 0.8 Lymph # (Auto) 0.70 L [place] # (Auto) 0.6 Eos # (Auto) 0.1 Baso # (Auto) 0.0 Abs Immat Gran (auto) 0.09 H Absolute Neuts (auto) 2.4 Absolute Nucleated RBC 0.000 Nucleated RBC % 0.0 % Immature Plt Fraction 13.1 H Sodium 135 L Potassium 3.2 L Chloride 99 Carbon Dioxide 27 Anion Gap 9 BUN 34 H Creatinine 1.26 H Estim Creat Clear Calc 34 Estimated GFR 41 L Glucose 118 H Calcium 7.6 L Magnesium 1.7 Total Bilirubin 0.6 AST 36 ALT 20 Alkaline Phosphatase 83 Total Protein 5.9 L Albumin 3.1 L Preliminary micro results at discharge 05/23/25 01:29 Blood Culture - Preliminary Blood 05/23/25 01:29 Blood Culture - Preliminary Blood Discharge Plan Discharge Attending physician on discharge: Daly Cisneros Consulting providers: Ivette Malcolm Discharging Clinician: Hilda Bello Patient Disposition: Home with Home Health Service Activity: january shower Diet: heart healthy Discharge Instructions: Per Care Coordination. Patient to have [facility] for RN/PT/OT eval and treat [phone]. They will contact patient to schedule first visit. Please get youe antibiotics and compplet the therapy- will need 8 more doses-1 tab twice a day Patient Instructions: Antibiotic Form, Heart Failure (DC), Pain Management (ED) Patient Language: Setswana Stand Alone Forms: General Discharge Information Follow-up/Referrals: Dwayne,Betsy [Other] - 2 Weeks Discharge Medications: New hydrocodone-acetaminophen 5-325 mg Tablet 1 tablet PO Q6H PRN (Reason: Pain Rated 4-6) Qty: 12 0RF Xarelto 20 mg Tablet 20 mg PO DAILY@1700 Qty: 90 0RF amoxicillin-pot clavulanate 875-125 mg tablet 1 tablet PO Q12H Qty: 8 0RF Continued omeprazole magnesium [Prilosec OTC] 20 mg Tablet,Delayed Release (Dr/Ec) 20 mg PO DAILY atorvastatin 80 mg tablet 80 mg PO QPM fluticasone propionate 50 mcg/actuation [place],Suspension 2 spray intranasal QAM PRN (Reason: nasal congestion) ferrous sulfate 325 mg (65 mg iron) Tablet 324 mg PO BIDWM Qty: 60 1RF Rx Instructions: START IRON SUPPLEMENTS AFTER YOU HAVE FINISIHED THE DOXYCYCLINE albuterol sulfate [ProAir HFA] 90 mcg/actuation HFA aerosol inhaler 2 puff inhalation QID PRN (Reason: shortness of breath or wheezing) Qty: 6.7 0RF Brukinsa 80 mg capsule 160 mg PO BID Rx Instructions: pt states she takes 7am and 7pm amiodarone [Pacerone] 100 mg tablet See Rx Instructions .ROUTE .COMPLEX Qty: 90 2RF Dose Instruction: Take 1 tablet by mouth once daily Rx Instructions: Take 1 tablet by mouth once daily amlodipine 2.5 mg tablet See Rx Instructions .ROUTE .COMPLEX Qty: 90 2RF Dose Instruction: Take 1 tablet by mouth once daily Rx Instructions: Take 1 tablet by mouth once daily furosemide 20 mg tablet See Rx Instructions .ROUTE .COMPLEX Qty: 90 2RF Dose Instruction: TAKE 1 TABLET BY MOUTH IN THE MORNING Rx Instructions: TAKE 1 TABLET BY MOUTH IN THE MORNING Date of admission: 05/24/25 11:14 Primary Care Provider: DwayneBetsy Admitting Provider: Sanjana Morgan Attending physician on admission: Sanjana Morgan Condition: Stable Quality VTE Prophylaxis VTE prophylaxis: pharmacologic ordered Hospitalist MIPS Heart Failure (Exclusion) Patient has history of Heart Transplant or Left Ventricular Assistive Device?: No IF YES, STOP HERE Heart Failure (Qualifier) Patient has current or prior documentation of LVEF less than or equal to 40%, or mod/servere depressed LVSF?: No IF NO, STOP HERE
[2025-05-26] MEDS: RIVAROXABAN 20 MG TABLET PO (16:10)
== END 2025-05-26 16:15 | disposition home health service (06) | DRG 606 ==
LOC: ANHED 05-23 01:38 → ANH2MED 05-23 04:12
PROVIDERS: Nurse Practitioner; Admitting Provider Internal Medicine; Emergency Provider Emergency Medicine; Visit Provider Nurse Practitioner
DX: I89.0 Lymphedema, not elsewhere classified (principal); J96.01 Acute respiratory failure with hypoxia; Z68.41 Body mass index [BMI] 40.0-44.9, adult; N39.0 Urinary tract infection, site not specified; B96.20 Unspecified Escherichia coli [E. coli] as the cause of diseases classified elsewhere; C44.729 Squamous cell carcinoma of skin of left lower limb, including hip; J98.4 Other disorders of lung; R82.90 Unspecified abnormal findings in urine; E66.01 Morbid (severe) obesity due to excess calories; I13.10 Hypertensive heart and chronic kidney disease without heart failure, with stage 1 through stage 4 chronic kidney disease, or unspecified chronic kidney disease; N18.30 Chronic kidney disease, stage 3 unspecified; F41.9 Anxiety disorder, unspecified; G89.29 Other chronic pain; I48.0 Paroxysmal atrial fibrillation; K21.9 Gastro-esophageal reflux disease without esophagitis; M54.40 Lumbago with sciatica, unspecified side; R62.7 Adult failure to thrive; Z85.828 Personal history of other malignant neoplasm of skin; Z90.49 Acquired absence of other specified parts of digestive tract; Z66 Do not resuscitate
CPT/HCPCS: 36415; 71275; 72131; 80053; 81001; 83605; 83690; 83735; 84100; 84145; 84484; 85025; 85055; 85610; 85652; 85730; 86140; 87040; 87086; 87186; 87637; 93005; 93306; 93970; 96361; 96365; 96372; 96375; 97110; 97162; 97166; 97530; 99285; A9270; G0378; J0696; J1171; J1650; J1938; J2405; J3360; J7030; Q9967